=== PATIENT | female | born 1950 | race Caucasian/White ===

== ENCOUNTER → 2016-10-24 | Outpatient (CLI) | payer MEDICARE ==
--- NOTE | 2016-10-24 17:49 | WOMENS IMAGING REPORT ---
EXAM DESCRIPTION: 3D SCREENING MAMMO BILAT COMPLETED DATE/TIME: 10/24/2016 1:46 pm REASON FOR STUDY: Z12.31, ROUTINE SCREENING MAMMO (3D) Z12.31 ENCNTR SCREEN MAMMOGRAM FOR MALIGNANT NEOPLASM OF SOPHIE COMPARISON: December 2011 TECHNIQUE: Standard craniocaudal and mediolateral oblique views of each breast recorded using digita l acquisition and breast tomosynthesis. LIMITATIONS: None. FINDINGS: No masses, calcifications or architectural distortion. No areas of suspicion. Read with the assistance of CAD. .[facility] - R2 Cenova Version 1.3 .[facility] Imaging - R2 Cenova Version 1.3 .[facility] Imaging - R2 Cenova Version 2.4 .[facility] - R2 Cenova Version 2.4 .[facility] - R2 [employer] Version 9.2 IMPRESSION: NORMAL MAMMOGRAM. BIRADS 1. BREAST DENSITY: a. The breasts are almost entirely fatty. BIRAD: 1 NEGATIVE RECOMMENDATION: ROUTINE SCREENING COMMENT: The patient has been notified of the results by letter per SA requirements. Additional no tification policies are in place for contacting patient with suspicious or incomplete findings. Quality ID #[id number]: The [employer] recommends an annual screening mammogram for women aged 40 years or over. This facility utilizes a reminder system to ensure that all patients receive reminder letters, and/or direct phone calls for appointments. This includes reminders for routine scr eening mammograms, diagnostic mammograms, or other Breast Imaging Interventions when appropriate. Th is patient will be placed in the appropriate reminder system. The [employer] (ACR) has developed recommendations for screening MRI of the breast s in certain patient populations, to be used in conjunction with mammography. Breast MRI surveillanc e may be appropriate for women with more than 20% lifetime risk of developing breast cancer as deter mined by genetic testing, significant family history of the disease, or history of mantle radiation f or Hodgkins Disease. ACR Practice Guidelines 2008. DBT Technology DBT is a type of tomographic mammography. With conventional mammography, overlapping breast tissue ma y make lesions difficult to detect, even with good compression. DBT uses an x-ray tube that rotates a round the breast, taking images at different angles. These images are then combined to create thin sl ices of the breast that the radiologist can view as a 3D reconstruction. The [place] unit can perform full-field digital mammograms (2D imaging); or DBT (3D imaging); or both, in a combination mode that quickly performs both the mammogram and the tomosynthesis scan while the breast is still compressed. PQRS 6045F: Fluoroscopic imaging is not utilized for breast tomosynthesis. TECHNICAL DOCUMENTATION: FINDING NUMBER: (1) ASSESSMENT: (1) JOB ID: [id number] [employer]- All Rights Reserved
== END ==
LOC: WI 15:20
PROVIDERS: ATTEND Internal Medicine
DX: Z12.31 Encounter for screening mammogram for malignant neoplasm of breast (principal)
CPT/HCPCS: 77063; G0202; 77067

== ENCOUNTER → 2017-10-21 | Outpatient (CLI) | payer MEDICARE ==
--- NOTE | 2017-10-21 17:17 | WOMENS IMAGING REPORT ---
EXAM DESCRIPTION: 3D SCREENING MAMMO BILAT COMPLETED DATE/TIME: 10/21/2017 1:45 pm REASON FOR STUDY: BIALTERAL SCREENING MAMMO 3D/Z12.31 Z12.31 ENCNTR SCREEN MAMMOGRAM FOR MALIGNANT NEOPLASM OF SOPHIE COMPARISON: 2011, 2016 TECHNIQUE: Standard craniocaudal and mediolateral oblique views of each breast recorded using digita l acquisition and breast tomosynthesis. LIMITATIONS: None. FINDINGS: No masses, calcifications or architectural distortion. No areas of suspicion. Read with the assistance of CAD. .[facility] - R2 Cenova Version 1.3 .[facility] Imaging - R2 Cenova Version 1.3 .[facility] Imaging - R2 Cenova Version 2.4 .[facility] - R2 Cenova Version 2.4 .[facility] - R2 [employer] Version 9.2 IMPRESSION: NORMAL MAMMOGRAM. BIRADS 1. BREAST DENSITY: a. The breasts are almost entirely fatty. BIRAD: 1 NEGATIVE RECOMMENDATION: ROUTINE SCREENING Please continue yearly bilateral screening mammography/tomosynthesis in October 2018 COMMENT: The patient has been notified of the results by letter per SA requirements. Additional no tification policies are in place for contacting patient with suspicious or incomplete findings. Quality ID #[id number]: The [employer] recommends an annual screening mammogram for women aged 40 years or over. This facility utilizes a reminder system to ensure that all patients receive reminder letters, and/or direct phone calls for appointments. This includes reminders for routine scr eening mammograms, diagnostic mammograms, or other Breast Imaging Interventions when appropriate. Th is patient will be placed in the appropriate reminder system. The [employer] (ACR) has developed recommendations for screening MRI of the breast s in certain patient populations, to be used in conjunction with mammography. Breast MRI surveillanc e may be appropriate for women with more than 20% lifetime risk of developing breast cancer as deter mined by genetic testing, significant family history of the disease, or history of mantle radiation f or Hodgkins Disease. ACR Practice Guidelines 2008. DBT Technology DBT is a type of tomographic mammography. With conventional mammography, overlapping breast tissue ma y make lesions difficult to detect, even with good compression. DBT uses an x-ray tube that rotates a round the breast, taking images at different angles. These images are then combined to create thin sl ices of the breast that the radiologist can view as a 3D reconstruction. The [employer] unit can perform full-field digital mammograms (2D imaging); or DBT (3D imaging); or both, in a combination mode that quickly performs both the mammogram and the tomosynthesis scan while the breast is still compressed. PQRS 6045F: Fluoroscopic imaging is not utilized for breast tomosynthesis. TECHNICAL DOCUMENTATION: FINDING NUMBER: (1) ASSESSMENT: (1) JOB ID: [id number] [employer]- All Rights Reserved Reading location - IP/workstation name: [email or web address]
== END ==
LOC: WI 13:03
PROVIDERS: ATTEND Internal Medicine
DX: Z12.31 Encounter for screening mammogram for malignant neoplasm of breast (principal)
CPT/HCPCS: 77063; 77067

== ENCOUNTER → 2018-03-27 | Outpatient (CLI) | payer MEDICARE ==
--- NOTE | 2018-03-27 20:35 | XCELERA REPORT ---
[address] [address] Transthoracic Echocardiogram Report Name: EMY LOVETT Age: 67 yrs Gender: Female : 1950 Patient Status: Outpatient Patient Location: Study Date: 03/27/2018 08:41 AM Height: 64 in Weight: 191 lb BSA: 1.9 m2 Reason For Study: AOv DISORDER Ordering Physician: KILLIAN JOHNSON Performed By: Vilma Otoole Interpretation Summary Calcified aortic annulus with mild calcific with PPG 14mm, and no AR. Mod calcified mitral annulus with no , no MVP, and midl/mod MR with mild/mod LA enlargement. Subaortic hypertrophy of the IVS with mild concentric LVH 11 mm, low normal LVEF and stage I LV diastolic dysfunction, and hypokinesis of the IVS and inferior wall. but no LV enlargement No Pulm HTN, RVSP 30 mm Hg, normal RH. MMode/2D Measurements & Calculations RVDd: 4.1 cm LVIDd: 4.7 cm FS: 27.3 % Ao root diam: 3.0 cm IVSd: 1.0 cm LVIDs: 3.4 cm EDV(Teich): 102.1 ml LVPWd: 1.0 cm ESV(Teich): 47.8 ml Ao root area: 7.3 cm2 LA dimension: 4.5 cm EF(Teich): 53.2 % Doppler Measurements & Calculations MV E max radha: MV P1/2t max radha: Ao V2 max: LV V1 max P.5 cm/sec 79.0 cm/sec 184.2 cm/sec 6.6 mmHg MV A max radha: MV P1/2t: 70.3 msec Ao max PG: LV V1 max: 113.5 cm/sec MVA(P1/2t): 3.1 cm2 13.6 mmHg 128.8 cm/sec MV E/A: 0.68 MV dec slope: 329.2 cm/sec2 MV dec time: 0.24 sec PA V2 max: PI end-d radha: TR max radha: MV P1/2t-pr_phl: 109.6 cm/sec 142.5 cm/sec 256.5 cm/sec 70.3 msec PA max P.8 mmHg TR max P.3 mmHg Left Ventricle The left ventricle is grossly normal size. There is mild concentric left ventricular hypertrophy. Proximal septal thickening is noted. subaortic hypertrophy of IVS 17mm, concentric LVH 11 mm. Left ventricular systolic function is low normal. LV EF is 54%. Doppler measurements suggest impaired left ventricular relaxation, which is associated with grade I/IV or mild diastolic dysfunction. There is inferoseptal wall mild hypokinesis. There is inferior wall mild hypokinesis. There is no thrombus. Right Ventricle The right ventricle is normal in size, thickness and function. Atria The right atrium is normal. The left atrium is moderately dilated. There is no Doppler evidence for an interatrial shunt. Mitral Valve There is moderate mitral annular calcification. There is no evidence of mitral valve prolapse. There is no vegetation seen on the mitral valve. There is no mitral valve stenosis. There is a mild to moderate amount of mitral regurgitation. Aortic Valve The aortic valve is trileaflet. The aortic valve is moderately calcified. The aortic valve opens well. There is no aortic valvular vegetation. There is mild aortic stenosis. There is a peak gradient of 14 mm of Hg. No aortic regurgitation is present. Tricuspid Valve The tricuspid is normal in structure and function. There is no tricuspid valve prolapse. There is no tricuspid stenosis. There is a mild amount of tricuspid regurgitation. Right ventricular systolic pressure is normal. Best estimated RVSP is approximately 30 mm/Hg. Pulmonic Valve The pulmonic valve is not well seen, but is grossly normal. There is a mild amount of pulmonic regurgitation. Great Vessels The aortic root is normal size. There is aortic root sclerosis/calcification. Effusions Minimal pericardial effusion. I WMSI = 1.38 % Normal = 63 Segments Size X - Cannot 2 - 4 - 1-2 small Interpret 1 - Normal Hypokinetic 3 - AkineticDyskinetic 3-5 moderate 5 - 6-14 large Aneurysmal 15-16 diffuse : KILLIAN JOHNSON > Saúl Wells
== END ==
LOC: SP 08:00
PROVIDERS: ATTEND Internal Medicine
DX: I35.9 Nonrheumatic aortic valve disorder, unspecified (principal); I37.1 Nonrheumatic pulmonary valve insufficiency; I36.1 Nonrheumatic tricuspid (valve) insufficiency; I31.3 Pericardial effusion (noninflammatory)
CPT/HCPCS: 93306

== ENCOUNTER → 2018-07-29 | Outpatient (CLI) | payer MEDICARE ==
--- NOTE | 2018-07-29 09:20 | RADIOLOGY REPORT (SQ) ---
EXAM DESCRIPTION: CT CHEST WITH COMPLETED DATE/TIME: 07/29/2018 8:31 am REASON FOR STUDY: LEUKEMIA (C91.10) C91.10 CHRONIC LYMPHOCYTIC LEUK OF B-CELL TYPE NOT ACHIEVE R COMPARISON: None. TECHNIQUE: CT scan of the chest performed using helical scanning technique with dynamic intravenous contrast injection. Images reviewed with lung, soft tissue and bone windows. Reconstructed coronal and sagittal MPR and MIP images reviewed. All images stored on PACS. All CT scanners at this facility use dose modulation, iterative reconstruction, and/or weight based d osing when appropriate to reduce radiation dose to as low as reasonably achievable (ALARA). [facility]: Dose Right [facility]: CareDose [facility]: Dose Right [facility]: Teradose 4D [facility]: OpenLabel CONTRAST TYPE AND DOSE: 95.2 ml Omnipaque 350 RENAL FUNCTION: Creatinine- 0.87 GFR=67 RADIATION DOSE: Total exam DLP: 1626.87 mGy-cm LIMITATIONS: None. FINDINGS: LUNGS AND PLEURA: Mild reticular opacities in the periphery of the lungs, more so in the lower lobes. No evidence for significant honeycombing or traction bronchiectasis. Considerations fo r these findings include mild interstitial lung disease. No acute pulmonary consolidation. No pneumothorax or pleural effusion. The central airways are nate r. HILAR AND MEDIASTINAL STRUCTURES: Borderline to mildly prominent mediastinal lymph nodes. Some of t he largest measure 1.5 cm in short axis diameter. HEART AND VASCULAR STRUCTURES: The ascending aorta at the level of the main pulmonary artery measure s 4.1-4.2 cm in diameter, mildly dilated. Mitral annular calcifications. Aortic valve calcification s. No dissection. No central pulmonary emboli. No pericardial effusion. HARDWARE: None in the chest. UPPER ABDOMEN: Please CT abdomen report. THYROID AND OTHER SOFT TISSUES: The visualized thyroid gland is heterogenous in appearance. Bilater al supraclavicular lymph nodes, larger on the left. Some of the largest measure 1.5 cm in short axis diameter. Bilateral axillary and subpectoral lymph nodes with some of the largest measuring 2.5 cm in diameter. BONES: Levoconvex scoliosis of the thoracic spine. OTHER: Borderline cardiophrenic lymph nodes midline to the right, some of the largest measure 1.0 cm in diameter. IMPRESSION: 1. Extensive bilateral supraclavicular, axillary and subpectoral lymphadenopathy. Bord leslie to mildly prominent mediastinal lymph nodes. Cardiophrenic lymph nodes midline to the right, upper limits of normal in size. 2. Mild reticular opacities in the periphery of the lungs, more so in the lower lobes. Consideratio ns for these findings include interstitial lung disease. 3. The ascending aorta is mildly dilated measuring 4.1-4.2 cm in diameter. No evidence of dissectio n. 4. Additional findings as above. TECHNICAL DOCUMENTATION: JOB ID: [id number] Quality ID # [id number]: Final reports with documentation of one or more dose reduction techniques (e.g., Au tomated exposure control, adjustment of the mA and/or kV according to patient size, use of iterative reconstruction technique) 2010 [employer]- All Rights Reserved Reading location - IP/workstation name: [email or web address]
--- NOTE | 2018-07-29 09:56 | RADIOLOGY REPORT (SQ) ---
EXAM DESCRIPTION: CT ABD/PELVIS WITH IV ONLY COMPLETED DATE/TIME: 07/29/2018 8:31 am REASON FOR STUDY: LEUKEMIA (C91.10) C91.10 CHRONIC LYMPHOCYTIC LEUK OF B-CELL TYPE NOT ACHIEVE R COMPARISON: None. TECHNIQUE: CT scan of the abdomen and pelvis performed using helical scanning technique with dynamic intravenous contrast injection. No oral contrast. Images reviewed with lung, soft tissue, and bone windows. Reconstructed coronal and sagittal MPR images reviewed. Delayed images for evaluation of the urinary system also acquired. All images stored on PACS. All CT scanners at this facility use dose modulation, iterative reconstruction, and/or weight based d osing when appropriate to reduce radiation dose to as low as reasonably achievable (ALARA). [facility]: Dose Right [facility]: CareDose [facility]: Dose Right [facility]: Teradose 4D [facility]: [employer] CONTRAST TYPE AND DOSE: contrast/concentration: Isovue 350.00 mg/ml; Total Contrast Delivered: 95.0 ml; Total Saline Delivered: 71.0 ml RENAL FUNCTION: Creatinine -0.87 GFR=67 RADIATION DOSE: CT Rad equipment meets quality standard of care and radiation dose reduction techniq ues were employed. CTDIvol: 7.8 - 12.2 mGy. DLP: 1627 mGy-cm.. LIMITATIONS: None. FINDINGS: LOWER CHEST: Please see CT chest report. LIVER: Small 7 mm cyst in the dome of the liver, axial image 12, series 3. Hepatomegaly. No dilate d ducts. The hepatic and portal veins are patent. SPLEEN: The spleen is prominent in appearance measures 15-16.0 cm in length. A 2.0 cm x 2.1 cm slig htly enhancing lesion in the proximal- mid spleen. A few other too small to characterize hypoattenua katya lesions are also identified. In view of the given history, the possibility of splenic leukemic l esions are not entirely excluded. PANCREAS: No masses. No significant calcifications. No adjacent inflammation or peripancreatic fluid collections. The pancreatic duct is dilated and measures 4-5 mm in maximum AP diameter. GALLBLADDER: No identified stones by CT criteria. No inflammatory changes to suggest cholecystitis. ADRENAL GLANDS: No significant masses or asymmetry. RIGHT KIDNEY AND URETER: No solid masses. No significant calcifications. No hydronephrosis or hyd roureter. LEFT KIDNEY AND URETER: No solid masses. No significant calcifications. No hydronephrosis or hydr oureter. AORTA AND VESSELS: Mild atherosclerotic changes involving the abdominal aorta and branch vessels. N o aneurysm. No dissection. Left retro-aortic renal vein, normal anatomic variant. Renal arteries, S MA, celiac without stenosis. RETROPERITONEUM: Gastrohepatic ligament lymph nodes with some of the largest measuring 1.1-1.2 cm. Mildly prominent lymph nodes surround the celiac axis, located in the roldan hepatis, peripancreatic, and portacaval regions with some of the largest measuring 3.0 cm in diameter. Mildly prominent aorta caval and left para-aortic lymph nodes with some of the largest measuring 2.2 cm in diameter. Bilateral prominent common iliac lymph nodes with some of the largest measuring 1.9 cm in diameter. Prominent bilateral internal and external iliac and obturator lymph nodes. Some of the largest on th e left measure approximately 4.1 cm in diameter. Some of the largest on the right measure approximat saige 4.4 cm in diameter. Prominent bulky common femoral lymph nodes with some of the largest on the left measuring approximate ly 3.6 cm in diameter and some of the largest on the right measuring approximately 2.9 cm in diameter . Mildly prominent visualized bilateral superficial triangle lymph nodes with some of the largest me asuring 1.8 cm in diameter. BOWEL AND PERITONEAL CAVITY: Constipation. Colonic diverticulae without evidence of diverticulitis. No free fluid. APPENDIX: Prior appendectomy. PELVIS: No mass. No free fluid. Normal bladder. ABDOMINAL WALL: Small fat containing periumbilical hernia. BONES: Moderate severe to marked osteoarthrosis with subchondral cystic changes, osteophytes and jocelin nt space narrowing. Bilateral mild hip joint effusions, more so on the left. Levoconvex scoliosis o f the lumbar spine with degenerative changes. OTHER: Borderline retrocrural lymph nodes. There are a few soft tissue nodules in the lower quadrants of the breasts. IMPRESSION: 1. Extensive abdominal, pelvic, bilateral inguinal and superficial femoral triangle lym phadenopathy. 2. Splenomegaly. A few too small to characterize splenic lesions as well as a larger lesion in the proximal-mid spleen. In view view of the given history, splenic leukemic lesions are not entirely ex cluded. 3. Hepatomegaly. A small hypoattenuated lesion in the dome of the liver may represent a cyst. 4. The pancreatic duct is mildly dilated measuring 4-5 mm in AP diameter. 5. 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 Bilateral hip joint effusions, larger on t he left. 6. Levoconvex scoliosis and degenerative changes involving the lumbar spine. 7. A few small soft tissue nodules in the lower quadrants of the breast. Correlation with physical examination and mammography. 8. Additional findings as above. TECHNICAL DOCUMENTATION: JOB ID: [id number] Quality ID # [id number]: Final reports with documentation of one or more dose reduction techniques (e.g., Au tomated exposure control, adjustment of the mA and/or kV according to patient size, use of iterative reconstruction technique) 2010 [employer]- All Rights Reserved Reading location - IP/workstation name: [email or web address]
== END ==
LOC: RAD 08:00
PROVIDERS: ATTEND Internal Medicine
DX: C91.10 Chronic lymphocytic leukemia of B-cell type not having achieved remission (principal); K59.00 Constipation, unspecified; K57.30 Diverticulosis of large intestine without perforation or abscess without bleeding; N63.20 Unspecified lump in the left breast, unspecified quadrant; N63.10 Unspecified lump in the right breast, unspecified quadrant; R16.2 Hepatomegaly with splenomegaly, not elsewhere classified; M16.0 Bilateral primary osteoarthritis of hip
CPT/HCPCS: 71260; 74177

== ENCOUNTER → 2018-08-28 | Outpatient (CLI) | payer MEDICARE ==
--- NOTE | 2018-08-28 13:34 | RADIOLOGY REPORT (SQ) ---
EXAM DESCRIPTION: CT SOFT TISSUE NECK WITH COMPLETED DATE/TIME: 08/28/2018 11:38 am REASON FOR STUDY: CLL (C91.10) C91.10 CHRONIC LYMPHOCYTIC LEUK OF B-CELL TYPE NOT ACHIEVE R COMPARISON: None. TECHNIQUE: Post IV contrasted scanning from skull base through lung apices with review of bone, soft tissue and lung windows. Reconstructed coronal and sagittal MPR images reviewed. All images stored on PACS. All CT scanners at this facility use dose modulation, iterative reconstruction, and/or weight based d osing when appropriate to reduce radiation dose to as low as reasonably achievable (ALARA). [facility]: Dose Right [facility]: CareDose [facility]: Dose Right [facility]: Teradose 4D [facility]: [employer] CONTRAST TYPE AND DOSE: contrast/concentration: Isovue 350.00 mg/ml; Total Contrast Delivered: 96.0 ml; Total Saline Delivered: 71.0 ml RENAL FUNCTION: GFR > 60. RADIATION DOSE: CT Rad equipment meets quality standard of care and radiation dose reduction techniq ues were employed. CTDIvol: 16.3 - 28.2 mGy. DLP: 4312 mGy-cm. . LIMITATIONS: None. FINDINGS: SKULL BASE: Intact. MAJOR SALIVARY GLANDS: No solid or cystic masses. No inflammatory changes. LYMPHADENOPATHY: Abnormal increased number of lymph nodes above and below the hyoid. None especially large, 1 of the larger nodes left supraclavicular 1.9 x 1.3 cm image 60. MUCOSAL MASSES OR ASYMMETRY: No mucosal masses or asymmetry. LARYNX/CORDS: No abnormal findings. VASCULAR STRUCTURES: The major vessels are patent. LUNG APICES: See separate report of the same date. BONES: Intact. THYROID: Normal size. No masses. PARANASAL SINUSES: Clear. OTHER: No other significant finding. IMPRESSION: Adenopathy consistent with clinical history of lymphoma. TECHNICAL DOCUMENTATION: JOB ID: [id number] Quality ID # [id number]: Final reports with documentation of one or more dose reduction techniques (e.g., Au tomated exposure control, adjustment of the mA and/or kV according to patient size, use of iterative reconstruction technique) 2010 [employer]- All Rights Reserved Reading location - IP/workstation name: [email or web address]
--- NOTE | 2018-08-28 13:51 | RADIOLOGY REPORT (SQ) ---
EXAM DESCRIPTION: CT CHEST WITH COMPLETED DATE/TIME: 08/28/2018 11:38 am REASON FOR STUDY: CLL (C91.10) C91.10 CHRONIC LYMPHOCYTIC LEUK OF B-CELL TYPE NOT ACHIEVE R COMPARISON: 07/29/2018 TECHNIQUE: CT scan of the chest performed using helical scanning technique with dynamic intravenous contrast injection. Images reviewed with lung, soft tissue and bone windows. Reconstructed coronal and sagittal MPR and MIP images reviewed. All images stored on PACS. All CT scanners at this facility use dose modulation, iterative reconstruction, and/or weight based d osing when appropriate to reduce radiation dose to as low as reasonably achievable (ALARA). [facility]: Dose Right [facility]: CareDose [facility]: Dose Right [facility]: Teradose 4D [facility]: [employer] CONTRAST TYPE AND DOSE: See separate report of the same date. RENAL FUNCTION: See separate report of the same date. RADIATION DOSE: . LIMITATIONS: None. FINDINGS: LUNGS AND PLEURA: No opacities, nodules, masses. No pneumothorax. No effusions. HILAR AND MEDIASTINAL STRUCTURES: Abnormal increased number of lymph nodes all measuring up to about 5 mm in short axis. No bulky adenopathy. No significant change. HEART AND VASCULAR STRUCTURES: No aneurysm or dissection. No central pulmonary emboli. No pericardi al effusion. HARDWARE: None in the chest. UPPER ABDOMEN: See separate report of the CT of the abdomen. THYROID AND OTHER SOFT TISSUES: Bilateral axillary adenopathy not significantly changed. Index lesio n series 4, image 414,1.9 x 2.3 cm, previously 2.5 x 1.3 cm. BONES: No significant finding. OTHER: No other significant finding. IMPRESSION: Stable lymphadenopathy. TECHNICAL DOCUMENTATION: JOB ID: [id number] Quality ID # [id number]: Final reports with documentation of one or more dose reduction techniques (e.g., Au tomated exposure control, adjustment of the mA and/or kV according to patient size, use of iterative reconstruction technique) 2010 [employer]- All Rights Reserved Reading location - IP/workstation name: [email or web address]
--- NOTE | 2018-08-28 15:13 | RADIOLOGY REPORT (SQ) ---
EXAM DESCRIPTION: CT ABD/PELVIS WITH IV ONLY COMPLETED DATE/TIME: 08/28/2018 11:38 am REASON FOR STUDY: CLL (C91.10) C91.10 CHRONIC LYMPHOCYTIC LEUK OF B-CELL TYPE NOT ACHIEVE R COMPARISON: None. TECHNIQUE: CT scan of the abdomen and pelvis performed using helical scanning technique with dynamic intravenous contrast injection. No oral contrast. Images reviewed with lung, soft tissue, and bone windows. Reconstructed coronal and sagittal MPR images reviewed. Delayed images for evaluation of the urinary system also acquired. All images stored on PACS. All CT scanners at this facility use dose modulation, iterative reconstruction, and/or weight based d osing when appropriate to reduce radiation dose to as low as reasonably achievable (ALARA). [facility]: Dose Right [facility]: CareDose [facility]: Dose Right [facility]: Teradose 4D [facility]: Smart [employer] CONTRAST TYPE AND DOSE: See separate report of the same date. RENAL FUNCTION: See separate report. RADIATION DOSE: . LIMITATIONS: None. FINDINGS: LOWER CHEST: See separate report of the CT of the chest. LIVER: Subcentimeter low-density lesion too small to characterize. SPLEEN: Enlarged. No focal lesions. PANCREAS: No masses. No significant calcifications. No adjacent inflammation or peripancreatic fluid collections. Pancreatic duct not dilated. GALLBLADDER: No identified stones by CT criteria. No inflammatory changes to suggest cholecystitis. ADRENAL GLANDS: No significant masses or asymmetry. RIGHT KIDNEY AND URETER: No solid masses. No significant calcifications. No hydronephrosis or hyd roureter. LEFT KIDNEY AND URETER: No solid masses. No significant calcifications. No hydronephrosis or hydr oureter. AORTA AND VESSELS: No aneurysm. No dissection. Renal arteries, SMA, celiac without stenosis. RETROPERITONEUM: Retroperitoneal adenopathy is not significantly changed. BOWEL AND PERITONEAL CAVITY: Celiac and SMA adenopathy is not significantly changed. APPENDIX: Not visualized. PELVIS: Pelvic adenopathy not significantly changed. 1 of the larger nodes along the left pelvic gerri e wall 5.7 x 2.1 cm. Shotty inguinal nodes none changed. ABDOMINAL WALL: Small fat containing umbilical hernia. BONES: Nothing acute. OTHER: No other significant finding. IMPRESSION: Stable splenomegaly, abdominal and pelvic adenopathy. TECHNICAL DOCUMENTATION: JOB ID: [id number] Quality ID # [id number]: Final reports with documentation of one or more dose reduction techniques (e.g., Au tomated exposure control, adjustment of the mA and/or kV according to patient size, use of iterative reconstruction technique) 2010 [employer]- All Rights Reserved Reading location - IP/workstation name: [email or web address]
== END ==
LOC: RAD 10:28
PROVIDERS: ATTEND Internal Medicine
DX: C91.10 Chronic lymphocytic leukemia of B-cell type not having achieved remission (principal); R16.1 Splenomegaly, not elsewhere classified; R59.0 Localized enlarged lymph nodes
CPT/HCPCS: 70491; 71260; 74177

== ENCOUNTER 2018-09-04 08:53 | Day surgery (SDC) | payer MEDICARE ==
[2018-09-04 09:58] LABS: INTERNATIONAL RATION (INR) 0.95; PROTHROMBIN TIME 13.2 SEC (11.4-15.4)
[2018-09-04 09:59] LABS: PARTIAL THROMBOPLASTIN TIME 26.8 SEC (23.5-35.8)
[2018-09-04 10:03] LABS: HEMATOCRIT 34.6 % (36.0-47.0); HEMOGLOBIN 10.7 g/dL (12.0-15.5); MEAN CORPUSCULAR HEMOGLOBIN 26.2 pg (27.0-33.4); MEAN CORPUSCULAR VOLUME 85 fl (80-97); PLATELET COUNT 126 10^3/uL (150-450); RED BLOOD COUNT 4.08 10^6/uL (3.72-5.28); RED CELL DISTRIBUTION WIDTH 16.1 % (11.5-14.0)
[2018-09-04 10:19] LABS: BLOOD UREA NITROGEN 34 mg/dL (7-20)
[2018-09-04 10:40] LABS: WHITE BLOOD COUNT 58.6 10^3/uL (4.0-10.5)
[2018-09-04] MEDS ORDERED: FENTANYL CITRATE INJ/PF 100 MCG/2 ML AMPUL ONE (11:15)
[2018-09-04] MEDS ORDERED: MIDAZOLAM 2 MG/2 ML INJ ONE (11:15)
--- NOTE | 2018-09-04 14:10 | RADIOLOGY REPORT (SQ) ---
EXAM DESCRIPTION: CT BIOPSY BONE MARROW, NEEDLE; CT NEEDLE PLACEMENT COMPLETED DATE/TIME: 09/04/2018 12:09 pm REASON FOR STUDY: CHRONIC LYMPHOCYTIC LEUKEMIA OF B-CELL TYPE; CHRONIC LYMPHOCYTIC LEUKEMIA OF B-LADI L TYPE, BONE MARROW BIOPSY C91.10 CHRONIC LYMPHOCYTIC LEUK OF B-CELL TYPE NOT ACHIEVE R Z79.01 DETENTION (CURRENT) USE OF ANTICOAGULANTS COMPARISON: CT chest abdomen pelvis 08/28/2018 TECHNIQUE: CT guided biopsy of the right posterior iliac crest performed with conscious sedation. CT Fluoroscopy Time: 5.[address] scanners at this facility use dose modulation, iterative reconstruction, and/or weight based d osing when appropriate to reduce radiation dose to as low as reasonably achievable (ALARA). [facility]: Dose Right [facility]: CareDose [facility]: Dose Right [facility]: Teradose 4D [facility]: [employer] RADIATION DOSE: mGy. FINDINGS: After obtaining informed consent and explaining the risks and benefits of conscious sedati on,the patient agreed to the procedure. Prior to the procedure, a time out was performed to verify th e patient's identity and planned procedure. IV conscious sedation was administered and physician direction by the registered nurse using 1 millig gregory of Versed and 125 micrograms of fentanyl. Physiologic monitoring was provided before, during, and after sedation. The total sedation time was 40 minutes. Documentation face to face time, the performing proceduralist, spent monitoring the patient: [address] scanning was performed to localize the percutaneous site for the biopsy approach. After sterile skin prep and local lidocaine for skin and deep tissue anesthesia, a coaxial biopsy nee dle was used to obtain a bone marrow aspirate, and a bone marrow core of tissue. The biopsy tissue wa s received by Dr. Dempsey's nurse to be sent out for evaluation. There were no immediate complication s. Pathology is pending at the time of dictation. IMPRESSION: CT GUIDED ASPIRATE AND CORE BIOPSY OF THE RIGHT POSTERIOR ILIAC CREST BONE MARROW PERFOR MED WITHOUT IMMEDIATE COMPLICATION. PATHOLOGY PENDING. IV CONSCIOUS SEDATION WITHOUT COMPLICATION. COMMENT: Quality ID 145: Final reports for procedures using fluoroscopy that document radiation exp osure indices, or exposure time and number of fluorographic images (if radiation exposure indices are not available) Patient medication list reviewed: Yes- Quality ID# [id number]:Eligible professional attests to documenting i n the medical record they obtained, updated, or reviewed the patient's current medications.. TECHNICAL DOCUMENTATION: JOB ID: [id number] Quality ID# [id number]: Final reports with documentation of one or more dose reduction techniques (e.g., Aut omated exposure control, adjustment of the mA and/or kV according to patient size, use of iterative r econstruction technique) 2010 [employer]- All Rights Reserved Reading location - IP/workstation name: [email or web address]
[2018-09-04 14:53] VITALS: BP 139/78
== END 2018-09-04 14:30 | disposition home or self-care (01) ==
LOC: RAD 08:53
PROVIDERS: ATTEND Internal Medicine
DX: C91.10 Chronic lymphocytic leukemia of B-cell type not having achieved remission (principal); Z79.01 Long term (current) use of anticoagulants
CPT/HCPCS: 36415; 84520; 82565; 85027; 85610; 85730; 38221; 77012; J2250; J3010

== ENCOUNTER 2018-11-01 22:54 | Observation (INO) | payer MEDICARE ==
[2018-11-02] MEDS ORDERED: DIPHENHYDRAMINE HCL 50 MG/ML VIAL IV ONE (00:18)
[2018-11-02] MEDS ORDERED: NORMAL SALINE 1000 ML 1,000 ML IV ONE (00:18)
[2018-11-02] MEDS ORDERED: FENTANYL CITRATE INJ/PF 100 MCG/2 ML AMPUL IV ONE (00:18)
[2018-11-02] MEDS ORDERED: METOCLOPRAMIDE HCL INJ/PF 10 MG/2 ML SDV IV ONE (00:18)
--- NOTE | 2018-11-02 00:20 | ER Document Report ---
ED General - General Chief Complaint: Pain All Over Stated Complaint: UPPER BODY PAIN Time Seen by Provider: 11/02/18 00:07 Mode of Arrival: Wheelchair Information source: Patient, Relative, Dr. Davila, [facility] Records Notes: 68-year-old female with CLL, COPD, hypothyroidism presents with complaint of chest pain, back pain and headache that started yesterday. Patient states that her pain wraps around her upper torso and radiates to her head. She describes it as a constant throbbing pain. Patient is currently undergoing chemotherapy and is on a clinical trial. She reports that her last chemo treatment was October 23, 2018. She denies prior similar symptoms. Patient does have a history of chronic pain and takes morphine and Percocet daily. Patient also reports that Motrin has helped her the most today. She does report a history of pleurisy. Patient denies fever, chills, nausea, vomiting, abdominal pain, dysuria, hematuria. TRAVEL OUTSIDE OF THE [place] IN LAST 30 DAYS: No - HPI Onset: Yesterday Onset/Duration: Gradual, Persistent Quality of pain: Throbbing Severity: Severe Pain Level: 4 Associated symptoms: Body/muscle aches, Chest pain, Headache, Hurts to breath, Shortness of breath. denies: Diarrhea, Fever, Leg swelling, Nausea, Vomiting, Sinus pain/drainage, Weakness Exacerbated by: Denies Relieved by: Denies Similar symptoms previously: Yes Recently seen / treated by doctor: Yes - Related Data Allergies/Adverse Reactions: codeine [Codeine] Adverse Reaction (Mild, Verified 11/02/18 00:32) lisinopril [Lisinopril] Adverse Reaction (Verified 11/02/18 00:32) Past Medical History - General Information source: Patient, Relative, [facility] Records - Social History Smoking Status: Never Smoker Frequency of alcohol use: None Drug Abuse: None Lives with: Family Family History: Reviewed & Not Pertinent - Past Medical History Cardiac Medical History: Reports: Hx Heart Attack Denies: Hx Coronary Artery Disease, Hx Hypertension - Past history Pulmonary Medical History: Reports: Hx Bronchitis, Hx COPD, Hx Pneumonia - Last time in April Denies: Hx Asthma Neurological Medical History: Denies: Hx Cerebrovascular Accident, Hx Seizures Endocrine Medical History: Reports: Hx Hyperthyroidism, Hx Hypothyroidism Renal/ Medical History: Reports: Hx Kidney Stones Malignancy Medical History: Reports: Hx Leukemia Musculoskeletal Medical History: Reports Hx Arthritis - all over, Reports Hx Musculoskeletal Deformity, Reports Hx Musculoskeletal Trauma Psychiatric Medical History: Reports: Hx Anxiety Traumatic Medical History: Reports: Hx Fractures Past Surgical History: Reports: Hx Appendectomy, Hx Breast Surgery - reduction, Hx Orthopedic Surgery - 13 foot surgeries neuromas rib removed , chest tube - Immunizations Immunizations up to date: Yes Hx Diphtheria, Pertussis, Tetanus Vaccination: Yes Hx Pneumococcal Vaccination: 01/06/15 Review of Systems - Review of Systems Notes: REVIEW OF SYSTEMS: CONSTITUTIONAL : Denies fever, chills, or sweats. Denies recent illness. Denies weight loss, recent hospitalizations. EENT: Denies visual changes, eye pain. Denies sore throat, oral lesions, difficulty swallowing. CARDIOVASCULAR: + chest pain. Denies palpitations. Denies lower extremity edema. RESPIRATORY: Denies cough. + shortness of breath, denies wheezing. GASTROINTESTINAL: Denies abdominal pain or distention. Denies nausea, vomiting, or diarrhea. Denies blood in vomitus, stools, or per rectum. Denies black, tarry stools. Denies constipation. GENITOURINARY: Denies difficulty urinating, painful urination, frequency, blood in urine, or vaginal discharge. MUSCULOSKELETAL: Denies back or neck pain or stiffness. Denies joint pain or swelling. SKIN: Denies rash, lesions or sores. HEMATOLOGIC : Denies easy bruising or bleeding. LYMPHATIC: Denies swollen glands. NEUROLOGICAL: Denies confusion or altered mental status. Denies loss of consciousness. Denies dizziness or lightheadedness. + headache. Denies weakness or paralysis. Denies problems difficulty with ambulation, slurred speech. Denies sensory loss, numbness, or tingling. Denies seizures. PSYCHIATRIC: Denies anxiety or stress. Denies depression, suicidal ideation, or homicidal ideation. Denies visual or auditory hallucinations. Physical Exam - Vital signs Vitals: Temp Pulse Resp BP Pulse Ox 98.6 F 86 20 106/55 L 94 11/01/18 23:16 11/01/18 23:16 11/01/18 23:16 11/01/18 23:16 11/01/18 23:16 - Notes Notes: PHYSICAL EXAMINATION: GENERAL: Well-appearing, well-nourished and in no acute distress. HEAD: Atraumatic, normocephalic. EYES: Pupils equal round and reactive to light, extraocular movements intact, conjunctiva are normal. ENT: Nares patent, oropharynx clear without exudates. Moist mucous membranes. NECK: Normal range of motion, supple without lymphadenopathy LUNGS: Breath sounds clear to auscultation bilaterally and equal. No wheezes rales or rhonchi. HEART: Regular rate and rhythm 3/6 systolic murmur ABDOMEN: Soft, nontender, nondistended abdomen. No guarding, no rebound. No masses appreciated. Female : deferred Musculoskeletal: Normal range of motion, no pitting or edema. No cyanosis. NEUROLOGICAL: Cranial nerves grossly intact. Normal speech, normal gait. Normal sensory, motor exams PSYCH: Normal mood, normal affect. SKIN: Warm, Dry, normal turgor, no rashes or lesions noted. Course - Re-evaluation Re-evalutation: 11/02/18 03:28 Laboratory 11/02/18 11/02/18 11/02/18 00:34 00:44 00:44 WBC 29.5 H RBC 4.00 Hgb 10.3 L Hct 32.8 L MCV 82 MCH 25.6 L MCHC 31.2 L RDW 16.8 H Plt Count 117 L Total Counted 100 Seg Neutrophils % Not Reportable Seg Neuts % (Manual) 19 L Lymphocytes % Not Reportable Lymphocytes % (Manual) 79 H Monocytes % Not Reportable Monocytes % (Manual) 1 L Eosinophils % Not Reportable Eosinophils % (Manual) 0 Basophils % Not Reportable Basophils % (Manual) 1 Absolute Neutrophils Not Reportable Abs Neuts (Manual) 5.6 Absolute Lymphocytes Not Reportable Abs Lymphs (Manual) 23.3 H Absolute Monocytes Not Reportable Abs Monocytes (Manual) 0.3 Absolute Eosinophils Not Reportable Absolute Eos (Manual) 0.0 Absolute Basophils Not Reportable Abs Basophils (Manual) 0.3 H Platelet Comment DECREASED Hypochromasia 1+ Anisocytosis SLIGHT Tear Drop Cells SLIGHT Ovalocytes 1+ ESR PT 14.9 INR 1.17 VBG pH VBG pCO2 VBG HCO3 VBG Base Excess Sodium Potassium Chloride Carbon Dioxide Anion Gap BUN Creatinine Est GFR ( Amer) Est GFR (Non-Af Amer) Glucose Lactic Acid Calcium Total Bilirubin Direct Bilirubin Neonat Total Bilirubin Neonat Direct Bilirubin Neonat Indirect Bili AST ALT Alkaline Phosphatase Troponin I C-Reactive Protein Total Protein Albumin Urine Color YELLOW Urine Appearance CLEAR Urine pH 6.0 Ur Specific [place] 1.012 Urine Protein NEGATIVE Urine Glucose (UA) NEGATIVE Urine Ketones NEGATIVE Urine Blood MODERATE H Urine Nitrite NEGATIVE Urine Bilirubin NEGATIVE Urine Urobilinogen NEGATIVE Ur Leukocyte Esterase NEGATIVE Urine WBC (Auto) 3 Urine RBC (Auto) 1 Squamous Epi Cells Auto 1 Urine Mucus (Auto) RARE Urine Ascorbic Acid NEGATIVE 11/02/18 11/02/18 11/02/18 00:44 00:44 00:44 WBC RBC Hgb Hct MCV MCH MCHC RDW Plt Count Total Counted Seg Neutrophils % Seg Neuts % (Manual) Lymphocytes % Lymphocytes % (Manual) Monocytes % Monocytes % (Manual) Eosinophils % Eosinophils % (Manual) Basophils % Basophils % (Manual) Absolute Neutrophils Abs Neuts (Manual) Absolute Lymphocytes Abs Lymphs (Manual) Absolute Monocytes Abs Monocytes (Manual) Absolute Eosinophils Absolute Eos (Manual) Absolute Basophils Abs Basophils (Manual) Platelet Comment Hypochromasia Anisocytosis Tear Drop Cells Ovalocytes ESR PT INR VBG pH 7.35 VBG pCO2 48.8 VBG HCO3 26.3 VBG Base Excess 0.2 Sodium 135.9 L Potassium 3.7 Chloride 101 Carbon Dioxide 25 Anion Gap 10 BUN 20 Creatinine 0.53 Est GFR ( Amer) > 60 Est GFR (Non-Af Amer) > 60 Glucose 213 H Lactic Acid 1.5 Calcium 8.8 Total Bilirubin 0.9 Direct Bilirubin 0.5 H Neonat Total Bilirubin Not Reportable Neonat Direct Bilirubin Not Reportable Neonat Indirect Bili Not Reportable AST 16 ALT 15 Alkaline Phosphatase 52 Troponin I C-Reactive Protein Total Protein 5.9 L Albumin 3.9 Urine Color Urine Appearance Urine pH Ur Specific [place] Urine Protein Urine Glucose (UA) Urine Ketones Urine Blood Urine Nitrite Urine Bilirubin Urine Urobilinogen Ur Leukocyte Esterase Urine WBC (Auto) Urine RBC (Auto) Squamous Epi Cells Auto Urine Mucus (Auto) Urine Ascorbic Acid 11/02/18 11/02/18 11/02/18 00:44 00:44 00:44 WBC RBC Hgb Hct MCV MCH MCHC RDW Plt Count Total Counted Seg Neutrophils % Seg Neuts % (Manual) Lymphocytes % Lymphocytes % (Manual) Monocytes % Monocytes % (Manual) Eosinophils % Eosinophils % (Manual) Basophils % Basophils % (Manual) Absolute Neutrophils Abs Neuts (Manual) Absolute Lymphocytes Abs Lymphs (Manual) Absolute Monocytes Abs Monocytes (Manual) Absolute Eosinophils Absolute Eos (Manual) Absolute Basophils Abs Basophils (Manual) Platelet Comment Hypochromasia Anisocytosis Tear Drop Cells Ovalocytes ESR 20 PT INR VBG pH VBG pCO2 VBG HCO3 VBG Base Excess Sodium Potassium Chloride Carbon Dioxide Anion Gap BUN Creatinine Est GFR ( Amer) Est GFR (Non-Af Amer) Glucose Lactic Acid Calcium Total Bilirubin Direct Bilirubin Neonat Total Bilirubin Neonat Direct Bilirubin Neonat Indirect Bili AST ALT Alkaline Phosphatase Troponin I 0.016 C-Reactive Protein 127.3 H Total Protein Albumin Urine Color Urine Appearance Urine pH Ur Specific [place] Urine Protein Urine Glucose (UA) Urine Ketones Urine Blood Urine Nitrite Urine Bilirubin Urine Urobilinogen Ur Leukocyte Esterase Urine WBC (Auto) Urine RBC (Auto) Squamous Epi Cells Auto Urine Mucus (Auto) Urine Ascorbic Acid Chest/Abdomen CTA 11/02/18 00:15 IMPRESSION: No aortic dissection or aneurysm. No pulmonary embolus. Dilated main pulmonary artery which can be seen in the setting of pulmonary arterial hypertension. No pneumonia. Head CT 11/02/18 00:15 IMPRESSION: 1. There is no evidence of acute intracranial pathology. Temp Pulse Resp BP Pulse Ox 98.6 F 86 16 102/56 L 93 11/01/18 23:16 11/01/18 23:16 11/02/18 01:31 11/02/18 01:31 11/02/18 01:31 11/02/18 03:59 68-year-old female with CLL presents with complaint of chest pain, back pain that started yesterday. Vital signs reviewed upon arrival and patient is mildly hypotensive which appears to be her baseline when trended. EKG was obtained and showed diffuse ST elevation. There is no reciprocal change on EKG. CTA of the chest was obtained due to the patient's complaint of pain with deep inspiration and this was negative for dissection, pulmonary embolism but did show a small pericardial effusion and a dilated pulmonary artery. CT of the head was obtained due to the patient's complaint of headache and this was negative for any acute intracranial pathology. Patient did receive morphine, Reglan, Benadryl and Toradol during her ED course. I did speak to Dr. Vance who has agreed to admit the patient to the IMCU. I did speak to Dr. Vasquez patient's oncologist who is aware that the patient will be admitted and a consult was placed for him. CBC does show a leukocytosis of 29 which is greatly improved from previous white counts which were in the 50s. CMP does show hyperglycemia without evidence of DKA. CRP is elevated at 127. Troponin is within normal limits. Patient and daughter are agreeable with admission. - Vital Signs Vital signs: Temp Pulse Resp BP Pulse Ox 98.6 F 86 16 102/56 L 93 11/01/18 23:16 11/01/18 23:16 11/02/18 01:31 11/02/18 01:31 11/02/18 01:31 - Laboratory Result Diagrams: 11/02/18 00:44 11/02/18 00:44 Laboratory results interpreted by me: 11/02/18 11/02/18 11/02/18 00:34 00:44 00:44 WBC 29.5 H Hgb 10.3 L Hct 32.8 L MCH 25.6 L MCHC 31.2 L RDW 16.8 H Plt Count 117 L Seg Neuts % (Manual) 19 L Lymphocytes % (Manual) 79 H Monocytes % (Manual) 1 L Abs Lymphs (Manual) 23.3 H Abs Basophils (Manual) 0.3 H Sodium 135.9 L Glucose 213 H Direct Bilirubin 0.5 H C-Reactive Protein Total Protein 5.9 L Urine Blood MODERATE H 11/02/18 00:44 WBC Hgb Hct MCH MCHC RDW Plt Count Seg Neuts % (Manual) Lymphocytes % (Manual) Monocytes % (Manual) Abs Lymphs (Manual) Abs Basophils (Manual) Sodium Glucose Direct Bilirubin C-Reactive Protein 127.3 H Total Protein Urine Blood - Diagnostic Test Radiology reviewed: Image reviewed, Reports reviewed - EKG Interpretation by Me EKG shows normal: Sinus rhythm Rate: Normal - Diffuse ST elevation When compared to previous EKG there are: Changes noted Critical Care Note - Critical Care Note Total time excluding time spent on procedures (mins): 35 - Minutes of critical care time spent in direct contact evaluating and reevaluating the patient, treating symptoms, reviewing labs and studies and speaking with family and consultants excluding any procedures Discharge - Discharge Clinical Impression: Pericardial effusion, CLL (chronic lymphocytic leukemia), Hyperglycemia, Elevated C-reactive protein (CRP) Pericarditis Qualifiers: Pericarditis type: unspecified type Chronicity: acute Qualified Code(s): I30.9 - Acute pericarditis, unspecified Chest pain Qualifiers: Chest pain type: unspecified Qualified Code(s): R07.9 - Chest pain, unspecified Condition: Fair Disposition: ADMITTED INPATIENT Admitting Provider: [facility] Admitted: [facility]
[2018-11-02 01:01] LABS: HEMATOCRIT 32.8 % (36.0-47.0); HEMOGLOBIN 10.3 g/dL (12.0-15.5); MEAN CORPUSCULAR HEMOGLOBIN 25.6 pg (27.0-33.4); MEAN CORPUSCULAR HGB CONC 31.2 g/dL (32.0-36.0); MEAN CORPUSCULAR VOLUME 82 fl (80-97); PLATELET COUNT 117 10^3/uL (150-450); RED CELL DISTRIBUTION WIDTH 16.8 % (11.5-14.0); WHITE BLOOD COUNT 29.5 10^3/uL (4.0-10.5)
[2018-11-02 01:02] LABS: INTERNATIONAL RATION (INR) 1.17; PROTHROMBIN TIME 14.9 SEC (11.4-15.4)
[2018-11-02 01:17] LABS: VENOUS BLOOD BASE EXCESS 0.2 mmol/L; VENOUS BLOOD HCO3 26.3 mmol/L (20-32); VENOUS BLOOD PCO2 48.8 mmHg (35-63); VENOUS BLOOD PH 7.35 (7.30-7.42)
[2018-11-02 01:19] LABS: APPEARANCE,URINE CLEAR; BILIRUBIN,URINE NEGATIVE (NEGATIVE); COLOR,URINE YELLOW; GLUCOSE, URINE NEGATIVE (NEGATIVE); KETONES,URINE NEGATIVE (NEGATIVE); LEUKOCYTE ESTERASE,URINE NEGATIVE (NEGATIVE); NITRITE,URINE NEGATIVE (NEGATIVE); PROTEIN,URINE NEGATIVE (NEGATIVE); URINE SPECIFIC GRAVITY 1.012; UROBILINOGEN,URINE NEGATIVE mg/dL (<2.0)
[2018-11-02 01:20] LABS: ABSOLUTE LYMPHOCYTES# (MANUAL) 23.3 10^3/uL (0.5-4.7); ABSOLUTE MONOCYTES # (MANUAL) 0.3 10^3/uL (0.1-1.4); ALANINE AMINOTRANSFERASE 15 U/L (9-52); ALBUMIN 3.9 g/dL (3.5-5.0); ALKALINE PHOSPHATASE 52 U/L (38-126); ANION GAP 10 (5-19); ASPARTATE AMINO TRANSFERASE 16 U/L (14-36); BASOPHILS % (MANUAL) 1 % (0-2); BILIRUBIN,DIRECT 0.5 mg/dL (0.0-0.4); BILIRUBIN,TOTAL 0.9 mg/dL (0.2-1.3); BLOOD UREA NITROGEN 20 mg/dL (7-20); CALCIUM 8.8 mg/dL (8.4-10.2); CARBON DIOXIDE 25 mmol/L (22-30); CHLORIDE 101 mmol/L (98-107); EOSINOPHILS % (MANUAL) 0 % (0-6); GLUCOSE 213 mg/dL (75-110); MONOCYTES % (MANUAL) 1 % (3-13); PLATELET COMMENT DECREASED; POTASSIUM 3.7 mmol/L (3.6-5.0); SEGMENTED NEUTROPHILS % (MAN) 19 % (42-78); TOTAL CELLS COUNTED 100; TOTAL PROTEIN 5.9 g/dL (6.3-8.2)
[2018-11-02 01:21] LABS: ANISOCYTOSIS SLIGHT; HYPOCHROMASIA 1+; OVALOCYTES 1+; TEAR DROP CELLS SLIGHT
[2018-11-02 01:22] LABS: LYMPHOCYTES % (MANUAL) 79 % (13-45)
--- NOTE | 2018-11-02 02:52 | RADIOLOGY REPORT (SQ) ---
EXAM: CT head without IV contrast CLINICAL DATA: headache, hx cancer TECHNICAL DATA: Multiple axial CT images of the brain were performed followed by sagittal and coronal reconstructed images. The CT study is performed according to ALARA (as low as reasonably achievable) or ALARA/IMAGE GENTLY, with automatic adjustment of mA and/or kV according to patient size. Performed on: 11/02/2018 at 1:58 AM Comparisons: None. FINDINGS: There is no evidence of mass, acute mass effect or midline shift. There are no acute extra-axial fluid collections. There is no evidence of acute intracranial hemorrhage. The cerebral sulci and ventricles are normal in size and configuration. There are no focal abnormal areas of increased or decreased attenuation. There is no significant mucosal thickening of the paranasal sinuses. The mastoid air cells are clear. The orbital contents are grossly unremarkable. No acute osseous abnormalities are identified. No focal soft tissue abnormalities are identified. IMPRESSION: 1. There is no evidence of acute intracranial pathology.
[2018-11-02] MEDS ORDERED: KETOROLAC TROMETHAMINE INJ/PF 30 MG/1 ML SDV IV ONE (03:05)
--- NOTE | 2018-11-02 03:06 | RADIOLOGY REPORT (SQ) ---
CLINICAL HISTORY: pain w breathing h/o cancer COMPARISON: None. TECHNIQUE: CT CHEST ANGIOGRAPHY WITHOUT THEN WITH IV CONTRAST on 11/02/2018 12:15 AM CDT. MIPS reconstructions were generated. This exam was performed according to our departmental dose-optimization program, which includes automated exposure control, adjustment of the mA and/or kV according to patient size and/or use of iterative reconstruction technique. MIP images were generated. FINDINGS: Mid ascending thoracic aorta is borderline in size at 4.1 cm. Main pulmonary artery is dilated at 4.2 cm. Right diaphragm is elevated. The heart is mildly enlarged. There is no pericardial effusion. Intrathoracic lymph nodes are not enlarged. There is no pleural effusion, pleural thickening or pneumothorax. Central airways are patent. Lungs are clear with no consolidation, mass or interstitial lung disease. There are no acute abnormalities within the limited images of the upper abdomen. There are no acute osseous findings. No suspicious bony lesions. IMPRESSION: No aortic dissection or aneurysm. No pulmonary embolus. Dilated main pulmonary artery which can be seen in the setting of pulmonary arterial hypertension. No pneumonia.
[2018-11-02] MEDS ORDERED: NORMAL SALINE 1000 ML 1,000 ML IV PRN (03:43)
[2018-11-02 04:35] LABS: INTERNATIONAL RATION (INR) 1.26; PROTHROMBIN TIME 15.8 SEC (11.4-15.4)
[2018-11-02 04:36] LABS: PARTIAL THROMBOPLASTIN TIME 39.8 SEC (23.5-35.8)
[2018-11-02 04:50] LABS: PHOSPHORUS 3.9 mg/dL (2.5-4.5)
[2018-11-02 05:06] LABS: FREE T4 (FREE THYROXINE) 1.39 ng/dL (0.78-2.19)
[2018-11-02 05:20] LABS: THYROID STIMULATING HORMONE 2.37 uIU/mL (0.47-4.68)
[2018-11-02] MEDS ORDERED: MORPHINE SULFATE IR 15 MG TABLET PO PRN (05:30)
[2018-11-02 05:45] LABS: URINE AMPHETAMINES SCREEN NEGATIVE; URINE BARBITURATES SCREEN NEGATIVE; URINE BENZODIAZEPINES SCREEN NEGATIVE; URINE COCAINE SCREEN NEGATIVE; URINE MARIJUANA (THC) SCREEN NEGATIVE; URINE METHADONE SCREEN NEGATIVE; URINE PHENCYCLIDINE SCREEN NEGATIVE
[2018-11-02] MEDS: OXYCODONE HCL IR 5 MG TABLET PO SCH ×2 (05:46→12:56)
[2018-11-02] MEDS: OXYCODONE-ACETAMINOPHEN 5-325 MG TABLET PO SCH ×2 (05:47→12:55)
[2018-11-02 06:04] LABS: CREATINE KINASE MB < 0.22 ng/mL (<4.55); TROPONIN I < 0.012 ng/mL
[2018-11-02] MEDS ORDERED: MELOXICAM 7.5 MG TABLET PO SCH (10:00)
[2018-11-02] MEDS ORDERED: PRAMIPEXOLE DI-HCL 0.25 MG TABLET PO SCH (10:00)
[2018-11-02] MEDS: LEVOTHYROXINE SODIUM 0.088 MG TABLET PO SCH (10:31)
[2018-11-02] MEDS: COLCHICINE 0.6 MG TABLET PO SCH ×2 (10:31→22:18)
[2018-11-02] MEDS: GABAPENTIN 300 MG CAPSULE PO SCH ×3 (10:31→17:18)
[2018-11-02] MEDS: CYCLOBENZAPRINE HCL 10 MG TABLET PO SCH ×2 (10:32→17:18)
[2018-11-02] MEDS: ENOXAPARIN SODIUM INJ 40 MG/0.4 ML DISP.SYRIN SUBCUT SCH (10:32)
--- NOTE | 2018-11-02 10:37 | EKG REPORT ---
SEVERITY:- ABNORMAL ECG - SINUS RHYTHM ST ELEVATION SUGGESTS PERICARDITIS : Confirmed by: Daniel Evangelista 02-Nov-2018 10:37:03
[2018-11-02 11:15] LABS: CREATINE KINASE MB < 0.22 ng/mL (<4.55); TROPONIN I < 0.012 ng/mL
--- NOTE | 2018-11-02 11:51 | PDOC CONSULTATION ---
Consultation Consult Date: 11/02/18 Attending physician:: KILLIAN JOHNSON Provider Consulted: MATTY CONRAD Consult reason:: Chest pain, neck pain, shortness of breath, pleuritic pain History of Present Illness Admission Date/PCP: 11/02/18 03:55 KILLIAN JOHNSON MD Patient complains of: Chest pain, neck pain History of Present Illness: EMY LOVETT is a 68 year old female with known history of CLL currently on clinical trial with IBRUTINIB + OBINUTUZIMAB who began experiencing acute onset chest pain and neck pain starting on about 48 hours ago. She called our office and I discussed her case with the daughter, and recommended that she start on NSAIDs. It sounded like she was having a costochondritis type issue ongoing. Unfortunately the pain continued and worsened so I instructed her to come to the ER. In the ER she had a CT of the chest which did not show PE but I was told by the ER physician that there was a small pericardial effusion. Although the official read does not mention anything about pericardial effusion. But she does have increased pain when she lies flat, positional changes seem to cause more pain for her, and the pain is continuous now. There were no EKG changes either. Past Medical History Cardiac Medical History: Reports: Myocardial Infarction Denies: Coronary Artery Disease, Hypertension - Past history Pulmonary Medical History: Reports: Bronchitis, Chronic Obstructive Pulmonary Disease (COPD), Pneumonia - Last time in April Denies: Asthma Neurological Medical History: Denies: Seizures Endocrine Medical History: Reports: Hyperthyroidism, Hypothyroidism Malignancy Medical History: Reports: Leukemia Musculoskeltal Medical History: Reports: Arthritis - all over Psychiatric Medical History: Reports: Depression Hematology: Denies: Anemia Past Surgical History Past Surgical History: Reports: Appendectomy, Orthopedic Surgery - 13 foot surgeries neuromas rib removed , chest tube Social History Information Source: Patient Lives with: Family Smoking Status: Never Smoker Frequency of Alcohol Use: None Hx Recreational Drug Use: No Drugs: None Hx Prescription Drug Abuse: No - Advance Directive Resuscitation Status: Full Code Family History Family History: Reviewed & Not Pertinent Parental Family History Reviewed: Yes Children Family History Reviewed: Yes Sibling(s) Family History Reviewed.: Yes Medication/Allergy Allergies/Adverse Reactions: codeine [Codeine] Adverse Reaction (Mild, Verified 11/02/18 00:32) lisinopril [Lisinopril] Adverse Reaction (Verified 11/02/18 00:32) Review of Systems Constitutional: ABSENT: chills, fever(s), headache(s), weight gain, weight loss Eyes: ABSENT: visual disturbances Ears: ABSENT: hearing changes Cardiovascular: ABSENT: chest pain, dyspnea on exertion, edema, orthropnea, p alpitations Respiratory: ABSENT: cough, hemoptysis Gastrointestinal: ABSENT: abdominal pain, constipation, diarrhea, hematemesis, hematochezia, nausea, vomiting Genitourinary: ABSENT: dysuria, hematuria Musculoskeletal: ABSENT: joint swelling Integumentary: ABSENT: rash, wounds Neurological: ABSENT: abnormal gait, abnormal speech, confusion, dizziness, focal weakness, syncope Psychiatric: ABSENT: anxiety, depression, homidical ideation, suicidal ideation Endocrine: ABSENT: cold intolerance, heat intolerance, polydipsia, polyuria Hematologic/Lymphatic: ABSENT: easy bleeding, easy bruising Physical Exam Vital Signs: Temp Pulse Resp BP Pulse Ox 98.8 F 83 20 102/56 L 94 11/02/18 07:28 11/02/18 07:28 11/02/18 07:28 11/02/18 07:28 11/02/18 07:28 Intake & Output 11/01/18 11/02/18 11/03/18 06:59 06:59 06:59 Intake Total 1000 Balance 1000 Weight 87.997 kg General appearance: PRESENT: no acute distress, well-developed, well-nourished Head exam: PRESENT: atraumatic, normocephalic Eye exam: PRESENT: conjunctiva pink, EOMI, PERRLA. ABSENT: scleral icterus Ear exam: PRESENT: normal external ear exam Mouth exam: PRESENT: moist, tongue midline Neck exam: ABSENT: carotid bruit, JVD, lymphadenopathy, thyromegaly Respiratory exam: PRESENT: clear to auscultation evan. ABSENT: rales, rhonchi, wheezes Cardiovascular exam: PRESENT: RRR. ABSENT: diastolic murmur, rubs, systolic murmur Pulses: PRESENT: normal dorsalis pedis pul Vascular exam: PRESENT: normal capillary refill GI/Abdominal exam: PRESENT: normal bowel sounds, soft. ABSENT: distended, guarding, mass, organolmegaly, rebound, tenderness Rectal exam: PRESENT: deferred Extremities exam: PRESENT: full ROM. ABSENT: calf tenderness, clubbing, pedal edema Neurological exam: PRESENT: alert, awake, oriented to person, oriented to place, oriented to time, oriented to situation, CN II-XII grossly intact. ABSENT: motor sensory deficit Psychiatric exam: PRESENT: appropriate affect, normal mood. ABSENT: homicidal ideation, suicidal ideation Skin exam: PRESENT: dry, intact, warm. ABSENT: cyanosis, rash Results Laboratory Results: 11/02/18 00:44 11/02/18 00:44 11/02/18 11/02/18 11/02/18 00:34 00:44 00:44 WBC 29.5 H RBC 4.00 Hgb 10.3 L Hct 32.8 L MCV 82 MCH 25.6 L MCHC 31.2 L RDW 16.8 H Plt Count 117 L Seg Neutrophils % Not Reportable Lymphocytes % Not Reportable Monocytes % Not Reportable Eosinophils % Not Reportable Basophils % Not Reportable Absolute Neutrophils Not Reportable Absolute Lymphocytes Not Reportable Absolute Monocytes Not Reportable Absolute Eosinophils Not Reportable Absolute Basophils Not Reportable VBG pH VBG pCO2 VBG HCO3 VBG Base Excess Sodium 135.9 L Potassium 3.7 Chloride 101 Carbon Dioxide 25 Anion Gap 10 BUN 20 Creatinine 0.53 Est GFR ( Amer) > 60 Est GFR (Non-Af Amer) > 60 Glucose 213 H Lactic Acid Calcium 8.8 Phosphorus Magnesium Total Bilirubin 0.9 AST 16 ALT 15 Alkaline Phosphatase 52 Ammonia C-Reactive Protein Total Protein 5.9 L Albumin 3.9 Amylase Lipase TSH Free T4 Urine Color YELLOW Urine Appearance CLEAR Urine pH 6.0 Ur Specific [place] 1.012 Urine Protein NEGATIVE Urine Glucose (UA) NEGATIVE Urine Ketones NEGATIVE Urine Blood MODERATE H Urine Nitrite NEGATIVE Ur Leukocyte Esterase NEGATIVE Urine WBC (Auto) 3 Urine RBC (Auto) 1 11/02/18 11/02/18 11/02/18 00:44 00:44 00:44 WBC RBC Hgb Hct MCV MCH MCHC RDW Plt Count Seg Neutrophils % Lymphocytes % Monocytes % Eosinophils % Basophils % Absolute Neutrophils Absolute Lymphocytes Absolute Monocytes Absolute Eosinophils Absolute Basophils VBG pH 7.35 VBG pCO2 48.8 VBG HCO3 26.3 VBG Base Excess 0.2 Sodium Potassium Chloride Carbon Dioxide Anion Gap BUN Creatinine Est GFR ( Amer) Est GFR (Non-Af Amer) Glucose Lactic Acid 1.5 Calcium Phosphorus Magnesium Total Bilirubin AST ALT Alkaline Phosphatase Ammonia C-Reactive Protein 127.3 H Total Protein Albumin Amylase Lipase TSH Free T4 Urine Color Urine Appearance Urine pH Ur Specific [place] Urine Protein Urine Glucose (UA) Urine Ketones Urine Blood Urine Nitrite Ur Leukocyte Esterase Urine WBC (Auto) Urine RBC (Auto) 11/02/18 11/02/18 11/02/18 04:00 04:00 04:00 WBC RBC Hgb Hct MCV MCH MCHC RDW Plt Count Seg Neutrophils % Lymphocytes % Monocytes % Eosinophils % Basophils % Absolute Neutrophils Absolute Lymphocytes Absolute Monocytes Absolute Eosinophils Absolute Basophils VBG pH VBG pCO2 VBG HCO3 VBG Base Excess Sodium Potassium Chloride Carbon Dioxide Anion Gap BUN Creatinine Est GFR ( Amer) Est GFR (Non-Af Amer) Glucose Lactic Acid Calcium Phosphorus 3.9 Magnesium 2.0 Total Bilirubin AST ALT Alkaline Phosphatase Ammonia < 8.7 L C-Reactive Protein Total Protein Albumin Amylase 53 Lipase 51.0 TSH 2.37 Free T4 1.39 Urine Color Urine Appearance Urine pH Ur Specific [place] Urine Protein Urine Glucose (UA) Urine Ketones Urine Blood Urine Nitrite Ur Leukocyte Esterase Urine WBC (Auto) Urine RBC (Auto) 11/02/18 11/02/18 11/02/18 00:44 00:44 00:44 Creatine Kinase < 20 L CK-MB (CK-2) < 0.22 Troponin I 0.016 Cancelled 11/02/18 11/02/18 11/02/18 04:00 04:00 09:58 Creatine Kinase 22 L < 20 L CK-MB (CK-2) < 0.22 Troponin I < 0.012 11/02/18 09:58 Creatine Kinase CK-MB (CK-2) < 0.22 Troponin I < 0.012 Impressions: Chest/Abdomen CTA 11/02/18 00:15 IMPRESSION: No aortic dissection or aneurysm. No pulmonary embolus. Dilated main pulmonary artery which can be seen in the setting of pulmonary arterial hypertension. No pneumonia. Head CT 11/02/18 00:15 IMPRESSION: 1. There is no evidence of acute intracranial pathology. Status: Image reviewed by me Assessment & Plan - Diagnosis (1) Pericarditis Qualifiers: Pericarditis type: other type Chronicity: acute Qualified Code(s): I30.8 - Other forms of acute pericarditis Is this a current diagnosis for this admission?: Yes Plan: This is certainly a possibility because symptomatology seems to go along with that. However there is no pericardial effusion noted on CT today. Echocardiogram is pending. We probably need a cardiology consult thereafter. (2) Chest pain Qualifiers: Chest pain type: other chest pain Qualified Code(s): R07.89 - Other chest pain; R07.8 - Other chest pain Is this a current diagnosis for this admission?: Yes Plan: Seems atypical for an acute cardiac event, but pericarditis possible, will f/u echo results and plan next steps of care based on that. I added IV morphine, changed her pain regimen and add ibuprofen 800mg TID to regimen. (3) CLL (chronic lymphocytic leukemia) Is this a current diagnosis for this admission?: Yes Plan: Unsure if her trial meds may have anything to do with presentation, will check with clinical trial team to see if pericarditis assos w/ these meds, hold all trial meds until d/c home - Time Time Spent: Greater than 70 Minutes - Inpatient Certification Based on my medical assessment, after consideration of the patient's comorbidities, presenting symptoms, or acuity I expect that the services needed warrant INPATIENT care.: Yes I certify that my determination is in accordance with my understanding of Medicare's requirements for reasonable and necessary INPATIENT services [42 CFR 412.3e].: Yes Medical Necessity: Need For Continuous Telemetry Monitoring, Risk of Complication if Not Cared For in Hospital
--- NOTE | 2018-11-02 12:25 | PDOC H&P ---
History of Present Illness Admission Date/PCP: 11/02/18 03:55 KILLIAN JOHNSON MD History of Present Illness: EMY LOVETT is a 68 year old female, she has CLL, she came to the emergency room last night for evaluation of chest pain, the chest pain is atypical in character, but the chest pain is associated with breathing, change in position, in the emergency room CT angiogram of the chest was done, it was negative for pulmonary embolism. The twelve-lead EKG showed sinus rhythm, there was diffuse ST segment elevation and also OR segment depression in some of the leads that suggest pericarditis. She is presently on medication for the treatment of CLL, she is supposedly on a clinical trial regimen, the pericarditis could be secondary to the to the medication Past Medical History Cardiac Medical History: Reports: Myocardial Infarction Denies: Coronary Artery Disease, Hypertension - Past history Pulmonary Medical History: Reports: Bronchitis, Chronic Obstructive Pulmonary Disease (COPD), Pneumonia - Last time in April Denies: Asthma Neurological Medical History: Denies: Seizures Endocrine Medical History: Reports: Hyperthyroidism, Hypothyroidism Malignancy Medical History: Reports: Leukemia Musculoskeltal Medical History: Reports: Arthritis - all over Psychiatric Medical History: Reports: Depression Hematology: Denies: Anemia Past Surgical History Past Surgical History: Reports: Appendectomy, Orthopedic Surgery - 13 foot surgeries neuromas rib removed , chest tube Social History Lives with: Family Smoking Status: Never Smoker Frequency of Alcohol Use: None Hx Recreational Drug Use: No Drugs: None Hx Prescription Drug Abuse: No - Advance Directive Resuscitation Status: Full Code Family History Family History: Reviewed & Not Pertinent Parental Family History Reviewed: Yes Children Family History Reviewed: Yes Sibling(s) Family History Reviewed.: Yes Medication/Allergy Home Medications: Allopurinol [Zyloprim 300 mg Tablet] 300 mg PO DAILY 11/02/18 Cyclobenzaprine HCl [Flexeril 10 mg Tablet] 10 mg PO Q8HP PRN 11/02/18 Gabapentin [Neurontin 300 mg Capsule] 300 mg PO Q8 11/02/18 Ibrutinib [Imbruvica] 420 mg PO DAILY 11/02/18 Levothyroxine Sodium [Synthroid 0.088 mg Tablet] 0.88 mg PO Q6AM 11/02/18 Loperamide HCl/Simethicone [Anti-Diarrheal+Anti-Gas Cplt] 1 tab PO Q2HP PRN 11/02/18 Loratadine [Claritin 10 mg Tablet] 10 mg PO DAILY 11/02/18 Meloxicam [Mobic] 7.5 mg PO Q12 11/02/18 Morphine Sulfate [Morphine Ir 15 mg Tablet] 15 mg PO Q12 11/02/18 Oxycodone HCl/Acetaminophen [Percocet 5-325 mg Tablet] 1 tab PO Q6HP PRN 0 11/02/18 Pramipexole Di-HCl [Pramipexole Dihydrochloride] 0.125 mg PO QHS 11/02/18 Promethazine HCl [Phenergan 25 mg Tablet] 25 mg PO Q6HP PRN 11/02/18 Allergies/Adverse Reactions: codeine [Codeine] Adverse Reaction (Mild, Verified 11/02/18 00:32) lisinopril [Lisinopril] Adverse Reaction (Verified 11/02/18 00:32) Review of Systems Constitutional: ABSENT: chills, fever(s), headache(s), weight gain, weight loss Eyes: ABSENT: visual disturbances Ears: ABSENT: hearing changes Cardiovascular: PRESENT: chest pain Respiratory: ABSENT: cough, hemoptysis Gastrointestinal: ABSENT: abdominal pain, constipation, diarrhea, hematemesis, hematochezia, nausea, vomiting Genitourinary: ABSENT: dysuria, hematuria Integumentary: ABSENT: rash, wounds Neurological: ABSENT: abnormal gait, abnormal speech, confusion, dizziness, focal weakness, syncope Psychiatric: ABSENT: anxiety, depression, homidical ideation, suicidal ideation Endocrine: ABSENT: cold intolerance, heat intolerance, menstrual abnormalities, polydipsia, polyuria Hematologic/Lymphatic: ABSENT: easy bleeding, easy bruising, lymphadenopathy Physical Exam Vital Signs: Temp Pulse Resp BP Pulse Ox 98.8 F 83 20 102/56 L 94 11/02/18 07:28 11/02/18 07:28 11/02/18 07:28 11/02/18 07:28 11/02/18 07:28 Intake & Output 11/01/18 11/02/18 11/03/18 06:59 06:59 06:59 Intake Total 1000 Balance 1000 Weight 87.997 kg General appearance: PRESENT: no acute distress Head exam: PRESENT: atraumatic, normocephalic Eye exam: PRESENT: PERRLA Neck exam: PRESENT: full ROM Respiratory exam: PRESENT: clear to auscultation evan Cardiovascular exam: PRESENT: RRR, +S1, +S2 Vascular exam: PRESENT: normal capillary refill GI/Abdominal exam: PRESENT: normal bowel sounds, soft Rectal exam: PRESENT: deferred Neurological exam: PRESENT: alert, CN II-XII grossly intact Skin exam: PRESENT: dry, intact, warm Results Laboratory Results: 11/02/18 00:44 11/02/18 00:44 11/02/18 11/02/18 11/02/18 00:34 00:44 00:44 WBC 29.5 H RBC 4.00 Hgb 10.3 L Hct 32.8 L MCV 82 MCH 25.6 L MCHC 31.2 L RDW 16.8 H Plt Count 117 L Seg Neutrophils % Not Reportable Lymphocytes % Not Reportable Monocytes % Not Reportable Eosinophils % Not Reportable Basophils % Not Reportable Absolute Neutrophils Not Reportable Absolute Lymphocytes Not Reportable Absolute Monocytes Not Reportable Absolute Eosinophils Not Reportable Absolute Basophils Not Reportable VBG pH VBG pCO2 VBG HCO3 VBG Base Excess Sodium 135.9 L Potassium 3.7 Chloride 101 Carbon Dioxide 25 Anion Gap 10 BUN 20 Creatinine 0.53 Est GFR ( Amer) > 60 Est GFR (Non-Af Amer) > 60 Glucose 213 H Lactic Acid Calcium 8.8 Phosphorus Magnesium Total Bilirubin 0.9 AST 16 ALT 15 Alkaline Phosphatase 52 Ammonia C-Reactive Protein Total Protein 5.9 L Albumin 3.9 Amylase Lipase TSH Free T4 Urine Color YELLOW Urine Appearance CLEAR Urine pH 6.0 Ur Specific [place] 1.012 Urine Protein NEGATIVE Urine Glucose (UA) NEGATIVE Urine Ketones NEGATIVE Urine Blood MODERATE H Urine Nitrite NEGATIVE Ur Leukocyte Esterase NEGATIVE Urine WBC (Auto) 3 Urine RBC (Auto) 1 11/02/18 11/02/18 11/02/18 00:44 00:44 00:44 WBC RBC Hgb Hct MCV MCH MCHC RDW Plt Count Seg Neutrophils % Lymphocytes % Monocytes % Eosinophils % Basophils % Absolute Neutrophils Absolute Lymphocytes Absolute Monocytes Absolute Eosinophils Absolute Basophils VBG pH 7.35 VBG pCO2 48.8 VBG HCO3 26.3 VBG Base Excess 0.2 Sodium Potassium Chloride Carbon Dioxide Anion Gap BUN Creatinine Est GFR ( Amer) Est GFR (Non-Af Amer) Glucose Lactic Acid 1.5 Calcium Phosphorus Magnesium Total Bilirubin AST ALT Alkaline Phosphatase Ammonia C-Reactive Protein 127.3 H Total Protein Albumin Amylase Lipase TSH Free T4 Urine Color Urine Appearance Urine pH Ur Specific [place] Urine Protein Urine Glucose (UA) Urine Ketones Urine Blood Urine Nitrite Ur Leukocyte Esterase Urine WBC (Auto) Urine RBC (Auto) 11/02/18 11/02/18 11/02/18 04:00 04:00 04:00 WBC RBC Hgb Hct MCV MCH MCHC RDW Plt Count Seg Neutrophils % Lymphocytes % Monocytes % Eosinophils % Basophils % Absolute Neutrophils Absolute Lymphocytes Absolute Monocytes Absolute Eosinophils Absolute Basophils VBG pH VBG pCO2 VBG HCO3 VBG Base Excess Sodium Potassium Chloride Carbon Dioxide Anion Gap BUN Creatinine Est GFR ( Amer) Est GFR (Non-Af Amer) Glucose Lactic Acid Calcium Phosphorus 3.9 Magnesium 2.0 Total Bilirubin AST ALT Alkaline Phosphatase Ammonia < 8.7 L C-Reactive Protein Total Protein Albumin Amylase 53 Lipase 51.0 TSH 2.37 Free T4 1.39 Urine Color Urine Appearance Urine pH Ur Specific [place] Urine Protein Urine Glucose (UA) Urine Ketones Urine Blood Urine Nitrite Ur Leukocyte Esterase Urine WBC (Auto) Urine RBC (Auto) 11/02/18 11/02/18 11/02/18 00:44 00:44 00:44 Creatine Kinase < 20 L CK-MB (CK-2) < 0.22 Troponin I 0.016 Cancelled 11/02/18 11/02/18 11/02/18 04:00 04:00 09:58 Creatine Kinase 22 L < 20 L CK-MB (CK-2) < 0.22 Troponin I < 0.012 11/02/18 09:58 Creatine Kinase CK-MB (CK-2) < 0.22 Troponin I < 0.012 Impressions: Chest/Abdomen CTA 11/02/18 00:15 IMPRESSION: No aortic dissection or aneurysm. No pulmonary embolus. Dilated main pulmonary artery which can be seen in the setting of pulmonary arterial hypertension. No pneumonia. Head CT 11/02/18 00:15 IMPRESSION: 1. There is no evidence of acute intracranial pathology. Assessment & Plan - Diagnosis (1) Acute pericarditis Qualifiers: Pericarditis type: unspecified type Qualified Code(s): I30.9 - Acute pericarditis, unspecified Is this a current diagnosis for this admission?: Yes Plan: The symptoms, the EKG findings suggest acute pericarditis, start colchicine, loading dose, then maintenance dose for 3 months, obtain 2D echo to rule out pericardial effusion though unlikely, typically MRI of the pericardium is needed to confirm but not necessary in this case done (2) CLL (chronic lymphocytic leukemia) Is this a current diagnosis for this admission?: Yes
[2018-11-02] MEDS ORDERED: MORPHINE SULFATE 10 MG/ML INJ IV PRN (13:41)
[2018-11-02] MEDS: IBUPROFEN 800 MG TABLET PO SCH ×2 (15:35→22:17)
[2018-11-02] MEDS: OXYCODONE HCL IR 5 MG TABLET PO PRN (20:08)
[2018-11-02] MEDS: OXYCODONE-ACETAMINOPHEN 5-325 MG TABLET PO PRN (20:09)
[2018-11-03 05:01] LABS: HEMATOCRIT 28.9 % (36.0-47.0); MEAN CORPUSCULAR HEMOGLOBIN 25.6 pg (27.0-33.4); MEAN CORPUSCULAR VOLUME 82 fl (80-97); PLATELET COUNT 103 10^3/uL (150-450); RED BLOOD COUNT 3.51 10^6/uL (3.72-5.28); RED CELL DISTRIBUTION WIDTH 16.8 % (11.5-14.0); WHITE BLOOD COUNT 20.9 10^3/uL (4.0-10.5)
[2018-11-03 05:11] LABS: ABSOLUTE LYMPHOCYTES# (MANUAL) 16.7 10^3/uL (0.5-4.7); ABSOLUTE MONOCYTES # (MANUAL) 0.2 10^3/uL (0.1-1.4); BASOPHILS % (MANUAL) 0 % (0-2); EOSINOPHILS % (MANUAL) 1 % (0-6); LYMPHOCYTES % (MANUAL) 80 % (13-45); MONOCYTES % (MANUAL) 1 % (3-13); SEGMENTED NEUTROPHILS % (MAN) 18 % (42-78); TOTAL CELLS COUNTED 100
[2018-11-03 05:12] LABS: PLATELET COMMENT DECREASED
[2018-11-03 05:14] LABS: ANISOCYTOSIS SLIGHT; OVALOCYTES 1+; POIKILOCYTOSIS SLIGHT; SCHISTOCYTES 1+; TEAR DROP CELLS SLIGHT
[2018-11-03 05:25] LABS: ALANINE AMINOTRANSFERASE 17 U/L (9-52); ALBUMIN 3.3 g/dL (3.5-5.0); ALKALINE PHOSPHATASE 60 U/L (38-126); ANION GAP 8 (5-19); ASPARTATE AMINO TRANSFERASE 13 U/L (14-36); BILIRUBIN,DIRECT 0.4 mg/dL (0.0-0.4); BILIRUBIN,TOTAL 0.7 mg/dL (0.2-1.3); BLOOD UREA NITROGEN 19 mg/dL (7-20); CALCIUM 8.8 mg/dL (8.4-10.2); CARBON DIOXIDE 25 mmol/L (22-30); CHLORIDE 106 mmol/L (98-107); CHOLESTEROL 103.51 mg/dL (0-200); GLUCOSE 106 mg/dL (75-110); POTASSIUM 3.7 mmol/L (3.6-5.0); TOTAL PROTEIN 5.3 g/dL (6.3-8.2); TRIGLYCERIDES 76 mg/dL (<150)
[2018-11-03 05:36] LABS: DIRECT LDL 50 mg/dL (<100)
[2018-11-03] MEDS: IBUPROFEN 800 MG TABLET PO SCH ×3 (06:15→22:24)
--- NOTE | 2018-11-03 08:32 | PDOC PROGRESS REPORT ---
Subjective Progress Note for:: 11/03/18 Subjective:: Feeling much better, pain mostly resolved this am, echo pending Reason For Visit: ACUTE PERICARDITIS Physical Exam Vital Signs: Temp Pulse Resp BP Pulse Ox 98.4 F 80 14 112/62 92 11/03/18 03:27 11/03/18 03:27 11/03/18 03:27 11/03/18 03:27 11/03/18 03:27 Intake & Output 11/02/18 11/03/18 11/04/18 06:59 06:59 06:59 Intake Total 1000 2420 Balance 1000 2420 Weight 87.997 kg 91.2 kg General appearance: PRESENT: no acute distress, well-developed, well-nourished Head exam: PRESENT: atraumatic, normocephalic Eye exam: PRESENT: conjunctiva pink, EOMI, PERRLA. ABSENT: scleral icterus Ear exam: PRESENT: normal external ear exam Mouth exam: PRESENT: moist, tongue midline Neck exam: ABSENT: carotid bruit, JVD, lymphadenopathy, thyromegaly Respiratory exam: PRESENT: clear to auscultation evan. ABSENT: rales, rhonchi, wheezes Cardiovascular exam: PRESENT: RRR. ABSENT: diastolic murmur, rubs, systolic murmur Pulses: PRESENT: normal dorsalis pedis pul Vascular exam: PRESENT: normal capillary refill GI/Abdominal exam: PRESENT: normal bowel sounds, soft. ABSENT: distended, guarding, mass, organolmegaly, rebound, tenderness Rectal exam: PRESENT: deferred Extremities exam: PRESENT: full ROM. ABSENT: calf tenderness, clubbing, pedal edema Neurological exam: PRESENT: alert, awake, oriented to person, oriented to place, oriented to time, oriented to situation, CN II-XII grossly intact. ABSENT: motor sensory deficit Psychiatric exam: PRESENT: appropriate affect, normal mood. ABSENT: homicidal ideation, suicidal ideation Skin exam: PRESENT: dry, intact, warm. ABSENT: cyanosis, rash Results Laboratory Results: 11/03/18 04:42 11/03/18 04:42 11/03/18 11/03/18 04:42 04:42 WBC 20.9 H RBC 3.51 L Hgb 9.0 L Hct 28.9 L MCV 82 MCH 25.6 L MCHC 31.0 L RDW 16.8 H Plt Count 103 L Seg Neutrophils % Not Reportable Lymphocytes % Not Reportable Monocytes % Not Reportable Eosinophils % Not Reportable Basophils % Not Reportable Absolute Neutrophils Not Reportable Absolute Lymphocytes Not Reportable Absolute Monocytes Not Reportable Absolute Eosinophils Not Reportable Absolute Basophils Not Reportable Sodium 138.8 Potassium 3.7 Chloride 106 Carbon Dioxide 25 Anion Gap 8 BUN 19 Creatinine 0.53 Est GFR ( Amer) > 60 Est GFR (Non-Af Amer) > 60 Glucose 106 Calcium 8.8 Total Bilirubin 0.7 AST 13 L ALT 17 Alkaline Phosphatase 60 Total Protein 5.3 L Albumin 3.3 L Triglycerides 76 Cholesterol 103.51 LDL Cholesterol Direct 50 VLDL Cholesterol 15.0 HDL Cholesterol 35 L 11/02/18 11/02/18 11/02/18 00:44 00:44 00:44 Creatine Kinase < 20 L CK-MB (CK-2) < 0.22 Troponin I 0.016 Cancelled 11/02/18 11/02/18 11/02/18 04:00 04:00 09:58 Creatine Kinase 22 L < 20 L CK-MB (CK-2) < 0.22 Troponin I < 0.012 11/02/18 09:58 Creatine Kinase CK-MB (CK-2) < 0.22 Troponin I < 0.012 Impressions: Chest/Abdomen CTA 11/02/18 00:15 IMPRESSION: No aortic dissection or aneurysm. No pulmonary embolus. Dilated main pulmonary artery which can be seen in the setting of pulmonary arterial hypertension. No pneumonia. Head CT 11/02/18 00:15 IMPRESSION: 1. There is no evidence of acute intracranial pathology. Assessment & Plan - Diagnosis (1) Pericarditis Qualifiers: Pericarditis type: other type Chronicity: acute Qualified Code(s): I30.8 - Other forms of acute pericarditis Is this a current diagnosis for this admission?: Yes Plan: Unsure if this is true dx or not, awaiting echo results (2) Chest pain Qualifiers: Chest pain type: other chest pain Qualified Code(s): R07.89 - Other chest pain; R07.8 - Other chest pain Is this a current diagnosis for this admission?: Yes Plan: resolved, may actually be more of a costochondritis vs neck related referred pain (3) CLL (chronic lymphocytic leukemia) Is this a current diagnosis for this admission?: Yes Plan: Improved, doubt any involvement with trial medication with current presentation
[2018-11-03] MEDS: ENOXAPARIN SODIUM INJ 40 MG/0.4 ML DISP.SYRIN SUBCUT SCH (09:31)
[2018-11-03] MEDS: OXYCODONE HCL IR 5 MG TABLET PO PRN (09:31)
[2018-11-03] MEDS: CYCLOBENZAPRINE HCL 10 MG TABLET PO SCH ×2 (09:32→17:43)
[2018-11-03] MEDS: GABAPENTIN 300 MG CAPSULE PO SCH ×3 (09:32→17:43)
[2018-11-03] MEDS: LEVOTHYROXINE SODIUM 0.088 MG TABLET PO SCH (09:33)
[2018-11-03] MEDS: OXYCODONE-ACETAMINOPHEN 5-325 MG TABLET PO PRN ×2 (09:34→20:31)
[2018-11-03 14:03] LABS: PATH REVIEW PATHOLOGIST REVIEWED
--- NOTE | 2018-11-03 18:39 | PDOC PROGRESS REPORT ---
Subjective Progress Note for:: 11/03/18 Subjective:: Patient seen by the bedside, 2D echo showed mild pericardial effusion Reason For Visit: ACUTE PERICARDITIS Physical Exam Vital Signs: Temp Pulse Resp BP Pulse Ox 97.5 F 73 18 116/58 L 98 11/03/18 12:38 11/03/18 14:00 11/03/18 12:38 11/03/18 12:38 11/03/18 12:38 Intake & Output 11/02/18 11/03/18 11/04/18 06:59 06:59 06:59 Intake Total 1000 2420 Balance 1000 2420 Weight 87.997 kg 91.2 kg General appearance: PRESENT: no acute distress Eye exam: PRESENT: PERRLA Cardiovascular exam: PRESENT: +S1, +S2 GI/Abdominal exam: PRESENT: soft Neurological exam: PRESENT: alert Results Laboratory Results: 11/03/18 04:42 11/03/18 04:42 11/03/18 11/03/18 04:42 04:42 WBC 20.9 H RBC 3.51 L Hgb 9.0 L Hct 28.9 L MCV 82 MCH 25.6 L MCHC 31.0 L RDW 16.8 H Plt Count 103 L Seg Neutrophils % Not Reportable Lymphocytes % Not Reportable Monocytes % Not Reportable Eosinophils % Not Reportable Basophils % Not Reportable Absolute Neutrophils Not Reportable Absolute Lymphocytes Not Reportable Absolute Monocytes Not Reportable Absolute Eosinophils Not Reportable Absolute Basophils Not Reportable Sodium 138.8 Potassium 3.7 Chloride 106 Carbon Dioxide 25 Anion Gap 8 BUN 19 Creatinine 0.53 Est GFR ( Amer) > 60 Est GFR (Non-Af Amer) > 60 Glucose 106 Calcium 8.8 Total Bilirubin 0.7 AST 13 L ALT 17 Alkaline Phosphatase 60 Total Protein 5.3 L Albumin 3.3 L Triglycerides 76 Cholesterol 103.51 LDL Cholesterol Direct 50 VLDL Cholesterol 15.0 HDL Cholesterol 35 L 11/02/18 00:34 Clean Catch Midstream Urine Culture - Final Mixed Urogenital Narcisa 11/02/18 11/02/18 11/02/18 00:44 00:44 00:44 Creatine Kinase < 20 L CK-MB (CK-2) < 0.22 Troponin I 0.016 Cancelled 11/02/18 11/02/18 11/02/18 04:00 04:00 09:58 Creatine Kinase 22 L < 20 L CK-MB (CK-2) < 0.22 Troponin I < 0.012 11/02/18 09:58 Creatine Kinase CK-MB (CK-2) < 0.22 Troponin I < 0.012 Impressions: Chest/Abdomen CTA 11/02/18 00:15 IMPRESSION: No aortic dissection or aneurysm. No pulmonary embolus. Dilated main pulmonary artery which can be seen in the setting of pulmonary arterial hypertension. No pneumonia. Head CT 11/02/18 00:15 IMPRESSION: 1. There is no evidence of acute intracranial pathology. Assessment & Plan - Diagnosis (1) Acute pericarditis Qualifiers: Pericarditis type: unspecified type Qualified Code(s): I30.9 - Acute per icarditis, unspecified Is this a current diagnosis for this admission?: Yes (2) CLL (chronic lymphocytic leukemia) Is this a current diagnosis for this admission?: Yes (3) Pericardial effusion Is this a current diagnosis for this admission?: Yes Plan: Consult cardiology, this is mild, no indication for pericardiocentesis continue colchicine for 3 months
[2018-11-03] MEDS: COLCHICINE 0.6 MG TABLET PO SCH (20:40)
--- NOTE | 2018-11-03 21:51 | XCELERA REPORT ---
[address] [address] Transthoracic Echocardiogram Report Name: EMY LOVETT Age: 68 yrs Gender: Female : 1950 Patient Status: Inpatient Patient Location: [address] [place], [place] [id number] Study Date: 11/03/2018 10:34 AM Height: 64 in Weight: 194 lb BSA: 1.9 m2 Procedure: A two-dimensional transthoracic echocardiogram with color flow and Doppler was performed. Study Quality: Fair. Reason For Study: PERICARDITIS History: PERICARDITIS. Ordering Physician: KILLIAN JOHNSON Performed By: Vilma Otoole Interpretation Summary The left ventricle is normal in size. There is normal left ventricular wall thickness. LV EF is > than 65% Left ventricular systolic function is normal. Doppler measurements suggest impaired left ventricular relaxation, which is associated with grade I/IV or mild diastolic dysfunction The left ventricular wall motion is normal. The right atrium is normal. The left atrial size is normal. No ASD,VSD,or PFO seen. There is mild to moderate mitral annular calcification. There is no evidence of mitral valve prolapse. There is no vegetation seen on the mitral valve. There is no mitral valve stenosis. There is a mild to moderate amount of mitral regurgitation There is no aortic valvular vegetation. There is mild aortic stenosis There is a peak gradient of 16 mm of Hg. No hemodynamically significant valvular aortic stenosis. There is no LVOT obstruction. No aortic regurgitation is present. There is no tricuspid stenosis. There is a mild amount of tricuspid regurgitation There is mild pulmonary hypertension by echo RVVSP is 39 to 44 mm of Hg , with RA mean of 5 to 10. There is no pulmonic valvular stenosis. Trace to moild MI. The aortic root is normal size. The inferior vena cava appeared normal and decreased > 50% with respiration (RAP 5-10 mmHg) There is a small pericardial effusion that is circumferential There are no echocardiographic or Doppler indications for cardiac tamponade The right ventricle is mildly dilated. There is mild right ventricular hypertrophy. The right ventricular systolic function is normal. MMode/2D Measurements & Calculations RVDd: 3.8 cm LVIDd: 4.9 cm FS: 41.2 % Ao root diam: 3.1 cm IVSd: 0.96 cm LVIDs: 2.9 cm EDV(Teich): 113.1 ml Ao root area: 7.3 cm2 LVPWd: 0.96 cm ESV(Teich): 31.8 ml LA dimension: 3.8 cm EF(Teich): 71.9 % Doppler Measurements & Calculations MV E max radha: MV P1/2t max radha: Ao V2 max: LV V1 max P.6 cm/sec 104.2 cm/sec 202.4 cm/sec 6.7 mmHg MV A max radha: MV P1/2t: 92.8 msec Ao max PG: LV V1 max: 120.1 cm/sec MVA(P1/2t): 2.4 cm2 16.4 mmHg 129.4 cm/sec MV E/A: 0.86 MV dec slope: 329.0 cm/sec2 MV dec time: 0.29 sec PA V2 max: PI end-d radha: TR max radha: MV P1/2t-pr_phl: 117.4 cm/sec 142.5 cm/sec 289.3 cm/sec 92.8 msec PA max P.5 mmHg TR max P.5 mmHg Left Ventricle The left ventricle is normal in size. There is normal left ventricular wall thickness. LV EF is > than 65%. Left ventricular systolic function is normal. Doppler measurements suggest impaired left ventricular relaxation, which is associated with grade I/IV or mild diastolic dysfunction. The left ventricular wall motion is normal. There is no thrombus. Right Ventricle The right ventricle is mildly dilated. There is mild right ventricular hypertrophy. The right ventricular systolic function is normal. Atria The right atrium is normal. The left atrial size is normal. No ASD,VSD,or PFO seen. Mitral Valve There is mild to moderate mitral annular calcification. There is no evidence of mitral valve prolapse. There is no vegetation seen on the mitral valve. There is no mitral valve stenosis. There is a mild to moderate amount of mitral regurgitation. Aortic Valve There is no aortic valvular vegetation. There is mild aortic stenosis. There is a peak gradient of 16 mm of Hg. No hemodynamically significant valvular aortic stenosis. There is no LVOT obstruction. No aortic regurgitation is present. Tricuspid Valve There is no tricuspid stenosis. There is a mild amount of tricuspid regurgitation. There is mild pulmonary hypertension by echo. RVVSP is 39 to 44 mm of Hg , with RA mean of 5 to 10. Pulmonic Valve There is no pulmonic valvular stenosis. Trace to moild MI. Great Vessels The aortic root is normal size. The inferior vena cava appeared normal and decreased > 50% with respiration (RAP 5-10 mmHg). Effusions There is a small pericardial effusion that is circumferential. There are no echocardiographic or Doppler indications for cardiac tamponade. : KILLAIN JOHNSON > Emily Rasmussen
[2018-11-03] MEDS ORDERED: PRAMIPEXOLE DI-HCL 0.25 MG TABLET PO SCH (22:00)
[2018-11-04] MEDS: OXYCODONE-ACETAMINOPHEN 5-325 MG TABLET PO PRN ×2 (03:46→10:06)
[2018-11-04 05:38] LABS: HEMATOCRIT 26.5 % (36.0-47.0); HEMOGLOBIN 8.6 g/dL (12.0-15.5); MEAN CORPUSCULAR HEMOGLOBIN 26.5 pg (27.0-33.4); MEAN CORPUSCULAR HGB CONC 32.4 g/dL (32.0-36.0); MEAN CORPUSCULAR VOLUME 82 fl (80-97); PLATELET COUNT 108 10^3/uL (150-450); RED BLOOD COUNT 3.25 10^6/uL (3.72-5.28); RED CELL DISTRIBUTION WIDTH 17.1 % (11.5-14.0); WHITE BLOOD COUNT 18.4 10^3/uL (4.0-10.5)
[2018-11-04 05:59] LABS: ALANINE AMINOTRANSFERASE 14 U/L (9-52); ALBUMIN 3.1 g/dL (3.5-5.0); ALKALINE PHOSPHATASE 60 U/L (38-126); ANION GAP 8 (5-19); ASPARTATE AMINO TRANSFERASE 14 U/L (14-36); BILIRUBIN,DIRECT 0.4 mg/dL (0.0-0.4); BILIRUBIN,TOTAL 0.4 mg/dL (0.2-1.3); BLOOD UREA NITROGEN 16 mg/dL (7-20); CALCIUM 8.7 mg/dL (8.4-10.2); CARBON DIOXIDE 27 mmol/L (22-30); CHLORIDE 107 mmol/L (98-107); GLUCOSE 92 mg/dL (75-110); TOTAL PROTEIN 5.2 g/dL (6.3-8.2)
[2018-11-04] MEDS: IBUPROFEN 800 MG TABLET PO SCH (06:09)
[2018-11-04 06:37] LABS: ABSOLUTE MONOCYTES # (MANUAL) 0.2 10^3/uL (0.1-1.4); BASOPHILS % (MANUAL) 1 % (0-2); EOSINOPHILS % (MANUAL) 0 % (0-6); LYMPHOCYTES % (MANUAL) 76 % (13-45); MONOCYTES % (MANUAL) 1 % (3-13); SEGMENTED NEUTROPHILS % (MAN) 22 % (42-78); TOTAL CELLS COUNTED 100
[2018-11-04 06:38] LABS: ANISOCYTOSIS 1+; HYPOCHROMASIA 1+
[2018-11-04 06:40] LABS: PLATELET COMMENT DECREASED
[2018-11-04 08:05] VITALS: BP 114/62
--- NOTE | 2018-11-04 08:31 | PDOC PROGRESS REPORT ---
Subjective Progress Note for:: 11/04/18 Subjective:: Patient states that she is feeling much better. Pain is improved. Anxious to go home. Reason For Visit: ACUTE PERICARDITIS Physical Exam Vital Signs: Temp Pulse Resp BP Pulse Ox 97.8 F 69 20 114/62 95 11/04/18 07:51 11/04/18 07:51 11/04/18 07:51 11/04/18 07:51 11/04/18 07:51 Intake & Output 11/03/18 11/04/18 11/05/18 06:59 06:59 06:59 Intake Total 2420 1660 Balance 2420 1660 Weight 91.2 kg 89.3 kg General appearance: PRESENT: no acute distress, well-developed, well-nourished Head exam: PRESENT: normocephalic Respiratory exam: PRESENT: unlabored Neurological exam: PRESENT: alert, awake Psychiatric exam: PRESENT: appropriate affect Skin exam: PRESENT: normal color Results Laboratory Results: 11/04/18 04:54 11/04/18 04:54 11/03/18 11/04/18 11/04/18 04:42 04:54 04:54 WBC 18.4 H RBC 3.25 L Hgb 8.6 L Hct 26.5 L MCV 82 MCH 26.5 L MCHC 32.4 RDW 17.1 H Plt Count 108 L Seg Neutrophils % Not Reportable Lymphocytes % Not Reportable Monocytes % Not Reportable Eosinophils % Not Reportable Basophils % Not Reportable Absolute Neutrophils Not Reportable Absolute Lymphocytes Not Reportable Absolute Monocytes Not Reportable Absolute Eosinophils Not Reportable Absolute Basophils Not Reportable Sodium 141.5 Potassium 4.0 Chloride 107 Carbon Dioxide 27 Anion Gap 8 BUN 16 Creatinine 0.55 Est GFR ( Amer) > 60 Est GFR (Non-Af Amer) > 60 Glucose 92 Calcium 8.7 Total Bilirubin 0.4 AST 14 ALT 14 Alkaline Phosphatase 60 C-Reactive Protein 223.5 H Total Protein 5.2 L Albumin 3.1 L 11/02/18 00:34 Clean Catch Midstream Urine Culture - Final Mixed Urogenital Narcisa 11/02/18 11/02/18 11/02/18 00:44 00:44 00:44 Creatine Kinase < 20 L CK-MB (CK-2) < 0.22 Troponin I 0.016 Cancelled 11/02/18 11/02/18 11/02/18 04:00 04:00 09:58 Creatine Kinase 22 L < 20 L CK-MB (CK-2) < 0.22 Troponin I < 0.012 11/02/18 09:58 Creatine Kinase CK-MB (CK-2) < 0.22 Troponin I < 0.012 Impressions: Chest/Abdomen CTA 11/02/18 00:15 IMPRESSION: No aortic dissection or aneurysm. No pulmonary embolus. Dilated main pulmonary artery which can be seen in the setting of pulmonary arterial hypertension. No pneumonia. Head CT 11/02/18 00:15 IMPRESSION: 1. There is no evidence of acute intracranial pathology. Assessment & Plan - Diagnosis (1) Acute pericarditis Qualifiers: Pericarditis type: unspecified type Qualified Code(s): I30.9 - Acute pericarditis, unspecified Is this a current diagnosis for this admission?: Yes Plan: Agree with colchicine. Appreciate Dr. Mancuso's help. (2) CLL (chronic lymphocytic leukemia) Is this a current diagnosis for this admission?: Yes Plan: Treatment currently on hold. (3) Pericardial effusion Is this a current diagnosis for this admission?: Yes Plan: Per cardiology. This appears to be very minimal. - Plan Summary Plan Summary: Will need follow-up with oncology and cardiology as outpatient. OK for discharge from our standpoint. Please call if concerns.
--- NOTE | 2018-11-04 10:05 | PDOC DISCHARGE SUMMARY ---
General - Admit/Disc Date/PCP Admission Date/Primary Care Provider: 11/02/18 03:55 KILLIAN JOHNSON MD Discharge Date: 11/04/18 - Discharge Diagnosis (1) Acute pericarditis Is this a current diagnosis for this admission?: Yes (2) CLL (chronic lymphocytic leukemia) Is this a current diagnosis for this admission?: Yes (3) Pericardial effusion Is this a current diagnosis for this admission?: Yes - Additional Information Resuscitation Status: Full Code Prescriptions: Colchicine [Colcrys 0.6 mg Tablet] 0.6 mg PO Q12 #60 tablet Home Medications: Allopurinol [Zyloprim 300 mg Tablet] 300 mg PO DAILY 11/02/18 Cyclobenzaprine HCl [Flexeril 10 mg Tablet] 10 mg PO Q8HP PRN 11/02/18 Gabapentin [Neurontin 300 mg Capsule] 300 mg PO Q8 11/02/18 Ibrutinib [Imbruvica] 420 mg PO DAILY 11/02/18 Levothyroxine Sodium [Synthroid 0.088 mg Tablet] 0.88 mg PO Q6AM 11/02/18 Loperamide HCl/Simethicone [Anti-Diarrheal+Anti-Gas Cplt] 1 tab PO Q2HP PRN 11/02/18 Loratadine [Claritin 10 mg Tablet] 10 mg PO DAILY 11/02/18 Morphine Sulfate [Morphine Ir 15 mg Tablet] 15 mg PO Q12 11/02/18 Oxycodone HCl/Acetaminophen [Percocet 5-325 mg Tablet] 1 tab PO Q6HP PRN 11/02/18 Pramipexole Di-HCl [Pramipexole Dihydrochloride] 0.125 mg PO QHS 11/02/18 Promethazine HCl [Phenergan 25 mg Tablet] 25 mg PO Q6HP PRN 11/02/18 Colchicine [Colcrys 0.6 mg Tablet] 0.6 mg PO Q12 #60 tablet 11/04/18 History of Present Illness History of Present Illness: EMY LOVETT is a 68 year old female, she has CLL, she came to the emergency room last night for evaluation of chest pain, the chest pain is atypical in [facility], but the chest pain is associated with breathing, change in position, in the emergency room CT angiogram of the chest was done, it was negative for pulmonary embolism. The twelve-lead EKG showed sinus rhythm, there was diffuse ST segment elevation and also CO segment depression in some of the leads that suggest pericarditis. She is presently on medication for the treatment of CLL, she is supposedly on a clinical trial regimen, the pericarditis could be secondary to the to the medication Hospital Course Hospital Course: Patient was admitted for the management of acute pericarditis, the clinical presentation and EKG findings were consistent with acute pericarditis. She was treated with combination of ibuprofen and colchicine, a 2D echo was done, it demonstrated mild pericardial effusion with preserved ejection fraction of left ventricle. The etiology of the pericarditis is not clear, she was recently started on a new monoclonal antibody for the treatment of CLL Physical Exam Vital Signs: Temp Pulse Resp BP Pulse Ox 97.8 F 69 20 114/62 95 11/04/18 07:51 11/04/18 07:51 11/04/18 07:51 11/04/18 07:51 11/04/18 07:51 Intake & Output 11/03/18 11/04/18 11/05/18 06:59 06:59 06:59 Intake Total 2420 1660 Balance 2420 1660 Weight 91.2 kg 89.3 kg General appearance: PRESENT: no acute distress, well-developed, well-nourished Head exam: PRESENT: atraumatic, normocephalic Eye exam: PRESENT: conjunctiva pink, EOMI, PERRLA Ear exam: PRESENT: normal external ear exam Mouth exam: PRESENT: moist, tongue midline Neck exam: PRESENT: full ROM Respiratory exam: PRESENT: clear to auscultation evan Cardiovascular exam: PRESENT: RRR, +S1, +S2 Pulses: PRESENT: normal dorsalis pedis pul, +2 pedal pulses bilateral Vascular exam: PRESENT: normal capillary refill GI/Abdominal exam: PRESENT: normal bowel sounds, soft Rectal exam: PRESENT: deferred Neurological exam: PRESENT: alert, awake, oriented to person, oriented to place, oriented to time, oriented to situation, CN II-XII grossly intact Psychiatric exam: PRESENT: appropriate affect, normal mood Skin exam: PRESENT: dry, intact, warm Results Laboratory Results: 11/04/18 04:54 11/04/18 04:54 11/03/18 11/04/18 11/04/18 04:42 04:54 04:54 WBC 18.4 H RBC 3.25 L Hgb 8.6 L Hct 26.5 L MCV 82 MCH 26.5 L MCHC 32.4 RDW 17.1 H Plt Count 108 L Seg Neutrophils % Not Reportable Lymphocytes % Not Reportable Monocytes % Not Reportable Eosinophils % Not Reportable Basophils % Not Reportable Absolute Neutrophils Not Reportable Absolute Lymphocytes Not Reportable Absolute Monocytes Not Reportable Absolute Eosinophils Not Reportable Absolute Basophils Not Reportable Sodium 141.5 Potassium 4.0 Chloride 107 Carbon Dioxide 27 Anion Gap 8 BUN 16 Creatinine 0.55 Est GFR ( Amer) > 60 Est GFR (Non-Af Amer) > 60 Glucose 92 Calcium 8.7 Total Bilirubin 0.4 AST 14 ALT 14 Alkaline Phosphatase 60 C-Reactive Protein 223.5 H Total Protein 5.2 L Albumin 3.1 L 11/02/18 00:34 Clean Catch Midstream Urine Culture - Final Mixed Urogenital Narcisa 11/02/18 11/02/18 11/02/18 00:44 00:44 00:44 Creatine Kinase < 20 L CK-MB (CK-2) < 0.22 Troponin I 0.016 Cancelled 11/02/18 11/02/18 11/02/18 04:00 04:00 09:58 Creatine Kinase 22 L < 20 L CK-MB (CK-2) < 0.22 Troponin I < 0.012 11/02/18 09:58 Creatine Kinase CK-MB (CK-2) < 0.22 Troponin I < 0.012 Impressions: Chest/Abdomen CTA 11/02/18 00:15 IMPRESSION: No aortic dissection or aneurysm. No pulmonary embolus. Dilated main pulmonary artery which can be seen in the setting of pulmonary arterial hypertension. No pneumonia. Head CT 11/02/18 00:15 IMPRESSION: 1. There is no evidence of acute intracranial pathology. Qualifiers - * PATIENT BEING DISCHARGED WITH ANY OF THE FOLLOWING DIAGNOSIS: No VTE patient discharged on overlapping Therapy?: No Reason(s) for not prescribing Overlap Therapy:: Not indicated Stroke Pt being discharged on Anti-thrombolytic therapy?: No Reason(s) for not prescribing Anti-thrombolytic therapy:: Not indicated Stroke Pt being discharged on Anti-coagulation therapy?: No Reason(s) for not prescribing Anti-coagulation therapy:: Not indicated Stroke Pt being discharged on Statins?: No Reason(s) for not prescribing Statins therapy:: Not indicated RI Pt being discharged on Aspirin therapy?: No Reason(s) for not prescribing Aspirin therapy:: Not indicated RI Pt being discharged on Statins?: No Reason(s) for not prescribing Statin therapy:: Not indicated RI Pt discharged ACEI/ARBS?: No Acute Heart Failure - Is this a Heart Failure Patient?: No e) For LVEF <35%, discharged on Aldosterone antagonist?: N/A (LVEF > or = 35%)
[2018-11-04] MEDS: OXYCODONE HCL IR 5 MG TABLET PO PRN (10:07)
[2018-11-04] MEDS: COLCHICINE 0.6 MG TABLET PO SCH (10:07)
[2018-11-04] MEDS: GABAPENTIN 300 MG CAPSULE PO SCH (10:08)
[2018-11-04] MEDS: LEVOTHYROXINE SODIUM 0.088 MG TABLET PO SCH (10:09)
[2018-11-04] MEDS: CYCLOBENZAPRINE HCL 10 MG TABLET PO SCH (10:09)
[2018-11-04] MEDS: ENOXAPARIN SODIUM INJ 40 MG/0.4 ML DISP.SYRIN SUBCUT SCH (10:10)
--- NOTE | 2018-11-04 17:37 | EKG REPORT ---
SEVERITY:- BORDERLINE ECG - SINUS RHYTHM BORDERLINE T ABNORMALITIES, ANTERIOR LEADS : Confirmed by: Emily Rasmussen MD 04-Nov-2018 15:05:21
== END 2018-11-04 13:02 | disposition home or self-care (01) ==
LOC: ER 22:54 → INTOOBSV 11-02 03:55 → EH 11-02 03:55 → 3S 11-02 06:02
PROVIDERS: ADMIT Internal Medicine; ATTEND Internal Medicine
DX: I30.9 Acute pericarditis, unspecified (principal); C91.10 Chronic lymphocytic leukemia of B-cell type not having achieved remission; I31.3 Pericardial effusion (noninflammatory); J44.9 Chronic obstructive pulmonary disease, unspecified; E03.9 Hypothyroidism, unspecified; M54.2 Cervicalgia; I95.9 Hypotension, unspecified; R73.9 Hyperglycemia, unspecified; I25.2 Old myocardial infarction; G89.29 Other chronic pain; M13.89 Other specified arthritis, multiple sites; Z79.899 Other long term (current) drug therapy; Z90.49 Acquired absence of other specified parts of digestive tract; Z98.890 Other specified postprocedural states; Z79.891 Long term (current) use of opiate analgesic; Z87.09 Personal history of other diseases of the respiratory system
CPT/HCPCS: 93005 ×2; 99291; 96361; 96374; 96375; 36415 ×3; 87040; 87086; 84439; 82553; 82140; 82150; 82550; 83690; 83735; 84100; 84443; 85025 ×3; 85652 ×2; 85610; 85730; 86140 ×2; 80076 ×2; 80048 ×2; 80053; 81001; 84484; 80307; 83036; 82803; 83605; 80061; 93306; 70450; 71275; 93010 ×2; G0378 ×3; A9270 ×25; J1200; J3010; J1885; J2765; J2270; J1650 ×3; J7030; J3490

== ENCOUNTER 2018-11-18 21:51 | Inpatient (IN) | payer MEDICARE ==
[2018-11-18] MEDS ORDERED: ASPIRIN 81 MG TABLET, CHEWABLE PO ONE (22:09)
--- NOTE | 2018-11-18 22:33 | ER Document Report ---
ED General - General Chief Complaint: Chest Pain Stated Complaint: CHEST PAIN Time Seen by Provider: 11/18/18 22:26 Primary Care Provider: KILLIAN JOHNSON MD [Primary Care Provider] - Follow up as needed Mode of Arrival: Wheelchair Information source: Patient, Relative TRAVEL OUTSIDE OF THE [place] IN LAST 30 DAYS: No - HPI Notes: Patient is a 68-year-old female history of CLL, pericarditis, pleurisy, currently undergoing chemotherapy for the last 3 months presents to the emergency department with report of chest pain. The patient has persistent chest pain related to her pericarditis and has been seen previously for the same on 11/02/[address] scan that showed no PE but did show a slightly dilated main pulmonary artery consistent with pulmonary hypertension. She also had a 2D echo done during that time which showed mild pericardial effusion but a good ejection fraction. The patient reports having chest discomfort that is pleuritic that is been persistent for the last 3 weeks. She does describe a cough that is minimally productive but denies any fever. No abdominal pain. She denies any shortness of breath, but just states it is painful to take a deep breath. No nausea or vomiting. No abdominal pain. No constipation diarrhea or dysuria. The patient was admitted for the discomfort and received a prescription for colchicine but she has not taken it yet. No leg pain or swelling. Patient has a history of asthma related to secondhand smoke. She is never been a smoker. She takes albuterol nebulizers approximately twice a day as needed. - Related Data Allergies/Adverse Reactions: codeine [Codeine] Adverse Reaction (Mild, Verified 11/02/18 00:32) lisinopril [Lisinopril] Adverse Reaction (Verified 11/02/18 00:32) Past Medical History - General Information source: Patient - Social History Smoking Status: Never Smoker Frequency of alcohol use: None Drug Abuse: None Lives with: Family Family History: Reviewed & Not Pertinent - Past Medical History Cardiac Medical History: Reports: Hx Heart Attack Denies: Hx Coronary Artery Disease, Hx Hypertension - Past history Pulmonary Medical History: Reports: Hx Bronchitis, Hx COPD, Hx Pneumonia - Last time in April Denies: Hx Asthma Neurological Medical History: Denies: Hx Cerebrovascular Accident, Hx Seizures Endocrine Medical History: Reports: Hx Hyperthyroidism, Hx Hypothyroidism Renal/ Medical History: Reports: Hx Kidney Stones. Denies: Hx Peritoneal Dialysis Malignancy Medical History: Reports: Hx Leukemia Musculoskeletal Medical History: Reports Hx Arthritis - all over, Reports Hx M usculoskeletal Deformity, Reports Hx Musculoskeletal Trauma Psychiatric Medical History: Reports: Hx Anxiety, Hx Depression Traumatic Medical History: Reports: Hx Fractures Past Surgical History: Reports: Hx Appendectomy, Hx Breast Surgery - reduction, Hx Orthopedic Surgery - 13 foot surgeries neuromas rib removed , chest tube - Immunizations Immunizations up to date: Yes Hx Diphtheria, Pertussis, Tetanus Vaccination: Yes Hx Pneumococcal Vaccination: 01/06/15 Review of Systems - Review of Systems -: Yes All other systems reviewed and negative Physical Exam - Vital signs Vitals: Resp 18 11/18/18 22:39 - Notes Notes: PHYSICAL EXAMINATION: GENERAL: Well-appearing, well-nourished and in no gross distress. Patient is obviously in discomfort. HEAD: Atraumatic, normocephalic. EYES: Pupils equal round and reactive to light, extraocular movements intact, conjunctiva are normal. ENT: Nares patent, oropharynx clear without exudates. Moist mucous membranes. NECK: Normal range of motion, supple without lymphadenopathy. LUNGS: Breath sounds coarse to auscultation bilaterally. Scant wheeze noted. Patient has Rales and rhonchi left base. HEART: Tachycardic 105 rate and rhythm without murmurs or rub ABDOMEN: Soft, nontender, nondistended abdomen. No guarding, no rebound. No masses appreciated. Female : deferred Musculoskeletal: Normal range of motion. No cyanosis. Patient has 1+ bilateral lower extremity edema. Negative Homans. No palpable cord. NEUROLOGICAL: Cranial nerves grossly intact. Normal speech, normal gait. Normal sensory, motor exams PSYCH: Normal mood, normal affect. SKIN: Warm, Dry, normal turgor, no rashes or lesions noted. Course - Re-evaluation Re-evalutation: 11/19/18 02:13 Initially there was some concern for the patient having pericarditis and she was given her usual dose of oxycodone which she took her own supply, and given colchicine p.o. Patient was given a previous prescription for colchicine after last admission but she either did not fill it or did not pick it up. Patient was also given IV Solu-Medrol and was given a DuoNeb for her wheezing with some improvement. Chest x-ray is interpreted by radiology also reviewed by myself showed progressive left base infiltrate with question effusion. The patient had blood cultures taken and had a normal lactic acid, and she was given IV vancomycin and Zosyn given her recent hospitalization. The patient had white blood cell count elevated at 39, which may be her CLL, but also question infection etiology as her previous white blood cell count was 26 just 1 week ago. Discussion was undertaken with the patient and her family and they were in agreement with admission for further evaluation and care. Discussion was undertaken with Dr. Johnson who agreed to admit the patient. - Vital Signs Vital signs: Temp Pulse Resp BP Pulse Ox 16 120/78 94 11/18/18 22:42 11/18/18 22:42 11/18/18 22:55 - Laboratory Result Diagrams: 11/18/18 23:05 11/18/18 23:05 Laboratory results interpreted by me: 11/18/18 11/18/18 23:05 23:05 WBC 39.2 H* RBC 3.04 L Hgb 7.2 L Hct 23.5 L MCV 77 L MCH 23.8 L MCHC 30.8 L RDW 18.8 H Seg Neuts % (Manual) 9 L Lymphocytes % (Manual) 90 H Monocytes % (Manual) 0 L Abs Lymphs (Manual) 35.7 H Abs Monocytes (Manual) 0.0 L Sodium 136.9 L Glucose 115 H Creatine Kinase < 20 L Total Protein 5.5 L Albumin 3.4 L Critical Care Note - Critical Care Note Total time excluding time spent on procedures (mins): 42 Discharge - Discharge Clinical Impression: CLL (chronic lymphocytic leukemia) Pneumonia Qualifiers: Pneumonia type: due to unspecified organism Laterality: left Lung location: lower lobe of lung Qualified Code(s): J18.1 - Lobar pneumonia, unspecified organism Condition: Good Disposition: ADMITTED INPATIENT Admitting Provider: Pinky Unit Admitted: IMCU Referrals: KILLIAN JOHNSON MD [Primary Care Provider] - Follow up as needed
--- NOTE | 2018-11-18 23:14 | RADIOLOGY REPORT (SQ) ---
EXAM DESCRIPTION: XR CHEST 2 VIEWS COMPLETED DATE/TME: 11/18/2018 00:00 CLINICAL HISTORY: 68 years Female, CP COMPARISON: 11/10/18 NUMBER OF VIEWS/TECHNIQUE: 1/AP FINDINGS: Moderate left basilar opacity-effusion. Prominent cardiac silhouette.Adequate appearing right jugular central line. Moderate lung volume.No pneumothorax. Stable bony thorax. IMPRESSION: No significant change.
[2018-11-18] MEDS ORDERED: COLCHICINE 0.6 MG TABLET PO ONE (23:16)
[2018-11-18] MEDS ORDERED: METHYLPREDNISOLONE INJ 125 MG/2 ML SDV IV ONE (23:24)
[2018-11-18 23:25] LABS: HEMATOCRIT 23.5 % (36.0-47.0); MEAN CORPUSCULAR HEMOGLOBIN 23.8 pg (27.0-33.4); MEAN CORPUSCULAR HGB CONC 30.8 g/dL (32.0-36.0); MEAN CORPUSCULAR VOLUME 77 fl (80-97); PLATELET COUNT 351 10^3/uL (150-450); RED BLOOD COUNT 3.04 10^6/uL (3.72-5.28); RED CELL DISTRIBUTION WIDTH 18.8 % (11.5-14.0)
[2018-11-18 23:31] LABS: HEMOGLOBIN 7.2 g/dL (12.0-15.5)
[2018-11-18] MEDS ORDERED: PIPERACILLIN/TAZOBACTAM 3.375 GM VIAL IV ONE (23:34)
[2018-11-18 23:44] LABS: ALBUMIN 3.4 g/dL (3.5-5.0); ALKALINE PHOSPHATASE 73 U/L (38-126); ANION GAP 8 (5-19); ASPARTATE AMINO TRANSFERASE 19 U/L (14-36); BILIRUBIN,DIRECT 0.3 mg/dL (0.0-0.4); BILIRUBIN,TOTAL 0.5 mg/dL (0.2-1.3); BLOOD UREA NITROGEN 16 mg/dL (7-20); CALCIUM 8.7 mg/dL (8.4-10.2); CARBON DIOXIDE 30 mmol/L (22-30); CHLORIDE 99 mmol/L (98-107); GLUCOSE 115 mg/dL (75-110); POTASSIUM 4.2 mmol/L (3.6-5.0); TOTAL PROTEIN 5.5 g/dL (6.3-8.2)
[2018-11-18 23:45] LABS: URIC ACID 3.1 mg/dL (2.5-7.5)
[2018-11-18 23:46] LABS: CREATINE KINASE < 20 U/L (30-135)
[2018-11-18 23:52] LABS: ABSOLUTE LYMPHOCYTES# (MANUAL) 35.7 10^3/uL (0.5-4.7); BASOPHILS % (MANUAL) 0 % (0-2); EOSINOPHILS % (MANUAL) 0 % (0-6); LYMPHOCYTES % (MANUAL) 90 % (13-45); MONOCYTES % (MANUAL) 0 % (3-13); SEGMENTED NEUTROPHILS % (MAN) 9 % (42-78); TOTAL CELLS COUNTED 100
[2018-11-18 23:53] LABS: ANISOCYTOSIS 2+; HYPOCHROMASIA 1+; OVALOCYTES 2+
[2018-11-18 23:55] LABS: PLATELET COMMENT ADEQUATE; WHITE BLOOD COUNT 39.2 10^3/uL (4.0-10.5)
[2018-11-19 00:01] LABS: CREATINE KINASE MB < 0.22 ng/mL (<4.55); TROPONIN I < 0.012 ng/mL
[2018-11-19] MEDS ORDERED: IPRATROPIUM/ALBUTEROL 0.5-2.5 MG/3 ML AMPUL NEB ONE (01:23)
[2018-11-19] MEDS ORDERED: VANCOMYCIN HCL INJ 1000 MG VIAL IV ONE (01:36)
[2018-11-19] MEDS ORDERED: ACETAMINOPHEN 325 MG TABLET PO PRN (01:51)
[2018-11-19 02:45] LABS: APPEARANCE,URINE CLEAR; BILIRUBIN,URINE NEGATIVE (NEGATIVE); COLOR,URINE YELLOW; GLUCOSE, URINE NEGATIVE (NEGATIVE); KETONES,URINE NEGATIVE (NEGATIVE); LEUKOCYTE ESTERASE,URINE TRACE (NEGATIVE); NITRITE,URINE NEGATIVE (NEGATIVE); PROTEIN,URINE NEGATIVE (NEGATIVE); URINE SPECIFIC GRAVITY 1.016
[2018-11-19 02:49] LABS: NT PRO BNP 476 pg/mL (5-900)
[2018-11-19 02:50] LABS: CREATINE KINASE MB < 0.22 ng/mL (<4.55)
[2018-11-19] MEDS ORDERED: LIDOCAINE 5% OINTMENT 35.44 GM TP ONE (03:28)
[2018-11-19 03:57] LABS: ARTERIAL BLOOD BASE EXCESS 2.8 mmol/L; ARTERIAL BLOOD O2 SATURATION 96.9 % (94-98); ARTERIAL BLOOD PCO2 39.9 mmHg (35-45); ARTERIAL BLOOD PH 7.45 (7.35-7.45); ARTERIAL BLOOD PO2 85.7 mmHg (80-100); ARTERIAL BLOOD TOTAL CO2 28.3 mmol/L (21-25)
[2018-11-19 03:58] LABS: ARTERIAL BLOOD FIO2 28%
[2018-11-19] MEDS: NORMAL SALINE 1000 ML 1,000 ML IV PRN (04:29)
[2018-11-19] MEDS ORDERED: VANCOMYCIN HCL INJ 1000 MG VIAL ONE (04:38)
[2018-11-19] MEDS ORDERED: VANCOMYCIN HCL INJ 500 MG VIAL ONE (04:38)
[2018-11-19] MEDS ORDERED: CEFEPIME 2 GM/D5W RTU 2 GM/50 ML RTUPB IV ONE ×2 (04:39→22:38)
[2018-11-19] MEDS: CEFEPIME 2 GM/D5W RTU 2 GM/50 ML RTUPB IV SCH ×2 (06:57→22:40)
[2018-11-19] MEDS: LEVOFLOXACIN 750 MG/D5W RTU 750 MG/150 ML RTUPB IV SCH (08:04)
--- NOTE | 2018-11-19 10:08 | RADIOLOGY REPORT (SQ) ---
EXAM DESCRIPTION: CT CHEST WITHOUT COMPLETED DATE/TIME: 11/19/2018 9:26 am REASON FOR STUDY: pneumonia COMPARISON: 11/02/2018 TECHNIQUE: CT scan performed of the chest without intravenous contrast. Images reviewed with lung, soft tissue and bone windows. Reconstructed coronal and sagittal MPR images reviewed. All images st ored on PACS. All CT scanners at this facility use dose modulation, iterative reconstruction, and/or weight based d osing when appropriate to reduce radiation dose to as low as reasonably achievable (ALARA). [facility]: Dose Right [facility]: CareDose [facility]: Dose Right [facility]: Teradose 4D [facility]: [email or web address] RADIATION DOSE: CT Rad equipment meets quality standard of care and radiation dose reduction techniq ues were employed. CTDIvol: 13.7 mGy. DLP: 532 mGy-cm. mGy. LIMITATIONS: No technical limitations. FINDINGS: LUNGS AND PLEURA: There is mild bibasilar hypoventilatory change. Small left effusion wit h linear consolidation, likely atelectasis. No pneumothorax. Few scattered ground-glass subcentimet er nodular opacities within the right upper lobe. No discrete mass. HILAR AND MEDIASTINAL STRUCTURES: Shotty mediastinal nodes without discrete adenopathy. HEART AND VASCULAR STRUCTURES: There is increased size of a now moderate pericardial effusion measuri ng up to 1.9 cm in maximal thickness, previously trace effusion. Scattered coronary atherosclerosis. Dilated main pulmonary artery, stable. UPPER ABDOMEN: No significant findings. Limited exam. THYROID AND OTHER SOFT TISSUES: No masses. No adenopathy. BONES: No acute bony abnormality. No discrete lytic or blastic osseous lesions. HARDWARE: Right internal jugular base chest port with catheter tip at cavoatrial junction. OTHER: No other significant findings. IMPRESSION: 1. New moderate pericardial effusion, etiology uncertain. 2. Small left effusion with linear consolidation, likely atelectasis. Mild additional bibasilar hyp oventilatory change without definite airspace disease. 3. Unchanged dilated main pulmonary artery which can be seen with pulmonary arterial hypertension. TECHNICAL DOCUMENTATION: JOB ID: [id number] Quality ID # [id number]: Final reports with documentation of one or more dose reduction techniques (e.g., Au tomated exposure control, adjustment of the mA and/or kV according to patient size, use of iterative reconstruction technique) 2010 [employer]- All Rights Reserved Reading location - IP/workstation name: [email or web address]
[2018-11-19 10:40] LABS: PATH REVIEW PATHOLOGIST REVIEWED
[2018-11-19] MEDS: ENOXAPARIN SODIUM INJ 40 MG/0.4 ML DISP.SYRIN SUBCUT SCH (10:49)
--- NOTE | 2018-11-19 14:52 | EKG REPORT ---
SEVERITY:- ABNORMAL ECG - SINUS TACHYCARDIA BORDERLINE INFERIOR Q WAVES NONSPECIFIC T ABNORMALITIES, INFERIOR LEADS : Confirmed by: Daniel Evangelista 19-Nov-2018 14:51:32
[2018-11-19] MEDS: BENZOCAINE/MENTHOL SORE THROAT LOZENGE BUCCAL PRN ×2 (17:00→23:40)
[2018-11-19] MEDS ORDERED: ONDANSETRON HCL 8 MG TABLET PO PRN (18:21)
[2018-11-19] MEDS ORDERED: CYCLOBENZAPRINE HCL 10 MG TABLET PO PRN (18:21)
[2018-11-19] MEDS ORDERED: (PENDING PHARMACY ID) (Oxycodone Hcl/Acetaminophen [Endocet 10-325 Mg Tablet] 1 TAB) PO PRN (18:21)
[2018-11-19] MEDS ORDERED: PROMETHAZINE HCL 25 MG TABLET PO PRN (18:25)
--- NOTE | 2018-11-19 19:09 | PDOC H&P ---
History of Present Illness Admission Date/PCP: 11/19/18 01:51 KILLIAN JOHNSON MD History of Present Illness: EMY LOVETT is a 68 year old femaleShe was admitted last night, she came to the emergency room for evaluation of chest pain, the chest pain is pleuritic in nature, there was associated cough she was recently admitted in this hospital roughly 2 weeks ago, She was discharged on 11/04/2018, at the time she was diagnosed with acute pericarditis, the 2D echocardiogram that was done demonstrated mild pericardial effusion, she was discharged home on colchicine for 3 months but my understanding is that she apparently has not been taking the medication as prescribed. Patient daughter called me yesterday about the patient's condition she narrated to me that she was coughing, she was fatigue, she is not able to get out of bed, I advised to take care of the emergency room for evaluation and if she is acutely sick the ED physician will be called me for admission., The chest x-ray that was done in the emergency room suggest pneumonia, I subsequently requested for CT chest without contrast, it demonstrated mild bibasilar hypoventilatory change there was a small left pleural effusion with linear consolidation likely atelectasis no pneumothorax or fever scattered groundglass subcentimeter nodular opacities within the right upper lobe no discrete mass. Also found was shotty mediastinal nodes without discrete adenopathy. There was increased size of a now moderate pericardial effusion that measure up to 1.9 cm in maximal thickness the last time she was in the hospital CT chest radiograph was done that demonstrated trace pericardial effusion. Because of this new finding of moderate pericardial effusion a 2D echo was done today 2D echo also demonstrated moderate size pericardial effusion with a large pleural effusion, the CT chest did not demonstrate a large pleural effusion that was demonstrated on the 2D echo. More importantly the pericardial effusion is moderate size but there is no associated tamponade. Unfortunately patient was not consistent and persistent with the colchicine that was prescribed the last that she was admitted. She follows with oncology and she recently had a Port-A-Cath inserted, I am not sure what kind of treatment she is receiving for the CLL if this is a monoclonal antibody based therapy or immunotherapy or chemotherapy, I will consult with the treating oncology if the treatment she is receiving could be partly the cause of the pericardial effusion is experiencing. She may need pericardiocentesis, I will consult with cardiology for advice on this Past Medical History Cardiac Medical History: Reports: Myocardial Infarction Pulmonary Medical History: Reports: Bronchitis, Chronic Obstructive Pulmonary Disease (COPD), Pneumonia - Last time in April Endocrine Medical History: Reports: Hypothyroidism Malignancy Medical History: Reports: Leukemia Musculoskeltal Medical History: Reports: Arthritis - all over Psychiatric Medical History: Reports: Depression Past Surgical History Past Surgical History: Reports: Appendectomy, Orthopedic Surgery - 13 foot surgeries neuromas rib removed , chest tube Social History Lives with: Family Smoking Status: Never Smoker Frequency of Alcohol Use: Occasional Hx Recreational Drug Use: No Drugs: None Hx Prescription Drug Abuse: No Family History Family History: Reviewed & Not Pertinent Parental Family History Reviewed: Yes Children Family History Reviewed: Yes Sibling(s) Family History Reviewed.: Yes Medication/Allergy Home Medications: Allopurinol [Zyloprim 300 mg Tablet] 300 mg PO DAILY 11/19/18 Cyclobenzaprine HCl [Flexeril 10 mg Tablet] 10 mg PO Q8HP PRN 11/19/18 Gabapentin [Neurontin 300 mg Capsule] 300 mg PO Q8 11/19/18 Levothyroxine Sodium [Synthroid 0.088 mg Tablet] 0.088 mg PO Q6AM 11/19/18 Meloxicam [Mobic] 7.5 mg PO Q12 11/19/18 Morphine Sulfate [Morphine Ir 15 mg Tablet] 15 mg PO Q12 11/19/18 Ondansetron HCl [Zofran 8 mg Tablet] 8 mg PO Q8HP PRN 11/19/18 Oxycodone HCl/Acetaminophen [Endocet 10-325 mg Tablet] 1 tab PO Q6HP PRN 11/19/18 Pramipexole Di-HCl [Pramipexole Dihydrochloride] 0.125 mg PO DAILY 11/19/18 Promethazine HCl [Phenergan 25 mg Tablet] 25 mg PO Q6HP PRN 11/19/18 Allergies/Adverse Reactions: codeine [Codeine] Adverse Reaction (Mild, Verified 11/02/18 00:32) lisinopril [Lisinopril] Adverse Reaction (Verified 11/02/18 00:32) Review of Systems Eyes: ABSENT: visual disturbances Ears: ABSENT: hearing changes Cardiovascular: PRESENT: chest pain Respiratory: PRESENT: cough Gastrointestinal: ABSENT: abdominal pain, constipation, diarrhea, hematemesis, hematochezia, nausea, vomiting Genitourinary: ABSENT: dysuria, hematuria Musculoskeletal: ABSENT: joint swelling Integumentary: ABSENT: rash, wounds Neurological: ABSENT: abnormal gait, abnormal speech, confusion, dizziness, focal weakness, syncope Psychiatric: ABSENT: anxiety, depression, homidical ideation, suicidal ideation Endocrine: ABSENT: cold intolerance, heat intolerance, menstrual abnormalities, polydipsia, polyuria Hematologic/Lymphatic: ABSENT: easy bleeding, easy bruising, lymphadenopathy Physical Exam Vital Signs: Temp Pulse Resp BP Pulse Ox 99.0 F 112 H 18 117/58 L 97 11/19/18 14:48 11/19/18 14:48 11/19/18 14:48 11/19/18 14:48 11/19/18 14:48 Intake & Output 11/18/18 11/19/18 11/20/18 06:59 06:59 06:59 Intake Total 100 750 Output Total 500 Balance 100 250 Weight 91.3 kg General appearance: PRESENT: no acute distress, well-developed, well-nourished Head exam: PRESENT: atraumatic, normocephalic Eye exam: PRESENT: conjunctiva pink, EOMI, PERRLA Ear exam: PRESENT: normal external ear exam Mouth exam: PRESENT: moist, tongue midline Neck exam: PRESENT: full ROM Respiratory exam: PRESENT: clear to auscultation evan Cardiovascular exam: PRESENT: RRR, +S1, +S2 Pulses: PRESENT: normal dorsalis pedis pul, +2 pedal pulses bilateral Vascular exam: PRESENT: normal capillary refill GI/Abdominal exam: PRESENT: normal bowel sounds, soft Rectal exam: PRESENT: deferred Neurological exam: PRESENT: alert, CN II-XII grossly intact Psychiatric exam: PRESENT: appropriate affect, normal mood Skin exam: PRESENT: dry, intact, warm Results Laboratory Results: 11/18/18 23:05 11/18/18 23:05 11/18/18 11/18/18 11/18/18 23:05 23:05 23:05 WBC 39.2 H* RBC 3.04 L Hgb 7.2 L Hct 23.5 L MCV 77 L MCH 23.8 L MCHC 30.8 L RDW 18.8 H Plt Count 351 Seg Neutrophils % Not Reportable Lymphocytes % Not Reportable Monocytes % Not Reportable Eosinophils % Not Reportable Basophils % Not Reportable Absolute Neutrophils Not Reportable Absolute Lymphocytes Not Reportable Absolute Monocytes Not Reportable Absolute Eosinophils Not Reportable Absolute Basophils Not Reportable Carbonic Acid HCO3/H2CO3 Ratio ABG pH ABG pCO2 ABG pO2 ABG HCO3 ABG O2 Saturation ABG Base Excess FiO2 Sodium 136.9 L Potassium 4.2 Chloride 99 Carbon Dioxide 30 Anion Gap 8 BUN 16 Creatinine 0.55 Est GFR ( Amer) > 60 Est GFR (Non-Af Amer) > 60 Glucose 115 H Lactic Acid Uric Acid 3.1 Calcium 8.7 Magnesium 1.9 Total Bilirubin 0.5 AST 19 Alkaline Phosphatase 73 Total Protein 5.5 L Albumin 3.4 L Urine Color Urine Appearance Urine pH Ur Specific [place] Urine Protein Urine Glucose (UA) Urine Ketones Urine Blood Urine Nitrite Ur Leukocyte Esterase Urine WBC (Auto) Urine RBC (Auto) 11/18/18 11/19/18 11/19/18 23:52 00:10 03:30 WBC RBC Hgb Hct MCV MCH MCHC RDW Plt Count Seg Neutrophils % Lymphocytes % Monocytes % Eosinophils % Basophils % Absolute Neutrophils Absolute Lymphocytes Absolute Monocytes Absolute Eosinophils Absolute Basophils Carbonic Acid 1.20 HCO3/H2CO3 Ratio 22:1 ABG pH 7.45 ABG pCO2 39.9 ABG pO2 85.7 ABG HCO3 27.0 H ABG O2 Saturation 96.9 ABG Base Excess 2.8 FiO2 28% Sodium Potassium Chloride Carbon Dioxide Anion Gap BUN Creatinine Est GFR ( Amer) Est GFR (Non-Af Amer) Glucose Lactic Acid 1.2 Uric Acid Calcium Magnesium Total Bilirubin AST Alkaline Phosphatase Total Protein Albumin Urine Color YELLOW Urine Appearance CLEAR Urine pH 6.0 Ur Specific [place] 1.016 Urine Protein NEGATIVE Urine Glucose (UA) NEGATIVE Urine Ketones NEGATIVE Urine Blood SMALL H Urine Nitrite NEGATIVE Ur Leukocyte Esterase TRACE H Urine WBC (Auto) 3 Urine RBC (Auto) 2 11/18/18 11/18/18 11/18/18 23:05 23:05 23:05 Creatine Kinase < 20 L CK-MB (CK-2) < 0.22 Troponin I < 0.012 NT-Pro-B Natriuret Pep 491 11/19/18 11/19/18 11/19/18 00:55 00:55 00:55 Creatine Kinase < 20 L CK-MB (CK-2) < 0.22 Troponin I < 0.012 NT-Pro-B Natriuret Pep 476 Impressions: Chest X-Ray 11/18/18 00:00 IMPRESSION: No significant change. Chest CT 11/19/18 00:00 IMPRESSION: 1. New moderate pericardial effusion, etiology uncertain. 2. Small left effusion with linear consolidation, likely atelectasis. Mild additional bibasilar hypoventilatory change without definite airspace disease. 3. Unchanged dilated main pulmonary artery which can be seen with pulmonary arterial hypertension. Assessment & Plan - Diagnosis (1) Pericardial effusion without cardiac tamponade Is this a current diagnosis for this admission?: Yes Plan: She has pericardial effusion of moderate severity there is no tamponade but she may need pericardiocentesis for diagnostic purposes, will consult Dr. Rasmussen cardiology (2) Pneumonia Qualifiers: Pneumonia type: due to unspecified organism Laterality: unspecified laterality Lung location: unspecified part of lung Qualified Code(s): J18.9 - Pneumonia, unspecified organism Is this a current diagnosis for this admission?: Yes Plan: I cannot completely rule out pneumonia, start IV antibiotic (3) CLL (chronic lymphocytic leukemia) Is this a current diagnosis for this admission?: Yes Plan: She has CLL, consult oncology Dr. Dempsey, She said she was supposed to receive chemotherapy tomorrow
--- NOTE | 2018-11-19 19:26 | XCELERA REPORT ---
[address] [address] Transthoracic Echocardiogram Report Name: EMY LOVETT Age: 68 yrs Gender: Female : 1950 Patient Status: Inpatient Patient Location: [facility]^A Study Date: 11/19/2018 05:37 PM Height: 64 in Weight: 201 lb BSA: 2.0 m2 Procedure: A limited two-dimensional transthoracic echocardiogram was performed (2D). The study was technically limited with all images being suboptimal in quality. Reason For Study: pericardial effusion Ordering Physician: KILLIAN JOHNSON Performed By: Vielka Pardo Interpretation Summary There is moderate Pericardial effusion.This has increased from a very small pericardial effusion on 11/03/18 echo.Images not well obtained to comment on tamponade.Corelate clinically. MMode/2D Measurements & Calculations RVDd: 3.7 cm LVIDd: 4.3 cm FS: 36.7 % Ao root diam: 2.5 cm IVSd: 1.5 cm LVIDs: 2.7 cm EDV(Teich): 80.9 ml Ao root area: 4.8 cm2 LVPWd: 1.2 cm ESV(Teich): 26.8 ml LA dimension: 4.4 cm EF(Teich): 66.9 % Effusions There is moderate Pericardial effusion.This has increased from a very small pericardial effusion on 11/03/18 echo.Images not well obtained to comment on tamponade.Corelate clinically. : KILLIAN JOHNSON > Emily Rasmussen
[2018-11-19] MEDS ORDERED: MELOXICAM 7.5 MG TABLET PO SCH (22:00)
[2018-11-19] MEDS: GABAPENTIN 300 MG CAPSULE PO SCH (22:35)
[2018-11-19] MEDS: MORPHINE SULFATE IR 15 MG TABLET PO SCH (22:35)
[2018-11-19] MEDS: COLCHICINE 0.6 MG TABLET PO SCH (22:37)
[2018-11-20] MEDS: BENZOCAINE/MENTHOL SORE THROAT LOZENGE BUCCAL PRN ×5 (02:18→23:02)
[2018-11-20 06:32] LABS: HEMATOCRIT 23.3 % (36.0-47.0); MEAN CORPUSCULAR HEMOGLOBIN 23.3 pg (27.0-33.4); MEAN CORPUSCULAR HGB CONC 30.7 g/dL (32.0-36.0); MEAN CORPUSCULAR VOLUME 76 fl (80-97); PLATELET COUNT 377 10^3/uL (150-450); RED BLOOD COUNT 3.07 10^6/uL (3.72-5.28); RED CELL DISTRIBUTION WIDTH 19.2 % (11.5-14.0)
[2018-11-20] MEDS ORDERED: CEFEPIME 2 GM/D5W RTU 2 GM/50 ML RTUPB IV ONE (06:47)
[2018-11-20 06:52] LABS: ALBUMIN 3.2 g/dL (3.5-5.0); ALKALINE PHOSPHATASE 66 U/L (38-126); ANION GAP 7 (5-19); ASPARTATE AMINO TRANSFERASE 15 U/L (14-36); BILIRUBIN,DIRECT 0.3 mg/dL (0.0-0.4); BILIRUBIN,TOTAL 0.4 mg/dL (0.2-1.3); BLOOD UREA NITROGEN 16 mg/dL (7-20); CALCIUM 9.3 mg/dL (8.4-10.2); CARBON DIOXIDE 30 mmol/L (22-30); CHLORIDE 104 mmol/L (98-107); GLUCOSE 103 mg/dL (75-110); TOTAL PROTEIN 5.4 g/dL (6.3-8.2)
[2018-11-20 06:53] LABS: HEMOGLOBIN 7.2 g/dL (12.0-15.5)
[2018-11-20] MEDS: GABAPENTIN 300 MG CAPSULE PO SCH ×3 (07:04→22:03)
[2018-11-20] MEDS: CEFEPIME 2 GM/D5W RTU 2 GM/50 ML RTUPB IV SCH (07:05)
[2018-11-20] MEDS: LEVOTHYROXINE SODIUM 0.088 MG TABLET PO SCH (07:05)
[2018-11-20 07:08] LABS: ABSOLUTE LYMPHOCYTES# (MANUAL) 38.9 10^3/uL (0.5-4.7); ABSOLUTE MONOCYTES # (MANUAL) 1.4 10^3/uL (0.1-1.4); BASOPHILS % (MANUAL) 0 % (0-2); EOSINOPHILS % (MANUAL) 0 % (0-6); LYMPHOCYTES % (MANUAL) 80 % (13-45); MONOCYTES % (MANUAL) 3 % (3-13); SEGMENTED NEUTROPHILS % (MAN) 16 % (42-78); TOTAL CELLS COUNTED 100
[2018-11-20 07:10] LABS: ANISOCYTOSIS 2+; HYPOCHROMASIA 1+; PLATELET COMMENT ADEQUATE
[2018-11-20] MEDS ORDERED: FUROSEMIDE INJ/PF 20 MG/2 ML SDV IV ONE ×3 (08:45→18:00)
[2018-11-20] MEDS ORDERED: DIPHENHYDRAMINE HCL 25 MG CAPSULE PO ONE ×2 (08:45→14:00)
[2018-11-20] MEDS ORDERED: ACETAMINOPHEN 325 MG TABLET PO ONE (08:45)
--- NOTE | 2018-11-20 08:52 | PDOC CONSULTATION ---
Consultation Consult Date: 11/20/18 Attending physician:: KILLIAN JOHNSON Provider Consulted: MATTY CONRAD Consult reason:: Shortness of breath, dyspnea on exertion, cough with greenish sputum History of Present Illness Admission Date/PCP: 11/19/18 01:51 KILLIAN JOHNSON MD Patient complains of: Cough, shortness of breath, dyspnea on exertion History of Present Illness: EMY LOVETT is a 68 year old female with known history of CLL currently on clinical trial, she is on IBRUVICA + GAZYVA on clinical trial. Recently, she was admitted about 2 weeks ago with chest pain and shortness of breath and ultimately was felt to be a pericarditis ongoing along with a small pericardial effusion, she was placed on colchicine and improved after that, at home however over the last week or so she has been having increasing shortness of breath and dyspnea on exertion. Upon admission she was felt to have clinical symptomology consistent with a pneumonia and she was admitted for treatment for that. However, echocardiogram was repeated and the pericardial effusion was slightly bigger. It was a limited study so the right heart was not fully visualized to see if there is any problems with tamponade. But clinically she does not seem to have symptomatology consistent with tamponade. She has had cough and congestion with greenish sputum production. Of note, upon admission her hemoglobin was in the 7 range. She is usually sitting in the 9 range. Past Medical History Cardiac Medical History: Reports: Myocardial Infarction Denies: Coronary Artery Disease, Hypertension - Past history Pulmonary Medical History: Reports: Bronchitis, Chronic Obstructive Pulmonary Disease (COPD), Pneumonia - Last time in April Denies: Asthma Neurological Medical History: Denies: Seizures Endocrine Medical History: Reports: Hyperthyroidism, Hypothyroidism Malignancy Medical History: Reports: Leukemia Musculoskeltal Medical History: Reports: Arthritis - all over Psychiatric Medical History: Reports: Depression Hematology: Denies: Anemia Past Surgical History Past Surgical History: Reports: Appendectomy, Orthopedic Surgery - 13 foot surgeries neuromas rib removed , chest tube, Other - Recent port placement Social History Information Source: Patient Lives with: Family Smoking Status: Never Smoker Frequency of Alcohol Use: Occasional Hx Recreational Drug Use: No Drugs: None Hx Prescription Drug Abuse: No - Advance Directive Resuscitation Status: Full Code Family History Family History: Reviewed & Not Pertinent Parental Family History Reviewed: Yes Children Family History Reviewed: Yes Sibling(s) Family History Reviewed.: Yes Medication/Allergy Home Medications: Allopurinol [Zyloprim 300 mg Tablet] 300 mg PO DAILY 11/19/18 Cyclobenzaprine HCl [Flexeril 10 mg Tablet] 10 mg PO Q8HP PRN 11/19/18 Gabapentin [Neurontin 300 mg Capsule] 300 mg PO Q8 11/19/18 Levothyroxine Sodium [Synthroid 0.088 mg Tablet] 0.088 mg PO Q6AM 11/19/18 Meloxicam [Mobic] 7.5 mg PO Q12 11/19/18 Morphine Sulfate [Morphine Ir 15 mg Tablet] 15 mg PO Q12 11/19/18 Ondansetron HCl [Zofran 8 mg Tablet] 8 mg PO Q8HP PRN 11/19/18 Oxycodone HCl/Acetaminophen [Endocet 10-325 mg Tablet] 1 tab PO Q6HP PRN 11/19/18 Pramipexole Di-HCl [Pramipexole Dihydrochloride] 0.125 mg PO DAILY 11/19/18 Promethazine HCl [Phenergan 25 mg Tablet] 25 mg PO Q6HP PRN 11/19/18 Allergies/Adverse Reactions: codeine [Codeine] Adverse Reaction (Mild, Verified 11/02/18 00:32) lisinopril [Lisinopril] Adverse Reaction (Verified 11/02/18 00:32) Review of Systems Constitutional: ABSENT: chills, fever(s), headache(s), weight gain, weight loss Eyes: ABSENT: visual disturbances Ears: ABSENT: hearing changes Cardiovascular: ABSENT: chest pain, dyspnea on exertion, edema, orthropnea, palpitations Respiratory: ABSENT: cough, hemoptysis Gastrointestinal: ABSENT: abdominal pain, constipation, diarrhea, hematemesis, hematochezia, nausea, vomiting Genitourinary: ABSENT: dysuria, hematuria Musculoskeletal: ABSENT: joint swelling Integumentary: ABSENT: rash, wounds Neurological: ABSENT: abnormal gait, abnormal speech, confusion, dizziness, focal weakness, syncope Psychiatric: ABSENT: anxiety, depression, homidical ideation, suicidal ideation Endocrine: ABSENT: cold intolerance, heat intolerance, polydipsia, polyuria Hematologic/Lymphatic: ABSENT: easy bleeding, easy bruising Physical Exam Vital Signs: Temp Pulse Resp BP Pulse Ox 98.8 F 97 22 H 151/73 H 92 08/15/19 03:15 11/20/18 07:00 11/20/18 03:15 11/20/18 03:15 11/20/18 03:15 Intake & Output 11/19/18 11/20/18 11/21/18 06:59 06:59 06:59 Intake Total 100 1075 50 Output Total 1250 Balance 100 -175 50 Weight 91.3 kg 91.3 kg General appearance: PRESENT: no acute distress, well-developed, well-nourished Head exam: PRESENT: atraumatic, normocephalic Eye exam: PRESENT: conjunctiva pink, EOMI, PERRLA. ABSENT: scleral icterus Ear exam: PRESENT: normal external ear exam Mouth exam: PRESENT: moist, tongue midline Neck exam: ABSENT: carotid bruit, JVD, lymphadenopathy, thyromegaly Respiratory exam: PRESENT: clear to auscultation evan. ABSENT: rales, rhonchi, wheezes Cardiovascular exam: PRESENT: RRR. ABSENT: diastolic murmur, rubs, systolic murmur Pulses: PRESENT: normal dorsalis pedis pul Vascular exam: PRESENT: normal capillary refill GI/Abdominal exam: PRESENT: normal bowel sounds, soft. ABSENT: distended, guarding, mass, organolmegaly, rebound, tenderness Rectal exam: PRESENT: deferred Extremities exam: PRESENT: full ROM. ABSENT: calf tenderness, clubbing, pedal edema Neurological exam: PRESENT: alert, awake, oriented to person, oriented to place, oriented to time, oriented to situation, CN II-XII grossly intact. ABSENT: motor sensory deficit Psychiatric exam: PRESENT: appropriate affect, normal mood. ABSENT: homicidal ideation, suicidal ideation Skin exam: PRESENT: dry, intact, warm. ABSENT: cyanosis, rash Results Laboratory Results: 11/20/18 05:09 11/20/18 05:09 11/20/18 11/20/18 05:09 05:09 WBC 48.0 H* RBC 3.07 L Hgb 7.2 L Hct 23.3 L MCV 76 L MCH 23.3 L MCHC 30.7 L RDW 19.2 H Plt Count 377 Seg Neutrophils % Not Reportable Lymphocytes % Not Reportable Monocytes % Not Reportable Eosinophils % Not Reportable Basophils % Not Reportable Absolute Neutrophils Not Reportable Absolute Lymphocytes Not Reportable Absolute Monocytes Not Reportable Absolute Eosinophils Not Reportable Absolute Basophils Not Reportable Sodium 140.5 Potassium 4.0 Chloride 104 Carbon Dioxide 30 Anion Gap 7 BUN 16 Creatinine 0.63 Est GFR ( Amer) > 60 Est GFR (Non-Af Amer) > 60 Glucose 103 Calcium 9.3 Total Bilirubin 0.4 AST 15 Alkaline Phosphatase 66 Total Protein 5.4 L Albumin 3.2 L 11/18/18 11/18/18 11/18/18 23:05 23:05 23:05 Creatine Kinase < 20 L CK-MB (CK-2) < 0.22 Troponin I < 0.012 NT-Pro-B Natriuret Pep 491 11/19/18 11/19/18 11/19/18 00:55 00:55 00:55 Creatine Kinase < 20 L CK-MB (CK-2) < 0.22 Troponin I < 0.012 NT-Pro-B Natriuret Pep 476 Impressions: Chest X-Ray 11/18/18 00:00 IMPRESSION: No significant change. Chest CT 11/19/18 00:00 IMPRESSION: 1. New moderate pericardial effusion, etiology uncertain. 2. Small left effusion with linear consolidation, likely atelectasis. Mild additional bibasilar hypoventilatory change without definite airspace disease. 3. Unchanged dilated main pulmonary artery which can be seen with pulmonary arterial hypertension. Status: Image reviewed by me Assessment & Plan - Diagnosis (1) Pneumonia Qualifiers: Pneumonia type: due to unspecified organism Laterality: left Lung location: lower lobe of lung Qualified Code(s): J18.1 - Lobar pneumonia, unspecified organism Is this a current diagnosis for this admission?: Yes Plan: Probable pneumonia, currently on appropriate antibiotics per primary team. (2) Pericardial effusion without cardiac tamponade Is this a current diagnosis for this admission?: Yes Plan: Present but I do not think this is really causing her symptomatology, cardiology has been consulted and will give an opinion as well. They will probably order a better echocardiogram to further evaluated. Of note, in review of the echocardiogram from March even before she started on trial, she did have a small pericardial effusion then as well. 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 This is probable cause of her shortness of breath. (5) CLL (chronic lymphocytic leukemia) Is this a current diagnosis for this admission?: Yes Plan: Patient on clinical trial for this, I do not believe the clinical trial drugs are causing any of these above issues. But all treatment will be held until she is discharged. - Time Time Spent: Greater than 70 Minutes - Inpatient Certification Based on my medical assessment, after consideration of the patient's comorbidities, presenting symptoms, or acuity I expect that the services needed warrant INPATIENT care.: Yes I certify that my determination is in accordance with my understanding of Medicare's requirements for reasonable and necessary INPATIENT services [42 CFR 412.3e].: Yes Medical Necessity: Need for IV Antibiotics, Risk of Complication if Not Cared For in Hospital
[2018-11-20] MEDS: LEVOFLOXACIN 750 MG/D5W RTU 750 MG/150 ML RTUPB IV SCH (09:58)
[2018-11-20] MEDS: PRAMIPEXOLE DI-HCL 0.25 MG TABLET PO SCH (09:59)
[2018-11-20] MEDS: MORPHINE SULFATE IR 15 MG TABLET PO SCH ×2 (09:59→22:03)
[2018-11-20] MEDS: OXYCODONE-ACETAMINOPHEN 5-325 MG TABLET PO PRN ×3 (09:59→22:04)
[2018-11-20] MEDS: COLCHICINE 0.6 MG TABLET PO SCH ×2 (10:00→22:03)
[2018-11-20] MEDS: ALLOPURINOL 300 MG TABLET PO SCH (10:00)
[2018-11-20] MEDS: ENOXAPARIN SODIUM INJ 40 MG/0.4 ML DISP.SYRIN SUBCUT SCH (10:00)
[2018-11-20 10:22] LABS: ABSOLUTE RETICS # 0.039 10^6/uL (0.028-0.122); RETICULOCYTE COUNT (AUTO) 1.28 % (0.66-2.85)
[2018-11-20 11:27] LABS: FOLATE 9.69 ng/mL (>2.76)
[2018-11-20 11:30] LABS: IRON(TIBC) < 10.1 ug/dL (37-170)
[2018-11-20] MEDS: CEFEPIME HCL 2 GM in DEXTROSE 5%-WATER 50 ML IV SCH (17:16)
[2018-11-20] MEDS: DIPHENOXYLATE HCL/ATROP SULF 2.5-0.025 MG TABLET PO SCH ×2 (17:59→22:03)
--- NOTE | 2018-11-20 20:42 | PDOC PROGRESS REPORT ---
Subjective Progress Note for:: 11/20/18 Subjective:: Patient seen by the bedside, she was transfused today with red blood cells, she was seen by Dr. Rasmussen cardiology regarding the pericardial effusion, She complained of diarrhea Reason For Visit: PNEUMONIA, CLL Physical Exam Vital Signs: Temp Pulse Resp BP Pulse Ox 98.5 F 102 H 24 H 138/80 H 97 11/20/18 20:05 11/20/18 20:05 11/20/18 20:05 11/20/18 20:05 11/20/18 20:05 Intake & Output 11/19/18 11/20/18 11/21/18 06:59 06:59 06:59 Intake Total 100 1075 1915 Output Total 1250 700 Balance 100 -175 1215 Weight 91.3 kg 91.3 kg General appearance: PRESENT: no acute distress Eye exam: PRESENT: PERRLA Respiratory exam: PRESENT: clear to auscultation evan Cardiovascular exam: PRESENT: +S1, +S2 GI/Abdominal exam: PRESENT: soft Neurological exam: PRESENT: alert Results Laboratory Results: 11/20/18 05:09 11/20/18 05:09 11/20/18 11/20/18 11/20/18 05:09 05:09 05:09 WBC 48.0 H* RBC 3.07 L Hgb 7.2 L Hct 23.3 L MCV 76 L MCH 23.3 L MCHC 30.7 L RDW 19.2 H Plt Count 377 Seg Neutrophils % Not Reportable Lymphocytes % Not Reportable Monocytes % Not Reportable Eosinophils % Not Reportable Basophils % Not Reportable Absolute Neutrophils Not Reportable Absolute Lymphocytes Not Reportable Absolute Monocytes Not Reportable Absolute Eosinophils Not Reportable Absolute Basophils Not Reportable Retic Count (auto) 1.28 Absolute Retic 0.039 Sodium 140.5 Potassium 4.0 Chloride 104 Carbon Dioxide 30 Anion Gap 7 BUN 16 Creatinine 0.63 Est GFR ( Amer) > 60 Est GFR (Non-Af Amer) > 60 Glucose 103 Calcium 9.3 Iron TIBC % Saturation Ferritin Total Bilirubin 0.4 AST 15 Alkaline Phosphatase 66 Total Protein 5.4 L Albumin 3.2 L Vitamin B12 Folate Blood Type Antibody Screen 11/20/18 11/20/18 05:09 10:50 WBC RBC Hgb Hct MCV MCH MCHC RDW Plt Count Seg Neutrophils % Lymphocytes % Monocytes % Eosinophils % Basophils % Absolute Neutrophils Absolute Lymphocytes Absolute Monocytes Absolute Eosinophils Absolute Basophils Retic Count (auto) Absolute Retic Sodium Potassium Chloride Carbon Dioxide Anion Gap BUN Creatinine Est GFR ( Amer) Est GFR (Non-Af Amer) Glucose Calcium Iron < 10.1 L TIBC 272 % Saturation UNABLE TO CALCULATE Ferritin 171.00 Total Bilirubin AST Alkaline Phosphatase Total Protein Albumin Vitamin B12 > 1000.0 H Folate 9.69 Blood Type O POSITIVE Antibody Screen NEGATIVE 11/18/18 11/18/18 11/18/18 23:05 23:05 23:05 Creatine Kinase < 20 L CK-MB (CK-2) < 0.22 Troponin I < 0.012 NT-Pro-B Natriuret Pep 491 11/19/18 11/19/18 11/19/18 00:55 00:55 00:55 Creatine Kinase < 20 L CK-MB (CK-2) < 0.22 Troponin I < 0.012 NT-Pro-B Natriuret Pep 476 Impressions: Chest X-Ray 11/18/18 00:00 IMPRESSION: No significant change. Chest CT 11/19/18 00:00 IMPRESSION: 1. New moderate pericardial effusion, etiology uncertain. 2. Small left effusion with linear consolidation, likely atelectasis. Mild additional bibasilar hypoventilatory change without definite airspace disease. 3. Unchanged dilated main pulmonary artery which can be seen with pulmonary arterial hypertension. Assessment & Plan - Diagnosis (1) Pericardial effusion without cardiac tamponade Is this a current diagnosis for this admission?: Yes (2) Pneumonia Qualifiers: Pneumonia type: due to unspecified organism Laterality: unspecified lateral ity Lung location: unspecified part of lung Qualified Code(s): J18.9 - Pneumonia, unspecified organism Is this a current diagnosis for this admission?: Yes Plan: I cannot completely rule out pneumonia, start IV antibiotic (3) CLL (chronic lymphocytic leukemia) Is this a current diagnosis for this admission?: Yes (4) Diarrhea Qualifiers: Diarrhea type: unspecified type Qualified Code(s): R19.7 - Diarrhea, unspecified Is this a current diagnosis for this admission?: Yes Plan: Rule out C. 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
[2018-11-20] MEDS: NORMAL SALINE 1000 ML 1,000 ML IV PRN (20:46)
--- NOTE | 2018-11-20 21:28 | PDOC CONSULTATION ---
Consultation-Blank Consultation: CARDIOLOGY CONSULTATION by Dr. Emily Rasmussen on 11/20/2018. Patient seen at 8 AM on 11/20/2018. REASON FOR CONSULTATION: Patient with increase in pericardial effusion. CONSULT REQUESTING PHYSICIAN: Dr. Dempsey oncologist and Dr. Vance. 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 The patient had an echocardiogram which showed that effusion which is very minimal and very small in the echo of 11/03/2018 has increased to moderate amount on the echo of 11/19/18. The repeat echo is done since the patient had obtain CT of the chest which showed moderate pericardial effusion by CT scan of the chest. The patient is asymptomatic from pericardial effusion with no pleuritic chest pain. She does have shortness of breath and is productive green sputum. Her CAT scan shows left pleural effusion which is small and also some linear atelectasis with no evidence of pneumonia. The patient does have orthopnea but no PND. Her blood pressure stable and there is no clinical evidence of pericardial tamponade. Past Medical History Cardiac Medical History: No history of myocardial Infarction Denies: Coronary Artery Disease, Hypertension - Past history Pulmonary Medical History: Reports: Bronchitis, Chronic Obstructive Pulmonary Disease (COPD), Pneumonia - Last time in April Denies: Asthma Neurological Medical History: Denies: Seizures Endocrine Medical History: Reports: Prior history of hyperthyroidism, posttreatment patient is hypothyroid, currently on replacement therapy. Malignancy Medical History: Reports: Leukemia Musculoskeltal Medical History: Reports: Arthritis - all over Psychiatric Medical History: Reports: Depression Hematology: Denies: Anemia Past Surgical History Past Surgical History: Reports: Appendectomy, Orthopedic Surgery - 13 foot surgeries neuromas rib removed , chest tube, Other - Recent port placement Social History Information Source: Patient Lives with: Family Smoking Status: Never Smoker Frequency of Alcohol Use: Occasional Hx Recreational Drug Use: No Drugs: None Hx Prescription Drug Abuse: No - Advance Directive Resuscitation Status: Full Code. The patient's daughter is her surrogate healthcare decision maker. Family History Family History: Reviewed & Not Pertinent Parental Family History Reviewed: Yes Children Family History Reviewed: Yes Sibling(s) Family History Reviewed.: Yes Medication/Allergy Home Medications: Allopurinol [Zyloprim 300 mg Tablet] 300 mg PO DAILY 11/19/18 Cyclobenzaprine HCl [Flexeril 10 mg Tablet] 10 mg PO Q8HP PRN 11/19/18 Gabapentin [Neurontin 300 mg Capsule] 300 mg PO Q8 11/19/18 Levothyroxine Sodium [Synthroid 0.088 mg Tablet] 0.088 mg PO Q6AM 11/19/18 Meloxicam [Mobic] 7.5 mg PO Q12 11/19/18 Morphine Sulfate [Morphine Ir 15 mg Tablet] 15 mg PO Q12 11/19/18 Ondansetron HCl [Zofran 8 mg Tablet] 8 mg PO Q8HP PRN 11/19/18 Oxycodone HCl/Acetaminophen [Endocet 10-325 mg Tablet] 1 tab PO Q6HP PRN 11/19/18 Pramipexole Di-HCl [Pramipexole Dihydrochloride] 0.125 mg PO DAILY 11/19/18 Promethazine HCl [Phenergan 25 mg Tablet] 25 mg PO Q6HP PRN 11/19/18 Allergies/Adverse Reactions: codeine [Codeine] lisinopril [Lisinopril] Review of Systems Constitutional: ABSENT: chills, fever(s), headache(s), weight gain, weight loss Eyes: ABSENT: visual disturbances Ears: ABSENT: hearing changes Cardiovascular: ABSENT: chest pain, dyspnea on exertion, edema, orthropnea, palpitations Respiratory: ABSENT: cough, hemoptysis Gastrointestinal: ABSENT: abdominal pain, constipation, diarrhea, hematemesis, hematochezia, nausea, vomiting Genitourinary: ABSENT: dysuria, hematuria Musculoskeletal: ABSENT: joint swelling Integumentary: ABSENT: rash, wounds Neurological: ABSENT: abnormal gait, abnormal speech, confusion, dizziness, focal weakness, syncope Psychiatric: ABSENT: anxiety, depression, homidical ideation, suicidal ideation Endocrine: ABSENT: cold intolerance, heat intolerance, polydipsia, polyuria Hematologic/Lymphatic: ABSENT: easy bleeding, easy bruising PHYSICAL EXAMINATION: The patient appears to be mildly obese but appears to be chronically ill. She does have shortness of breath but no accessory muscle respiration use. Selected Entries 11/20/18 11/20/18 08:12 09:00 Temperature 97.6 F Temperature Oral Source Pulse Rate 106 H Heart Rate ( 91 Monitors) Respiratory 18 Rate Blood Pressure 160/79 H Blood Pressure 106 Mean BP Location Left Arm BP Position Sitting O2 Sat by Pulse 94 Oximetry Oxygen Delivery Room Air Method Head: Is atraumatic normocephalic. EYES: Pupils are equal round regular reactive to light accommodation. Extraocular movements are normal. There is no conjunctival pallor. There is no scleral icterus. EARS: Tympanic membranes are intact. External auditory canals are clear. NOSE: There is no deviated nasal septum. There is no inflammation of the nasal mucous membrane. MOUTH: Mucous memories of mouth are moist. Tongue is moist. There is no ulcers. There is no bleeding from the gums. THROAT: There is no redness of pharynx there is no exudates. SKIN: There is no skin rashes or skin lesions. There is no petechia or ecchymosis. NECK: Is supple. There is no JVD. Carotids are equal there is no bruit. There is no lymphadenopathy. There is no accessory muscle respiration use LUNGS: There is dullness and absent breath sounds small area in the left lower lobe. There is a few scattered rhonchi. There is no rales of CHF. HEART: S1-S2 is heard. There is no S3 gallop. There is no S4 gallop. There is systolic murmur left sternal border and the apex without radiation. There is no rub. There is no pulses paradoxus. ABDOMEN: Soft. There is no hepatospleno megaly. Bowel sounds are well heard. EXTREMITIES: Femorals are diminished. There is no femoral bruits there is no pedal edema. There is no DVT or cellulitis. Leg pulses are diminished. STORE OPERATIONS SPECIALIST: The patient is conscious awake alert oriented x3 with no focal deficit. PSYCHIATRIC: The patient judgment insight are intact her affect is normal. Current Medications Generic Name Dose Route Start Last Admin Trade Name Freq PRN Reason Stop Dose Admin Acetaminophen 650 mg 11/19/18 01:51 11/20/18 14:00 Tylenol 325 Mg Tablet PO 12/19/18 01:50 650 mg Q4HP PRN Administration pain or temp greater than 101F Allopurinol 300 mg 11/20/18 10:00 11/20/18 10:00 Zyloprim 300 Mg Tablet PO 12/20/18 09:59 300 mg DAILY FUNMI Administration Colchicine 0.6 mg 11/19/18 20:00 11/20/18 10:00 Colcrys 0.6 Mg Tablet PO 12/19/18 19:59 0.6 mg Q12 FUNMI Administration Cyclobenzaprine HCl 10 mg 11/19/18 18:21 Flexeril 10 Mg Tablet PO 12/19/18 18:20 Q8HP PRN FOR MUSCLE SPASMS Diphenoxylate HCl/Atropine 1 tab 11/20/18 18:00 11/20/18 17:59 Lomotil 2.5 Mg Tablet PO 11/27/18 17:59 1 tab QID FUNMI Administration Enoxaparin Sodium 40 mg 11/19/18 10:00 11/20/18 10:00 Lovenox Inj 40 Mg/0.4 Ml Disp.Syrin SUBCUT 12/19/18 09:59 40 mg DAILY FUNMI Administration Gabapentin 300 mg 11/19/18 22:00 11/20/18 14:52 Neurontin 300 Mg Capsule PO 12/19/18 21:59 300 mg Q8 FUNMI Administration Levofloxacin/Dextrose 750 mg in 150 mls @ 100 mls/hr 11/19/18 08:00 11/20/18 14:07 Levaquin Rtu 750 Mg/D5w 150 Ml Premix IV 11/26/18 07:59 Infused QAM FUNMI Infusion Sodium Chloride 1,000 mls @ 70 mls/hr 11/19/18 01:51 11/20/18 20:46 Nacl 0.9% 1000 Ml Iv Soln IV 12/19/18 01:50 70 mls/hr CONTINUOUS PRN Administration THIS MED IS NOT "PRN" Cefepime HCl 2 gm/ Dextrose 50 mls @ 100 mls/hr 11/20/18 18:00 11/20/18 17:56 IV 11/27/18 17:59 Infused Q12A FUNMI Infusion Levothyroxine Sodium 0.088 mg 11/20/18 06:00 11/20/18 07:05 Synthroid 0.088 Mg Tablet PO 12/20/18 05:59 0.088 mg Q6AM FUNMI Administration Morphine Sulfate 15 mg 11/19/18 22:00 11/20/18 09:59 Morphine Ir 15 Mg Tablet PO 11/26/18 21:59 15 mg Q12 FUNMI Administration Ondansetron HCl 8 mg 11/19/18 18:21 Zofran 8 Mg Tablet PO 12/19/18 18:20 Q8HP PRN FOR NAUSEA/VOMITING Oxycodone HCl 5 mg 11/19/18 18:24 Oxy-Ir 5 Mg Tablet PO 11/26/18 18:23 Q6HP PRN FOR PAIN Oxycodone/Acetaminophen 1 tab 11/19/18 18:24 11/20/18 16:01 Percocet 5-325 Mg Tablet PO 11/26/18 18:23 1 tab Q6HP PRN Administration FOR PAIN Pramipexole Dihydrochloride 0.125 mg 11/20/18 10:00 11/20/18 09:59 Mirapex 0.25 Mg Tablet PO 12/20/18 09:59 0.125 mg DAILY FUNMI Administration Promethazine HCl 25 mg 11/19/18 18:25 Phenergan 25 Mg Tablet PO 12/19/18 18:24 Q6HP PRN FOR NAUSEA/VOMITING Sodium Chloride 2.5 ml 11/19/18 06:00 11/20/18 14:50 Saline Flush 2.5 Ml Monoject Prefil Syrin IV 12/19/18 05:59 Not Given Q8 FUNMI Throat Lozenges 1 each 11/19/18 16:47 11/20/18 19:39 Chloraseptic Sore Throat Lozenge BUCCAL 12/19/18 16:46 1 each Q2HP PRN Administration COUGHING Discontinued Medications Generic Name Dose Route Start Last Admin Trade Name Freq PRN Reason Stop Dose Admin Acetaminophen 650 mg 11/20/18 08:45 11/20/18 14:05 Tylenol 325 Mg Tablet PO 11/20/18 08:46 Not Given .BEFORE TRANSFUSION ONE Albuterol/Ipratropium 3 ml 11/19/18 01:23 11/19/18 03:10 Duoneb 3 Ml Ampul NEB 11/19/18 01:24 3 ml NOW ONE Administration Aspirin 324 mg 11/18/18 22:09 11/18/18 22:53 Aspirin 81 Mg Chewable Tablet PO 11/18/18 22:10 324 mg NOW ONE Administration Colchicine 0.6 mg 11/18/18 23:16 11/19/18 00:32 Colcrys 0.6 Mg Tablet PO 11/18/18 23:17 0.6 mg NOW ONE Administration Diphenhydramine HCl 25 mg 11/20/18 08:45 11/20/18 14:04 Benadryl 25 Mg Capsule PO 11/20/18 08:46 Not Given .BEFORE TRANSFUSION ONE Diphenhydramine HCl 25 mg 11/20/18 14:00 11/20/18 14:00 Benadryl 25 Mg Capsule PO 11/20/18 14:01 25 mg .BEFORE TRANSFUSION ONE Administration Furosemide 20 mg 11/20/18 08:45 11/20/18 16:02 Lasix Inj/Pf 20 Mg/2 Ml Sdv IV 11/20/18 08:46 Not Given .AFTER TRANSFUSION ONE Furosemide 20 mg 11/20/18 14:00 11/20/18 17:21 Lasix Inj/Pf 20 Mg/2 Ml Sdv IV 11/20/18 14:01 Not Given .AFTER TRANSFUSION ONE Furosemide 20 mg 11/20/18 18:00 11/20/18 17:36 Lasix Inj/Pf 20 Mg/2 Ml Sdv IV 11/20/18 18:01 20 mg .AFTER TRANSFUSION ONE Administration Cefepime HCl 2 gm in 50 mls @ 100 mls/hr 11/19/18 06:00 11/20/18 07:44 Maxipime Rtu 2 Gm-D5w 50 Ml Premix Bag IV 11/26/18 05:59 Infused Q12A FUNMI Infusion Cefepime HCl Confirm 11/19/18 04:39 11/19/18 06:55 Maxipime Rtu 2 Gm-D5w 50 Ml Premix Bag Administered 11/19/18 04:40 Not Given Dose 2 gm in 50 mls @ ud IV .STK-MED ONE Cefepime HCl Confirm 11/19/18 22:38 11/20/18 00:15 Maxipime Rtu 2 Gm-D5w 50 Ml Premix Bag Administered 11/19/18 22:39 Not Given Dose 2 gm in 50 mls @ ud IV .STK-MED ONE Cefepime HCl Confirm 11/20/18 06:47 11/20/18 07:44 Maxipime Rtu 2 Gm-D5w 50 Ml Premix Bag Administered 11/20/18 06:48 Not Given Dose 2 gm in 50 mls @ ud IV .STK-MED ONE Lidocaine HCl 1 applic 11/19/18 03:28 11/20/18 00:16 Xylocaine 5% Ointment 35.44 Gm TP 11/19/18 03:29 Not Given NOW ONE Meloxicam 7.5 mg 11/19/18 22:00 Mobic 7.5 Mg Tablet PO 12/19/18 21:59 Q12 FUNMI Methylprednisolone Sodium Succinate 125 mg 11/18/18 23:24 11/19/18 00:32 Solu-Medrol Inj/Pf 125 Mg/2 Ml Sdv IV 11/18/18 23:25 125 mg NOW ONE Administration Piperacillin Sod/Tazobactam Sod 3.375 gm 11/18/18 23:34 11/19/18 00:31 Zosyn Inj 3.375 Gm Vial IV 11/18/18 23:35 3.375 gm IVBAG (ED) ONE Administration Vancomycin HCl 1,500 mg 11/19/18 01:36 11/19/18 05:01 Vancocin Inj 1000 Mg Vial IV 11/19/18 01:37 1,500 mg IVBAG (ED) ONE Administration Vancomycin HCl Confirm 11/19/18 04:38 11/19/18 06:54 Vancocin Inj 1000 Mg Vial Administered 11/19/18 04:39 Not Given Dose 1,000 mg .ROUTE .STK-MED ONE Vancomycin HCl Confirm 11/19/18 04:38 11/19/18 06:54 Vancocin Inj 500 Mg Vial Administered 11/19/18 04:39 Not Given Dose 500 mg .ROUTE .STK-MED ONE Labs- Entire Visit 11/18/18 11/18/18 11/18/18 23:05 23:05 23:05 WBC 39.2 H* RBC 3.04 L Hgb 7.2 L Hct 23.5 L MCV 77 L MCH 23.8 L MCHC 30.8 L RDW 18.8 H Plt Count 351 Total Counted 100 Seg Neutrophils % Not Reportable Seg Neuts % (Manual) 9 L Lymphocytes % Not Reportable Lymphocytes % (Manual) 90 H Atypical Lymphs % 1 Monocytes % Not Reportable Monocytes % (Manual) 0 L Eosinophils % Not Reportable Eosinophils % (Manual) 0 Basophils % Not Reportable Basophils % (Manual) 0 Absolute Neutrophils Not Reportable Abs Neuts (Manual) 3.5 Absolute Lymphocytes Not Reportable Abs Lymphs (Manual) 35.7 H Absolute Monocytes Not Reportable Abs Monocytes (Manual) 0.0 L Absolute Eosinophils Not Reportable Absolute Eos (Manual) 0.0 Absolute Basophils Not Reportable Abs Basophils (Manual) 0.0 Platelet Comment ADEQUATE Hypochromasia 1+ Anisocytosis 2+ Microcytosis SLIGHT Ovalocytes 2+ Retic Count (auto) Absolute Retic Carbonic Acid HCO3/H2CO3 Ratio ABG pH ABG pCO2 ABG pO2 ABG HCO3 ABG Total CO2 ABG O2 Saturation ABG Base Excess FiO2 Sodium 136.9 L Potassium 4.2 Chloride 99 Carbon Dioxide 30 Anion Gap 8 BUN 16 Creatinine 0.55 Est GFR ( Amer) > 60 Est GFR (Non-Af Amer) > 60 Glucose 115 H Hemoglobin A1c % Lactic Acid Uric Acid Calcium 8.7 Magnesium Iron TIBC % Saturation Ferritin Total Bilirubin 0.5 Direct Bilirubin 0.3 Neonat Total Bilirubin Not Reportable Neonat Direct Bilirubin Not Reportable Neonat Indirect Bili Not Reportable AST 19 ALT 14 Alkaline Phosphatase 73 Creatine Kinase < 20 L CK-MB (CK-2) < 0.22 Troponin I < 0.012 NT-Pro-B Natriuret Pep Total Protein 5.5 L Albumin 3.4 L Vitamin B12 Folate Urine Color Urine Appearance Urine pH Ur Specific [place] Urine Protein Urine Glucose (UA) Urine Ketones Urine Blood Urine Nitrite Urine Bilirubin Urine Urobilinogen Ur Leukocyte Esterase Urine WBC (Auto) Urine RBC (Auto) Squamous Epi Cells Auto Urine Mucus (Auto) Urine Ascorbic Acid Slides for Path Review PATHOLOGIST REVIEWED Blood Type Antibody Screen Crossmatch 11/18/18 11/18/18 11/18/18 23:05 23:05 23:52 WBC RBC Hgb Hct MCV MCH MCHC RDW Plt Count Total Counted Seg Neutrophils % Seg Neuts % (Manual) Lymphocytes % Lymphocytes % (Manual) Atypical Lymphs % Monocytes % Monocytes % (Manual) Eosinophils % Eosinophils % (Manual) Basophils % Basophils % (Manual) Absolute Neutrophils Abs Neuts (Manual) Absolute Lymphocytes Abs Lymphs (Manual) Absolute Monocytes Abs Monocytes (Manual) Absolute Eosinophils Absolute Eos (Manual) Absolute Basophils Abs Basophils (Manual) Platelet Comment Hypochromasia Anisocytosis Microcytosis Ovalocytes Retic Count (auto) Absolute Retic Carbonic Acid HCO3/H2CO3 Ratio ABG pH ABG pCO2 ABG pO2 ABG HCO3 ABG Total CO2 ABG O2 Saturation ABG Base Excess FiO2 Sodium Potassium Chloride Carbon Dioxide Anion Gap BUN Creatinine Est GFR ( Amer) Est GFR (Non-Af Amer) Glucose Hemoglobin A1c % Lactic Acid Uric Acid 3.1 Calcium Magnesium 1.9 Iron TIBC % Saturation Ferritin Total Bilirubin Direct Bilirubin Neonat Total Bilirubin Neonat Direct Bilirubin Neonat Indirect Bili AST ALT Alkaline Phosphatase Creatine Kinase CK-MB (CK-2) Troponin I NT-Pro-B Natriuret Pep 491 Total Protein Albumin Vitamin B12 Folate Urine Color YELLOW Urine Appearance CLEAR Urine pH 6.0 Ur Specific [place] 1.016 Urine Protein NEGATIVE Urine Glucose (UA) NEGATIVE Urine Ketones NEGATIVE Urine Blood SMALL H Urine Nitrite NEGATIVE Urine Bilirubin NEGATIVE Urine Urobilinogen 4.0 H Ur Leukocyte Esterase TRACE H Urine WBC (Auto) 3 Urine RBC (Auto) 2 Squamous Epi Cells Auto <1 Urine Mucus (Auto) RARE Urine Ascorbic Acid NEGATIVE Slides for Path Review Blood Type Antibody Screen Crossmatch 11/19/18 11/19/18 11/19/18 00:10 00:55 00:55 WBC RBC Hgb Hct MCV MCH MCHC RDW Plt Count Total Counted Seg Neutrophils % Seg Neuts % (Manual) Lymphocytes % Lymphocytes % (Manual) Atypical Lymphs % Monocytes % Monocytes % (Manual) Eosinophils % Eosinophils % (Manual) Basophils % Basophils % (Manual) Absolute Neutrophils Abs Neuts (Manual) Absolute Lymphocytes Abs Lymphs (Manual) Absolute Monocytes Abs Monocytes (Manual) Absolute Eosinophils Absolute Eos (Manual) Absolute Basophils Abs Basophils (Manual) Platelet Comment Hypochromasia Anisocytosis Microcytosis Ovalocytes Retic Count (auto) Absolute Retic Carbonic Acid HCO3/H2CO3 Ratio ABG pH ABG pCO2 ABG pO2 ABG HCO3 ABG Total CO2 ABG O2 Saturation ABG Base Excess FiO2 Sodium Potassium Chloride Carbon Dioxide Anion Gap BUN Creatinine Est GFR ( Amer) Est GFR (Non-Af Amer) Glucose Hemoglobin A1c % Lactic Acid 1.2 Uric Acid Calcium Magnesium Iron TIBC % Saturation Ferritin Total Bilirubin Direct Bilirubin Neonat Total Bilirubin Neonat Direct Bilirubin Neonat Indirect Bili AST ALT Alkaline Phosphatase Creatine Kinase < 20 L CK-MB (CK-2) Troponin I < 0.012 NT-Pro-B Natriuret Pep Total Protein Albumin Vitamin B12 Folate Urine Color Urine Appearance Urine pH Ur Specific [place] Urine Protein Urine Glucose (UA) Urine Ketones Urine Blood Urine Nitrite Urine Bilirubin Urine Urobilinogen Ur Leukocyte Esterase Urine WBC (Auto) Urine RBC (Auto) Squamous Epi Cells Auto Urine Mucus (Auto) Urine Ascorbic Acid Slides for Path Review Blood Type Antibody Screen Crossmatch 11/19/18 11/19/18 11/20/18 00:55 03:30 05:09 WBC 48.0 H* RBC 3.07 L Hgb 7.2 L Hct 23.3 L MCV 76 L MCH 23.3 L MCHC 30.7 L RDW 19.2 H Plt Count 377 Total Counted 100 Seg Neutrophils % Not Reportable Seg Neuts % (Manual) 16 L Lymphocytes % Not Reportable Lymphocytes % (Manual) 80 H Atypical Lymphs % 1 Monocytes % Not Reportable Monocytes % (Manual) 3 Eosinophils % Not Reportable Eosinophils % (Manual) 0 Basophils % Not Reportable Basophils % (Manual) 0 Absolute Neutrophils Not Reportable Abs Neuts (Manual) 7.7 Absolute Lymphocytes Not Reportable Abs Lymphs (Manual) 38.9 H Absolute Monocytes Not Reportable Abs Monocytes (Manual) 1.4 Absolute Eosinophils Not Reportable Absolute Eos (Manual) 0.0 Absolute Basophils Not Reportable Abs Basophils (Manual) 0.0 Platelet Comment ADEQUATE Hypochromasia 1+ Anisocytosis 2+ Microcytosis SLIGHT Ovalocytes Retic Count (auto) Absolute Retic Carbonic Acid 1.20 HCO3/H2CO3 Ratio 22:1 ABG pH 7.45 ABG pCO2 39.9 ABG pO2 85.7 ABG HCO3 27.0 H ABG Total CO2 28.3 H ABG O2 Saturation 96.9 ABG Base Excess 2.8 FiO2 28% Sodium Potassium Chloride Carbon Dioxide Anion Gap BUN Creatinine Est GFR ( Amer) Est GFR (Non-Af Amer) Glucose Hemoglobin A1c % Lactic Acid Uric Acid Calcium Magnesium Iron TIBC % Saturation Ferritin Total Bilirubin Direct Bilirubin Neonat Total Bilirubin Neonat Direct Bilirubin Neonat Indirect Bili AST ALT Alkaline Phosphatase Creatine Kinase CK-MB (CK-2) < 0.22 Troponin I NT-Pro-B Natriuret Pep 476 Total Protein Albumin Vitamin B12 Folate Urine Color Urine Appearance Urine pH Ur Specific [place] Urine Protein Urine Glucose (UA) Urine Ketones Urine Blood Urine Nitrite Urine Bilirubin Urine Urobilinogen Ur Leukocyte Esterase Urine WBC (Auto) Urine RBC (Auto) Squamous Epi Cells Auto Urine Mucus (Auto) Urine Ascorbic Acid Slides for Path Review Blood Type Antibody Screen Crossmatch 11/20/18 11/20/18 11/20/18 05:09 05:09 05:09 WBC RBC Hgb Hct MCV MCH MCHC RDW Plt Count Total Counted Seg Neutrophils % Seg Neuts % (Manual) Lymphocytes % Lymphocytes % (Manual) Atypical Lymphs % Monocytes % Monocytes % (Manual) Eosinophils % Eosinophils % (Manual) Basophils % Basophils % (Manual) Absolute Neutrophils Abs Neuts (Manual) Absolute Lymphocytes Abs Lymphs (Manual) Absolute Monocytes Abs Monocytes (Manual) Absolute Eosinophils Absolute Eos (Manual) Absolute Basophils Abs Basophils (Manual) Platelet Comment Hypochromasia Anisocytosis Microcytosis Ovalocytes Retic Count (auto) 1.28 Absolute Retic 0.039 Carbonic Acid HCO3/H2CO3 Ratio ABG pH ABG pCO2 ABG pO2 ABG HCO3 ABG Total CO2 ABG O2 Saturation ABG Base Excess FiO2 Sodium 140.5 Potassium 4.0 Chloride 104 Carbon Dioxide 30 Anion Gap 7 BUN 16 Creatinine 0.63 Est GFR ( Amer) > 60 Est GFR (Non-Af Amer) > 60 Glucose 103 Hemoglobin A1c % 5.9 Lactic Acid Uric Acid Calcium 9.3 Magnesium Iron TIBC % Saturation Ferritin Total Bilirubin 0.4 Direct Bilirubin 0.3 Neonat Total Bilirubin Not Reportable Neonat Direct Bilirubin Not Reportable Neonat Indirect Bili Not Reportable AST 15 ALT 12 Alkaline Phosphatase 66 Creatine Kinase CK-MB (CK-2) Troponin I NT-Pro-B Natriuret Pep Total Protein 5.4 L Albumin 3.2 L Vitamin B12 Folate Urine Color Urine Appearance Urine pH Ur Specific [place] Urine Protein Urine Glucose (UA) Urine Ketones Urine Blood Urine Nitrite Urine Bilirubin Urine Urobilinogen Ur Leukocyte Esterase Urine WBC (Auto) Urine RBC (Auto) Squamous Epi Cells Auto Urine Mucus (Auto) Urine Ascorbic Acid Slides for Path Review Blood Type Antibody Screen Crossmatch 11/20/18 11/20/18 05:09 10:50 WBC RBC Hgb Hct MCV MCH MCHC RDW Plt Count Total Counted Seg Neutrophils % Seg Neuts % (Manual) Lymphocytes % Lymphocytes % (Manual) Atypical Lymphs % Monocytes % Monocytes % (Manual) Eosinophils % Eosinophils % (Manual) Basophils % Basophils % (Manual) Absolute Neutrophils Abs Neuts (Manual) Absolute Lymphocytes Abs Lymphs (Manual) Absolute Monocytes Abs Monocytes (Manual) Absolute Eosinophils Absolute Eos (Manual) Absolute Basophils Abs Basophils (Manual) Platelet Comment Hypochromasia Anisocytosis Microcytosis Ovalocytes Retic Count (auto) Absolute Retic Carbonic Acid HCO3/H2CO3 Ratio ABG pH ABG pCO2 ABG pO2 ABG HCO3 ABG Total CO2 ABG O2 Saturation ABG Base Excess FiO2 Sodium Potassium Chloride Carbon Dioxide Anion Gap BUN Creatinine Est GFR ( Amer) Est GFR (Non-Af Amer) Glucose Hemoglobin A1c % Lactic Acid Uric Acid Calcium Magnesium Iron < 10.1 L TIBC 272 % Saturation UNABLE TO CALCULATE Ferritin 171.00 Total Bilirubin Direct Bilirubin Neonat Total Bilirubin Neonat Direct Bilirubin Neonat Indirect Bili AST ALT Alkaline Phosphatase Creatine Kinase CK-MB (CK-2) Troponin I NT-Pro-B Natriuret Pep Total Protein Albumin Vitamin B12 > 1000.0 H Folate 9.69 Urine Color Urine Appearance Urine pH Ur Specific [place] Urine Protein Urine Glucose (UA) Urine Ketones Urine Blood Urine Nitrite Urine Bilirubin Urine Urobilinogen Ur Leukocyte Esterase Urine WBC (Auto) Urine RBC (Auto) Squamous Epi Cells Auto Urine Mucus (Auto) Urine Ascorbic Acid Slides for Path Review Blood Type O POSITIVE Antibody Screen NEGATIVE Crossmatch See Detail Chest X-Ray 11/18/18 00:00 IMPRESSION: No significant change. Chest CT 11/19/18 00:00 IMPRESSION: 1. New moderate pericardial effusion, etiology uncertain. 2. Small left effusion with linear consolidation, likely atelectasis. Mild additional bibasilar hypoventilatory change without definite airspace disease. 3. Unchanged dilated main pulmonary artery which can be seen with pulmonary arterial hypertension. EKG done on November 18 shows sinus tachycardia. Minor nonspecific T changes inferior leads. Subsequent monitor strips shows no ST segment shifts. IMPRESSION/RECOMMENDATION: 1. Moderate pericardial effusion. Clinically no evidence of tamponade. Continue the patient on colchicine. Note that the patient is also on steroids. Would recommend follow-up limited echo in a week, or if clinically indicated sooner to assess status of the pericardial effusion. We will repeat an EKG in the a.m. In view of the patient's CLL, and infection sed rate or CRP would not be of much use. 2. Most likely patient has bronchitis: Continue antibiotics 3. CLL on chemotherapy. 4. Anemia status post transfusion: 5. History of COPD continue anti-COPD medication 6. Hypothyroidism: Continue replacement. Recommend checking thyroid function test. Management plan discussed with the oncologist and with the attending physician on the case. Medications reviewed. Medical decision making is of high complexity. 60 minutes spent on this patient more than 50% time spent under patient care. Would recommend outpatient limited echo for review assessing pericardial effusion in 1 to 2 weeks, or earlier if clinically indicated. Will sign off. Will follow the patient as an outpatient. ECHOCARDIOGRAM: Limited study shows moderate pericardial effusion. Not a good study to assess for tamponade. But clinically the patient does not have tamponade.
[2018-11-20 23:32] LABS: HEMATOCRIT 28.2 % (36.0-47.0); HEMOGLOBIN 8.9 g/dL (12.0-15.5); MEAN CORPUSCULAR HEMOGLOBIN 24.2 pg (27.0-33.4); MEAN CORPUSCULAR HGB CONC 31.6 g/dL (32.0-36.0); MEAN CORPUSCULAR VOLUME 76 fl (80-97); PLATELET COUNT 337 10^3/uL (150-450); RED BLOOD COUNT 3.68 10^6/uL (3.72-5.28); RED CELL DISTRIBUTION WIDTH 18.6 % (11.5-14.0)
[2018-11-21 00:28] LABS: WHITE BLOOD COUNT 40.1 10^3/uL (4.0-10.5)
[2018-11-21] MEDS: OXYCODONE-ACETAMINOPHEN 5-325 MG TABLET PO PRN ×3 (04:12→17:08)
[2018-11-21] MEDS: BENZOCAINE/MENTHOL SORE THROAT LOZENGE BUCCAL PRN (04:22)
[2018-11-21] MEDS: LEVOTHYROXINE SODIUM 0.088 MG TABLET PO SCH (05:09)
[2018-11-21] MEDS: GABAPENTIN 300 MG CAPSULE PO SCH ×2 (05:09→14:11)
[2018-11-21] MEDS: CEFEPIME HCL 2 GM in DEXTROSE 5%-WATER 50 ML IV SCH (05:17)
[2018-11-21 05:44] LABS: HEMATOCRIT 28.1 % (36.0-47.0); HEMOGLOBIN 8.8 g/dL (12.0-15.5); MEAN CORPUSCULAR HGB CONC 31.4 g/dL (32.0-36.0); MEAN CORPUSCULAR VOLUME 77 fl (80-97); PLATELET COUNT 334 10^3/uL (150-450); RED BLOOD COUNT 3.67 10^6/uL (3.72-5.28); RED CELL DISTRIBUTION WIDTH 18.3 % (11.5-14.0)
[2018-11-21 05:57] LABS: ALBUMIN 3.2 g/dL (3.5-5.0); ALKALINE PHOSPHATASE 65 U/L (38-126); ANION GAP 7 (5-19); ASPARTATE AMINO TRANSFERASE 15 U/L (14-36); BILIRUBIN,DIRECT 0.2 mg/dL (0.0-0.4); BILIRUBIN,TOTAL 0.6 mg/dL (0.2-1.3); BLOOD UREA NITROGEN 12 mg/dL (7-20); CALCIUM 8.9 mg/dL (8.4-10.2); CARBON DIOXIDE 32 mmol/L (22-30); CHLORIDE 99 mmol/L (98-107); GLUCOSE 86 mg/dL (75-110); POTASSIUM 3.4 mmol/L (3.6-5.0); TOTAL PROTEIN 5.2 g/dL (6.3-8.2)
[2018-11-21 06:37] LABS: ABSOLUTE LYMPHOCYTES# (MANUAL) 33.6 10^3/uL (0.5-4.7); ANISOCYTOSIS 2+; BASOPHILS % (MANUAL) 0 % (0-2); EOSINOPHILS % (MANUAL) 1 % (0-6); HYPOCHROMASIA 2+; LYMPHOCYTES % (MANUAL) 84 % (13-45); MONOCYTES % (MANUAL) 0 % (3-13); SEGMENTED NEUTROPHILS % (MAN) 15 % (42-78); TOTAL CELLS COUNTED 100
[2018-11-21 06:38] LABS: PLATELET COMMENT ADEQUATE
[2018-11-21] MEDS: LEVOFLOXACIN 750 MG/D5W RTU 750 MG/150 ML RTUPB IV SCH (08:56)
[2018-11-21] MEDS: PRAMIPEXOLE DI-HCL 0.25 MG TABLET PO SCH (08:59)
[2018-11-21] MEDS: ALLOPURINOL 300 MG TABLET PO SCH (09:00)
[2018-11-21] MEDS: MORPHINE SULFATE IR 15 MG TABLET PO SCH (09:00)
[2018-11-21] MEDS: COLCHICINE 0.6 MG TABLET PO SCH (09:00)
[2018-11-21] MEDS: ENOXAPARIN SODIUM INJ 40 MG/0.4 ML DISP.SYRIN SUBCUT SCH (09:00)
[2018-11-21] MEDS: DIPHENOXYLATE HCL/ATROP SULF 2.5-0.025 MG TABLET PO SCH ×3 (09:00→17:08)
--- NOTE | 2018-11-21 09:02 | PDOC PROGRESS REPORT ---
Subjective Progress Note for:: 11/21/18 Subjective:: Feeling much better today. Would like to go home. SOB/MILLS gone. Just reviewed her cultures and she has pseudomonas in urine pansensitive. Reason For Visit: PNEUMONIA, CLL Physical Exam Vital Signs: Temp Pulse Resp BP Pulse Ox 98.6 F 103 H 18 145/81 H 96 11/21/18 03:28 11/21/18 06:52 11/21/18 03:28 11/21/18 03:28 11/21/18 03:28 Intake & Output 11/20/18 11/21/18 11/22/18 06:59 06:59 06:59 Intake Total 1075 2545 Output Total 1250 2225 Balance -175 320 Weight 91.3 kg 90.1 kg General appearance: PRESENT: no acute distress, well-developed, well-nourished Head exam: PRESENT: atraumatic, normocephalic Eye exam: PRESENT: conjunctiva pink, EOMI, PERRLA. ABSENT: scleral icterus Ear exam: PRESENT: normal external ear exam Mouth exam: PRESENT: moist, tongue midline Neck exam: ABSENT: carotid bruit, JVD, lymphadenopathy, thyromegaly Respiratory exam: PRESENT: clear to auscultation evan. ABSENT: rales, rhonchi, wheezes Cardiovascular exam: PRESENT: RRR. ABSENT: diastolic murmur, rubs, systolic murmur Pulses: PRESENT: normal dorsalis pedis pul Vascular exam: PRESENT: normal capillary refill GI/Abdominal exam: PRESENT: normal bowel sounds, soft. ABSENT: distended, guarding, mass, organolmegaly, rebound, tenderness Rectal exam: PRESENT: deferred Extremities exam: PRESENT: full ROM. ABSENT: calf tenderness, clubbing, pedal edema Neurological exam: PRESENT: alert, awake, oriented to person, oriented to place, oriented to time, oriented to situation, CN II-XII grossly intact. ABSENT: motor sensory deficit Psychiatric exam: PRESENT: appropriate affect, normal mood. ABSENT: homicidal ideation, suicidal ideation Skin exam: PRESENT: dry, intact, warm. ABSENT: cyanosis, rash Results Laboratory Results: 11/21/18 05:13 11/21/18 05:13 11/20/18 11/20/18 11/20/18 05:09 05:09 10:50 WBC RBC Hgb Hct MCV MCH MCHC RDW Plt Count Seg Neutrophils % Lymphocytes % Monocytes % Eosinophils % Basophils % Absolute Neutrophils Absolute Lymphocytes Absolute Monocytes Absolute Eosinophils Absolute Basophils Retic Count (auto) 1.28 Absolute Retic 0.039 Sodium Potassium Chloride Carbon Dioxide Anion Gap BUN Creatinine Est GFR ( Amer) Est GFR (Non-Af Amer) Glucose Calcium Iron < 10.1 L TIBC 272 % Saturation UNABLE TO CALCULATE Ferritin 171.00 Total Bilirubin AST Alkaline Phosphatase Total Protein Albumin Vitamin B12 > 1000.0 H Folate 9.69 Blood Type O POSITIVE Antibody Screen NEGATIVE 11/20/18 11/21/18 11/21/18 23:05 05:13 05:13 WBC 40.1 H* 40.0 H* RBC 3.68 L 3.67 L Hgb 8.9 L 8.8 L Hct 28.2 L 28.1 L MCV 76 L 77 L MCH 24.2 L 24.0 L MCHC 31.6 L 31.4 L RDW 18.6 H 18.3 H Plt Count 337 334 Seg Neutrophils % Not Reportable Lymphocytes % Not Reportable Monocytes % Not Reportable Eosinophils % Not Reportable Basophils % Not Reportable Absolute Neutrophils Not Reportable Absolute Lymphocytes Not Reportable Absolute Monocytes Not Reportable Absolute Eosinophils Not Reportable Absolute Basophils Not Reportable Retic Count (auto) Absolute Retic Sodium 138.1 Potassium 3.4 L Chloride 99 Carbon Dioxide 32 H Anion Gap 7 BUN 12 Creatinine 0.56 Est GFR ( Amer) > 60 Est GFR (Non-Af Amer) > 60 Glucose 86 Calcium 8.9 Iron TIBC % Saturation Ferritin Total Bilirubin 0.6 AST 15 Alkaline Phosphatase 65 Total Protein 5.2 L Albumin 3.2 L Vitamin B12 Folate Blood Type Antibody Screen 11/18/18 11/18/18 11/18/18 23:05 23:05 23:05 Creatine Kinase < 20 L CK-MB (CK-2) < 0.22 Troponin I < 0.012 NT-Pro-B Natriuret Pep 491 11/19/18 11/19/18 11/19/18 00:55 00:55 00:55 Creatine Kinase < 20 L CK-MB (CK-2) < 0.22 Troponin I < 0.012 NT-Pro-B Natriuret Pep 476 Impressions: Chest X-Ray 11/18/18 00:00 IMPRESSION: No significant change. Chest CT 11/19/18 00:00 IMPRESSION: 1. New moderate pericardial effusion, etiology uncertain. 2. Small left effusion with linear consolidation, likely atelectasis. Mild additional bibasilar hypoventilatory change without definite airspace disease. 3. Unchanged dilated main pulmonary artery which can be seen with pulmonary arterial hypertension. Assessment & Plan - Diagnosis (1) Pneumonia Qualifiers: Pneumonia type: due to unspecified organism Laterality: left Lung location: lower lobe of lung Qualified Code(s): J18.1 - Lobar pneumonia, unspecified organism Is this a current diagnosis for this admission?: Yes Plan: Improved, maybe able to get pt home on atbx, maybe levaquin, will allow primary team to decide (2) Pericardial effusion without cardiac tamponade Is this a current diagnosis for this admission?: Yes Plan: Doesn't seem clinically significant as of now, will need f/u w/ echo as outpt (3) Acute pericarditis Qualifiers: Pericarditis type: unspecified type Qualified Code(s): I30.9 - Acute pericarditis, unspecified Is this a current diagnosis for this admission?: Yes Plan: Not clinically significant currently. 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
[2018-11-21] MEDS: OXYCODONE HCL IR 5 MG TABLET PO PRN ×2 (10:07→17:08)
--- NOTE | 2018-11-21 12:32 | Progress Note ---
Provider Note Provider Note: Cardiology note by Dr. Emily Rasmussen on 11/21/2018. SUBJECTIVE: The patient denies any pleuritic chest pain. There is orthopnea present. But no PND or leg edema. She does have shortness of breath. There is no arrhythmia seen on the monitor. Clinically the patient has no tamponade. Physical exam: Selected Entries 11/21/18 11:22 Temperature 98.2 F Temperature Oral Source Respiratory 18 Rate Blood Pressure 142/77 H Blood Pressure 98 Mean There is no pulses paradoxus. BP Location Right Arm BP Position Supine O2 Sat by Pulse 94 Oximetry Oxygen Delivery Room Air Method Exam unremarkable for any evidence of pericardial tamponade. Impression pericardial effusion in a patient with CLL. Other diagnosis as before. Discussed with the patient to follow-up as an outpatient to get a limited echo in 1 to 2 weeks, or earlier. The patient given my number to call me if she has any problems. Thank you end of dictation.
--- NOTE | 2018-11-21 14:46 | RADIOLOGY REPORT (SQ) ---
EXAM DESCRIPTION: SHOULDER RIGHT 2 OR MORE VIEWS COMPLETED DATE/TIME: 11/21/2018 2:32 pm REASON FOR STUDY: Shoulder Pain COMPARISON: None. NUMBER OF VIEWS: Three views. TECHNIQUE: Internal rotation, external rotation, and Y view images acquired of the right shoulder. LIMITATIONS: None. FINDINGS: MINERALIZATION: Normal. BONES: No acute fracture. No worrisome bone lesions. JOINTS: No dislocation. Moderate right acromioclavicular arthrosis. Mild glenohumeral arthrosis. VISUALIZED LUNGS AND RIBS: No pneumothorax. No rib fracture. SOFT TISSUES: No radiopaque foreign body. OTHER: No other significant finding. IMPRESSION: NEGATIVE STUDY OF THE RIGHT SHOULDER. NO RADIOGRAPHIC EVIDENCE OF ACUTE INJURY. TECHNICAL DOCUMENTATION: JOB ID: [id number] [employer]- All Rights Reserved Reading location - IP/workstation name: [email or web address]
[2018-11-21 16:01] VITALS: BP 143/82
--- NOTE | 2018-11-21 18:22 | PDOC DISCHARGE SUMMARY ---
General - Admit/Disc Date/PCP Admission Date/Primary Care Provider: 11/19/18 01:51 KILLIAN JOHNSON MD Discharge Date: 11/21/18 - Discharge Diagnosis (1) Pericardial effusion without cardiac tamponade Is this a current diagnosis for this admission?: Yes (2) Pneumonia Is this a current diagnosis for this admission?: Yes (3) CLL (chronic lymphocytic leukemia) Is this a current diagnosis for this admission?: Yes (4) Diarrhea Is this a current diagnosis for this admission?: Yes (5) Anemia Is this a current diagnosis for this admission?: Yes - Additional Information Resuscitation Status: Full Code Discharge Activity: Activity As Tolerated Prescriptions: Levofloxacin [Levaquin 750 mg Tablet] 750 mg PO DAILY #10 tab Home Medications: Allopurinol [Zyloprim 300 mg Tablet] 300 mg PO DAILY 11/19/18 Cyclobenzaprine HCl [Flexeril 10 mg Tablet] 10 mg PO Q8HP PRN 11/19/18 Gabapentin [Neurontin 300 mg Capsule] 300 mg PO Q8 11/19/18 Levothyroxine Sodium [Synthroid 0.088 mg Tablet] 0.088 mg PO Q6AM 11/19/18 Meloxicam [Mobic] 7.5 mg PO Q12 11/19/18 Morphine Sulfate [Morphine Ir 15 mg Tablet] 15 mg PO Q12 11/19/18 Ondansetron HCl [Zofran 8 mg Tablet] 8 mg PO Q8HP PRN 11/19/18 Oxycodone HCl/Acetaminophen [Endocet 10-325 mg Tablet] 1 tab PO Q6HP PRN 11/19/18 Pramipexole Di-HCl [Pramipexole Dihydrochloride] 0.125 mg PO DAILY 11/19/18 Promethazine HCl [Phenergan 25 mg Tablet] 25 mg PO Q6HP PRN 11/19/18 Levofloxacin [Levaquin 750 mg Tablet] 750 mg PO DAILY #10 tab 11/21/18 Pramipexole Di-HCl [Mirapex 0.25 mg Tablet] 0.125 mg PO DAILY tablet 11/21/18 History of Present Illness History of Present Illness: EMY LOVETT is a 68 year old femaleShe was admitted last night, she came to the emergency room for evaluation of chest pain, the chest pain is pleuritic in na ture, there was associated cough she was recently admitted in this hospital roughly 2 weeks ago, She was discharged on 11/04/2018, at the time she was diagnosed with acute pericarditis, the 2D echocardiogram that was done demonstrated mild pericardial effusion, she was discharged home on colchicine for 3 months but my understanding is that she apparently has not been taking the medication as prescribed. Patient daughter called me yesterday about the patient's condition she narrated to me that she was coughing, she was fatigue, she is not able to get out of bed, I advised to take care of the emergency room for evaluation and if she is acutely sick the ED physician will be called me for admission., The chest x-ray that was done in the emergency room suggest pneumonia, I subsequently requested for CT chest without contrast, it demonstrated mild bibasilar hypoventilatory change there was a small left pleural effusion with linear consolidation likely atelectasis no pneumothorax or fever scattered groundglass subcentimeter nodular opacities within the right upper lobe no discrete mass. Also found was shotty mediastinal nodes without discrete adenopathy. There was increased size of a now moderate pericardial effusion that measure up to 1.9 cm in maximal thickness the last time she was in the hospital CT chest radiograph was done that demonstrated trace pericardial effusion. Because of this new finding of moderate pericardial effusion a 2D echo was done today 2D echo also demonstrated moderate size pericardial effusion with a large pleural effusion, the CT chest did not demonstrate a large pleural effusion that was demonstrated on the 2D echo. More importantly the pericardial effusion is moderate size but there is no associated tamponade. Unfortunately patient was not consistent and persistent with the colchicine that was prescribed the last that she was admitted. She follows with oncology and she recently had a Port-A-Cath inserted, I am not sure what kind of treatment she is receiving for the CLL if this is a monoclonal antibody based therapy or immunotherapy or chemotherapy, I will consult with the treating oncology if the treatment she is receiving could be partly be the cause of the pericardial effusion is experiencing. She may need pericardiocentesis, I will consult with cardiology for advice on this Hospital Course Hospital Course: Patient was admitted for the management of pneumonia, anemia, pericardial effusion with a background of CLL,The hemoglobin was 7 associated with primary disease of CLL she was transfused with red blood cells she also was treated with IV antibiotic empirically for pneumonia, she was seen by Dr. Rasmussen cardiology regarding the pericardial effusion he does not think there is a need for pericardiocentesis at this time ,will do out patient follow-up patient with repeat 2D echo.Patient said he feels better, he feels stronger Physical Exam Vital Signs: Temp Pulse Resp BP Pulse Ox 98.2 F 100 18 143/82 H 94 11/21/18 16:00 11/21/18 16:00 11/21/18 16:00 11/21/18 16:00 11/21/18 16:00 Intake & Output 11/20/18 11/21/18 11/22/18 06:59 06:59 06:59 Intake Total 1075 2545 1150 Output Total 1250 2225 Balance -085 719 7344 Weight 91.3 kg 90.1 kg General appearance: PRESENT: no acute distress Head exam: PRESENT: atraumatic, normocephalic Eye exam: PRESENT: PERRLA Ear exam: PRESENT: normal external ear exam Mouth exam: PRESENT: moist, tongue midline Neck exam: PRESENT: full ROM Respiratory exam: PRESENT: clear to auscultation evan Cardiovascular exam: PRESENT: +S1, +S2 Pulses: PRESENT: normal dorsalis pedis pul, +2 pedal pulses bilateral Vascular exam: PRESENT: normal capillary refill GI/Abdominal exam: PRESENT: soft Rectal exam: PRESENT: deferred Neurological exam: PRESENT: alert, CN II-XII grossly intact Psychiatric exam: PRESENT: appropriate affect, normal mood Skin exam: PRESENT: dry, intact, warm Results Laboratory Results: 11/21/18 05:13 11/21/18 05:13 11/20/18 11/21/18 11/21/18 23:05 05:13 05:13 WBC 40.1 H* 40.0 H* RBC 3.68 L 3.67 L Hgb 8.9 L 8.8 L Hct 28.2 L 28.1 L MCV 76 L 77 L MCH 24.2 L 24.0 L MCHC 31.6 L 31.4 L RDW 18.6 H 18.3 H Plt Count 337 334 Seg Neutrophils % Not Reportable Lymphocytes % Not Reportable Monocytes % Not Reportable Eosinophils % Not Reportable Basophils % Not Reportable Absolute Neutrophils Not Reportable Absolute Lymphocytes Not Reportable Absolute Monocytes Not Reportable Absolute Eosinophils Not Reportable Absolute Basophils Not Reportable Sodium 138.1 Potassium 3.4 L Chloride 99 Carbon Dioxide 32 H Anion Gap 7 BUN 12 Creatinine 0.56 Est GFR ( Amer) > 60 Est GFR (Non-Af Amer) > 60 Glucose 86 Calcium 8.9 Total Bilirubin 0.6 AST 15 Alkaline Phosphatase 65 Total Protein 5.2 L Albumin 3.2 L 11/18/18 11/18/18 11/18/18 23:05 23:05 23:05 Creatine Kinase < 20 L CK-MB (CK-2) < 0.22 Troponin I < 0.012 NT-Pro-B Natriuret Pep 491 11/19/18 11/19/18 11/19/18 00:55 00:55 00:55 Creatine Kinase < 20 L CK-MB (CK-2) < 0.22 Troponin I < 0.012 NT-Pro-B Natriuret Pep 476 Impressions: Chest X-Ray 11/18/18 00:00 IMPRESSION: No significant change. Chest CT 11/19/18 00:00 IMPRESSION: 1. New moderate pericardial effusion, etiology uncertain. 2. Small left effusion with linear consolidation, likely atelectasis. Mild additional bibasilar hypoventilatory change without definite airspace disease. 3. Unchanged dilated main pulmonary artery which can be seen with pulmonary arterial hypertension. Shoulder X-Ray 11/21/18 00:00 IMPRESSION: NEGATIVE STUDY OF THE RIGHT SHOULDER. NO RADIOGRAPHIC EVIDENCE OF ACUTE INJURY. Qualifiers - * PATIENT BEING DISCHARGED WITH ANY OF THE FOLLOWING DIAGNOSIS: No VTE patient discharged on overlapping Therapy?: No Reason(s) for not prescribing Overlap Therapy:: Not indicated Stroke Pt being discharged on Anti-thrombolytic therapy?: No Reason(s) for not prescribing Anti-thrombolytic therapy:: Not indicated Stroke Pt being discharged on Anti-coagulation therapy?: No Reason(s) for not prescribing Anti-coagulation therapy:: Not indicated Stroke Pt being discharged on Statins?: No Reason(s) for not prescribing Statins therapy:: Not indicated CT Pt being discharged on Aspirin therapy?: No Reason(s) for not prescribing Aspirin therapy:: Not indicated CT Pt being discharged on Statins?: No Reason(s) for not prescribing Statin therapy:: Not indicated Reason(s) for not prescribing ACEI/ARBS:: Not indicated Acute Heart Failure - Is this a Heart Failure Patient?: No 3. Anticoagulant therapy for permanect/persistent/paraoxysmal Afib or Aflutter: N/A
[2018-11-22] MEDS ORDERED: LEVOFLOXACIN 750 MG TABLET PO SCH (08:00)
== END 2018-11-21 17:45 | disposition home or self-care (01) | DRG 314 ==
LOC: ER 21:51 → EH 11-19 01:51 → 3N 11-19 03:40
PROVIDERS: ADMIT Internal Medicine; ATTEND Internal Medicine
PROC: 30233N1 Transfusion of Nonautologous Red Blood Cells into Peripheral Vein, Percutaneous Approach (ICD-10-PCS; principal; 2018-11-20)
DX: I31.3 Pericardial effusion (noninflammatory) (principal); J18.1 Lobar pneumonia, unspecified organism; D61.1 Drug-induced aplastic anemia; C91.10 Chronic lymphocytic leukemia of B-cell type not having achieved remission; I27.20 Pulmonary hypertension, unspecified; J44.9 Chronic obstructive pulmonary disease, unspecified; R19.7 Diarrhea, unspecified; E03.9 Hypothyroidism, unspecified; M19.90 Unspecified osteoarthritis, unspecified site; F32.9 Major depressive disorder, single episode, unspecified; E66.9 Obesity, unspecified; Z91.14 Patient's other noncompliance with medication regimen; Z88.6 Allergy status to analgesic agent; Z68.34 Body mass index [BMI] 34.0-34.9, adult; I25.2 Old myocardial infarction; Z87.01 Personal history of pneumonia (recurrent); Z88.8 Allergy status to other drugs, medicaments and biological substances; Z79.899 Other long term (current) drug therapy
CPT/HCPCS: 36415; 36430; 36600; 71046; 71250; 80053; 81001; 82550; 82553; 82607; 82728; 82746; 82803; 83036; 83540; 83550; 83605; 83735; 83880; 84484; 84550; 85025; 85045; 86850; 86900; 86901; 86920; 87040; 87070; 87077; 87086; 87088; 87186; 87205; 93005; 93010; 93306; 94799; 96365; 96375; 99291; J0692; J1642; J1650; J1940; J1956; J2543; J2930; J3370; J3490; J7030; J7060; J7620; P9016

== ENCOUNTER 2019-01-23 07:47 | Inpatient (IN) | payer MEDICARE ==
[2019-01-23] MEDS ORDERED: NORMAL SALINE 500 ML IV ONE (09:08)
--- NOTE | 2019-01-23 09:11 | ER Document Report ---
ED GI Bleed / Rectal Pain - General Chief Complaint: Bloody Stools Stated Complaint: BLOOD IN STOOL,DIARRHEA,ABDOMINAL PAIN Time Seen by Provider: 01/23/19 08:49 Notes: Patient is a 68-year-old female who presents to the emergency department with a chief complaint of rectal bleeding. Patient reports she is currently on chemo for leukemia. Patient reports her last chemotherapy session was 3 weeks ago. Patient does follow Dr. Dempsey. Patient reports that she has been battling liquid diarrhea for the past 3 to 4 weeks. She has been taking Imodium daily. Patient reports the diarrhea is normally worse in the morning and subsides thro ughout the day. Patient reports this morning she felt the urge to have a bowel movement when she noticed bright red blood that was running down her leg. Patient reports she went to go wipe and noticed bright red blood on the tissue paper. Patient reports that since then this has subsided and she is not currently bleeding. Patient denies abdominal pain. Family member at the bedside also reports she has been more forgetful over the past 2 to 3 days. Patient complains of generalized weakness. Patient denies nausea. Patient has been on the brat diet due to the diarrhea. TRAVEL OUTSIDE OF THE [place] IN LAST 30 DAYS: No - Related Data Allergies/Adverse Reactions: codeine [Codeine] Adverse Reaction (Mild, Verified 01/23/19 10:18) lisinopril [Lisinopril] Adverse Reaction (Verified 01/23/19 10:18) Home Medications: Percocet 10mg/325 Q6Hr. Cyclobenzaprine 10mg 3xdaily. Gabapentin 500mg 3xdaily. Meloxicam 7.5mg 2xdaily. Levothyroxine 88mcg 1xdaily. Mirapex 0.125mg 1xdaily Past Medical History - General Information source: Patient - Social History Smoking Status: Never Smoker Frequency of alcohol use: None Drug Abuse: None Lives with: Family Family History: Reviewed & Not Pertinent Patient has suicidal ideation: No Patient has homicidal ideation: No - Past Medical History Cardiac Medical History: Reports: Hx Heart Attack Denies: Hx Coronary Artery Disease, Hx Hypertension - Past history Pulmonary Medical History: Reports: Hx Bronchitis, Hx COPD, Hx Pneumonia - Last time in April Denies: Hx Asthma EENT Medical History: Reports: None Neurological Medical History: Reports: None. Denies: Hx Cerebrovascular Accident, Hx Seizures Endocrine Medical History: Reports: Hx Hyperthyroidism, Hx Hypothyroidism Renal/ Medical History: Reports: Hx Kidney Stones. Denies: Hx Peritoneal Dialysis Malignancy Medical History: Reports: Hx Leukemia GI Medical History: Reports: None Musculoskeletal Medical History: Reports Hx Arthritis - all over, Reports Hx Musculoskeletal Deformity, Reports Hx Musculoskeletal Trauma Psychiatric Medical History: Reports: Hx Anxiety, Hx Depression Traumatic Medical History: Reports: Hx Fractures Infectious Medical History: Reports: None Past Surgical History: Reports: Hx Appendectomy, Hx Breast Surgery - reduction, Hx Orthopedic Surgery - 13 foot surgeries neuromas rib removed , chest tube, Other - Recent port placement - Immunizations Immunizations up to date: Yes Hx Diphtheria, Pertussis, Tetanus Vaccination: Yes Hx Pneumococcal Vaccination: 01/06/15 Review of Systems - Review of Systems Constitutional: See HPI EENT: No symptoms reported Cardiovascular: No symptoms reported Respiratory: No symptoms reported Gastrointestinal: See HPI Genitourinary: No symptoms reported Female Genitourinary: No symptoms reported Musculoskeletal: No symptoms reported Skin: No symptoms reported Hematologic/Lymphatic: No symptoms reported Neurological/Psychological: No symptoms reported Physical Exam - Vital signs Vitals: Temp Pulse BP Pulse Ox 98.9 F 102 H 124/55 L 95 01/23/19 07:50 01/23/19 07:50 01/23/19 07:50 01/23/19 07:50 Interpretation: Tachycardic - Notes Notes: GENERAL: Well-appearing, well-nourished and in no acute distress. HEAD: Atraumatic, normocephalic. EYES: Pupils equal round and reactive to light, extraocular movements intact, sclera anicteric, conjunctiva are normal. ENT: Nares patent, oropharynx clear without exudates. Moist mucous membranes. NECK: Normal range of motion, supple without lymphadenopathy or JVD. LUNGS: Breath sounds clear to auscultation to right lung silverman, diminished in left lower lung field. No rales, rhonchi or wheezing. HEART: Regular rate and rhythm without murmurs, rubs or gallops. ABDOMEN: Soft, nontender, hyperactive bowel sounds. No guarding, no rebound. No masses appreciated. BACK: No cervical, thoracic, lumbar midline tenderness. No saddle anesthesia, normal distal neurovascular exam. GENITOURINARY: Deferred. EXTREMITIES: Normal range of motion, no pitting or edema. No clubbing or cyanosis. NEUROLOGICAL: Cranial nerves II through XII grossly intact. Normal speech, gait not tested. In wheelchair. PSYCH: Normal mood, normal affect. SKIN: Warm, Dry, normal turgor, no rashes or lesions noted. Course - Re-evaluation Re-evalutation: 01/23/19 10:06 Patient sitting up in wheelchair. staff sonographer accessing report for blood draw. Patient's no acute distress. Will perform a rectal exam once they are finished accessing the port. 01/23/19 10:33 Patient's Hemoccult was positive. I did perform a rectal examination which did not reveal any external or obvious internal hemorrhoids. Patient did not had any blood or stool noted around the rectum. Patient reports she has not had any rectal bleeding since the episode at 6 AM this morning. 01/23/19 10:52 I did speak with the surgical list, Dr. Jean who states that if the patient was admitted and needed to be scoped that they would be able to help and perform this procedure. 01/23/19 11:04 Nursing staff report that the patient did have a liquid bowel movement. They reported there was no blood clots or obvious blood. 01/23/19 11:[address] with Dr. Vance who will admit the patient to [facility]. I have also contacted Dr. Dempsey to make him aware that the patient is being admitted since he does follow him for chemotherapy for her leukemia. 01/23/19 11:37 I did update the patient and daughter as regards to the admission. They verbalized understanding and denies questions at this time. - Vital Signs Vital signs: Temp Pulse Resp BP Pulse Ox 98.9 F 102 H 22 H 126/75 H 97 01/23/19 07:50 01/23/19 07:50 01/23/19 11:17 01/23/19 11:17 01/23/19 10:34 - Laboratory Result Diagrams: 01/23/19 10:10 01/23/19 10:10 Laboratory results interpreted by me: 01/23/19 01/23/19 01/23/19 10:10 10:10 10:10 Hgb 9.4 L Hct 30.2 L MCV 71 L MCH 21.9 L MCHC 31.0 L RDW 20.2 H Lymph % (Auto) 46.4 H Coleman % (Auto) 19.3 H Seg Neutrophils % 33.3 L PT 15.7 H APTT 36.6 H Sodium 136.0 L Glucose 112 H Total Protein 5.8 L Urine Protein Urine Blood Ur Leukocyte Esterase 01/23/19 10:10 Hgb Hct MCV MCH MCHC RDW Lymph % (Auto) Coleman % (Auto) Seg Neutrophils % PT APTT Sodium Glucose Total Protein Urine Protein 30 H Urine Blood MODERATE H Ur Leukocyte Esterase MODERATE H Patient does have an anemia with a hemoglobin of 9.4. This is consistent with her previous labs. Patient does not have a white count or leukocytosis. Patient's PT and PTT slightly elevated. Patient does have a moderate amount of leukocytes in white blood cells in the urine consistent with urinary tract infection. - Diagnostic Test Radiology reviewed: Reports reviewed Radiology results interpreted by me: 01/23/19 09:[address] 01/23/19 09:04 IMPRESSION: No acute intracranial pathology. No noncontrast CT findings to explain confusion. Consider contrast-enhanced MRI to more sensitively evaluate for metastatic disease if suspected. EVIDENCE OF ACUTE STROKE: NO. Chest X-Ray 01/23/19 09:05 IMPRESSION: Slight interval increase in a now moderate left pleural effusion with associated atelectasis or consolidation. Cardiomegaly. Discharge - Discharge Clinical Impression: Pleural effusion, Weakness GI bleed Qualifiers: GI bleed type/associated pathology: melena Qualified Code(s): K92.1 - Melena Diarrhea Qualifiers: Diarrhea type: unspecified type Qualified Code(s): R19.7 - Diarrhea, unspecified Anemia Qualifiers: Anemia type: unspecified type Qualified Code(s): D64.9 - Anemia, unspecified Urinary tract infection Qualifiers: Urinary tract infection type: site unspecified Hematuria presence: with hematuria Qualified Code(s): N39.0 - Urinary tract infection, site not specified Condition: Stable Disposition: ADMITTED INPATIENT Admitting Provider: Pinky Unit Admitted: [facility]
--- NOTE | 2019-01-23 09:47 | RADIOLOGY REPORT (SQ) ---
EXAM DESCRIPTION: CHEST 2 VIEWS COMPLETED DATE/TIME: 01/23/2019 9:28 am REASON FOR STUDY: AMS COMPARISON: 11/18/2018 EXAM PARAMETERS: NUMBER OF VIEWS: two views TECHNIQUE: Digital Frontal and Lateral radiographic views of the chest acquired. RADIATION DOSE: NA LIMITATIONS: none FINDINGS: LUNGS AND PLEURA: Slight interval increase in a now moderate left pleural effusion with as sociated atelectasis or consolidation. MEDIASTINUM AND HILAR STRUCTURES: No masses or contour abnormalities. HEART AND VASCULAR STRUCTURES: Cardiomegaly. BONES: No acute findings. HARDWARE: None in the chest. OTHER: Right chest port catheter. IMPRESSION: Slight interval increase in a now moderate left pleural effusion with associated atelect asis or consolidation. Cardiomegaly. TECHNICAL DOCUMENTATION: JOB ID: [id number] [employer]- All Rights Reserved Reading location - IP/workstation name: [email or web address]
--- NOTE | 2019-01-23 09:51 | RADIOLOGY REPORT (SQ) ---
EXAM DESCRIPTION: CT HEAD WITHOUT COMPLETED DATE/TIME: 01/23/2019 9:38 am REASON FOR STUDY: confusion x 3 days, on chemo COMPARISON: 11/02/2018 TECHNIQUE: Axial images acquired through the brain without intravenous contrast. Images reviewed wi th bone, brain and subdural windows. Additional sagittal and coronal reconstructions were generated. Images stored on PACS. All CT scanners at this facility use dose modulation, iterative reconstruction, and/or weight based d osing when appropriate to reduce radiation dose to as low as reasonably achievable (ALARA). [facility]: Dose Right [facility]: CareDose [facility]: Dose Right [facility]: Teradose 4D [facility]: [employer] RADIATION DOSE: CT Rad equipment meets quality standard of care and radiation dose reduction techniq ues were employed. CTDIvol: 53.2 mGy. DLP: 1044 mGy-cm. mGy. LIMITATIONS: None. FINDINGS: VENTRICLES: Normal size and contour. CEREBRUM: No masses. No hemorrhage. No midline shift. No evidence for acute infarction. Normal gra y/white matter differentiation. No areas of low density in the white matter. CEREBELLUM: No masses. No hemorrhage. No alteration of density. No evidence for acute infarction. EXTRAAXIAL SPACES: No fluid collections. No masses. ORBITS AND GLOBE: No intra- or extraconal masses. Normal contour of globe without masses. CALVARIUM: No fracture. PARANASAL SINUSES: No fluid or mucosal thickening. SOFT TISSUES: No mass or hematoma. OTHER: No other significant finding. IMPRESSION: No acute intracranial pathology. No noncontrast CT findings to explain confusion. Cons ider contrast-enhanced MRI to more sensitively evaluate for metastatic disease if suspected. EVIDENCE OF ACUTE STROKE: NO. COMMENT: Quality ID # [id number]: Final reports with documentation of one or more dose reduction techniques (e.g., Automated exposure control, adjustment of the mA and/or kV according to patient size, use of iterative reconstruction technique) TECHNICAL DOCUMENTATION: JOB ID: [id number] [employer]- All Rights Reserved Reading location - IP/workstation name: [email or web address]
[2019-01-23 10:28] LABS: ABSOLUTE LYMPHOCYTES (AUTO) 2.7 10^3/uL (0.5-4.7); ABSOLUTE MONOCYTES (AUTO) 1.1 10^3/uL (0.1-1.4); ABSOLUTE NEUT (AUTO) 1.9 10^3/uL (1.7-8.2); BASOPHILS % (AUTO) 0.5 % (0-2); EOSINOPHILS % (AUTO) 0.5 % (0-6); HEMATOCRIT 30.2 % (36.0-47.0); HEMOGLOBIN 9.4 g/dL (12.0-15.5); LYMPHOCYTES % (AUTO) 46.4 % (13-45); MEAN CORPUSCULAR HEMOGLOBIN 21.9 pg (27.0-33.4); MEAN CORPUSCULAR VOLUME 71 fl (80-97); MONOCYTES % (AUTO) 19.3 % (3-13); PLATELET COUNT 274 10^3/uL (150-450); RED BLOOD COUNT 4.27 10^6/uL (3.72-5.28); RED CELL DISTRIBUTION WIDTH 20.2 % (11.5-14.0); SEGMENTED NEUTROPHILS % (AUTO) 33.3 % (42-78); TOTAL CELLS COUNTED % (AUTO) 100 %; WHITE BLOOD COUNT 5.8 10^3/uL (4.0-10.5)
[2019-01-23 10:40] LABS: INTERNATIONAL RATION (INR) 1.24; PROTHROMBIN TIME 15.7 SEC (11.4-15.4)
[2019-01-23 10:41] LABS: PARTIAL THROMBOPLASTIN TIME 36.6 SEC (23.5-35.8)
[2019-01-23 10:52] LABS: APPEARANCE,URINE CLOUDY; BILIRUBIN,URINE NEGATIVE (NEGATIVE); CALCIUM OXALATE CRYSTALS,URINE TOO NUMEROUS TO CNT /HPF; COLOR,URINE AMBER; GLUCOSE, URINE NEGATIVE (NEGATIVE); KETONES,URINE NEGATIVE (NEGATIVE); LEUKOCYTE ESTERASE,URINE MODERATE (NEGATIVE); NITRITE,URINE NEGATIVE (NEGATIVE); PROTEIN,URINE 30 mg/dL (NEGATIVE); URINE SPECIFIC GRAVITY 1.023; UROBILINOGEN,URINE NEGATIVE mg/dL (<2.0)
[2019-01-23 11:11] LABS: ALBUMIN 3.6 g/dL (3.5-5.0); ALKALINE PHOSPHATASE 63 U/L (38-126); ANION GAP 7 (5-19); ASPARTATE AMINO TRANSFERASE 16 U/L (14-36); BILIRUBIN,DIRECT 0.4 mg/dL (0.0-0.4); BILIRUBIN,TOTAL 0.8 mg/dL (0.2-1.3); BLOOD UREA NITROGEN 18 mg/dL (7-20); CARBON DIOXIDE 28 mmol/L (22-30); CHLORIDE 101 mmol/L (98-107); GLUCOSE 112 mg/dL (75-110); POTASSIUM 4.2 mmol/L (3.6-5.0); TOTAL PROTEIN 5.8 g/dL (6.3-8.2)
[2019-01-23] MEDS ORDERED: CEFTRIAXONE 1 GM/D5W RTU 1 GM/50 ML RTUPB IV ONE (11:20)
--- NOTE | 2019-01-23 14:33 | RADIOLOGY REPORT (SQ) ---
EXAM DESCRIPTION: CT CHEST WITH COMPLETED DATE/TIME: 01/23/2019 2:08 pm REASON FOR STUDY: PLEURAL EFFUSION COMPARISON: Chest radiograph, 01/23/2019, CT chest, 11/19/2018 TECHNIQUE: CT scan of the chest performed using helical scanning technique with dynamic intravenous contrast injection. Images reviewed with lung, soft tissue and bone windows. Reconstructed coronal and sagittal MPR and MIP images reviewed. All images stored on PACS. All CT scanners at this facility use dose modulation, iterative reconstruction, and/or weight based d osing when appropriate to reduce radiation dose to as low as reasonably achievable (ALARA). [facility]: Dose Right [facility]: CareDose [facility]: Dose Right [facility]: Teradose 4D [facility]: [employer] CONTRAST TYPE AND DOSE: contrast/concentration: Isovue 350.00 mg/ml; Total Contrast Delivered: 80.0 ml; Total Saline Delivered: 36.9 ml RENAL FUNCTION: GFR > 60. RADIATION DOSE: CT Rad equipment meets quality standard of care and radiation dose reduction techniq ues were employed. CTDIvol: 16.2 mGy. DLP: 590 mGy-cm. . LIMITATIONS: None. FINDINGS: LUNGS AND PLEURA: Slight interval increase in a moderate left pleural effusion with associ ated atelectasis or consolidation. There is mild fibrotic or atelectatic change of the dependent rig ht lung. HILAR AND MEDIASTINAL STRUCTURES: No identified masses or abnormal nodes. HEART AND VASCULAR STRUCTURES: No aneurysm or dissection. No central pulmonary emboli. Interval res olution of a previously seen pericardial fusion. HARDWARE: None in the chest. UPPER ABDOMEN: No significant findings. Limited exam. THYROID AND OTHER SOFT TISSUES: No masses. No adenopathy. BONES: No significant finding. OTHER: No other significant finding. IMPRESSION: 1. Slight interval increase in a moderate left pleural effusion with associated atelecta sis or consolidation. 2. Interval resolution of a previously seen pericardial effusion. TECHNICAL DOCUMENTATION: JOB ID: [id number] Quality ID # [id number]: Final reports with documentation of one or more dose reduction techniques (e.g., Au tomated exposure control, adjustment of the mA and/or kV according to patient size, use of iterative reconstruction technique) 2010 [employer]- All Rights Reserved Reading location - IP/workstation name: [email or web address]
[2019-01-23] MEDS ORDERED: NORMAL SALINE 1000 ML 1,000 ML IV PRN (15:03)
[2019-01-23] MEDS ORDERED: (PENDING PHARMACY ID) (Oxycodone Hcl/Acetaminophen [Endocet 10-325 Mg Tablet] 1 TAB) PO SCH (18:00)
[2019-01-23] MEDS: ENOXAPARIN SODIUM INJ 40 MG/0.4 ML DISP.SYRIN SUBCUT SCH (19:00)
[2019-01-23] MEDS: LEVOTHYROXINE SODIUM 0.088 MG TABLET PO SCH (19:00)
[2019-01-23] MEDS: ALLOPURINOL 300 MG TABLET PO SCH (19:00)
[2019-01-23 19:49] LABS: INTERNATIONAL RATION (INR) 1.27
[2019-01-23 19:50] LABS: PARTIAL THROMBOPLASTIN TIME 34.9 SEC (23.5-35.8)
[2019-01-23 20:00] LABS: ANION GAP 10 (5-19); BLOOD UREA NITROGEN 18 mg/dL (7-20); CALCIUM 8.7 mg/dL (8.4-10.2); CARBON DIOXIDE 26 mmol/L (22-30); CHLORIDE 99 mmol/L (98-107); GLUCOSE 88 mg/dL (75-110); PHOSPHORUS 4.3 mg/dL (2.5-4.5); POTASSIUM 4.3 mmol/L (3.6-5.0); TOTAL PROTEIN 5.5 g/dL (6.3-8.2)
[2019-01-23 20:11] LABS: CREATINE KINASE MB < 0.22 ng/mL (<4.55); TROPONIN I < 0.012 ng/mL
[2019-01-23 20:14] LABS: FREE T4 (FREE THYROXINE) 1.82 ng/dL (0.78-2.19)
--- NOTE | 2019-01-23 20:22 | PDOC H&P ---
History of Present Illness Admission Date/PCP: 01/23/19 11:24 KILLIAN JOHNSON MD History of Present Illness: EMY LOVETT is a 68 year old female.She came to the emergency room for evalu ation of rectal bleed, she is on chemotherapy for CLL, the last chemotherapy session was roughly about 3 weeks ago, she also stated that before the rectal bleed she has had about 2 to 4 weeks of very loose stool but when the stool became bloody today she decided to come to the emergency room for evaluation. She also complained of abdominal discomfort. In the emergency room she was evaluated a chest x-ray was done that demonstrated a pleural effusion subsequent CAT scan of the chest was done that demonstrated moderate sized pleural effusion Past Medical History Cardiac Medical History: Reports: Myocardial Infarction Pulmonary Medical History: Reports: Bronchitis, Chronic Obstructive Pulmonary Disease (COPD), Pneumonia - Last time in April [facility] Medical History: Reports: None Neurological Medical History: Reports: None Endocrine Medical History: Reports: Hyperthyroidism, Hypothyroidism Malignancy Medical History: Reports: Leukemia - CLL GI Medical History: Reports: None Musculoskeltal Medical History: Reports: Arthritis - all over Psychiatric Medical History: Reports: Depression Infectious Medical History: Reports: None Past Surgical History Past Surgical History: Reports: Appendectomy, Orthopedic Surgery - 13 foot surgeries neuromas rib removed , chest tube, Other - Recent port placement Social History Lives with: Family Smoking Status: Never Smoker Frequency of Alcohol Use: Rare Hx Recreational Drug Use: No Drugs: None Hx Prescription Drug Abuse: No - Advance Directive Resuscitation Status: Full Code Family History Family History: Reviewed & Not Pertinent Parental Family History Reviewed: Yes Children Family History Reviewed: Yes Sibling(s) Family History Reviewed.: Yes Medication/Allergy Home Medications: Allopurinol [Zyloprim 300 mg Tablet] 300 mg PO DAILY MDD DO NOT TAKE WHILE ADMITTED 11/19/18 Cyclobenzaprine HCl [Flexeril 10 mg Tablet] 10 mg PO Q8HP PRN 11/19/18 Gabapentin [Neurontin 300 mg Capsule] 300 mg PO Q8 11/19/18 Levothyroxine Sodium [Synthroid 0.088 mg Tablet] 0.088 mg PO Q6AM 11/19/18 Meloxicam [Mobic] 7.5 mg PO Q12 11/19/18 Oxycodone HCl/Acetaminophen [Endocet 10-325 mg Tablet] 1 tab PO Q6 11/19/18 Pramipexole Di-HCl [Pramipexole Dihydrochloride] 0.125 mg PO QHS 11/19/18 Morphine Sulfate [Ms Contin] 15 mg PO Q12 01/23/19 Allergies/Adverse Reactions: codeine [Codeine] Adverse Reaction (Mild, Verified 01/23/19 10:18) lisinopril [Lisinopril] Adverse Reaction (Verified 01/23/19 10:18) Review of Systems Constitutional: ABSENT: chills, fever(s), headache(s), weight gain, weight loss Eyes: ABSENT: visual disturbances Ears: ABSENT: hearing changes Cardiovascular: ABSENT: chest pain, dyspnea on exertion, edema, orthropnea, palpitations Respiratory: ABSENT: cough, hemoptysis Gastrointestinal: PRESENT: diarrhea, hematochezia. ABSENT: abdominal pain, constipation, hematemesis, nausea, vomiting Genitourinary: ABSENT: dysuria, hematuria Musculoskeletal: ABSENT: joint swelling Integumentary: ABSENT: rash, wounds Neurological: ABSENT: abnormal gait, abnormal speech, confusion, dizziness, focal weakness, syncope Psychiatric: ABSENT: anxiety, depression, homidical ideation, suicidal ideation Endocrine: ABSENT: cold intolerance, heat intolerance, menstrual abnormalities, polydipsia, polyuria Hematologic/Lymphatic: ABSENT: easy bleeding, easy bruising, lymphadenopathy Physical Exam Vital Signs: Temp Pulse Resp BP Pulse Ox 98.0 F 96 17 117/73 96 01/23/19 17:07 01/23/19 17:07 01/23/19 17:07 01/23/19 17:07 01/23/19 17:07 Intake & Output 01/22/19 01/23/19 01/24/19 06:59 06:59 06:59 Intake Total 550 Balance 550 Weight 86.18 kg General appearance: PRESENT: no acute distress Head exam: PRESENT: atraumatic, normocephalic Eye exam: PRESENT: PERRLA Ear exam: PRESENT: normal external ear exam Neck exam: PRESENT: full ROM Respiratory exam: PRESENT: clear to auscultation evan Cardiovascular exam: PRESENT: RRR, +S1, +S2 Vascular exam: PRESENT: normal capillary refill GI/Abdominal exam: PRESENT: normal bowel sounds, soft Rectal exam: PRESENT: deferred Neurological exam: PRESENT: alert, CN II-XII grossly intact Psychiatric exam: PRESENT: appropriate affect, normal mood Skin exam: PRESENT: dry, intact, warm Results Laboratory Results: 01/23/19 10:10 01/23/19 19:00 01/23/19 01/23/19 01/23/19 10:10 10:10 10:10 WBC 5.8 RBC 4.27 Hgb 9.4 L Hct 30.2 L MCV 71 L MCH 21.9 L MCHC 31.0 L RDW 20.2 H Plt Count 274 Seg Neutrophils % 33.3 L Sodium 136.0 L Potassium 4.2 Chloride 101 Carbon Dioxide 28 Anion Gap 7 BUN 18 Creatinine 0.61 Est GFR ( Amer) > 60 Glucose 112 H Calcium 9.0 Phosphorus Magnesium Total Bilirubin 0.8 AST 16 Alkaline Phosphatase 63 Total Protein 5.8 L Albumin 3.6 Lipase 33.8 Urine Color Urine Appearance Urine pH Ur Specific [place] Urine Protein Urine Glucose (UA) Urine Ketones Urine Blood Urine Nitrite Ur Leukocyte Esterase Urine WBC (Auto) Urine RBC (Auto) Blood Type O POSITIVE Antibody Screen NEGATIVE 01/23/19 01/23/19 10:10 19:00 WBC RBC Hgb Hct MCV MCH MCHC RDW Plt Count Seg Neutrophils % Sodium 135.4 L Potassium 4.3 Chloride 99 Carbon Dioxide 26 Anion Gap 10 BUN 18 Creatinine 0.65 Est GFR ( Amer) > 60 Glucose 88 Calcium 8.7 Phosphorus 4.3 Magnesium 2.0 Total Bilirubin AST Alkaline Phosphatase Total Protein 5.5 L Albumin Lipase 40.4 Urine Color MAYELA Urine Appearance CLOUDY Urine pH 5.0 Ur Specific [place] 1.023 Urine Protein 30 H Urine Glucose (UA) NEGATIVE Urine Ketones NEGATIVE Urine Blood MODERATE H Urine Nitrite NEGATIVE Ur Leukocyte Esterase MODERATE H Urine WBC (Auto) 159 Urine RBC (Auto) 18 Blood Type Antibody Screen 01/23/19 01/23/19 19:00 19:00 Creatine Kinase < 20 L NT-Pro-B Natriuret Pep 114 Impressions: Chest CT 01/23/19 00:00 IMPRESSION: 1. Slight interval increase in a moderate left pleural effusion with associated atelectasis or consolidation. 2. Interval resolution of a previously seen pericardial effusion. Head CT 01/23/19 09:04 IMPRESSION: No acute intracranial pathology. No noncontrast CT findings to explain confusion. Consider contrast-enhanced MRI to more sensitively evaluate for metastatic disease if suspected. EVIDENCE OF ACUTE STROKE: NO. Chest X-Ray 01/23/19 09:05 IMPRESSION: Slight interval increase in a now moderate left pleural effusion with associated atelectasis or consolidation. Cardiomegaly. Assessment & Plan - Diagnosis (1) Rectal bleed Is this a current diagnosis for this admission?: Yes Plan: Patient is not presently actively bleeding, consultation will be requested from surgery for colonoscopy, I will also send stool study for C. difficile especially with a history of loose stool before the onset of rectal bleed (2) CLL (chronic lymphocytic leukemia) Is this a current diagnosis for this admission?: Yes (3) Pleural effusion, left Is this a current diagnosis for this admission?: Yes Plan: Paracentesis is needed to differentiate between transudate and exudate the CAT scan also showed consolidation, will empirically treat with antibiotic for p neumonia, The pleural effusion could be parapneumonic effusion
[2019-01-23 20:28] LABS: THYROID STIMULATING HORMONE 2.35 uIU/mL (0.47-4.68)
[2019-01-23] MEDS ORDERED: (PENDING PHARMACY ID) (Pramipexole Di-Hcl [Pramipexole Dihydrochloride] 0.125 MG) PO SCH (22:00)
[2019-01-23] MEDS: LEVOFLOXACIN 750 MG/D5W RTU 750 MG/150 ML RTUPB IV SCH (23:09)
[2019-01-23] MEDS: PRAMIPEXOLE DI-HCL 0.25 MG TABLET PO SCH (23:10)
[2019-01-23] MEDS: GABAPENTIN 300 MG CAPSULE PO SCH (23:11)
[2019-01-23] MEDS: OXYCODONE HCL IR 5 MG TABLET PO SCH (23:58)
[2019-01-23] MEDS: OXYCODONE-ACETAMINOPHEN 5-325 MG TABLET PO SCH (23:58)
[2019-01-24] MEDS ORDERED: ZOLPIDEM TARTRATE 5 MG TABLET PO ONE (00:30)
[2019-01-24] MEDS ORDERED: MORPHINE SULFATE IR 15 MG TABLET PO ONE (00:30)
[2019-01-24 01:01] LABS: APPEARANCE,URINE SLIGHTLY-CLOUDY; BILIRUBIN,URINE NEGATIVE (NEGATIVE); COLOR,URINE DARK YELLOW; GLUCOSE, URINE NEGATIVE (NEGATIVE); KETONES,URINE NEGATIVE (NEGATIVE); LEUKOCYTE ESTERASE,URINE SMALL (NEGATIVE); NITRITE,URINE NEGATIVE (NEGATIVE); PROTEIN,URINE 30 mg/dL (NEGATIVE); URINE SPECIFIC GRAVITY 1.047; UROBILINOGEN,URINE NEGATIVE mg/dL (<2.0)
[2019-01-24 01:48] LABS: URINE AMPHETAMINES SCREEN NEGATIVE; URINE BARBITURATES SCREEN NEGATIVE; URINE BENZODIAZEPINES SCREEN NEGATIVE; URINE COCAINE SCREEN NEGATIVE; URINE MARIJUANA (THC) SCREEN NEGATIVE; URINE METHADONE SCREEN NEGATIVE; URINE PHENCYCLIDINE SCREEN NEGATIVE
[2019-01-24 03:08] LABS: CREATINE KINASE MB < 0.22 ng/mL (<4.55); TROPONIN I < 0.012 ng/mL
[2019-01-24 03:52] LABS: C DIFFICILE GDH NEGATIVE (NEGATIVE)
[2019-01-24] MEDS: OXYCODONE HCL IR 5 MG TABLET PO SCH ×4 (05:58→23:51)
[2019-01-24] MEDS: GABAPENTIN 300 MG CAPSULE PO SCH ×3 (05:58→22:19)
[2019-01-24] MEDS: LEVOTHYROXINE SODIUM 0.088 MG TABLET PO SCH (05:58)
[2019-01-24] MEDS: OXYCODONE-ACETAMINOPHEN 5-325 MG TABLET PO SCH ×4 (05:59→23:51)
[2019-01-24 06:32] LABS: ABSOLUTE EOSINOPHILS # (AUTO) 0.1 10^3/uL (0.0-0.6); ABSOLUTE LYMPHOCYTES (AUTO) 2.6 10^3/uL (0.5-4.7); ABSOLUTE NEUT (AUTO) 1.5 10^3/uL (1.7-8.2); BASOPHILS % (AUTO) 0.9 % (0-2); EOSINOPHILS % (AUTO) 2.1 % (0-6); HEMATOCRIT 26.8 % (36.0-47.0); HEMOGLOBIN 8.5 g/dL (12.0-15.5); LYMPHOCYTES % (AUTO) 49.3 % (13-45); MEAN CORPUSCULAR HEMOGLOBIN 21.9 pg (27.0-33.4); MEAN CORPUSCULAR HGB CONC 31.6 g/dL (32.0-36.0); MEAN CORPUSCULAR VOLUME 69 fl (80-97); MONOCYTES % (AUTO) 18.5 % (3-13); PLATELET COUNT 272 10^3/uL (150-450); RED BLOOD COUNT 3.87 10^6/uL (3.72-5.28); RED CELL DISTRIBUTION WIDTH 19.8 % (11.5-14.0); SEGMENTED NEUTROPHILS % (AUTO) 29.2 % (42-78); TOTAL CELLS COUNTED % (AUTO) 100 %; WHITE BLOOD COUNT 5.3 10^3/uL (4.0-10.5)
[2019-01-24 07:13] LABS: CREATINE KINASE MB < 0.22 ng/mL (<4.55); TROPONIN I < 0.012 ng/mL
[2019-01-24 07:31] LABS: ALBUMIN 3.3 g/dL (3.5-5.0); ALKALINE PHOSPHATASE 53 U/L (38-126); ASPARTATE AMINO TRANSFERASE 17 U/L (14-36); BILIRUBIN,DIRECT 0.4 mg/dL (0.0-0.4); BILIRUBIN,TOTAL 0.7 mg/dL (0.2-1.3); CHOLESTEROL 86.72 mg/dL (0-200); TOTAL PROTEIN 5.7 g/dL (6.3-8.2); TRIGLYCERIDES 71 mg/dL (<150); VLDL CHOLESTEROL 14.2 mg/dL (10-31)
[2019-01-24 07:42] LABS: DIRECT LDL 46 mg/dL (<100)
[2019-01-24] MEDS: ENOXAPARIN SODIUM INJ 40 MG/0.4 ML DISP.SYRIN SUBCUT SCH (09:12)
[2019-01-24] MEDS: MORPHINE SULFATE SR 15 MG TABLET PO SCH ×2 (09:44→22:21)
[2019-01-24] MEDS: ALLOPURINOL 300 MG TABLET PO SCH (09:44)
[2019-01-24] MEDS: CEFTRIAXONE 1 GM/D5W RTU 1 GM/50 ML RTUPB IV SCH (09:45)
--- NOTE | 2019-01-24 10:17 | PDOC PROGRESS REPORT ---
Subjective Progress Note for:: 01/24/19 Subjective:: Patient was admitting in the hospital for the rectal bleed diarrhea and left- sided pleural effusions Patient also history of the CLL currently see the oncologist Patient is scheduled for the thoracocentesis tomorrow Patient's denied any blood in the stool today Denied any chest pain no short of breath No abdominal pain no nausea no vomiting Reason For Visit: RECTAL BLEED,PLEURAL EFFUSION,CLL Physical Exam Vital Signs: Temp Pulse Resp BP Pulse Ox 97.6 F 90 20 90/42 L 96 01/24/19 07:59 01/24/19 07:59 01/24/19 07:59 01/24/19 07:59 01/24/19 07:59 Intake & Output 01/23/19 01/24/19 01/25/19 06:59 06:59 06:59 Intake Total 700 Balance 700 Weight 86.18 kg General appearance: PRESENT: no acute distress, well-developed, well-nourished Head exam: PRESENT: atraumatic, normocephalic Eye exam: PRESENT: conjunctiva pink, EOMI, PERRLA. ABSENT: scleral icterus Ear exam: PRESENT: normal external ear exam Mouth exam: PRESENT: moist, tongue midline Neck exam: PRESENT: full ROM. ABSENT: carotid bruit, JVD, lymphadenopathy, thyromegaly Respiratory exam: PRESENT: clear to auscultation evan Cardiovascular exam: PRESENT: RRR. ABSENT: diastolic murmur, rubs, systolic murmur Pulses: PRESENT: normal dorsalis pedis pul, +2 pedal pulses bilateral Vascular exam: PRESENT: normal capillary refill GI/Abdominal exam: PRESENT: normal bowel sounds, soft. ABSENT: distended, guarding, mass, organolmegaly, rebound, tenderness Rectal exam: PRESENT: deferred Neurological exam: PRESENT: alert, awake, oriented to person, oriented to place, oriented to time, oriented to situation, CN II-XII grossly intact. ABSENT: mo tor sensory deficit Psychiatric exam: PRESENT: appropriate affect, normal mood. ABSENT: homicidal ideation, suicidal ideation Skin exam: PRESENT: dry, intact, warm. ABSENT: cyanosis, rash Results Laboratory Results: 01/24/19 05:55 01/23/19 19:00 01/23/19 01/23/19 01/23/19 10:10 10:10 10:10 WBC 5.8 RBC 4.27 Hgb 9.4 L Hct 30.2 L MCV 71 L MCH 21.9 L MCHC 31.0 L RDW 20.2 H Plt Count 274 Seg Neutrophils % 33.3 L Sodium 136.0 L Potassium 4.2 Chloride 101 Carbon Dioxide 28 Anion Gap 7 BUN 18 Creatinine 0.61 Est GFR ( Amer) > 60 Glucose 112 H Calcium 9.0 Phosphorus Magnesium Total Bilirubin 0.8 AST 16 Alkaline Phosphatase 63 Total Protein 5.8 L Albumin 3.6 Triglycerides Cholesterol LDL Cholesterol Direct VLDL Cholesterol HDL Cholesterol Lipase 33.8 TSH Free T4 Urine Color Urine Appearance Urine pH Ur Specific [place] Urine Protein Urine Glucose (UA) Urine Ketones Urine Blood Urine Nitrite Ur Leukocyte Esterase Urine WBC (Auto) Urine RBC (Auto) Stool for White Cells Blood Type O POSITIVE Antibody Screen NEGATIVE 01/23/19 01/23/19 01/23/19 10:10 19:00 19:00 WBC RBC Hgb Hct MCV MCH MCHC RDW Plt Count Seg Neutrophils % Sodium 135.4 L Potassium 4.3 Chloride 99 Carbon Dioxide 26 Anion Gap 10 BUN 18 Creatinine 0.65 Est GFR ( Amer) > 60 Glucose 88 Calcium 8.7 Phosphorus 4.3 Magnesium 2.0 Total Bilirubin AST Alkaline Phosphatase Total Protein 5.5 L Albumin Triglycerides Cholesterol LDL Cholesterol Direct VLDL Cholesterol HDL Cholesterol Lipase 40.4 TSH 2.35 Free T4 1.82 Urine Color MAYELA Urine Appearance CLOUDY Urine pH 5.0 Ur Specific [place] 1.023 Urine Protein 30 H Urine Glucose (UA) NEGATIVE Urine Ketones NEGATIVE Urine Blood MODERATE H Urine Nitrite NEGATIVE Ur Leukocyte Esterase MODERATE H Urine WBC (Auto) 159 Urine RBC (Auto) 18 Stool for White Cells Blood Type Antibody Screen 01/23/19 01/24/19 01/24/19 22:15 00:30 05:55 WBC 5.3 RBC 3.87 Hgb 8.5 L Hct 26.8 L MCV 69 L MCH 21.9 L MCHC 31.6 L RDW 19.8 H Plt Count 272 Seg Neutrophils % 29.2 L Sodium Potassium Chloride Carbon Dioxide Anion Gap BUN Creatinine Est GFR ( Amer) Glucose Calcium Phosphorus Magnesium Total Bilirubin AST Alkaline Phosphatase Total Protein Albumin Triglycerides Cholesterol LDL Cholesterol Direct VLDL Cholesterol HDL Cholesterol Lipase TSH Free T4 Urine Color DARK YELLOW Urine Appearance SLIGHTLY-CLOUDY Urine pH 5.0 Ur Specific [place] 1.047 Urine Protein 30 H Urine Glucose (UA) NEGATIVE Urine Ketones NEGATIVE Urine Blood MODERATE H Urine Nitrite NEGATIVE Ur Leukocyte Esterase SMALL H Urine WBC (Auto) 25 Urine RBC (Auto) 19 Stool for White Cells MANY H Blood Type Antibody Screen 01/24/19 05:55 WBC RBC Hgb Hct MCV MCH MCHC RDW Plt Count Seg Neutrophils % Sodium Potassium Chloride Carbon Dioxide Anion Gap BUN Creatinine Est GFR ( Amer) Glucose Calcium Phosphorus Magnesium Total Bilirubin 0.7 AST 17 Alkaline Phosphatase 53 Total Protein 5.7 L Albumin 3.3 L Triglycerides 71 Cholesterol 86.72 LDL Cholesterol Direct 46 VLDL Cholesterol 14.2 HDL Cholesterol 25 L Lipase TSH Free T4 Urine Color Urine Appearance Urine pH Ur Specific [place] Urine Protein Urine Glucose (UA) Urine Ketones Urine Blood Urine Nitrite Ur Leukocyte Esterase Urine WBC (Auto) Urine RBC (Auto) Stool for White Cells Blood Type Antibody Screen 01/23/19 01/23/19 01/23/19 19:00 19:00 19:00 Creatine Kinase < 20 L CK-MB (CK-2) < 0.22 Troponin I < 0.012 NT-Pro-B Natriuret Pep 114 01/24/19 01/24/19 01/24/19 01:40 01:40 05:55 Creatine Kinase < 20 L < 20 L CK-MB (CK-2) < 0.22 Troponin I < 0.012 NT-Pro-B Natriuret Pep 01/24/19 05:55 Creatine Kinase CK-MB (CK-2) < 0.22 Troponin I < 0.012 NT-Pro-B Natriuret Pep Impressions: Chest CT 01/23/19 00:00 IMPRESSION: 1. Slight interval increase in a moderate left pleural effusion with associated atelectasis or consolidation. 2. Interval resolution of a previously seen pericardial effusion. Head CT 01/23/19 09:04 IMPRESSION: No acute intracranial pathology. No noncontrast CT findings to explain confusion. Consider contrast-enhanced MRI to more sensitively evaluate for metastatic disease if suspected. EVIDENCE OF ACUTE STROKE: NO. Chest X-Ray 01/23/19 09:05 IMPRESSION: Slight interval increase in a now moderate left pleural effusion with associated atelectasis or consolidation. Cardiomegaly. Assessment & Plan - Diagnosis (1) Rectal bleed Is this a current diagnosis for this admission?: Yes Plan: Patient is currently not actively bleeding We will repeat the CBC Surgical consult is already placed (2) Anemia Qualifiers: Anemia type: unspecified type Qualified Code(s): D64.9 - Anemia, unspecified Is this a current diagnosis for this admission?: Yes Plan: follow-up with the oncology (3) CLL (chronic lymphocytic leukemia) Is this a current diagnosis for this admission?: Yes (4) Pleural effusion, left Is this a current diagnosis for this admission?: Yes Plan: Scheduled for thoracocentesis tomorrow - Time Time Spent with patient: 15-24 minutes Medications reviewed and adjusted accordingly: Yes Anticipated discharge: Home Within: Other - Plan Summary Plan Summary: Continues to current medications
--- NOTE | 2019-01-24 12:08 | PDOC CONSULTATION ---
Consultation Consult Date: 01/24/19 Attending physician:: ZOHREH CHANDRA Provider Consulted: MATTY CONRAD Consult reason:: Patient with known history of CLL on clinical trial here with severe diarrhea, shortness of breath and worsening pleural effusion History of Present Illness Admission Date/PCP: 01/23/19 11:24 KILLIAN JOHNSON MD Patient complains of: Severe diarrhea for 4 weeks, weakness, dehydration, shortness of breath History of Present Illness: EMY LOVETT is a 68 year old female with known history of CLL who was started on clinical trial with clinical trial drugs Imbruvica and Gazyva, about 4 weeks ago she began with low-grade diarrhea and we started her on outpatient therapy with Imodium and then increase to Lomotil. Unfortunately over the last 2 weeks the diarrhea is worsened acutely, and she was having episodes of 7-8 times a day. She continues to try the remedies that we had initiated before, but actually did not call us to let us know that it was worsening. Ultimately she became confused and dehydrated and was admitted here. This morning she is doing a little bit better after hydration overnight, UA indicated moderate leukocyte esterase so patient has been started on antibiotics as well. Patient had CT of the chest done upon admission because of the shortness of breath and was noted to have now a moderate left pleural effusion that had increased in size since the previous admission. Past Medical History Cardiac Medical History: Reports: Myocardial Infarction Denies: Coronary Artery Disease, Hypertension - Past history Pulmonary Medical History: Reports: Bronchitis, Chronic Obstructive Pulmonary Disease (COPD), Pneumonia - Last time in April Denies: Asthma EENT Medical History: Reports: None Neurological Medical History: Reports: None Denies: Seizures Endocrine Medical History: Reports: Hyperthyroidism, Hypothyroidism Malignancy Medical History: Reports: Leukemia - CLL GI Medical History: Reports: None Musculoskeltal Medical History: Reports: Arthritis - all over Psychiatric Medical History: Reports: Depression Hematology: Denies: Anemia Infectious Medical History: Reports: None Past Surgical History Past Surgical History: Reports: Appendectomy, Orthopedic Surgery - 13 foot surgeries neuromas rib removed , chest tube, Other - Recent port placement Social History Information Source: Patient Lives with: Family Smoking Status: Never Smoker Frequency of Alcohol Use: Rare Hx Recreational Drug Use: No Drugs: None Hx Prescription Drug Abuse: No - Advance Directive Resuscitation Status: Full Code Family History Family History: Reviewed & Not Pertinent Parental Family History Reviewed: Yes Children Family History Reviewed: Yes Sibling(s) Family History Reviewed.: Yes Medication/Allergy Home Medications: Allopurinol [Zyloprim 300 mg Tablet] 300 mg PO DAILY MDD DO NOT TAKE WHILE ADMITTED 11/19/18 Cyclobenzaprine HCl [Flexeril 10 mg Tablet] 10 mg PO Q8HP PRN 11/19/18 Gabapentin [Neurontin 300 mg Capsule] 300 mg PO Q8 11/19/18 Levothyroxine Sodium [Synthroid 0.088 mg Tablet] 0.088 mg PO Q6AM 11/19/18 Meloxicam [Mobic] 7.5 mg PO Q12 11/19/18 Oxycodone HCl/Acetaminophen [Endocet 10-325 mg Tablet] 1 tab PO Q6 11/19/18 Pramipexole Di-HCl [Pramipexole Dihydrochloride] 0.125 mg PO QHS 11/19/18 Morphine Sulfate [Ms Contin] 15 mg PO Q12 01/23/19 Allergies/Adverse Reactions: codeine [Codeine] Adverse Reaction (Mild, Verified 01/23/19 10:18) lisinopril [Lisinopril] Adverse Reaction (Verified 01/23/19 10:18) Review of Systems Constitutional: ABSENT: chills, fever(s), headache(s), weight gain, weight loss Eyes: ABSENT: visual disturbances Ears: ABSENT: hearing changes Cardiovascular: ABSENT: chest pain, dyspnea on exertion, edema, orthropnea, palpitations Respiratory: ABSENT: cough, hemoptysis Gastrointestinal: ABSENT: abdominal pain, constipation, diarrhea, hematemesis, hematochezia, nausea, vomiting Genitourinary: ABSENT: dysuria, hematuria Musculoskeletal: ABSENT: joint swelling Integumentary: ABSENT: rash, wounds Neurological: ABSENT: abnormal gait, abnormal speech, confusion, dizziness, focal weakness, syncope Psychiatric: ABSENT: anxiety, depression, homidical ideation, suicidal ideation Endocrine: ABSENT: cold intolerance, heat intolerance, polydipsia, polyuria Hematologic/Lymphatic: ABSENT: easy bleeding, easy bruising Physical Exam Vital Signs: Temp Pulse Resp BP Pulse Ox 97.6 F 90 20 90/42 L 96 01/24/19 07:59 01/24/19 07:59 01/24/19 07:59 01/24/19 07:59 01/24/19 07:59 Intake & Output 01/23/19 01/24/19 01/25/19 06:59 06:59 06:59 Intake Total 700 50 Balance 700 50 Weight 86.18 kg 86.18 kg General appearance: PRESENT: no acute distress, well-developed, well-nourished Head exam: PRESENT: atraumatic, normocephalic Eye exam: PRESENT: conjunctiva pink, EOMI, PERRLA. ABSENT: scleral icterus Ear exam: PRESENT: normal external ear exam Mouth exam: PRESENT: moist, tongue midline Neck exam: ABSENT: carotid bruit, JVD, lymphadenopathy, thyromegaly Respiratory exam: PRESENT: clear to auscultation evan. ABSENT: rales, rhonchi, wheezes Cardiovascular exam: PRESENT: RRR. ABSENT: diastolic murmur, rubs, systolic murmur Pulses: PRESENT: normal dorsalis pedis pul Vascular exam: PRESENT: normal capillary refill GI/Abdominal exam: PRESENT: normal bowel sounds, soft. ABSENT: distended, guarding, mass, organolmegaly, rebound, tenderness Rectal exam: PRESENT: deferred Extremities exam: PRESENT: full ROM. ABSENT: calf tenderness, clubbing, pedal edema Neurological exam: PRESENT: alert, awake, oriented to person, oriented to place, oriented to time, oriented to situation, CN II-XII grossly intact. ABSENT: motor sensory deficit Psychiatric exam: PRESENT: appropriate affect, normal mood. ABSENT: homicidal ideation, suicidal ideation Skin exam: PRESENT: dry, intact, warm. ABSENT: cyanosis, rash Results Laboratory Results: 01/24/19 05:55 01/23/19 19:00 01/23/19 01/23/19 01/23/19 19:00 19:00 22:15 WBC RBC Hgb Hct MCV MCH MCHC RDW Plt Count Seg Neutrophils % Sodium 135.4 L Potassium 4.3 Chloride 99 Carbon Dioxide 26 Anion Gap 10 BUN 18 Creatinine 0.65 Est GFR ( Amer) > 60 Glucose 88 Calcium 8.7 Phosphorus 4.3 Magnesium 2.0 Total Bilirubin AST Alkaline Phosphatase Total Protein 5.5 L Albumin Triglycerides Cholesterol LDL Cholesterol Direct VLDL Cholesterol HDL Cholesterol Lipase 40.4 TSH 2.35 Free T4 1.82 Urine Color Urine Appearance Urine pH Ur Specific [place] Urine Protein Urine Glucose (UA) Urine Ketones Urine Blood Urine Nitrite Ur Leukocyte Esterase Urine WBC (Auto) Urine RBC (Auto) Stool for White Cells MANY H 01/24/19 01/24/19 01/24/19 00:30 05:55 05:55 WBC 5.3 RBC 3.87 Hgb 8.5 L Hct 26.8 L MCV 69 L MCH 21.9 L MCHC 31.6 L RDW 19.8 H Plt Count 272 Seg Neutrophils % 29.2 L Sodium Potassium Chloride Carbon Dioxide Anion Gap BUN Creatinine Est GFR ( Amer) Glucose Calcium Phosphorus Magnesium Total Bilirubin 0.7 AST 17 Alkaline Phosphatase 53 Total Protein 5.7 L Albumin 3.3 L Triglycerides 71 Cholesterol 86.72 LDL Cholesterol Direct 46 VLDL Cholesterol 14.2 HDL Cholesterol 25 L Lipase TSH Free T4 Urine Color DARK YELLOW Urine Appearance SLIGHTLY-CLOUDY Urine pH 5.0 Ur Specific [place] 1.047 Urine Protein 30 H Urine Glucose (UA) NEGATIVE Urine Ketones NEGATIVE Urine Blood MODERATE H Urine Nitrite NEGATIVE Ur Leukocyte Esterase SMALL H Urine WBC (Auto) 25 Urine RBC (Auto) 19 Stool for White Cells 01/23/19 01/23/19 01/23/19 19:00 19:00 19:00 Creatine Kinase < 20 L CK-MB (CK-2) < 0.22 Troponin I < 0.012 NT-Pro-B Natriuret Pep 114 01/24/19 01/24/19 01/24/19 01:40 01:40 05:55 Creatine Kinase < 20 L < 20 L CK-MB (CK-2) < 0.22 Troponin I < 0.012 NT-Pro-B Natriuret Pep 01/24/19 05:55 Creatine Kinase CK-MB (CK-2) < 0.22 Troponin I < 0.012 NT-Pro-B Natriuret Pep Impressions: Chest CT 01/23/19 00:00 IMPRESSION: 1. Slight interval increase in a moderate left pleural effusion with associated atelectasis or consolidation. 2. Interval resolution of a previously seen pericardial effusion. Head CT 01/23/19 09:04 IMPRESSION: No acute intracranial pathology. No noncontrast CT findings to explain confusion. Consider contrast-enhanced MRI to more sensitively evaluate for metastatic disease if suspected. EVIDENCE OF ACUTE STROKE: NO. Chest X-Ray 01/23/19 09:05 IMPRESSION: Slight interval increase in a now moderate left pleural effusion with associated atelectasis or consolidation. Cardiomegaly. Status: Image reviewed by me Assessment & Plan - Diagnosis (1) Pleural effusion, left Is this a current diagnosis for this admission?: Yes Plan: Agree with thoracentesis, but probable transudate of infusion probably because of malnutrition and dehydration low protein intake because of the diarrhea, unlikely related to the CLL. (2) Diarrhea Qualifiers: Diarrhea type: due to malabsorption Qualified Code(s): K90.9 - Intestinal malabsorption, unspecified; R19.7 - Diarrhea, unspecified Is this a current diagnosis for this admission?: Yes Plan: Probably secondary to clinical trial drugs, more likely related to the Imbruvica, in my opinion. We will hold therapy until patient sees us as an outp atient and decide on continued therapy based upon clinical trial protocol. Continue with aggressive hydration over the next 24 hours. (3) Rectal bleed Is this a current diagnosis for this admission?: Yes Plan: Patient did have some mild rectal bleeding but probably secondary to hemorrhoids from the diarrhea that is been continued. Hemoglobin has not had a significant drop. 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, drug-induced Is this a current diagnosis for this admission?: Yes Plan: Anemia secondary to chemotherapy, holding treatment - Time Time Spent: Greater than 70 Minutes - Inpatient Certification Based on my medical assessment, after consideration of the patient's comorbidities, presenting symptoms, or acuity I expect that the services needed warrant INPATIENT care.: Yes I certify that my determination is in accordance with my understanding of Medicare's requirements for reasonable and necessary INPATIENT services [42 CFR 412.3e].: Yes Medical Necessity: Need For IV Fluids, Need for IV Antibiotics, Risk of Complication if Not Cared For in Hospital
[2019-01-24] MEDS: MELOXICAM 7.5 MG TABLET PO SCH ×2 (12:11→20:48)
[2019-01-24] MEDS: CYCLOBENZAPRINE HCL 10 MG TABLET PO SCH ×2 (13:31→22:19)
[2019-01-24] MEDS ORDERED: PEG 3350/NA SULF,BICARB,CL/KCL 4000 ML PO ONE (17:00)
--- NOTE | 2019-01-24 17:42 | PDOC CONSULTATION ---
Consultation Consult Date: 01/24/19 Provider Consulted: ELY FIGUEROA Consult reason:: Lower GI bleed History of Present Illness Admission Date/PCP: 01/23/19 11:24 KILLIAN JOHNSON MD History of Present Illness: EMY LOVETT is a 68 year old female with history of chronic lymphocytic leukemia for the past 2 years just recently undergoing chemotherapy with the last one given about a month ago. For the past month he has been having diarrhea and a yesterday on admission noted blood in the stool. She went to the ED and subsequently was admitted. Her initial hemoglobin was about 9.6 and this morning it went down to 8.5. She still had a couple of bouts of dark blood stools this morning. She denies any nausea vomiting or constipation. She attributes her diarrhea to her chemotherapy which was not amenable to Imodium. Denies being lightheaded or dizzy. She is not on any blood thinner. Her last colonoscopy was 2 years ago were 2 polyps were removed. Past Medical History Cardiac Medical History: Reports: Myocardial Infarction Denies: Coronary Artery Disease, Hypertension - Past history Pulmonary Medical History: Reports: Bronchitis, Chronic Obstructive Pulmonary Disease (COPD), Pneumonia - Last time in April Denies: Asthma EENT Medical History: Reports: None Neurological Medical History: Reports: None Denies: Seizures Endocrine Medical History: Reports: Hyperthyroidism, Hypothyroidism Malignancy Medical History: Reports: Leukemia - CLL GI Medical History: Reports: None Musculoskeltal Medical History: Reports: Arthritis - all over Psychiatric Medical History: Reports: Depression Hematology: Denies: Anemia Infectious Medical History: Reports: None Past Surgical History Past Surgical History: Reports: Appendectomy, Orthopedic Surgery - 13 foot surgeries neuromas rib removed , chest tube, Other - Recent port placement Social History Lives with: Family Smoking Status: Never Smoker Frequency of Alcohol Use: Rare Hx Recreational Drug Use: No Drugs: None Hx Prescription Drug Abuse: No - Advance Directive Resuscitation Status: Full Code Family History Family History: Reviewed & Not Pertinent Parental Family History Reviewed: Yes Children Family History Reviewed: No Sibling(s) Family History Reviewed.: No Medication/Allergy Home Medications: Allopurinol [Zyloprim 300 mg Tablet] 300 mg PO DAILY MDD DO NOT TAKE WHILE ADMITTED 11/19/18 Cyclobenzaprine HCl [Flexeril 10 mg Tablet] 10 mg PO Q8HP PRN 11/19/18 Gabapentin [Neurontin 300 mg Capsule] 300 mg PO Q8 11/19/18 Levothyroxine Sodium [Synthroid 0.088 mg Tablet] 0.088 mg PO Q6AM 11/19/18 Meloxicam [Mobic] 7.5 mg PO Q12 11/19/18 Oxycodone HCl/Acetaminophen [Endocet 10-325 mg Tablet] 1 tab PO Q6 11/19/18 Pramipexole Di-HCl [Pramipexole Dihydrochloride] 0.125 mg PO QHS 11/19/18 Morphine Sulfate [Ms Contin] 15 mg PO Q12 01/23/19 Allergies/Adverse Reactions: codeine [Codeine] Adverse Reaction (Mild, Verified 01/23/19 10:18) lisinopril [Lisinopril] Adverse Reaction (Verified 01/23/19 10:18) Review of Systems Constitutional: PRESENT: as per HPI Gastrointestinal: PRESENT: diarrhea, hematochezia Musculoskeletal: PRESENT: back pain, other - Joint pains due to osteoarthritis. She takes Percocet regularly for this pains Physical Exam Vital Signs: Temp Pulse Resp BP Pulse Ox 97.9 F 87 19 102/64 96 01/24/19 15:58 01/24/19 15:58 01/24/19 15:58 01/24/19 15:58 01/24/19 15:58 Intake & Output 01/23/19 01/24/19 01/25/19 06:59 06:59 06:59 Intake Total 700 50 Balance 700 50 Weight 86.18 kg 86.18 kg General appearance: PRESENT: no acute distress Head exam: PRESENT: atraumatic Mouth exam: PRESENT: moist Neck exam: PRESENT: full ROM Respiratory exam: PRESENT: clear to auscultation evan Pulses: PRESENT: normal radial pulses Vascular exam: PRESENT: normal capillary refill GI/Abdominal exam: PRESENT: soft - Nontender Rectal exam: PRESENT: deferred Musculoskeletal exam: PRESENT: ambulatory Neurological exam: PRESENT: alert, oriented to person, oriented to place, oriented to time, oriented to situation Skin exam: PRESENT: normal color, warm Results Laboratory Results: 01/24/19 05:55 01/23/19 19:00 01/23/19 01/23/19 01/23/19 19:00 19:00 22:15 WBC RBC Hgb Hct MCV MCH MCHC RDW Plt Count Seg Neutrophils % Sodium 135.4 L Potassium 4.3 Chloride 99 Carbon Dioxide 26 Anion Gap 10 BUN 18 Creatinine 0.65 Est GFR ( Amer) > 60 Glucose 88 Calcium 8.7 Phosphorus 4.3 Magnesium 2.0 Total Bilirubin AST Alkaline Phosphatase Total Protein 5.5 L Albumin Triglycerides Cholesterol LDL Cholesterol Direct VLDL Cholesterol HDL Cholesterol Lipase 40.4 TSH 2.35 Free T4 1.82 Urine Color Urine Appearance Urine pH Ur Specific [place] Urine Protein Urine Glucose (UA) Urine Ketones Urine Blood Urine Nitrite Ur Leukocyte Esterase Urine WBC (Auto) Urine RBC (Auto) Stool for White Cells MANY H 01/24/19 01/24/19 01/24/19 00:30 05:55 05:55 WBC 5.3 RBC 3.87 Hgb 8.5 L Hct 26.8 L MCV 69 L MCH 21.9 L MCHC 31.6 L RDW 19.8 H Plt Count 272 Seg Neutrophils % 29.2 L Sodium Potassium Chloride Carbon Dioxide Anion Gap BUN Creatinine Est GFR ( Amer) Glucose Calcium Phosphorus Magnesium Total Bilirubin 0.7 AST 17 Alkaline Phosphatase 53 Total Protein 5.7 L Albumin 3.3 L Triglycerides 71 Cholesterol 86.72 LDL Cholesterol Direct 46 VLDL Cholesterol 14.2 HDL Cholesterol 25 L Lipase TSH Free T4 Urine Color DARK YELLOW Urine Appearance SLIGHTLY-CLOUDY Urine pH 5.0 Ur Specific [place] 1.047 Urine Protein 30 H Urine Glucose (UA) NEGATIVE Urine Ketones NEGATIVE Urine Blood MODERATE H Urine Nitrite NEGATIVE Ur Leukocyte Esterase SMALL H Urine WBC (Auto) 25 Urine RBC (Auto) 19 Stool for White Cells 01/23/19 01/23/19 01/23/19 19:00 19:00 19:00 Creatine Kinase < 20 L CK-MB (CK-2) < 0.22 Troponin I < 0.012 NT-Pro-B Natriuret Pep 114 01/24/19 01/24/19 01/24/19 01:40 01:40 05:55 Creatine Kinase < 20 L < 20 L CK-MB (CK-2) < 0.22 Troponin I < 0.012 NT-Pro-B Natriuret Pep 01/24/19 05:55 Creatine Kinase CK-MB (CK-2) < 0.22 Troponin I < 0.012 NT-Pro-B Natriuret Pep Impressions: Chest CT 01/23/19 00:00 IMPRESSION: 1. Slight interval increase in a moderate left pleural effusion with associated atelectasis or consolidation. 2. Interval resolution of a previously seen pericardial effusion. Head CT 01/23/19 09:04 IMPRESSION: No acute intracranial pathology. No noncontrast CT findings to explain confusion. Consider contrast-enhanced MRI to more sensitively evaluate for metastatic disease if suspected. EVIDENCE OF ACUTE STROKE: NO. Chest X-Ray 01/23/19 09:05 IMPRESSION: Slight interval increase in a now moderate left pleural effusion with associated atelectasis or consolidation. Cardiomegaly. Assessment & Plan - Diagnosis (1) CLL (chronic lymphocytic leukemia) Is this a current diagnosis for this admission?: Yes (2) Diarrhea Qualifiers: Diarrhea type: due to malabsorption Qualified Code(s): K90.9 - Intestinal malabsorption, unspecified; R19.7 - Diarrhea, unspecified Is this a current diagnosis for this admission?: Yes (3) Lower GI Bleed Is this a current diagnosis for this admission?: Yes - Time Time Spent: 30 to 50 Minutes - Inpatient Certification Medical Necessity: Need For IV Fluids, Need for Surgery - Plan Summary Plan Summary: Placed on bowel prep For colonoscopy tomorrow possible EGD
[2019-01-24] MEDS: ZOLPIDEM TARTRATE 5 MG TABLET PO SCH (22:05)
[2019-01-24] MEDS: PRAMIPEXOLE DI-HCL 0.25 MG TABLET PO SCH (22:19)
[2019-01-24] MEDS: LEVOFLOXACIN 750 MG/D5W RTU 750 MG/150 ML RTUPB IV SCH (22:20)
[2019-01-25] MEDS ORDERED: NORMAL SALINE 1000 ML 1,000 ML IV PRN
--- NOTE | 2019-01-25 00:28 | EKG REPORT ---
SEVERITY:- NORMAL ECG - SINUS RHYTHM : Confirmed by: Daniel Evangelista 25-Jan-2019 00:27:48
[2019-01-25] MEDS: LEVOTHYROXINE SODIUM 0.088 MG TABLET PO SCH (06:09)
[2019-01-25] MEDS: GABAPENTIN 300 MG CAPSULE PO SCH ×3 (06:09→21:48)
[2019-01-25] MEDS: CYCLOBENZAPRINE HCL 10 MG TABLET PO SCH ×3 (06:09→21:48)
[2019-01-25] MEDS: OXYCODONE-ACETAMINOPHEN 5-325 MG TABLET PO SCH ×4 (06:10→23:47)
[2019-01-25] MEDS: OXYCODONE HCL IR 5 MG TABLET PO SCH ×4 (06:10→23:47)
[2019-01-25] MEDS ORDERED: LIDOCAINE 2% INJ-PF (20 MG/ML) 10 ML AMPUL ONE (08:57)
[2019-01-25] MEDS ORDERED: PROPOFOL INJ 200 MG/20 ML VIAL IV ONE (08:58)
[2019-01-25] MEDS ORDERED: FENTANYL CITRATE INJ/PF 100 MCG/2 ML AMPUL ONE (08:58)
[2019-01-25] MEDS ORDERED: MIDAZOLAM 2 MG/2 ML INJ ONE (08:58)
[2019-01-25] MEDS: ENOXAPARIN SODIUM INJ 40 MG/0.4 ML DISP.SYRIN SUBCUT SCH (09:03)
[2019-01-25] MEDS: MELOXICAM 7.5 MG TABLET PO SCH ×2 (09:08→17:33)
[2019-01-25] MEDS: MORPHINE SULFATE SR 15 MG TABLET PO SCH ×2 (09:08→21:48)
[2019-01-25] MEDS: ALLOPURINOL 300 MG TABLET PO SCH (09:08)
[2019-01-25] MEDS: CEFTRIAXONE 1 GM/D5W RTU 1 GM/50 ML RTUPB IV SCH (09:09)
--- NOTE | 2019-01-25 09:19 | PDOC PROGRESS REPORT ---
Subjective Progress Note for:: 01/25/19 Subjective:: Patient is currently doing fair Denied any blood in the stools No chest pain no short of breath Patient is scheduled for the colonoscopy per Dr. jean Patient also scheduled for the thoracocentesis Reason For Visit: RECTAL BLEED,PLEURAL EFFUSION,CLL Physical Exam Vital Signs: Temp Pulse Resp BP Pulse Ox 98.3 F 91 16 127/63 H 98 01/25/19 07:57 01/25/19 07:57 01/25/19 07:57 01/25/19 07:57 01/25/19 07:57 Intake & Output 01/24/19 01/25/19 01/26/19 06:59 06:59 06:59 Intake Total 700 5111 Output Total 1500 Balance 700 3611 Weight 86.18 kg 86.18 kg General appearance: PRESENT: no acute distress, well-developed, well-nourished Head exam: PRESENT: atraumatic, normocephalic Eye exam: PRESENT: conjunctiva pink, EOMI, PERRLA. ABSENT: scleral icterus Ear exam: PRESENT: normal external ear exam Mouth exam: PRESENT: moist, tongue midline Neck exam: PRESENT: full ROM. ABSENT: carotid bruit, JVD, lymphadenopathy, thyromegaly Respiratory exam: PRESENT: clear to auscultation evan Cardiovascular exam: PRESENT: RRR. ABSENT: diastolic murmur, rubs, systolic murmur Pulses: PRESENT: normal dorsalis pedis pul, +2 pedal pulses bilateral Vascular exam: PRESENT: normal capillary refill GI/Abdominal exam: PRESENT: normal bowel sounds, soft. ABSENT: distended, guarding, mass, organolmegaly, rebound, tenderness Rectal exam: PRESENT: deferred Neurological exam: PRESENT: alert, awake, oriented to person, oriented to place, oriented to time, oriented to situation, CN II-XII grossly intact. ABSENT: motor sensory deficit Psychiatric exam: PRESENT: appropriate affect, normal mood. ABSENT: homicidal ideation, suicidal ideation Skin exam: PRESENT: dry, intact, warm. ABSENT: cyanosis, rash Results Laboratory Results: 01/24/19 05:55 01/23/19 19:00 01/23/19 01/23/19 01/23/19 19:00 19:00 19:00 Creatine Kinase < 20 L CK-MB (CK-2) < 0.22 Troponin I < 0.012 NT-Pro-B Natriuret Pep 114 01/24/19 01/24/19 01/24/19 01:40 01:40 05:55 Creatine Kinase < 20 L < 20 L CK-MB (CK-2) < 0.22 Troponin I < 0.012 NT-Pro-B Natriuret Pep 01/24/19 05:55 Creatine Kinase CK-MB (CK-2) < 0.22 Troponin I < 0.012 NT-Pro-B Natriuret Pep Impressions: Chest CT 01/23/19 00:00 IMPRESSION: 1. Slight interval increase in a moderate left pleural effusion with associated atelectasis or consolidation. 2. Interval resolution of a previously seen pericardial effusion. Head CT 01/23/19 09:04 IMPRESSION: No acute intracranial pathology. No noncontrast CT findings to explain confusion. Consider contrast-enhanced MRI to more sensitively evaluate for metastatic disease if suspected. EVIDENCE OF ACUTE STROKE: NO. Chest X-Ray 01/23/19 09:05 IMPRESSION: Slight interval increase in a now moderate left pleural effusion with associated atelectasis or consolidation. Cardiomegaly. Assessment & Plan - Diagnosis (1) Rectal bleed Is this a current diagnosis for this admission?: Yes Plan: Patient scheduled for the colonoscopy today Patient have a concern about some kind of anesthetic reactions in the past will inform Dr. 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
[2019-01-25] MEDS ORDERED: ONDANSETRON HCL INJ/PF 4 MG/2 ML SDV ONE (10:21)
[2019-01-25] MEDS ORDERED: MEPERIDINE HCL/PF INJ 25 MG/1 ML DISP.SYRIN IV PRN (10:32)
[2019-01-25] MEDS ORDERED: ONDANSETRON HCL INJ/PF 4 MG/2 ML SDV IV PRN (10:32)
[2019-01-25] MEDS ORDERED: PROMETHAZINE HCL INJ 25 MG/1 ML VIAL IV PRN ×2 (10:32)
[2019-01-25] MEDS ORDERED: DIPHENHYDRAMINE HCL 50 MG/ML VIAL IV PRN (10:32)
--- NOTE | 2019-01-25 11:40 | PDOC PROGRESS REPORT ---
Subjective Progress Note for:: 01/25/19 Subjective:: Patient was prepped for colonoscopy and EGD and was taken for that this morning Reason For Visit: RECTAL BLEED,PLEURAL EFFUSION,CLL Physical Exam Vital Signs: Temp Pulse Resp BP Pulse Ox 98.3 F 91 16 127/63 H 98 01/25/19 07:57 01/25/19 07:57 01/25/19 07:57 01/25/19 07:57 01/25/19 07:57 Intake & Output 01/24/19 01/25/19 01/26/19 06:59 06:59 06:59 Intake Total 700 5111 50 Output Total 1500 Balance 700 3611 50 Weight 86.18 kg 86.18 kg General appearance: PRESENT: no acute distress, well-developed, well-nourished Head exam: PRESENT: atraumatic, normocephalic Eye exam: PRESENT: conjunctiva pink, EOMI, PERRLA. ABSENT: scleral icterus Ear exam: PRESENT: normal external ear exam Mouth exam: PRESENT: moist, tongue midline Neck exam: ABSENT: carotid bruit, JVD, lymphadenopathy, thyromegaly Respiratory exam: PRESENT: clear to auscultation evan. ABSENT: rales, rhonchi, wheezes Cardiovascular exam: PRESENT: RRR. ABSENT: diastolic murmur, rubs, systolic murmur Pulses: PRESENT: normal dorsalis pedis pul Vascular exam: PRESENT: normal capillary refill GI/Abdominal exam: PRESENT: normal bowel sounds, soft. ABSENT: distended, guarding, mass, organolmegaly, rebound, tenderness Rectal exam: PRESENT: deferred Extremities exam: PRESENT: full ROM. ABSENT: calf tenderness, clubbing, pedal edema Neurological exam: PRESENT: alert, awake, oriented to person, oriented to place, oriented to time, oriented to situation, CN II-XII grossly intact. ABSENT: motor sensory deficit Psychiatric exam: PRESENT: appropriate affect, normal mood. ABSENT: homicidal ideation, suicidal ideation Skin exam: PRESENT: dry, intact, warm. ABSENT: cyanosis, rash Results Laboratory Results: 01/24/19 05:55 01/23/19 19:00 01/23/19 01/23/19 01/23/19 19:00 19:00 19:00 Creatine Kinase < 20 L CK-MB (CK-2) < 0.22 Troponin I < 0.012 NT-Pro-B Natriuret Pep 114 01/24/19 01/24/19 01/24/19 01:40 01:40 05:55 Creatine Kinase < 20 L < 20 L CK-MB (CK-2) < 0.22 Troponin I < 0.012 NT-Pro-B Natriuret Pep 01/24/19 05:55 Creatine Kinase CK-MB (CK-2) < 0.22 Troponin I < 0.012 NT-Pro-B Natriuret Pep Impressions: Chest CT 01/23/19 00:00 IMPRESSION: 1. Slight interval increase in a moderate left pleural effusion wit h associated atelectasis or consolidation. 2. Interval resolution of a previously seen pericardial effusion. Head CT 01/23/19 09:04 IMPRESSION: No acute intracranial pathology. No noncontrast CT findings to explain confusion. Consider contrast-enhanced MRI to more sensitively evaluate for metastatic disease if suspected. EVIDENCE OF ACUTE STROKE: NO. Chest X-Ray 01/23/19 09:05 IMPRESSION: Slight interval increase in a now moderate left pleural effusion with associated atelectasis or consolidation. Cardiomegaly. 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, unspecified; R19.7 - Diarrhea, unspecified Is this a current diagnosis for this admission?: Yes Plan: Status post colonoscopy probably related to the treatment of (3) Rectal bleed Is this a current diagnosis for this admission?: Yes Plan: Continue with current plan (4) Urinary tract infection Qualifiers: Urinary tract infection type: acute cystitis Hematuria presence: with hematuria Qualified Code(s): N30.01 - Acute cystitis with hematuria Is this a current diagnosis for this admission?: Yes Plan: Urine culture positive, awaiting results, continue with current antibiotic regimen (5) CLL (chronic lymphocytic leukemia) Is this a current diagnosis for this admission?: Yes Plan: Hold all therapy, will decide on further therapy based upon diarrhea improvement (6) Anemia Qualifiers: 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
--- NOTE | 2019-01-25 13:12 | Operative Report ---
Operative Report DATE OF SURGERY: 01/25/19 PREOPERATIVE DIAGNOSIS: 1. Gastrointestinal bleed. 2. Blood loss associated anemia. 3. Chronic lymphocytic leukemia POSTOPERATIVE DIAGNOSIS: Same; no endoscopic evidence of GI bleeding at this time;. Mild gastritis; mild proctitis OPERATION: 1. Esophagogastroduodenoscopy with a mucosal biopsy of gastric antrum. 2. Total colonoscopy to cecum with photodocumentation SURGEON: SKYLER HAWTHORNE ANESTHESIA: LMAC TISSUE REMOVED OR ALTERED: Mucosal biopsy gastric antrum COMPLICATIONS: None ESTIMATED BLOOD LOSS: Scant INTRAOPERATIVE FINDINGS: See below PROCEDURE: The patient was taken to the preop holding her to the main operating room where LMAC anesthesia was induced. Patient was carefully positioned in the left lateral cubitus position, and supported accordingly. Surgical plan surgical timeout were conducted. Proceeded with upper endoscopy first. The adult upper endoscope was advanced to the patient's oropharynx after adequately anesthetizing the hypopharynx. The scope was advanced uneventfully through the esophagus, stomach into the first and second portion of the duodenum. There was no evidence of tumor, stricture, bleeding or polyp seen. There were no clots. The first and second portion of the duodenum were unremarkable. The pylorus was carefully inspected and appeared normal. The scope was retroflexed in the stomach and a good look at the GE junction obtained as well as the cardia. No significant pathology id entified. There was mild gastritis of the antrum. A random biopsy was taken with a cold forceps device and sent as mucosal biopsy of the gastric antrum. Bleeding was minimal. The scope was brought back through the GE junction with the Z line at approximately 37 cm from the incisor. There was no significant pathology in the distal esophagus, no esophageal varices. Scope was withdrawn from the patient's oropharynx. She tolerated procedure well. The patient was placed in the extreme left lateral decubitus position. Rectal exam was performed and there was no visible or palpable anorectal pathology. A small adult colonoscope was advanced to the anal rectal canal all the way to the cecum. The cecum was visualized by retroflexing the scope, seen the ileocecal valve, and palpation anterior abdominal wall. This study was done acceptable quality. There was some moderate amount of liquid particulate stool which required a lot of irrigation and aspiration. Therefore, the possibility of missing a small polyp remained. The scope was brought through the colon carefully taken mucosa. There was no evidence of ischemia, tumor, polyp, bleeding or clot. The sigmoid colon had extensive diverticulosis but no stricture. The rectum demonstrated mild inflammatory changes but this may have been the result of scope manipulation. No evidence of tumor or bleeding. Scope was brought back to the anorectal canal. No other pathology seen. Patient tolerated the procedure well, taken recovery room stable condition. Recommendations: 1. I discussed the above with Dr. Schroeder, social psychologist covering for Dr. Vance. 2. We will sign off; reconsult surgery if clinically indicated
[2019-01-25] MEDS ORDERED: OXYCODONE-ACETAMINOPHEN 5-325 MG TABLET ONE (13:23)
[2019-01-25] MEDS ORDERED: OXYCODONE HCL IR 5 MG TABLET ONE (13:23)
--- NOTE | 2019-01-25 14:28 | RADIOLOGY REPORT (SQ) ---
EXAM DESCRIPTION: U/S THORACENTESIS WITH IMAGING COMPLETED DATE/TIME: 01/25/2019 2:20 pm REASON FOR STUDY: moderate pleural effusion COMPARISON: None. LIMITATIONS: Patient moving during procedure, very little fluid on ultrasound PROCEDURE: Procedure, risks, benefit, and alternative explained to patient who then gave written con sent. The posterior left chest wall was marked using ultrasound guidance. A time-out was called for correct marking verification. Chest prepped and draped using sterile technique. Local anesthesia ac hieved using 10 ml of 1% lidocaine injection. A 6fr Safe-T- Centesis set was introduced into the lef t pleural space. Fluid was aspirated. The catheter was removed and the entry site was covered with sterile bandage. No immediate complications noted. Images acquired during the procedure were stored on PACS. FINDINGS: ENTRY SITE: posterior left chest. FLUID VOLUME: 10 cc FLUID ANALYSIS: Serosanguineous OTHER: Fluid sent to the lab for testing. IMPRESSION: SUCCESSFUL THORACENTESIS USING ULTRASOUND GUIDANCE. COMMENT: Patient medication list reviewed: Yes- Quality ID# [id number]:Eligible professional attests to doc umenting in the medical record they obtained, updated, or reviewed the patient's current medications. TECHNICAL DOCUMENTATION: JOB ID: [id number] [employer]- All Rights Reserved Reading location - IP/workstation name: [email or web address]
--- NOTE | 2019-01-25 14:47 | RADIOLOGY REPORT (SQ) ---
EXAM DESCRIPTION: CHEST SINGLE VIEW COMPLETED DATE/TIME: 01/25/2019 2:37 pm REASON FOR STUDY: LEFT PLEURAL EFFUSION POST THORA COMPARISON: 01/23/2019. EXAM PARAMETERS: NUMBER OF VIEWS: One view. TECHNIQUE: Single frontal radiographic view of the chest acquired. RADIATION DOSE: NA LIMITATIONS: None. FINDINGS: LUNGS AND PLEURA: Left pleural effusion. No pneumothorax following thoracentesis. Right lung clear. MEDIASTINUM AND HILAR STRUCTURES: No masses. Contour normal. HEART AND VASCULAR STRUCTURES: Heart normal in size. Normal vasculature. BONES: No acute findings. HARDWARE: Vascular port. OTHER: No other significant finding. IMPRESSION: NO PNEUMOTHORAX FOLLOWING THORACENTESIS. TECHNICAL DOCUMENTATION: JOB ID: [id number] [employer]- All Rights Reserved Reading location - IP/workstation name: [email or web address]
--- NOTE | 2019-01-25 16:13 | RADIOLOGY REPORT (SQ) ---
EXAM DESCRIPTION: CHEST SINGLE VIEW COMPLETED DATE/TIME: 01/25/2019 4:00 pm REASON FOR STUDY: LEFT PLEURAL EFFUSION POST THORA COMPARISON: Chest radiographs earlier performed on 01/25/2019 EXAM PARAMETERS: NUMBER OF VIEWS: One view. TECHNIQUE: Single frontal radiographic view of the chest acquired. RADIATION DOSE: NA LIMITATIONS: None. FINDINGS: LUNGS AND PLEURA: Hypoventilated lungs with bronchovascular crowding. Unchanged size of t he left pleural effusion. No pneumothorax. MEDIASTINUM AND HILAR STRUCTURES: Unchanged contours. HEART AND VASCULAR STRUCTURES: Heart normal in size. Normal vasculature. BONES: No acute findings. HARDWARE: Right chest wall port catheter unchanged position with tip projecting over the superior cav oatrial junction. OTHER: No other significant finding. IMPRESSION: Lines and tubes as above. Unchanged size of the left pleural effusion. No pneumothorax. TECHNICAL DOCUMENTATION: JOB ID: [id number] [employer]- All Rights Reserved Reading location - IP/workstation name: [email or web address]
[2019-01-25 17:27] LABS: HEMATOCRIT 29.1 % (36.0-47.0); HEMOGLOBIN 9.1 g/dL (12.0-15.5); MEAN CORPUSCULAR HEMOGLOBIN 21.9 pg (27.0-33.4); MEAN CORPUSCULAR HGB CONC 31.4 g/dL (32.0-36.0); MEAN CORPUSCULAR VOLUME 70 fl (80-97); PLATELET COUNT 298 10^3/uL (150-450); RED BLOOD COUNT 4.17 10^6/uL (3.72-5.28); RED CELL DISTRIBUTION WIDTH 20.4 % (11.5-14.0); WHITE BLOOD COUNT 5.8 10^3/uL (4.0-10.5)
[2019-01-25 18:00] LABS: ALBUMIN 3.4 g/dL (3.5-5.0); ALKALINE PHOSPHATASE 54 U/L (38-126); ASPARTATE AMINO TRANSFERASE 16 U/L (14-36); BILIRUBIN,DIRECT 0.4 mg/dL (0.0-0.4); BILIRUBIN,TOTAL 0.4 mg/dL (0.2-1.3); TOTAL PROTEIN 5.4 g/dL (6.3-8.2)
[2019-01-25 18:04] LABS: ABSOLUTE MONOCYTES # (MANUAL) 0.9 10^3/uL (0.1-1.4); BASOPHILS % (MANUAL) 3 % (0-2); EOSINOPHILS % (MANUAL) 3 % (0-6); LYMPHOCYTES % (MANUAL) 51 % (13-45); MONOCYTES % (MANUAL) 16 % (3-13); SEGMENTED NEUTROPHILS % (MAN) 26 % (42-78); TOTAL CELLS COUNTED 100
[2019-01-25 18:07] LABS: ANISOCYTOSIS 2+; OVALOCYTES SLIGHT; PLATELET COMMENT ADEQUATE
[2019-01-25] MEDS: PRAMIPEXOLE DI-HCL 0.25 MG TABLET PO SCH (21:48)
[2019-01-25] MEDS: LEVOFLOXACIN 750 MG/D5W RTU 750 MG/150 ML RTUPB IV SCH (21:51)
[2019-01-25] MEDS: ZOLPIDEM TARTRATE 5 MG TABLET PO SCH (23:48)
[2019-01-26 05:14] LABS: HEMATOCRIT 28.1 % (36.0-47.0); HEMOGLOBIN 8.5 g/dL (12.0-15.5); MEAN CORPUSCULAR HEMOGLOBIN 21.4 pg (27.0-33.4); MEAN CORPUSCULAR HGB CONC 30.3 g/dL (32.0-36.0); MEAN CORPUSCULAR VOLUME 71 fl (80-97); PLATELET COUNT 261 10^3/uL (150-450); RED BLOOD COUNT 3.97 10^6/uL (3.72-5.28); RED CELL DISTRIBUTION WIDTH 20.4 % (11.5-14.0)
[2019-01-26 05:29] LABS: ALBUMIN 2.9 g/dL (3.5-5.0); ALKALINE PHOSPHATASE 50 U/L (38-126); ASPARTATE AMINO TRANSFERASE 16 U/L (14-36); BILIRUBIN,DIRECT 0.3 mg/dL (0.0-0.4); BILIRUBIN,TOTAL 0.3 mg/dL (0.2-1.3)
[2019-01-26] MEDS: OXYCODONE HCL IR 5 MG TABLET PO SCH ×4 (06:27→23:31)
[2019-01-26] MEDS: CYCLOBENZAPRINE HCL 10 MG TABLET PO SCH ×3 (06:27→23:30)
[2019-01-26] MEDS: GABAPENTIN 300 MG CAPSULE PO SCH ×3 (06:27→23:31)
[2019-01-26] MEDS: OXYCODONE-ACETAMINOPHEN 5-325 MG TABLET PO SCH ×4 (06:27→23:31)
[2019-01-26] MEDS: LEVOTHYROXINE SODIUM 0.088 MG TABLET PO SCH (06:28)
[2019-01-26 06:58] LABS: ABSOLUTE MONOCYTES # (MANUAL) 0.5 10^3/uL (0.1-1.4); BAND NEUTROPHILS % (MANUAL) 3 % (3-5); BASOPHILS % (MANUAL) 1 % (0-2); EOSINOPHILS % (MANUAL) 2 % (0-6); LYMPHOCYTES % (MANUAL) 49 % (13-45); MONOCYTES % (MANUAL) 8 % (3-13); SEGMENTED NEUTROPHILS % (MAN) 36 % (42-78); TOTAL CELLS COUNTED 100
[2019-01-26 06:59] LABS: SMUDGE CELLS PRESENT
[2019-01-26 07:00] LABS: ANISOCYTOSIS 2+; BURR CELLS 1+; HYPOCHROMASIA 1+; OVALOCYTES 2+; PLATELET COMMENT ADEQUATE; POIKILOCYTOSIS 2+; SCHISTOCYTES SLIGHT; TEAR DROP CELLS 1+
--- NOTE | 2019-01-26 08:52 | PDOC PROGRESS REPORT ---
Subjective Progress Note for:: 01/26/19 Subjective:: Patient had endoscopy yesterday, just gastritis as well as mild rectal inflammation probably from the diarrhea noted, no active source of bleeding no other major issues noted, she seems a little bit better today was a little bit confused overnight Reason For Visit: RECTAL BLEED,PLEURAL EFFUSION,CLL Physical Exam Vital Signs: Temp Pulse Resp BP Pulse Ox 97.9 F 83 19 102/56 L 97 01/25/19 17:00 01/26/19 07:00 01/25/19 17:00 01/25/19 17:00 01/25/19 17:00 Intake & Output 01/25/19 01/26/19 01/27/19 06:59 06:59 06:59 Intake Total 5111 1650 Output Total 1500 1000 Balance 3611 650 Weight 86.18 kg General appearance: PRESENT: no acute distress, well-developed, well-nourished Head exam: PRESENT: atraumatic, normocephalic Eye exam: PRESENT: conjunctiva pink, EOMI, PERRLA. ABSENT: scleral icterus Ear exam: PRESENT: normal external ear exam Mouth exam: PRESENT: moist, tongue midline Neck exam: ABSENT: carotid bruit, JVD, lymphadenopathy, thyromegaly Respiratory exam: PRESENT: clear to auscultation evan. ABSENT: rales, rhonchi, wheezes Cardiovascular exam: PRESENT: RRR. ABSENT: diastolic murmur, rubs, systolic murmur Pulses: PRESENT: normal dorsalis pedis pul Vascular exam: PRESENT: normal capillary refill GI/Abdominal exam: PRESENT: normal bowel sounds, soft. ABSENT: distended, guarding, mass, organolmegaly, rebound, tenderness Rectal exam: PRESENT: deferred Extremities exam: PRESENT: full ROM. ABSENT: calf tenderness, clubbing, pedal edema Neurological exam: PRESENT: alert, awake, oriented to person, oriented to place, oriented to time, oriented to situation, CN II-XII grossly intact. ABSENT: motor sensory deficit Psychiatric exam: PRESENT: appropriate affect, normal mood. ABSENT: homicidal ideation, suicidal ideation Skin exam: PRESENT: dry, intact, warm. ABSENT: cyanosis, rash Results Laboratory Results: 01/26/19 03:47 01/23/19 19:00 01/25/19 01/25/19 01/26/19 16:50 16:50 03:47 WBC 5.8 6.0 RBC 4.17 3.97 Hgb 9.1 L 8.5 L Hct 29.1 L 28.1 L MCV 70 L 71 L MCH 21.9 L 21.4 L MCHC 31.4 L 30.3 L RDW 20.4 H 20.4 H Plt Count 298 261 Seg Neutrophils % Not Reportable Not Reportable Total Bilirubin 0.4 AST 16 Alkaline Phosphatase 54 Total Protein 5.4 L Albumin 3.4 L 01/26/19 03:47 WBC RBC Hgb Hct MCV MCH MCHC RDW Plt Count Seg Neutrophils % Total Bilirubin 0.3 AST 16 Alkaline Phosphatase 50 Total Protein 5.0 L Albumin 2.9 L 01/23/19 10:10 Clean Catch Midstream Urine Culture - Final Pseudomonas Aeruginosa 01/23/19 01/23/19 01/23/19 19:00 19:00 19:00 Creatine Kinase < 20 L CK-MB (CK-2) < 0.22 Troponin I < 0.012 NT-Pro-B Natriuret Pep 114 01/24/19 01/24/19 01/24/19 01:40 01:40 05:55 Creatine Kinase < 20 L < 20 L CK-MB (CK-2) < 0.22 Troponin I < 0.012 NT-Pro-B Natriuret Pep 01/24/19 05:55 Creatine Kinase CK-MB (CK-2) < 0.22 Troponin I < 0.012 NT-Pro-B Natriuret Pep Impressions: Chest CT 01/23/19 00:00 IMPRESSION: 1. Slight interval increase in a moderate left pleural effusion with associated atelectasis or consolidation. 2. Interval resolution of a previously seen pericardial effusion. Head CT 01/23/19 09:04 IMPRESSION: No acute intracranial pathology. No noncontrast CT findings to explain confusion. Consider contrast-enhanced MRI to more sensitively evaluate for metastatic disease if suspected. EVIDENCE OF ACUTE STROKE: NO. Thoracentesis Ultrasound 01/25/19 15:00 IMPRESSION: SUCCESSFUL THORACENTESIS USING ULTRASOUND GUIDANCE. Chest X-Ray 01/25/19 16:00 IMPRESSION: Lines and tubes as above. Unchanged size of the left pleural effusion. No pneumothorax. 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, unspecified; R19.7 - Diarrhea, unspecified Is this a current diagnosis for this admission?: Yes Plan: Probably secondary to the clinical trial drugs, will need to monitor over the next 24 to 48 hours to see how she does (3) Rectal bleed Is this a current diagnosis for this admission?: Yes Plan: Probably secondary to hemorrhoids, status post colonoscopy (4) Urinary tract infection Qualifiers: Urinary tract infection type: acute cystitis Hematuria presence: with hematuria Qualified Code(s): N30.01 - Acute cystitis with hematuria Is this a current diagnosis for this admission?: Yes Plan: Pseudomonas UTI, continued on appropriate antibiotics (5) CLL (chronic lymphocytic leukemia) Is this a current diagnosis for this admission?: Yes Plan: Hold all therapy for now, will decide as an outpatient on restart (6) Anemia Qualifiers: 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, drug-induced Is this a current diagnosis for this admission?: Yes Plan: Slow drop in hemoglobin but still above 8, continue to monitor - Time Time Spent with patient: 35 or more minutes - Inpatient Certification Based on my medical assessment, after consideration of the patient's comorbidities, presenting symptoms, or acuity I expect that the services needed warrant INPATIENT care.: Yes I certify that my determination is in accordance with my understanding of Medicare's requirements for reasonable and necessary INPATIENT services [42 CFR 412.3e].: Yes Medical Necessity: Need For IV Fluids, Need for IV Antibiotics
[2019-01-26] MEDS: MORPHINE SULFATE SR 15 MG TABLET PO SCH ×2 (11:08→23:32)
[2019-01-26] MEDS: MELOXICAM 7.5 MG TABLET PO SCH ×2 (11:08→17:11)
[2019-01-26] MEDS: ALLOPURINOL 300 MG TABLET PO SCH (11:08)
[2019-01-26] MEDS: CEFTRIAXONE 1 GM/D5W RTU 1 GM/50 ML RTUPB IV SCH (11:09)
[2019-01-26] MEDS: ENOXAPARIN SODIUM INJ 40 MG/0.4 ML DISP.SYRIN SUBCUT SCH (11:09)
--- NOTE | 2019-01-26 20:43 | PDOC PROGRESS REPORT ---
Subjective Progress Note for:: 01/26/19 Subjective:: Patient seen by the bedside, the paracentesis that was done did not produce any significant effusion very minimal fluid was collected the ultrasound finding was inconsistent with the finding on the CAT scan, demonstrated moderate sized pleural effusion. Patient continues to respond to IV antibiotic from respiratory standpoint, she complain of less shortness of breath, the CAT scan demonstrated consolidation. She also underwent both EGD and colonoscopy for the rectal bleed that was negative for the most part. The urine culture grew Pseudomonas but the colony count is insignificant Reason For Visit: RECTAL BLEED,PLEURAL EFFUSION,CLL Physical Exam Vital Signs: Temp Pulse Resp BP Pulse Ox 97.9 F 86 19 102/56 L 97 01/25/19 17:00 01/26/19 14:00 01/25/19 17:00 01/25/19 17:00 01/25/19 17:00 Intake & Output 01/25/19 01/26/19 01/27/19 06:59 06:59 06:59 Intake Total 5111 1650 360 Output Total 1500 1000 Balance 3611 650 360 Weight 86.18 kg General appearance: PRESENT: no acute distress Eye exam: PRESENT: PERRLA Respiratory exam: PRESENT: rhonchi Cardiovascular exam: PRESENT: +S1, +S2 GI/Abdominal exam: PRESENT: soft Neurological exam: PRESENT: alert, CN II-XII grossly intact Results Laboratory Results: 01/26/19 03:47 01/23/19 19:00 01/26/19 01/26/19 03:47 03:47 WBC 6.0 RBC 3.97 Hgb 8.5 L Hct 28.1 L MCV 71 L MCH 21.4 L MCHC 30.3 L RDW 20.4 H Plt Count 261 Seg Neutrophils % Not Reportable Total Bilirubin 0.3 AST 16 Alkaline Phosphatase 50 Total Protein 5.0 L Albumin 2.9 L 01/23/19 10:10 Clean Catch Midstream Urine Culture - Final Pseudomonas Aeruginosa 01/23/19 01/23/19 01/23/19 19:00 19:00 19:00 Creatine Kinase < 20 L CK-MB (CK-2) < 0.22 Troponin I < 0.012 NT-Pro-B Natriuret Pep 114 01/24/19 01/24/19 01/24/19 01:40 01:40 05:55 Creatine Kinase < 20 L < 20 L CK-MB (CK-2) < 0.22 Troponin I < 0.012 NT-Pro-B Natriuret Pep 01/24/19 05:55 Creatine Kinase CK-MB (CK-2) < 0.22 Troponin I < 0.012 NT-Pro-B Natriuret Pep Impressions: Chest CT 01/23/19 00:00 IMPRESSION: 1. Slight interval increase in a moderate left pleural effusion with associated atelectasis or consolidation. 2. Interval resolution of a previously seen pericardial effusion. Head CT 01/23/19 09:04 IMPRESSION: No acute intracranial pathology. No noncontrast CT findings to explain confusion. Consider contrast-enhanced MRI to more sensitively evaluate for metastatic disease if suspected. EVIDENCE OF ACUTE STROKE: NO. Thoracentesis Ultrasound 01/25/19 15:00 IMPRESSION: SUCCESSFUL THORACENTESIS USING ULTRASOUND GUIDANCE. Chest X-Ray 01/25/19 16:00 IMPRESSION: Lines and tubes as above. Unchanged size of the left pleural effusion. No pneumothorax. Assessment & Plan - Diagnosis (1) Rectal bleed Is this a current diagnosis for this admission?: Yes (2) CLL (chronic lymphocytic leukemia) Is this a current diagnosis for this admission?: Yes (3) Pleural effusion, left Is this a current diagnosis for this admission?: Yes (4) Pneumonia Qualifiers: Pneumonia type: due to unspecified organism Laterality: left Lung location: unspecified part of lung Qualified Code(s): J18.9 - Pneumonia, unspecified organism Is this a current diagnosis for this admission?: Yes Plan: She will continue antibiotic, she probably could be discharged home in 24 to 48 hours - Time Time Spent with patient: 35 or more minutes
[2019-01-26] MEDS: ZOLPIDEM TARTRATE 5 MG TABLET PO SCH (23:31)
[2019-01-26] MEDS: LEVOFLOXACIN 750 MG/D5W RTU 750 MG/150 ML RTUPB IV SCH (23:32)
[2019-01-26] MEDS: PRAMIPEXOLE DI-HCL 0.25 MG TABLET PO SCH (23:32)
[2019-01-27] MEDS: OXYCODONE-ACETAMINOPHEN 5-325 MG TABLET PO SCH ×3 (06:15→17:03)
[2019-01-27] MEDS: LEVOTHYROXINE SODIUM 0.088 MG TABLET PO SCH (06:15)
[2019-01-27] MEDS: GABAPENTIN 300 MG CAPSULE PO SCH ×2 (06:15→13:30)
[2019-01-27] MEDS: CYCLOBENZAPRINE HCL 10 MG TABLET PO SCH ×2 (06:15→13:30)
[2019-01-27] MEDS: OXYCODONE HCL IR 5 MG TABLET PO SCH ×3 (06:15→17:03)
[2019-01-27] MEDS: MORPHINE SULFATE SR 15 MG TABLET PO SCH (09:30)
[2019-01-27] MEDS: MELOXICAM 7.5 MG TABLET PO SCH ×2 (09:30→17:03)
[2019-01-27] MEDS: ALLOPURINOL 300 MG TABLET PO SCH (09:30)
[2019-01-27] MEDS: ENOXAPARIN SODIUM INJ 40 MG/0.4 ML DISP.SYRIN SUBCUT SCH (09:30)
[2019-01-27] MEDS: CEFTRIAXONE 1 GM/D5W RTU 1 GM/50 ML RTUPB IV SCH (09:31)
--- NOTE | 2019-01-27 15:11 | PDOC PROGRESS REPORT ---
Subjective Progress Note for:: 01/27/19 Subjective:: Patient states that she is feeling better today. No new complaints. Reason For Visit: RECTAL BLEED,PLEURAL EFFUSION,CLL Physical Exam Vital Signs: Temp Pulse Resp BP Pulse Ox 98.4 F 84 15 107/62 97 01/27/19 11:23 01/27/19 14:00 01/27/19 11:23 01/27/19 11:23 01/27/19 11:23 Intake & Output 01/26/19 01/27/19 01/28/19 06:59 06:59 06:59 Intake Total 1650 560 880 Output Total 1000 900 400 Balance 650 -340 480 General appearance: PRESENT: no acute distress, well-developed Head exam: PRESENT: normocephalic Respiratory exam: PRESENT: clear to auscultation evan, unlabored Cardiovascular exam: PRESENT: RRR, systolic murmur GI/Abdominal exam: PRESENT: soft. ABSENT: tenderness Extremities exam: ABSENT: pedal edema Neurological exam: PRESENT: alert, awake Psychiatric exam: PRESENT: appropriate affect Skin exam: PRESENT: normal color Results Laboratory Results: 01/26/19 03:47 01/23/19 19:00 01/23/19 01/23/19 01/23/19 19:00 19:00 19:00 Creatine Kinase < 20 L CK-MB (CK-2) < 0.22 Troponin I < 0.012 NT-Pro-B Natriuret Pep 114 01/24/19 01/24/19 01/24/19 01:40 01:40 05:55 Creatine Kinase < 20 L < 20 L CK-MB (CK-2) < 0.22 Troponin I < 0.012 NT-Pro-B Natriuret Pep 01/24/19 05:55 Creatine Kinase CK-MB (CK-2) < 0.22 Troponin I < 0.012 NT-Pro-B Natriuret Pep Impressions: Chest CT 01/23/19 00:00 IMPRESSION: 1. Slight interval increase in a moderate left pleural effusion with associated atelectasis or consolidation. 2. Interval resolution of a previously seen pericardial effusion. Head CT 01/23/19 09:04 IMPRESSION: No acute intracranial pathology. No noncontrast CT findings to explain confusion. Consider contrast-enhanced MRI to more sensitively evaluate for metastatic disease if suspected. EVIDENCE OF ACUTE STROKE: NO. Thoracentesis Ultrasound 01/25/19 15:00 IMPRESSION: SUCCESSFUL THORACENTESIS USING ULTRASOUND GUIDANCE. Chest X-Ray 01/25/19 16:00 IMPRESSION: Lines and tubes as above. Unchanged size of the left pleural effusion. No pneumothorax. Assessment & Plan - Diagnosis (1) CLL (chronic lymphocytic leukemia) Is this a current diagnosis for this admission?: Yes Plan: All treatment on hold. Blood counts remain stable. No indication for transfusion today. (2) Urinary tract infection Qualifiers: Urinary tract infection type: acute cystitis Hematuria presence: with hematuria Qualified Code(s): N30.01 - Acute cystitis with hematuria Is this a current diagnosis for this admission?: Yes Plan: Continue antibiotics. - Time Time Spent with patient: Less than 15 minutes - Plan Summary Plan Summary: Await cytology. No further bleeding.
[2019-01-27 17:53] VITALS: BP 117/73
--- NOTE | 2019-01-27 19:58 | PDOC DISCHARGE SUMMARY ---
Impression - Admit/DC Date/PCP Admission Date/Primary Care Provider: 01/23/19 11:24 KILLIAN JOHNSON MD Discharge Date: 01/27/19 - Discharge Diagnosis (1) Pneumonia Is this a current diagnosis for this admission?: Yes (2) Rectal bleed Is this a current diagnosis for this admission?: Yes (3) Pleural effusion, left Is this a current diagnosis for this admission?: Yes (4) CLL (chronic lymphocytic leukemia) Is this a current diagnosis for this admission?: Yes - Additional Information Resuscitation Status: Full Code Discharge Diet: As Tolerated Discharge Activity: Activity As Tolerated, Balance Activity w/Rest Referrals: KILLIAN JOHNSON MD [Primary Care Provider] - 02/06/19 9:45 am Prescriptions: Levofloxacin [Levaquin 750 mg Tablet] 750 mg PO DAILY #5 tab Home Medications: Allopurinol [Zyloprim 300 mg Tablet] 300 mg PO DAILY MDD DO NOT TAKE WHILE ADMITTED 11/19/18 Cyclobenzaprine HCl [Flexeril 10 mg Tablet] 10 mg PO Q8HP PRN 11/19/18 Gabapentin [Neurontin 300 mg Capsule] 300 mg PO Q8 11/19/18 Levothyroxine Sodium [Synthroid 0.088 mg Tablet] 0.088 mg PO Q6AM 11/19/18 Meloxicam [Mobic] 7.5 mg PO Q12 11/19/18 Oxycodone HCl/Acetaminophen [Endocet 10-325 mg Tablet] 1 tab PO Q6 11/19/18 Pramipexole Di-HCl [Pramipexole Dihydrochloride] 0.125 mg PO QHS 11/19/18 Morphine Sulfate [Ms Contin] 15 mg PO Q12 01/23/19 Levofloxacin [Levaquin 750 mg Tablet] 750 mg PO DAILY #5 tab 01/27/19 History of Present Illiness History of Present Illness: EMY LOVETT is a 68 year old female.She came to the emergency room for evaluation of rectal bleed, she is on chemotherapy for CLL, the last chemotherapy session was roughly about 3 weeks ago, she also stated that before the rectal bleed she has had about 2 to 4 weeks of very loose stool but when the stool became bloody today she decided to come to the emergency room for evaluation. She also complained of abdominal discomfort. In the emergency room she was evaluated a chest x-ray was done that demonstrated a pleural effusion subsequent CAT scan of the chest was done that demonstrated moderate sized p leural effusion Hospital Course Hospital Course: Patient was admitted for the management of pneumonia, rectal bleed with a background of CLL, she complained of shortness of breath with rectal bleeding, CT scan of the chest demonstrated consolidation with pleural effusion, thoracentesis was attempted but minimal pleural fluid was found .she also underwent EGD and colonoscopy which came back negative for any lesion. She was treated successfully with IV antibiotic for the pneumonia patient improved significantly she was followed peripherally by oncology, consultation was obtained from oncology at presentation by the ED providers Physical Exam Vital Signs: Temp Pulse Resp BP Pulse Ox 98.5 F 88 14 117/73 96 01/27/19 17:48 01/27/19 17:48 01/27/19 17:48 01/27/19 17:48 01/27/19 17:48 Intake & Output 01/26/19 01/27/19 01/28/19 06:59 06:59 06:59 Intake Total 4325 352 1974 Output Total 1000 900 850 Balance 650 -340 610 General appearance: PRESENT: no acute distress Eye exam: PRESENT: PERRLA Respiratory exam: PRESENT: clear to auscultation evan Cardiovascular exam: PRESENT: +S1, +S2 GI/Abdominal exam: PRESENT: soft Neurological exam: PRESENT: alert, CN II-XII grossly intact Results Laboratory Results: WBC 6.0 10^3/uL (4.0-10.5) 01/26/19 03:47 RBC 3.97 10^6/uL (3.72-5.28) 01/26/19 03:47 Hgb 8.5 g/dL (12.0-15.5) L 01/26/19 03:47 Hct 28.1 % (36.0-47.0) L 01/26/19 03:47 MCV 71 fl (80-97) L 01/26/19 03:47 MCH 21.4 pg (27.0-33.4) L 01/26/19 03:47 MCHC 30.3 g/dL (32.0-36.0) L 01/26/19 03:47 RDW 20.4 % (11.5-14.0) H 01/26/19 03:47 Plt Count 261 10^3/uL (150-450) 01/26/19 03:47 Lymph % (Auto) Not Reportable 01/26/19 03:47 Clinch % (Auto) Not Reportable 01/26/19 03:47 Eos % (Auto) Not Reportable 01/26/19 03:47 Baso % (Auto) Not Reportable 01/26/19 03:47 Absolute Neuts (auto) Not Reportable 01/26/19 03:47 Absolute Lymphs (auto) Not Reportable 01/26/19 03:47 Absolute Monos (auto) Not Reportable 01/26/19 03:47 Absolute Eos (auto) Not Reportable 01/26/19 03:47 Absolute Basos (auto) Not Reportable 01/26/19 03:47 Total Counted 100 01/26/19 03:47 Seg Neutrophils % Not Reportable 01/26/19 03:47 Seg Neuts % (Manual) 36 % (42-78) L 01/26/19 03:47 Band Neutrophils % 3 % (3-5) 01/26/19 03:47 Lymphocytes % (Manual) 49 % (13-45) H 01/26/19 03:47 Atypical Lymphs % 1 % (0) 01/26/19 03:47 Monocytes % (Manual) 8 % (3-13) 01/26/19 03:47 Eosinophils % (Manual) 2 % (0-6) 01/26/19 03:47 Basophils % (Manual) 1 % (0-2) 01/26/19 03:47 Abs Neuts (Manual) 2.3 10^3/uL (1.7-8.2) 01/26/19 03:47 Abs Lymphs (Manual) 3.0 10^3/uL (0.5-4.7) 01/26/19 03:47 Abs Monocytes (Manual) 0.5 10^3/uL (0.1-1.4) 01/26/19 03:47 Absolute Eos (Manual) 0.1 10^3/uL (0.0-0.6) 01/26/19 03:47 Abs Basophils (Manual) 0.1 10^3/uL (0.0-0.2) 01/26/19 03:47 Smudge Cells PRESENT 01/26/19 03:47 Platelet Comment ADEQUATE 01/26/19 03:47 Hypochromasia 1+ 01/26/19 03:47 Poikilocytosis 2+ 01/26/19 03:47 Anisocytosis 2+ 01/26/19 03:47 Microcytosis 2+ 01/26/19 03:47 Tear Drop Cells 1+ 01/26/19 03:47 Ovalocytes 2+ 01/26/19 03:47 Shola Cells 1+ 01/26/19 03:47 Schistocytes SLIGHT 01/26/19 03:47 PT 16.0 SEC (11.4-15.4) H 01/23/19 19:00 INR 1.27 01/23/19 19:00 APTT 34.9 SEC (23.5-35.8) 01/23/19 19:00 Sodium 135.4 mmol/L (137-145) L 01/23/19 19:00 Potassium 4.3 mmol/L (3.6-5.0) 01/23/19 19:00 Chloride 99 mmol/L (98-107) 01/23/19 19:00 Carbon Dioxide 26 mmol/L (22-30) 01/23/19 19:00 Anion Gap 10 (5-19) 01/23/19 19:00 BUN 18 mg/dL (7-20) 01/23/19 19:00 Creatinine 0.65 mg/dL (0.52-1.25) 01/23/19 19:00 Est GFR ( Amer) > 60 (>60) 01/23/19 19:00 Est GFR (MDRD) Non-Af > 60 (>60) 01/23/19 19:00 Glucose 88 mg/dL (75-110) 01/23/19 19:00 Hemoglobin A1c % 5.4 % (4.7-6.0) 01/24/19 05:55 Calcium 8.7 mg/dL (8.4-10.2) 01/23/19 19:00 Phosphorus 4.3 mg/dL (2.5-4.5) 01/23/19 19:00 Magnesium 2.0 mg/dL (1.6-2.3) 01/23/19 19:00 Total Bilirubin 0.3 mg/dL (0.2-1.3) 01/26/19 03:47 Direct Bilirubin 0.3 mg/dL (0.0-0.4) 01/26/19 03:47 Neonat Total Bilirubin Not Reportable 01/26/19 03:47 Neonat Direct Bilirubin Not Reportable 01/26/19 03:47 Neonat Indirect Bili Not Reportable 01/26/19 03:47 AST 16 U/L (14-36) 01/26/19 03:47 ALT 10 U/L (<35) 01/26/19 03:47 Alkaline Phosphatase 50 U/L (38-126) 01/26/19 03:47 Lactate Dehydrogenase 148 U/L (120-246) 01/23/19 19:00 Creatine Kinase < 20 U/L (30-135) L 01/24/19 05:55 CK-MB (CK-2) < 0.22 ng/mL (<4.55) 01/24/19 05:55 Troponin I < 0.012 ng/mL 01/24/19 05:55 NT-Pro-B Natriuret Pep 114 pg/mL (5-900) 01/23/19 19:00 Total Protein 5.0 g/dL (6.3-8.2) L 01/26/19 03:47 Albumin 2.9 g/dL (3.5-5.0) L 01/26/19 03:47 Triglycerides 71 mg/dL (<150) 01/24/19 05:55 Cholesterol 86.72 mg/dL (0-200) 01/24/19 05:55 LDL Cholesterol Direct 46 mg/dL (<100) 01/24/19 05:55 VLDL Cholesterol 14.2 mg/dL (10-31) 01/24/19 05:55 HDL Cholesterol 25 mg/dL (>40) L 01/24/19 05:55 Lipase 40.4 U/L (23-300) 01/23/19 19:00 TSH 2.35 uIU/mL (0.47-4.68) 01/23/19 19:00 Free T4 1.82 ng/dL (0.78-2.19) 01/23/19 19:00 Urine Color DARK YELLOW 01/24/19 00:30 Urine Appearance SLIGHTLY-CLOUDY 01/24/19 00:30 Urine pH 5.0 (5.0-9.0) 01/24/19 00:30 Ur Specific [place] 1.047 01/24/19 00:30 Urine Protein 30 mg/dL (NEGATIVE) H 01/24/19 00:30 Urine Glucose (UA) NEGATIVE mg/dL (NEGATIVE) 01/24/19 00:30 Urine Ketones NEGATIVE mg/dL (NEGATIVE) 01/24/19 00:30 Urine Blood MODERATE (NEGATIVE) H 01/24/19 00:30 Urine Nitrite NEGATIVE (NEGATIVE) 01/24/19 00:30 Urine Bilirubin NEGATIVE (NEGATIVE) 01/24/19 00:30 Urine Urobilinogen NEGATIVE mg/dL (<2.0) 01/24/19 00:30 Ur Leukocyte Esterase SMALL (NEGATIVE) H 01/24/19 00:30 Urine WBC (Auto) 25 /HPF 01/24/19 00:30 Urine RBC (Auto) 19 /HPF 01/24/19 00:30 U Hyaline Cast (Auto) 4 /LPF 01/23/19 10:10 Urine Bacteria (Auto) TRACE /HPF 01/24/19 00:30 Urine WBC Clumps FEW /HPF 01/23/19 10:10 Squamous Epi Cells Auto 1 /HPF 01/24/19 00:30 U Non-Squamous Epis Auto 6 /HPF 01/23/19 10:10 Calcium Oxalate Cr Auto TOO NUMEROUS TO CNT /HPF 01/23/19 10:10 Urine Mucus (Auto) MANY /LPF 01/24/19 00:30 Urine Ascorbic Acid NEGATIVE (NEGATIVE) 01/24/19 00:30 POC Stool Occult Blood POSITIVE (NEGATIVE) 01/23/19 10:22 Stool for White Cells MANY H 01/23/19 22:15 Stl C. Difficile GDH Ag NEGATIVE (NEGATIVE) 01/23/19 22:15 Stl C.difficile Tox A&B NEGATIVE (NEGATIVE) 01/23/19 22:15 Urine Opiates Screen UNCONFIRMED POSITIVE 01/24/19 00:30 Urine Methadone Screen NEGATIVE 01/24/19 00:30 Ur Barbiturates Screen NEGATIVE 01/24/19 00:30 Ur Phencyclidine Scrn NEGATIVE 01/24/19 00:30 Ur Amphetamines Screen NEGATIVE 01/24/19 00:30 U Benzodiazepines Scrn NEGATIVE 01/24/19 00:30 Urine Cocaine Screen NEGATIVE 01/24/19 00:30 U Marijuana (THC) Screen NEGATIVE 01/24/19 00:30 Blood Type O POSITIVE 10/18/19 10:10 Antibody Screen NEGATIVE 01/23/19 10:10 01/23/19 01/23/19 01/24/19 19:00 19:00 01:40 CK-MB (CK-2) < 0.22 < 0.22 Troponin I < 0.012 < 0.012 NT-Pro-B Natriuret Pep 114 01/24/19 05:55 CK-MB (CK-2) < 0.22 Troponin I < 0.012 NT-Pro-B Natriuret Pep Impressions: Chest CT 01/23/19 00:00 IMPRESSION: 1. Slight interval increase in a moderate left pleural effusion with associated atelectasis or consolidation. 2. Interval resolution of a previously seen pericardial effusion. Head CT 01/23/19 09:04 IMPRESSION: No acute intracranial pathology. No noncontrast CT findings to explain confusion. Consider contrast-enhanced MRI to more sensitively evaluate for metastatic disease if suspected. EVIDENCE OF ACUTE STROKE: NO. Chest X-Ray 01/23/19 09:05 IMPRESSION: Slight interval increase in a now moderate left pleural effusion with associated atelectasis or consolidation. Cardiomegaly. Chest X-Ray 01/25/19 00:00 IMPRESSION: NO PNEUMOTHORAX FOLLOWING THORACENTESIS. Thoracentesis Ultrasound 01/25/19 15:00 IMPRESSION: SUCCESSFUL THORACENTESIS USING ULTRASOUND GUIDANCE. Chest X-Ray 01/25/19 16:00 IMPRESSION: Lines and tubes as above. Unchanged size of the left pleural effusion. No pneumothorax. Stroke Is this a Stroke Patient?: No Acute Heart Failure - Is this a Heart Failure Patient?: No
== END 2019-01-27 19:00 | disposition home or self-care (01) | DRG 193 ==
LOC: ER 07:47 → EH 11:24 → 3N 16:50
PROVIDERS: ADMIT Internal Medicine; ATTEND Internal Medicine
PROC: 0DJD8ZZ Inspection of Lower Intestinal Tract, Via Natural or Artificial Opening Endoscopic (ICD-10-PCS; 2019-01-25)
PROC: 0W9B3ZX Drainage of Left Pleural Cavity, Percutaneous Approach, Diagnostic (ICD-10-PCS; principal; 2019-01-25 09:00)
PROC: 0DB78ZX Excision of Stomach, Pylorus, Via Natural or Artificial Opening Endoscopic, Diagnostic (ICD-10-PCS; 2019-01-25 09:00)
DX: J18.9 Pneumonia, unspecified organism (principal); D61.1 Drug-induced aplastic anemia; K92.1 Melena; C91.10 Chronic lymphocytic leukemia of B-cell type not having achieved remission; K90.9 Intestinal malabsorption, unspecified; J90 Pleural effusion, not elsewhere classified; T45.1X5A Adverse effect of antineoplastic and immunosuppressive drugs, initial encounter; K57.30 Diverticulosis of large intestine without perforation or abscess without bleeding; E86.0 Dehydration; K29.70 Gastritis, unspecified, without bleeding; I25.2 Old myocardial infarction; J44.9 Chronic obstructive pulmonary disease, unspecified; M19.90 Unspecified osteoarthritis, unspecified site; Z90.49 Acquired absence of other specified parts of digestive tract; Z88.5 Allergy status to narcotic agent; Z88.8 Allergy status to other drugs, medicaments and biological substances; R19.7 Diarrhea, unspecified; Z79.899 Other long term (current) drug therapy
CPT/HCPCS: 32555; 36415; 43239; 45378; 70450; 71045; 71046; 71260; 80053; 80061; 80076; 80307; 81001; 813; 82550; 82553; 83036; 83615; 83690; 83735; 83880; 84100; 84155; 84439; 84443; 84484; 85025; 85610; 85730; 86850; 86900; 86901; 87086; 87088; 87186; 87324; 87449; 88305; 88342; 89055; 93005; 93010; 96360; 99285; J0696; J1642; J1650; J1956; J2250; J2405; J2704; J3010; J3490; J7030; J7040

== ENCOUNTER 2019-04-29 09:04 | Day surgery (SDC) | payer MEDICARE, OTHER ==
[2019-04-29] MEDS ORDERED: MIDAZOLAM 2 MG/2 ML INJ ONE (11:14)
[2019-04-29] MEDS ORDERED: FENTANYL CITRATE INJ/PF 100 MCG/2 ML AMPUL ONE (11:14)
[2019-04-29] MEDS ORDERED: ONDANSETRON HCL INJ/PF 4 MG/2 ML SDV ONE (11:14)
--- NOTE | 2019-04-29 12:08 | RADIOLOGY REPORT (SQ) ---
EXAM DESCRIPTION: CT BIOPSY BONE MARROW, NEEDLE COMPLETED DATE/TIME: 04/29/2019 11:45 am REASON FOR STUDY: PLASMA CELL LEUKEMIA C90.10 PLASMA CELL LEUKEMIA NOT HAVING ACHIEVED REMISSION COMPARISON: None. TECHNIQUE: CT guided biopsy of the left iliac crest bone marrow performed with conscious sedation. CT Fluoroscopy Time: 5.[address] scanners at this facility use dose modulation, iterative reconstruction, and/or weight based d osing when appropriate to reduce radiation dose to as low as reasonably achievable (ALARA). [facility]: Dose Right [facility]: CareDose [facility]: Dose Right [facility]: Teradose 4D [facility]: Fitmo RADIATION DOSE: CT Rad equipment meets quality standard of care and radiation dose reduction techniq ues were employed. CTDIvol: 4.0 - 19.5 mGy. DLP: 489 mGy-cm.mGy. FINDINGS: After obtaining informed consent and explaining the risks and benefits of conscious sedati on,the patient agreed to the procedure. Prior to the procedure, a time out was performed to verify th e patient's identity and planned procedure. IV conscious sedation was administered and physician direction by the registered nurse using 1.0 mill igrams of Versed and 50 micrograms of fentanyl. Physiologic monitoring was provided before, during, a nd after sedation. The total sedation time was 30 minutes. Documentation face to face time, the performing proceduralist, spent monitoring the patient: [address] scanning was performed to localize the percutaneous site for the biopsy approach. After sterile skin prep and local lidocaine for skin and deep tissue anesthesia, a coaxial biopsy nee dle was used to obtain a bone marrow aspirate, and a bone marrow core of tissue. The biopsy tissue wa s received by Dr. Dempsey's nurse to be sent out for evaluation. There were no immediate complication s. Pathology is pending at the time of dictation. IMPRESSION: CT GUIDED ASPIRATE AND CORE BIOPSY OF THE LEFT POSTERIOR ILIAC CREST BONE MARROW PERFORM ED WITHOUT IMMEDIATE COMPLICATION. PATHOLOGY PENDING. IV CONSCIOUS SEDATION WITHOUT COMPLICATION. COMMENT: Quality ID [id number]: Final reports for procedures using fluoroscopy that document radiation exp osure indices, or exposure time and number of fluorographic images (if radiation exposure indices are not available) Patient medication list reviewed: Yes- Quality ID# [id number]:Eligible professional attests to documenting i n the medical record they obtained, updated, or reviewed the patient's current medications.. TECHNICAL DOCUMENTATION: JOB ID: [id number] Quality ID# [id number]: Final reports with documentation of one or more dose reduction techniques (e.g., Aut omated exposure control, adjustment of the mA and/or kV according to patient size, use of iterative r econstruction technique) 2010 [employer]- All Rights Reserved Reading location - IP[facility]workstation name: [email or web address]
[2019-04-29 13:49] VITALS: BP 116/63
== END 2019-04-29 14:04 | disposition home or self-care (01) ==
LOC: RAD 09:04
PROVIDERS: ATTEND Internal Medicine
DX: C91.10 Chronic lymphocytic leukemia of B-cell type not having achieved remission (principal); E06.3 Autoimmune thyroiditis
CPT/HCPCS: 38221; J2250; J3010; J2405

== ENCOUNTER 2019-09-19 21:06 | Emergency (ER) | payer MEDICARE, OTHER ==
[2019-09-19 21:25] VITALS: BP 140/89
[2019-09-19] MEDS ORDERED: VALACYCLOVIR HCL 500 MG TABLET PO ONE (21:46)
--- NOTE | 2019-09-19 21:50 | ER Document Report ---
ED Skin Rash/Insect Bite/Abscs - General Chief Complaint: Skin Problem Stated Complaint: SKIN PROBLEM Time Seen by Provider: 09/19/19 21:43 Primary Care Provider: KILLIAN JOHNSON MD [Primary Care Provider] - Follow up as needed Mode of Arrival: Medic Information source: Patient Notes: 69-year-old female presented to ED for a very painful rash to the right side of her trunk. It starts at the middle of her back and goes around to the middle of her chest. She does have a history of CLL and multiple other chronic problems. She is on morphine and Percocet. She does have shingles at this time. She has never had shingles in the past. She states they have been present for several days. She is not sure how long. TRAVEL OUTSIDE OF THE [place] IN LAST 30 DAYS: No - HPI Patient complains to provider of: Skin rash/lesion Onset: Other - 3 days Onset/Duration: Gradual, Worse Quality of pain: Sharp, Throbbing Severity: Severe Pain Level: 5 Skin Character: Vesicular - Herpetiform vesicular Quality of rash: Painful Identify cause: Yes - Shingles Exacerbated by: Movement Relieved by: Denies Similar symptoms previously: No Recently seen / treated by doctor: Yes - Related Data Allergies/Adverse Reactions: codeine [Codeine] Adverse Reaction (Mild, Verified 03/23/19 10:54) lisinopril [Lisinopril] Adverse Reaction (Verified 03/23/19 10:54) Past Medical History - General Information source: Patient - Social History Smoking Status: Never Smoker Frequency of alcohol use: None Drug Abuse: None Lives with: Family Family History: Reviewed & Not Pertinent Patient has suicidal ideation: No Patient has homicidal ideation: No - Past Medical History Cardiac Medical History: Reports: Hx Heart Attack - CARDIOTOXIC CHEMO Pulmonary Medical History: Reports: Hx Bronchitis, Hx COPD, Hx Pneumonia - Last time in April EENT Medical History: Reports: None Neurological Medical History: Reports: None Endocrine Medical History: Reports: Hx Hyperthyroidism, Hx Hypothyroidism Renal/ Medical History: Reports: Hx Kidney Stones Malignancy Medical History: Reports: Hx Leukemia - CLL GI Medical History: Reports: None Musculoskeletal Medical History: Reports Hx Arthritis - all over, Reports Hx Musculoskeletal Deformity, Reports Hx Musculoskeletal Trauma Skin Medical History: Reports None Psychiatric Medical History: Reports: Hx Anxiety, Hx Depression Traumatic Medical History: Reports: Hx Fractures Infectious Medical History: Reports: None Past Surgical History: Reports: Hx Appendectomy, Hx Breast Surgery - reduction, Hx Orthopedic Surgery - 13 foot surgeries neuromas rib removed , chest tube, Other - Recent port placement - Immunizations Immunizations up to date: Yes Hx Diphtheria, Pertussis, Tetanus Vaccination: Yes Hx Pneumococcal Vaccination: 01/06/15 Review of Systems - Review of Systems Constitutional: No symptoms reported EENT: No symptoms reported Cardiovascular: No symptoms reported Respiratory: No symptoms reported Gastrointestinal: No symptoms reported Genitourinary: No symptoms reported Female Genitourinary: No symptoms reported Musculoskeletal: No symptoms reported Skin: Lesions - Shingles right chest back Hematologic/Lymphatic: No symptoms reported Neurological/Psychological: No symptoms reported -: Yes All other systems reviewed and negative Physical Exam - Vital signs Vitals: Temp Pulse Resp BP Pulse Ox 97.9 F 70 18 140/89 H 97 09/19/19 21:19 09/19/19 21:19 09/19/19 21:19 09/19/19 21:19 09/19/19 21:19 Interpretation: Normal - General General appearance: Appears well, Alert - HEENT Head: Normocephalic, Atraumatic Eyes: Normal Pupils: PERRL - Respiratory Respiratory status: No respiratory distress Chest status: Nontender Breath sounds: Normal Chest palpation: Normal - Cardiovascular Rhythm: Regular Heart sounds: Normal auscultation Murmur: No - Abdominal Inspection: Normal Distension: No distension Bowel sounds: Normal Tenderness: Nontender Organomegaly: No organomegaly - Back Back: Normal, Nontender - Extremities General upper extremity: Normal inspection, Nontender, Normal color, Normal ROM, Normal temperature General lower extremity: Normal inspection, Nontender, Normal color, Normal ROM, Normal temperature, Normal weight bearing. No: Josefina's sign - Neurological Neuro grossly intact: Yes Cognition: Normal Orientation: AAOx4 Burwell Coma Scale Eye Opening: Spontaneous Kevon Coma Scale Verbal: Oriented Burwell Coma Scale Motor: Obeys Commands Burwell Coma Scale Total: 15 Speech: Normal Motor strength normal: LUE, RUE, LLE, RLE Sensory: Normal - Psychological Associated symptoms: Normal affect, Normal mood - Skin Skin Temperature: Warm Skin Moisture: Dry Skin Color: Normal Location of irregularity: Chest - Right chest and back does not cross the midline either front or back, Back Character of irregularity: Vesicular - Telephone the circular Irregularity with: Swelling, Tenderness, Well defined border Course - Re-evaluation Re-evalutation: 09/19/19 21:56 Patient started on Valtrex. Dr. Hurd was notified that his patient did have shingles. Patient was discharged home with prescription for Valtrex. She does have prescriptions at home for Percocet and morphine for her chronic pain and other multiple chronic illnesses to include CLL. - Vital Signs Vital signs: Temp Pulse Resp BP Pulse Ox 97.9 F 70 18 140/89 H 97 09/19/19 21:44 09/19/19 21:19 09/19/19 21:19 09/19/19 21:19 09/19/19 21:19 Discharge - Discharge Clinical Impression: Shingles Qualifiers: Herpes zoster complications: without complications Qualified Code(s): B02.9 - Zoster without complications Condition: Stable Disposition: HOME, SELF-CARE Additional Instructions: Shingles You have shingles. Shingles is caused by the chicken pox virus, The virus has been surviving dormant in a nerve cell since you had chicken pox years ago. The virus has spread down a nerve root to reach the skin. Typically, an band-like area of pain and skin sensitivity develops, then small blisters erupt in the area. Shingles lasts two or three weeks, but sometimes leaves persistent pain. You are contagious -- you can give children chicken pox. But you can't give anyone shingles. Antiviral medicines (such as acyclovir or famciclovir) can help, but the rash usually worsens for about a week. Pain medication is often given if the area hurts. Antihistamines such as Benadryl may be necessary for itching if it does not respond to soda baths and calamine lotion. Sometimes cortisone medicine or nerve-block shots are necessary if pain is severe. If the area remains severely painful as the sores heal, or if you suspect an infection developing in the sores, see your doctor. Valtrex Valtrex is used to treat infections caused by the Herpes family of viruses. It's available as capsules or ointment. Valtrex is most effective if started at the first sign of the viral outbreak. It can decrease the severity and duration of symptoms. However, it doesn't eliminate the virus from the body completely. If you're prone to repeated outbreaks of herpes, you'll continue to have attacks. Apply ointment with a disposable glove or finger-cot to avoid spreading the virus with your finger. Take medication for the full recommended course. Occasionally, mild nausea or headaches may occur. Call the doctor if you develop wheezing, itching, rash, shortness of breath, or lightheadedness. FOLLOW-UP CARE: If you have been referred to a physician for follow-up care, call the physicians office for an appointment as you were instructed or within the next two days. If you experience worsening or a significant change in your symptoms, notify the physician immediately or return to the Emergency Department at any time for re-evaluation. Prescriptions: Valacyclovir HCl [Valtrex] 1,000 mg PO TID #21 tablet Forms: Elevated Blood Pressure Referrals: KILLIAN JOHNSON MD [Primary Care Provider] - Follow up as needed
== END 2019-09-19 21:50 | disposition home or self-care (01) ==
LOC: ER 21:06
DX: B02.9 Zoster without complications (principal); J44.9 Chronic obstructive pulmonary disease, unspecified; C91.10 Chronic lymphocytic leukemia of B-cell type not having achieved remission; G89.29 Other chronic pain; Z79.891 Long term (current) use of opiate analgesic
CPT/HCPCS: 99282; A9270

== ENCOUNTER 2019-09-25 12:47 | Inpatient (IN) | payer MEDICARE, OTHER ==
[2019-09-25 13:25] LABS: ABSOLUTE LYMPHOCYTES (AUTO) 0.4 10^3/uL (0.5-4.7); ABSOLUTE MONOCYTES (AUTO) 0.4 10^3/uL (0.1-1.4); ABSOLUTE NEUT (AUTO) 3.3 10^3/uL (1.7-8.2); BASOPHILS % (AUTO) 0.4 % (0-2); EOSINOPHILS % (AUTO) 0.3 % (0-6); HEMATOCRIT 34.3 % (36.0-47.0); HEMOGLOBIN 11.4 g/dL (12.0-15.5); LYMPHOCYTES % (AUTO) 10.4 % (13-45); MEAN CORPUSCULAR HEMOGLOBIN 26.1 pg (27.0-33.4); MEAN CORPUSCULAR HGB CONC 33.2 g/dL (32.0-36.0); MEAN CORPUSCULAR VOLUME 79 fl (80-97); MONOCYTES % (AUTO) 10.5 % (3-13); PLATELET COUNT 107 10^3/uL (150-450); RED BLOOD COUNT 4.36 10^6/uL (3.72-5.28); RED CELL DISTRIBUTION WIDTH 15.7 % (11.5-14.0); SEGMENTED NEUTROPHILS % (AUTO) 78.4 % (42-78); TOTAL CELLS COUNTED % (AUTO) 100 %; WHITE BLOOD COUNT 4.2 10^3/uL (4.0-10.5)
[2019-09-25 13:32] LABS: INTERNATIONAL RATION (INR) 1.05; PROTHROMBIN TIME 13.7 SEC (11.4-15.4)
[2019-09-25 13:35] LABS: VENOUS BLOOD BASE EXCESS -2.2 mmol/L; VENOUS BLOOD HCO3 23.6 mmol/L (20-32); VENOUS BLOOD PCO2 44.5 mmHg (35-63); VENOUS BLOOD PH 7.34 (7.30-7.42)
[2019-09-25 13:47] LABS: ALBUMIN 3.9 g/dL (3.5-5.0); ALKALINE PHOSPHATASE 54 U/L (38-126); ANION GAP 9 (5-19); ASPARTATE AMINO TRANSFERASE 32 U/L (14-36); BILIRUBIN,TOTAL 0.4 mg/dL (0.2-1.3); BLOOD UREA NITROGEN 34 mg/dL (7-20); CALCIUM 8.7 mg/dL (8.4-10.2); CARBON DIOXIDE 23 mmol/L (22-30); CHLORIDE 103 mmol/L (98-107); GLUCOSE 107 mg/dL (75-110); POTASSIUM 3.7 mmol/L (3.6-5.0)
--- NOTE | 2019-09-25 13:55 | ER Document Report ---
ED Dizziness/Weakness - General Chief Complaint: General Weakness Stated Complaint: GENERAL WEAKNESS Time Seen by Provider: 09/25/19 13:19 Primary Care Provider: KILLIAN JOHNSON MD [Primary Care Provider] - Follow up as needed Mode of Arrival: Medic Information source: Patient Notes: 69-year-old woman presents to the emergency department with a complaint of weak ness in her legs. For the past 3 days she has been unable to stand due to weakness in her legs. 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 She denies fever, cough, shortness of breath, or chest pain. She apparently has had a declining course over the past few days, her daughter, is unable to take care of her at home. He is being treated for a UTI as an outpatient. TRAVEL OUTSIDE OF THE [place] IN LAST 30 DAYS: No - Related Data Allergies/Adverse Reactions: codeine [Codeine] Adverse Reaction (Mild, Verified 03/23/19 10:54) lisinopril [Lisinopril] Adverse Reaction (Verified 03/23/19 10:54) Past Medical History - Social History Smoking Status: Never Smoker Frequency of alcohol use: Occasional Drug Abuse: None Family History: Reviewed & Not Pertinent Patient has homicidal ideation: No - Past Medical History Cardiac Medical History: Reports: Hx Heart Attack - CARDIOTOXIC CHEMO Denies: Hx Coronary Artery Disease, Hx Hypertension - Past history Pulmonary Medical History: Reports: Hx Bronchitis, Hx COPD, Hx Pneumonia - Last time in April Denies: Hx Asthma Neurological Medical History: Denies: Hx Cerebrovascular Accident, Hx Seizures Endocrine Medical History: Reports: Hx Hyperthyroidism, Hx Hypothyroidism Renal/ Medical History: Reports: Hx Kidney Stones. Denies: Hx Peritoneal Dialysis Malignancy Medical History: Reports: Hx Leukemia - CLL Musculoskeletal Medical History: Reports Hx Arthritis - all over, Reports Hx Musculoskeletal Deformity, Reports Hx Musculoskeletal Trauma Psychiatric Medical History: Reports: Hx Anxiety, Hx Depression Traumatic Medical History: Reports: Hx Fractures Past Surgical History: Reports: Hx Appendectomy, Hx Breast Surgery - reduction, Hx Orthopedic Surgery - 13 foot surgeries neuromas rib removed , chest tube, Other - Recent port placement - Immunizations Immunizations up to date: Yes Hx Diphtheria, Pertussis, Tetanus Vaccination: Yes Hx Pneumococcal Vaccination: 01/06/15 Review of Systems - Review of Systems Notes: Constitutional: Negative for fever. HENT: Negative for sore throat. Eyes: Negative for visual changes. Cardiovascular: Negative for chest pain. Respiratory: Negative for shortness of breath. Gastrointestinal: Negative for abdominal pain, vomiting or diarrhea. Genitourinary: Negative for dysuria. Musculoskeletal: + Bilateral lower extremity weakness Skin: Negative for rash. Neurological: Negative for headaches, weakness or numbness. 10 point ROS negative except as marked above and in HPI. Physical Exam - Vital signs Vitals: Resp Pulse Ox 13 95 09/25/19 12:57 09/25/19 12:57 - Notes Notes: PHYSICAL EXAMINATION: Physical Exam: General: Well-nourished well-developed in diffuse pain. HEENT: NC/AT, pupils equal round and reactive to light, MM moist,nares clear, oropharynx clear, airway patent Neck: supple, no adenopathy, no masses. Good range of motion Lungs: clear, no wheezing, no rales no rhonchi CVS: Regular rate and rhythm no murmur gallop or rub Abdomen: Soft, active, nontender, no masses, no hepatosplenomegaly Ext: + Weakness in the legs bilaterally Neuro: Alert and responsive, moving all 4 extremities on command, cranial nerves intact, no focal findings Skin: Intact no open lesions, no rash PSYCH: Normal mood, normal affect. Course - Re-evaluation Re-evalutation: 09/25/19 18:48 Discussed the findings with the patient explained that we will likely try and get her admitted to the hospital. She is in agreement with this plan. - Vital Signs Vital signs: Temp Pulse Resp BP Pulse Ox 98.6 F 18 105/62 96 09/25/19 13:06 09/25/19 15:01 09/25/19 15:01 09/25/19 15:01 - Laboratory Result Diagrams: 09/25/19 13:01 09/25/19 13:01 Laboratory results interpreted by me: 09/25/19 09/25/19 09/25/19 13:01 13:01 13:01 Hgb 11.4 L Hct 34.3 L MCV 79 L MCH 26.1 L RDW 15.7 H Plt Count 107 L Lymph % (Auto) 10.4 L Absolute Lymphs (auto) 0.4 L Seg Neutrophils % 78.4 H Sodium 134.7 L BUN 34 H Lactic Acid < 0.5 L Total Protein 6.0 L 09/25/19 15:52 Hgb Hct MCV MCH RDW Plt Count Lymph % (Auto) Absolute Lymphs (auto) Seg Neutrophils % Sodium BUN Lactic Acid < 0.5 L Total Protein 09/25/19 13:54 I have reviewed laboratory data and used this information for the treatment decisions regarding the patient. Discharge - Discharge Clinical Impression: Weakness, Inability to ambulate due to multiple joints Condition: Good Disposition: ADMITTED INPATIENT Referrals: KILLIAN JOHNSON MD [Primary Care Provider] - Follow up as needed
[2019-09-25] MEDS ORDERED: ONDANSETRON HCL INJ/PF 4 MG/2 ML SDV IV ONE (17:31)
[2019-09-25] MEDS ORDERED: MORPHINE SULFATE 10 MG/ML INJ IV ONE (17:31)
[2019-09-25 19:07] LABS: APPEARANCE,URINE SLIGHTLY-CLOUDY; BILIRUBIN,URINE NEGATIVE (NEGATIVE); COLOR,URINE AMBER; GLUCOSE, URINE NEGATIVE (NEGATIVE); KETONES,URINE 20 mg/dL (NEGATIVE); PROTEIN,URINE 100 mg/dL (NEGATIVE)
[2019-09-25] MEDS ORDERED: CEFTRIAXONE INJ 1000 MG VIAL IV ONE (19:18)
[2019-09-25] MEDS ORDERED: ONDANSETRON HCL INJ/PF 4 MG/2 ML SDV IV PRN (19:18)
[2019-09-25] MEDS ORDERED: ACETAMINOPHEN 325 MG TABLET PO PRN (19:18)
--- NOTE | 2019-09-25 19:55 | RADIOLOGY REPORT (SQ) ---
EXAM DESCRIPTION: CHEST SINGLE VIEW IMAGES COMPLETED DATE/TIME: 09/25/2019 7:42 pm REASON FOR STUDY: admit COMPARISON: 03/23/2019 EXAM PARAMETERS: NUMBER OF VIEWS: One view. TECHNIQUE: Single frontal radiographic view of the chest acquired. RADIATION DOSE: NA LIMITATIONS: None. FINDINGS: LUNGS AND PLEURA: No opacities, masses or pneumothorax. No pleural effusion. MEDIASTINUM AND HILAR STRUCTURES: No masses. Contour normal. HEART AND VASCULAR STRUCTURES: Heart normal in size. Normal vasculature. BONES: No acute findings. HARDWARE: Injection port on the right. OTHER: No other significant finding. IMPRESSION: NO ACUTE RADIOGRAPHIC FINDING IN THE CHEST. TECHNICAL DOCUMENTATION: JOB ID: [id number] 2010 [employer]- All Rights Reserved Reading location - IP/workstation name: [email or web address]
[2019-09-25] MEDS: OXYCODONE-ACETAMINOPHEN 5-325 MG TABLET PO PRN (19:56)
--- NOTE | 2019-09-25 20:22 | EKG REPORT ---
SEVERITY:- ABNORMAL ECG - SINUS RHYTHM BORDERLINE INFERIOR Q WAVES NONSPECIFIC INTRAVENTRICULAR CONDUCTION DELAY : Confirmed by: Saúl Wells MD 25-Sep-2019 20:21:53
[2019-09-25 22:16] LABS: ANION GAP 9 (5-19); BLOOD UREA NITROGEN 29 mg/dL (7-20); CALCIUM 8.6 mg/dL (8.4-10.2); CARBON DIOXIDE 22 mmol/L (22-30); CHLORIDE 104 mmol/L (98-107); GLUCOSE 97 mg/dL (75-110); POTASSIUM 3.9 mmol/L (3.6-5.0)
[2019-09-25] MEDS: MORPHINE SULFATE SR 15 MG TABLET PO SCH (22:33)
[2019-09-26] MEDS: OXYCODONE-ACETAMINOPHEN 5-325 MG TABLET PO PRN (03:18)
[2019-09-26] MEDS: PANTOPRAZOLE SODIUM 40 MG TABLET.DR PO SCH (05:22)
[2019-09-26 06:48] LABS: ABSOLUTE LYMPHOCYTES (AUTO) 0.5 10^3/uL (0.5-4.7); ABSOLUTE MONOCYTES (AUTO) 0.5 10^3/uL (0.1-1.4); ABSOLUTE NEUT (AUTO) 2.8 10^3/uL (1.7-8.2); BASOPHILS % (AUTO) 0.4 % (0-2); EOSINOPHILS % (AUTO) 0.7 % (0-6); HEMATOCRIT 32.2 % (36.0-47.0); HEMOGLOBIN 10.8 g/dL (12.0-15.5); LYMPHOCYTES % (AUTO) 14.1 % (13-45); MEAN CORPUSCULAR HEMOGLOBIN 26.2 pg (27.0-33.4); MEAN CORPUSCULAR HGB CONC 33.6 g/dL (32.0-36.0); MEAN CORPUSCULAR VOLUME 78 fl (80-97); MONOCYTES % (AUTO) 12.4 % (3-13); PLATELET COUNT 118 10^3/uL (150-450); RED BLOOD COUNT 4.13 10^6/uL (3.72-5.28); RED CELL DISTRIBUTION WIDTH 15.8 % (11.5-14.0); SEGMENTED NEUTROPHILS % (AUTO) 72.4 % (42-78); TOTAL CELLS COUNTED % (AUTO) 100 %; WHITE BLOOD COUNT 3.9 10^3/uL (4.0-10.5)
[2019-09-26] MEDS ORDERED: OXYCODONE-ACETAMINOPHEN 5-325 MG TABLET ONE (08:42)
[2019-09-26] MEDS: MORPHINE SULFATE SR 15 MG TABLET PO SCH ×2 (09:05→22:11)
[2019-09-26] MEDS ORDERED: OXYCODONE-ACETAMINOPHEN 5-325 MG TABLET PO ONE (09:30)
[2019-09-26] MEDS ORDERED: (PENDING PHARMACY ID) (Metoprolol Succinate [Kapspargo Sprinkle] 25 MG) PO SCH (10:00)
[2019-09-26] MEDS ORDERED: METOPROLOL TARTRATE 25 MG TABLET PO SCH (11:00)
--- NOTE | 2019-09-26 11:25 | PDOC H&P ---
History of Present Illness Admission Date/PCP: 09/25/19 19:37 KILLIAN JOHNSON MD Patient complains of: Weakness History of Present Illness: EMY LOVETT is a 69 year old female This is a 69-year-old female with a significant history of the hypertensions chronic pain syndrome currently seeing at [facility] pain management significant arthritis history of the chronic lymphocytic leukemia came to the emergency department with a complaint of very weak especially patient's feeling knee and hip areas with patient with significant arthritis Patient is recently diagnosis with a shingles according to the patient was 1 week back giving the medications but still the rash is there Patient is also diagnosed with a urinary tract infection seen by Dr. Pinky vargas her Cipro day before In the emergency department patient's blood work is all stable but significant weakness with ongoing shingles and a urinary tract infection decided to admit When I saw the patient's still have a lot of pain requiring chronic pain medications patient's shingles rash is still active Patients also have a history of the pericardial effusion and pericarditis seen by the Dr. Rasmussen in the past currently denied any chest pain no short of breath Past Medical History Cardiac Medical History: Reports: Myocardial Infarction - CARDIOTOXIC CHEMO Denies: Coronary Artery Disease, Hypertension - Past history Cardiac History Note: History of the pericarditis and pericardial effusions Pulmonary Medical History: Reports: Bronchitis, Chronic Obstructive Pulmonary Disease (COPD), Pneumonia - Last time in April Denies: Asthma Neurological Medical History: Denies: Seizures Endocrine Medical History: Reports: Hyperthyroidism, Hypothyroidism Malignancy Medical History: Reports: Leukemia - CLL Musculoskeltal Medical History: Reports: Arthritis - all over Psychiatric Medical History: Reports: Depression Hematology: Denies: Anemia Past Surgical History Past Surgical History: Reports: Appendectomy, Orthopedic Surgery - 13 foot surgeries neuromas rib removed , chest tube, Other - Recent port placement Social History Information Source: Patient Smoking Status: Never Smoker Electronic Cigarette use?: No Frequency of Alcohol Use: Rare Hx Recreational Drug Use: No Drugs: None Hx Prescription Drug Abuse: No Family History Family History: Reviewed & Not Pertinent Parental Family History Reviewed: Yes Children Family History Reviewed: Yes Sibling(s) Family History Reviewed.: Yes Medication/Allergy Home Medications: Cyclobenzaprine HCl [Flexeril 10 mg Tablet] 10 mg PO Q8 11/19/18 Gabapentin [Neurontin 300 mg Capsule] 300 mg PO Q8 11/19/18 Levothyroxine Sodium [Synthroid 0.088 mg Tablet] 0.088 mg PO Q6AM 11/19/18 Meloxicam [Mobic] 7.5 mg PO Q12 11/19/18 Oxycodone HCl/Acetaminophen [Endocet 10-325 mg Tablet] 1 tab PO Q6 11/19/18 Aspirin [Aspirin 81 mg Chewable Tablet] 81 mg PO DAILY 04/29/19 Atorvastatin Calcium [Lipitor 40 mg Tablet] 40 mg PO QHS 04/29/19 Metoprolol Succinate [Kapspargo Sprinkle] 25 mg PO DAILY 04/29/19 Allopurinol [Zyloprim 300 mg Tablet] 300 mg PO DAILY 09/26/19 Morphine Sulfate [Morphine Sulfate ER] 10 mg PO Q8 09/26/19 Pramipexole Di-HCl [Mirapex] 0.125 mg PO QHS 09/26/19 Sacubitril/Valsartan [Entresto 49 mg/51 mg Tablet] 1 tab PO Q12 09/26/19 Allergies/Adverse Reactions: codeine [Codeine] Adverse Reaction (Mild, Verified 03/23/19 10:54) lisinopril [Lisinopril] Adverse Reaction (Verified 03/23/19 10:54) Review of Systems Constitutional: PRESENT: fatigue, weakness. ABSENT: chills, fever(s), headache(s), weight gain, weight loss Eyes: ABSENT: visual disturbances Ears: ABSENT: hearing changes Cardiovascular: ABSENT: chest pain, dyspnea on exertion, edema, orthropnea, palpitations Respiratory: ABSENT: cough, hemoptysis Gastrointestinal: ABSENT: abdominal pain, constipation, diarrhea, hematemesis, hematochezia, nausea, vomiting Genitourinary: ABSENT: dysuria, hematuria Musculoskeletal: ABSENT: joint swelling Integumentary: ABSENT: rash, wounds Neurological: ABSENT: abnormal gait, abnormal speech, confusion, dizziness, focal weakness, syncope Psychiatric: ABSENT: anxiety, depression, homidical ideation, suicidal ideation Endocrine: ABSENT: cold intolerance, heat intolerance, menstrual abnormalities, polydipsia, polyuria Hematologic/Lymphatic: ABSENT: easy bleeding, easy bruising, lymphadenopathy Physical Exam Vital Signs: Temp Pulse Resp BP Pulse Ox 99.1 F 77 18 126/69 H 97 09/26/19 08:00 09/26/19 08:00 09/26/19 08:00 09/26/19 08:00 09/26/19 08:00 Intake & Output 09/25/19 09/26/19 09/27/19 06:59 06:59 06:59 Weight 92.4 kg General appearance: PRESENT: no acute distress, well-developed, well-nourished Head exam: PRESENT: atraumatic, normocephalic Eye exam: PRESENT: conjunctiva pink, EOMI, PERRLA. ABSENT: scleral icterus Ear exam: PRESENT: normal external ear exam Mouth exam: PRESENT: moist, tongue midline Neck exam: PRESENT: full ROM. ABSENT: carotid bruit, JVD, lymphadenopathy, thyromegaly Respiratory exam: PRESENT: clear to auscultation evan Cardiovascular exam: PRESENT: RRR. ABSENT: diastolic murmur, rubs, systolic murmur Pulses: PRESENT: normal dorsalis pedis pul, +2 pedal pulses bilateral Vascular exam: PRESENT: normal capillary refill GI/Abdominal exam: PRESENT: normal bowel sounds, soft. ABSENT: distended, guarding, mass, organolmegaly, rebound, tenderness Additonal comments: Right side of the abdomen and the back vesicular rash Rectal exam: PRESENT: deferred Extremities exam: ABSENT: pedal edema Neurological exam: PRESENT: alert, awake, oriented to person, oriented to place, oriented to time, oriented to situation, CN II-XII grossly intact. ABSENT: motor sensory deficit Psychiatric exam: PRESENT: appropriate affect, normal mood. ABSENT: homicidal ideation, suicidal ideation Skin exam: PRESENT: dry, intact, warm. ABSENT: cyanosis, rash Results Laboratory Results: 09/26/19 06:15 09/25/19 21:54 09/25/19 09/25/19 09/25/19 13:01 13:01 13:01 WBC 4.2 RBC 4.36 Hgb 11.4 L Hct 34.3 L MCV 79 L MCH 26.1 L MCHC 33.2 RDW 15.7 H Plt Count 107 L Seg Neutrophils % 78.4 H VBG pH 7.34 VBG pCO2 44.5 VBG HCO3 23.6 VBG Base Excess -2.2 Sodium 134.7 L Potassium 3.7 Chloride 103 Carbon Dioxide 23 Anion Gap 9 BUN 34 H Creatinine 0.70 Est GFR ( Amer) > 60 Glucose 107 Lactic Acid Calcium 8.7 Magnesium Total Bilirubin 0.4 AST 32 Alkaline Phosphatase 54 Total Protein 6.0 L Albumin 3.9 Urine Color Urine Appearance Urine pH Ur Specific Irving Urine Protein Urine Glucose (UA) Urine Ketones Urine Blood Urine RBC (Auto) 09/25/19 09/25/19 09/25/19 13:01 15:52 18:19 WBC RBC Hgb Hct MCV MCH MCHC RDW Plt Count Seg Neutrophils % VBG pH VBG pCO2 VBG HCO3 VBG Base Excess Sodium Potassium Chloride Carbon Dioxide Anion Gap BUN Creatinine Est GFR ( Amer) Glucose Lactic Acid < 0.5 L < 0.5 L Calcium Magnesium Total Bilirubin AST Alkaline Phosphatase Total Protein Albumin Urine Color MAYELA Urine Appearance SLIGHTLY-CLOUDY Urine pH 5.0 Ur Specific Irving 1.030 Urine Protein 100 H Urine Glucose (UA) NEGATIVE Urine Ketones 20 H Urine Blood MODERATE H Urine RBC (Auto) 46 09/25/19 09/25/19 09/26/19 19:51 21:54 06:15 WBC 3.9 L RBC 4.13 Hgb 10.8 L Hct 32.2 L MCV 78 L MCH 26.2 L MCHC 33.6 RDW 15.8 H Plt Count 118 L Seg Neutrophils % 72.4 VBG pH VBG pCO2 VBG HCO3 VBG Base Excess Sodium 134.6 L Potassium 3.9 Chloride 104 Carbon Dioxide 22 Anion Gap 9 BUN 29 H Creatinine 0.57 Est GFR ( Amer) > 60 Glucose 97 Lactic Acid < 0.5 L Calcium 8.6 Magnesium Total Bilirubin AST Alkaline Phosphatase Total Protein Albumin Urine Color Urine Appearance Urine pH Ur Specific Irving Urine Protein Urine Glucose (UA) Urine Ketones Urine Blood Urine RBC (Auto) 09/26/19 06:15 WBC RBC Hgb Hct MCV MCH MCHC RDW Plt Count Seg Neutrophils % VBG pH VBG pCO2 VBG HCO3 VBG Base Excess Sodium Potassium Chloride Carbon Dioxide Anion Gap BUN Creatinine Est GFR ( Amer) Glucose Lactic Acid Calcium Magnesium 2.1 Total Bilirubin AST Alkaline Phosphatase Total Protein Albumin Urine Color Urine Appearance Urine pH Ur Specific Irving Urine Protein Urine Glucose (UA) Urine Ketones Urine Blood Urine RBC (Auto) Impressions: Chest X-Ray 09/25/19 19:19 IMPRESSION: NO ACUTE RADIOGRAPHIC FINDING IN THE CHEST. Assessment & Plan - Diagnosis (1) Inability to ambulate due to multiple joints Is this a current diagnosis for this admission?: Yes Plan: We will get the physical therapy evaluations (2) Urinary tract infection Qualifiers: Urinary tract infection type: site unspecified Hematuria presence: with hematuria Qualified Code(s): N39.0 - Urinary tract infection, site not specified; R31.9 - Hematuria, unspecified Is this a current diagnosis for this admission?: Yes Plan: We will get the blood culture urine culture start on IV antibiotic (3) Weakness Is this a current diagnosis for this admission?: Yes Plan: Will start on IV antibiotic physical therapy evaluations (4) Anemia Qualifiers: Anemia type: unspecified type Qualified Code(s): D64.9 - Anemia, unspecified Is this a current diagnosis for this admission?: Yes Plan: With ongoing weakness will consult the oncology to further evaluate on the CLL (5) CLL (chronic lymphocytic leukemia) Is this a current diagnosis for this admission?: Yes Plan: Consult oncology (6) Shingles Qualifiers: Herpes zoster complications: without complications Qualified Code(s): B02.9 - Zoster without complications Is this a current diagnosis for this admission?: Yes Plan: We will start the patient on Valtrex 1 g p.o. every 8 with still active rash (7) History of pericarditis Is this a current diagnosis for this admission?: Yes Plan: We consulted cardiology to further evaluate (8) Chronic pain syndrome Is this a current diagnosis for this admission?: Yes Plan: Continues the current pain medications patient is currently follow with the [facility] pain management - Time Time Spent: 50 to 70 Minutes Medications reviewed and adjusted accordingly: Yes Anticipated discharge: Home Within: Other - Inpatient Certification Based on my medical assessment, after consideration of the patient's comorbidities, presenting symptoms, or acuity I expect that the services needed warrant INPATIENT care.: Yes I certify that my determination is in accordance with my understanding of Medicare's requirements for reasonable and necessary INPATIENT services [42 CFR 412.3e].: Yes Medical Necessity: Failure to Improve With Outpatient Therapy, Significant Comorbidiites Make Outpatient Treatment Too Risky, Need Close Monitoring Due to Risk of Patient Decompensation, Need for IV Antibiotics 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
--- NOTE | 2019-09-26 11:30 | EKG REPORT ---
SEVERITY:- ABNORMAL ECG - SINUS RHYTHM NONSPECIFIC INTRAVENTRICULAR CONDUCTION DELAY : Confirmed by: Saúl Wells MD 26-Sep-2019 11:30:19
[2019-09-26] MEDS: DOCUSATE SODIUM 100 MG CAPSULE PO SCH ×2 (11:35→17:11)
[2019-09-26] MEDS: ALLOPURINOL 300 MG TABLET PO SCH (11:35)
[2019-09-26] MEDS: ASPIRIN 81 MG TABLET, CHEWABLE PO SCH (11:36)
[2019-09-26] MEDS: VALACYCLOVIR HCL 500 MG TABLET PO SCH ×2 (11:36→17:11)
[2019-09-26] MEDS: LIDOCAINE 5% (700 MG) TRANSDERMAL ADH..PATCH TP SCH (11:37)
[2019-09-26] MEDS: ENOXAPARIN SODIUM INJ 40 MG/0.4 ML DISP.SYRIN SUBCUT SCH (11:38)
[2019-09-26] MEDS: CAPSAICIN 0.025% CREAM 60 GM TP SCH ×2 (11:40→17:13)
[2019-09-26] MEDS ORDERED: (PENDING PHARMACY ID) (Oxycodone Hcl/Acetaminophen [Endocet 10-325 Mg Tablet] 1 TAB) PO SCH (12:00)
[2019-09-26] MEDS: OXYCODONE-ACETAMINOPHEN 5-325 MG TABLET PO SCH ×3 (12:59→23:30)
[2019-09-26] MEDS: METOPROLOL SUCCINATE 25 MG TAB.SR.24H PO SCH (13:00)
[2019-09-26] MEDS: OXYCODONE HCL IR 5 MG TABLET PO SCH ×3 (13:00→23:29)
[2019-09-26] MEDS: GABAPENTIN 300 MG CAPSULE PO SCH ×2 (13:03→22:11)
[2019-09-26] MEDS: CYCLOBENZAPRINE HCL 10 MG TABLET PO SCH ×2 (13:03→22:11)
[2019-09-26] MEDS ORDERED: MORPHINE SULFATE 10 MG/5 ML ORAL SOLUTION UDCUP PO SCH (14:00)
[2019-09-26] MEDS ORDERED: MORPHINE SULFATE 10 MG PO SCH (14:00)
[2019-09-26] MEDS: SACUBITRIL/VALSARTAN 49 MG/51 MG TABLET PO SCH (17:11)
--- NOTE | 2019-09-26 17:11 | PDOC CONSULTATION ---
Consultation Consult Date: 09/26/19 Provider Consulted: MANNY APPLE Consult reason:: Hematology/Oncology consultation was requested for patient with CLL and pancytopenia. History of Present Illness Admission Date/PCP: 09/25/19 19:37 KILLIAN JOHNSON MD History of Present Illness: EMY LOVETT is a 69 year old female who is followed by Dr. Dempsey for CLL. She was on Ibrutinim chemotherapy until Apr of this year, per patient. She has not been on any recent therapy for the CLL. She has a history of chronic pain syndrome and was diagnosed with Shingles about a week ago. When I ask her what brought her to the hospital this time, she states that she doesn't want to talk about it. She is in pain, but they are not doing anything here that she wasn't getting at home and she doesn't know why she can't just be in pain at home. She states that she does not know Dr. Schroeder and has never seen him. On admission, she was found to have a UTI and mild pancytopenia. She has been on Valtrex for the Shingles. I am not sure how long she has been on any of her other medications. Patient is not cooperative with the remainder of the history or physical. I was not able to perform a full exam. History is per prior records. Past Medical History Cardiac Medical History: Reports: Myocardial Infarction - CARDIOTOXIC CHEMO Denies: Coronary Artery Disease, Hypertension - Past history Pulmonary Medical History: Reports: Bronchitis, Chronic Obstructive Pulmonary Disease (COPD), Pneumonia - Last time in April Denies: Asthma Neurological Medical History: Denies: Seizures Endocrine Medical History: Reports: Hyperthyroidism, Hypothyroidism Malignancy Medical History: Reports: Leukemia - CLL Musculoskeltal Medical History: Reports: Arthritis - all over Psychiatric Medical History: Reports: Depression Hematology: Denies: Anemia Past Surgical History Past Surgical History: Reports: Appendectomy, Orthopedic Surgery - 13 foot surgeries neuromas rib removed , chest tube, Other - Recent port placement Social History Smoking Status: Never Smoker Electronic Cigarette use?: No Frequency of Alcohol Use: Rare Hx Recreational Drug Use: No Drugs: None Hx Prescription Drug Abuse: No Family History Parental Family History Reviewed: No Children Family History Reviewed: No Sibling(s) Family History Reviewed.: No Medication/Allergy Home Medications: Cyclobenzaprine HCl [Flexeril 10 mg Tablet] 10 mg PO Q8 11/19/18 Gabapentin [Neurontin 300 mg Capsule] 300 mg PO Q8 11/19/18 Levothyroxine Sodium [Synthroid 0.088 mg Tablet] 0.088 mg PO Q6AM 11/19/18 Meloxicam [Mobic] 7.5 mg PO Q12 11/19/18 Oxycodone HCl/Acetaminophen [Endocet 10-325 mg Tablet] 1 tab PO Q6 11/19/18 Aspirin [Aspirin 81 mg Chewable Tablet] 81 mg PO DAILY 04/29/19 Atorvastatin Calcium [Lipitor 40 mg Tablet] 40 mg PO QHS 04/29/19 Metoprolol Succinate [Kapspargo Sprinkle] 25 mg PO DAILY 04/29/19 Allopurinol [Zyloprim 300 mg Tablet] 300 mg PO DAILY 09/26/19 Morphine Sulfate [Morphine Sulfate ER] 10 mg PO Q8 09/26/19 Pramipexole Di-HCl [Mirapex] 0.125 mg PO QHS 09/26/19 Sacubitril/Valsartan [Entresto 49 mg/51 mg Tablet] 1 tab PO Q12 09/26/19 Allergies/Adverse Reactions: codeine [Codeine] Adverse Reaction (Mild, Verified 03/23/19 10:54) lisinopril [Lisinopril] Adverse Reaction (Verified 03/23/19 10:54) Review of Systems ROS unobtainable: Due to mental status Physical Exam Vital Signs: Temp Pulse Resp BP Pulse Ox 98.1 F 82 18 109/60 98 09/26/19 15:13 09/26/19 15:13 09/26/19 15:13 09/26/19 15:13 09/26/19 15:13 Intake & Output 09/25/19 09/26/19 09/27/19 06:59 06:59 06:59 Intake Total 320 Balance 320 Weight 92.4 kg General appearance: PRESENT: no acute distress, well-developed, well-nourished Exam: 69 year old female. Head exam: PRESENT: atraumatic, normocephalic Eye exam: PRESENT: EOMI Respiratory exam: PRESENT: unlabored Neurological exam: PRESENT: alert, awake Psychiatric exam: PRESENT: agitated Skin exam: PRESENT: normal color Results Laboratory Results: 09/26/19 06:15 09/25/19 21:54 09/25/19 09/25/19 09/25/19 18:19 19:51 21:54 WBC RBC Hgb Hct MCV MCH MCHC RDW Plt Count Seg Neutrophils % Sodium 134.6 L Potassium 3.9 Chloride 104 Carbon Dioxide 22 Anion Gap 9 BUN 29 H Creatinine 0.57 Est GFR ( Amer) > 60 Glucose 97 Lactic Acid < 0.5 L Calcium 8.6 Magnesium Urine Color MAYELA Urine Appearance SLIGHTLY-CLOUDY Urine pH 5.0 Ur Specific [place] 1.030 Urine Protein 100 H Urine Glucose (UA) NEGATIVE Urine Ketones 20 H Urine Blood MODERATE H Urine RBC (Auto) 46 09/26/19 09/26/19 06:15 06:15 WBC 3.9 L RBC 4.13 Hgb 10.8 L Hct 32.2 L MCV 78 L MCH 26.2 L MCHC 33.6 RDW 15.8 H Plt Count 118 L Seg Neutrophils % 72.4 Sodium Potassium Chloride Carbon Dioxide Anion Gap BUN Creatinine Est GFR ( Amer) Glucose Lactic Acid Calcium Magnesium 2.1 Urine Color Urine Appearance Urine pH Ur Specific Koppel Urine Protein Urine Glucose (UA) Urine Ketones Urine Blood Urine RBC (Auto) Impressions: Chest X-Ray 09/25/19 19:19 IMPRESSION: NO ACUTE RADIOGRAPHIC FINDING IN THE CHEST. Assessment & Plan - Diagnosis (1) CLL (chronic lymphocytic leukemia) Is this a current diagnosis for this admission?: Yes Plan: No indication for treatment currently. Overall, blood counts are much better than previously. (2) Shingles Qualifiers: Herpes zoster complications: without complications Qualified Code(s): B02.9 - Zoster without complications Is this a current diagnosis for this admission?: Yes Plan: As per primary team. (3) Pancytopenia Is this a current diagnosis for this admission?: Yes Plan: This is very mild. It may be due to Valtrex or one of her other medications. I do not believe this is severe enough right now to make any changes. I will watch closely. No indication for transfusions. ANC is still >2 - Plan Summary Plan Summary: Dr. Dempsey will return on Saturday. Please feel free to kristina with any other concerns.
[2019-09-26] MEDS: CEFTRIAXONE 1 GM/D5W RTU 1 GM/50 ML RTUPB IV SCH (17:12)
[2019-09-26] MEDS ORDERED: (PENDING PHARMACY ID) (Pramipexole Di-Hcl [Mirapex] 0.125 MG) PO SCH (22:00)
[2019-09-26] MEDS: ATORVASTATIN CALCIUM 40 MG TABLET PO SCH (22:08)
[2019-09-26] MEDS: PRAMIPEXOLE DI-HCL 0.25 MG TABLET PO SCH (22:10)
[2019-09-26] MEDS: MELOXICAM 7.5 MG TABLET PO SCH (22:11)
[2019-09-27] MEDS: VALACYCLOVIR HCL 500 MG TABLET PO SCH ×3 (01:44→18:16)
[2019-09-27] MEDS: CAPSAICIN 0.025% CREAM 60 GM TP SCH ×3 (01:45→18:20)
[2019-09-27] MEDS: OXYCODONE HCL IR 5 MG TABLET PO SCH ×4 (05:53→23:20)
[2019-09-27] MEDS: CYCLOBENZAPRINE HCL 10 MG TABLET PO SCH ×3 (05:53→21:53)
[2019-09-27] MEDS: OXYCODONE-ACETAMINOPHEN 5-325 MG TABLET PO SCH ×4 (05:53→23:20)
[2019-09-27] MEDS: LEVOTHYROXINE SODIUM 0.088 MG TABLET PO SCH (05:53)
[2019-09-27] MEDS: PANTOPRAZOLE SODIUM 40 MG TABLET.DR PO SCH (05:54)
[2019-09-27] MEDS: GABAPENTIN 300 MG CAPSULE PO SCH (05:54)
[2019-09-27 06:46] LABS: ABSOLUTE EOSINOPHILS # (AUTO) 0.1 10^3/uL (0.0-0.6); ABSOLUTE LYMPHOCYTES (AUTO) 0.5 10^3/uL (0.5-4.7); ABSOLUTE MONOCYTES (AUTO) 0.5 10^3/uL (0.1-1.4); ABSOLUTE NEUT (AUTO) 2.3 10^3/uL (1.7-8.2); BASOPHILS % (AUTO) 0.5 % (0-2); EOSINOPHILS % (AUTO) 2.5 % (0-6); HEMOGLOBIN 11.2 g/dL (12.0-15.5); LYMPHOCYTES % (AUTO) 15.6 % (13-45); MEAN CORPUSCULAR HEMOGLOBIN 26.3 pg (27.0-33.4); MEAN CORPUSCULAR VOLUME 77 fl (80-97); MONOCYTES % (AUTO) 13.9 % (3-13); PLATELET COUNT 131 10^3/uL (150-450); RED BLOOD COUNT 4.27 10^6/uL (3.72-5.28); RED CELL DISTRIBUTION WIDTH 15.5 % (11.5-14.0); SEGMENTED NEUTROPHILS % (AUTO) 67.5 % (42-78); TOTAL CELLS COUNTED % (AUTO) 100 %; WHITE BLOOD COUNT 3.4 10^3/uL (4.0-10.5)
[2019-09-27 06:55] LABS: ANION GAP 6 (5-19); BLOOD UREA NITROGEN 24 mg/dL (7-20); CALCIUM 8.6 mg/dL (8.4-10.2); CARBON DIOXIDE 24 mmol/L (22-30); CHLORIDE 106 mmol/L (98-107); GLUCOSE 106 mg/dL (75-110); POTASSIUM 4.1 mmol/L (3.6-5.0)
--- NOTE | 2019-09-27 09:00 | PDOC CONSULTATION ---
Consultation Consult Date: 09/27/19 Provider Consulted: QUETA EVANS History of Present Illness Admission Date/PCP: 09/25/19 19:37 KILLIAN JOHNSON MD History of Present Illness: The patient is a 69-year-old female with past medical history significant for CLL (dx 10/2009), HTN, HLD, CAD, hypothyroidism (h/o Barrie), pericarditis, chronic pain opioid therapy who was seen in consultation by my partner, Dr. 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 The patient was admitted to our facility with complaints of feeling very weak and with significant pain in the knee and hip areas as well as skin rash. She recovered very well from her pericarditis and is found in bed resting comfortably. She specifically denies chest pain, shortness of breath, MILLS, PND, lower extremity edema, palpitations, syncope and presyncope. Physical exam on 09/27/2019: GENERAL: Pleasant and conversational. Oriented x3 with normal mood. Not in acute distress. Well groomed and well developed. HEENT: Normocephalic, atraumatic. Pupils equal. Sclerae anicteric. Oropharynx moist. NECK: No JVD. No carotid bruits. LUNGS: Clear to auscultation bilaterally. Normal respiratory effort without the use of accessory muscles or intercostal retractions. CARDIOVASCULAR: Regular rate and rhythm, normal S1 and S2 without murmurs, rubs, or gallops. PMI not displaced. ABDOMEN: No masses or tenderness to palpation. No bruit. No splenomegaly or hepatomegaly. No abdominal aorta bruit noted. EXTREMITIES: No edema, no cyanosis, no clubbing. +2 pulses femoral and pedal pulses bilaterally. SKIN: No lesions or rashes. MUSCULOSKELETAL: No chest tenderness to palpation. NEUROLOGIC: Nonfocal. No gross sensory or motor deficits bilateral upper or lower extremities. Past Medical History Cardiac Medical History: Reports: Myocardial Infarction - CARDIOTOXIC CHEMO Denies: Coronary Artery Disease, Hypertension - Past history Pulmonary Medical History: Reports: Bronchitis, Chronic Obstructive Pulmonary Disease (COPD), Pneumonia - Last time in April Denies: Asthma Neurological Medical History: Denies: Seizures Endocrine Medical History: Reports: Hyperthyroidism, Hypothyroidism Malignancy Medical History: Reports: Leukemia - CLL Musculoskeltal Medical History: Reports: Arthritis - all over Psychiatric Medical History: Reports: Depression Hematology: Denies: Anemia Past Surgical History Past Surgical History: Reports: Appendectomy, Orthopedic Surgery - 13 foot surgeries neuromas rib removed , chest tube, Other - Recent port placement Social History Smoking Status: Never Smoker Electronic Cigarette use?: No Frequency of Alcohol Use: Rare Hx Recreational Drug Use: No Drugs: None Hx Prescription Drug Abuse: No Family History Family History: Reviewed & Not Pertinent Parental Family History Reviewed: Yes Children Family History Reviewed: Yes Sibling(s) Family History Reviewed.: Yes Medication/Allergy Home Medications: Cyclobenzaprine HCl [Flexeril 10 mg Tablet] 10 mg PO Q8 11/19/18 Gabapentin [Neurontin 300 mg Capsule] 300 mg PO Q8 11/19/18 Levothyroxine Sodium [Synthroid 0.088 mg Tablet] 0.088 mg PO Q6AM 11/19/18 Meloxicam [Mobic] 7.5 mg PO Q12 11/19/18 Oxycodone HCl/Acetaminophen [Endocet 10-325 mg Tablet] 1 tab PO Q6 11/19/18 Aspirin [Aspirin 81 mg Chewable Tablet] 81 mg PO DAILY 04/29/19 Atorvastatin Calcium [Lipitor 40 mg Tablet] 40 mg PO QHS 04/29/19 Metoprolol Succinate [[place] Sprinkle] 25 mg PO DAILY 04/29/19 Allopurinol [Zyloprim 300 mg Tablet] 300 mg PO DAILY 09/26/19 Morphine Sulfate [Morphine Sulfate ER] 10 mg PO Q8 09/26/19 Pramipexole Di-HCl [Mirapex] 0.125 mg PO QHS 09/26/19 Sacubitril/Valsartan [Entresto 49 mg/51 mg Tablet] 1 tab PO Q12 09/26/19 Allergies/Adverse Reactions: codeine [Codeine] Adverse Reaction (Mild, Verified 03/23/19 10:54) lisinopril [Lisinopril] Adverse Reaction (Verified 03/23/19 10:54) Physical Exam Vital Signs: Temp Pulse Resp BP Pulse Ox 98.6 F 75 16 142/84 H 97 09/27/19 01:15 09/27/19 02:00 09/27/19 01:15 09/27/19 01:15 09/27/19 01:15 Intake & Output 09/25/19 09/26/19 09/27/19 06:59 06:59 06:59 Intake Total 610 Output Total 350 Balance 260 Weight 92.4 kg Results Laboratory Results: 09/26/19 09/26/19 06:15 06:15 WBC 3.9 L RBC 4.13 Hgb 10.8 L Hct 32.2 L MCV 78 L MCH 26.2 L MCHC 33.6 RDW 15.8 H Plt Count 118 L Seg Neutrophils % 72.4 Magnesium 2.1 Impressions: Chest X-Ray 09/25/19 19:19 IMPRESSION: NO ACUTE RADIOGRAPHIC FINDING IN THE CHEST. 09/27/19 06:21 09/27/19 06:21 MCV 77 fl (80-97) L 09/27/19 06:21 MCH 26.3 pg (27.0-33.4) L 09/27/19 06:21 MCHC 34.0 g/dL (32.0-36.0) 09/27/19 06:21 RDW 15.5 % (11.5-14.0) H 09/27/19 06:21 Seg Neutrophils % 67.5 % (42-78) 09/27/19 06:21 VBG pH 7.34 (7.30-7.42) 09/25/19 13:01 VBG pCO2 44.5 mmHg (35-63) 09/25/19 13:01 VBG HCO3 23.6 mmol/L (20-32) 09/25/19 13:01 VBG Base Excess -2.2 mmol/L 09/25/19 13:01 Chloride 106 mmol/L (98-107) 09/27/19 06:21 Carbon Dioxide 24 mmol/L (22-30) 09/27/19 06:21 Anion Gap 6 (5-19) 09/27/19 06:21 Est GFR ( Amer) > 60 (>60) 09/27/19 06:21 Glucose 106 mg/dL (75-110) 09/27/19 06:21 Lactic Acid < 0.5 mmol/L (0.7-2.1) L 09/25/19 19:51 Calcium 8.6 mg/dL (8.4-10.2) 09/27/19 06:21 Magnesium 2.1 mg/dL (1.6-2.3) 09/27/19 06:21 Total Bilirubin 0.4 mg/dL (0.2-1.3) 09/25/19 13:01 AST 32 U/L (14-36) 09/25/19 13:01 Alkaline Phosphatase 54 U/L (38-126) 09/25/19 13:01 Total Protein 6.0 g/dL (6.3-8.2) L 09/25/19 13:01 Albumin 3.9 g/dL (3.5-5.0) 09/25/19 13:01 Urine Color MAYELA 09/25/19 18:19 Urine Appearance SLIGHTLY-CLOUDY 09/25/19 18:19 Urine pH 5.0 (5.0-9.0) 09/25/19 18:19 Ur Specific [place] 1.030 09/25/19 18:19 Urine Protein 100 mg/dL (NEGATIVE) H 09/25/19 18:19 Urine Glucose (UA) NEGATIVE mg/dL (NEGATIVE) 09/25/19 18:19 Urine Ketones 20 mg/dL (NEGATIVE) H 09/25/19 18:19 Urine Blood MODERATE (NEGATIVE) H 09/25/19 18:19 Urine RBC (Auto) 46 /HPF 09/25/19 18:19 Current Medication List Generic Name Dose Route Start Last Admin Trade Name Kira PRN Reason Stop Dose Admin Acetaminophen 650 mg 09/25/19 19:18 Tylenol 325 Mg Tablet PO 10/25/19 19:17 Q4HP PRN FOR PAIN OR TEMP Allopurinol 300 mg 09/26/19 11:00 09/26/19 11:35 Zyloprim 300 Mg Tablet PO 10/26/19 10:59 300 mg DAILY FUNMI Administration Aspirin 81 mg 09/26/19 11:00 09/26/19 11:36 Aspirin 81 Mg Chewable Tablet PO 10/26/19 10:59 81 mg DAILY FUNMI Administration Atorvastatin Calcium 40 mg 09/26/19 22:00 09/26/19 22:08 Lipitor 40 Mg Tablet PO 10/26/19 21:59 40 mg QHS FUNMI Administration Capsaicin 1 applic 09/26/19 11:00 09/27/19 01:45 Zostrix 0.025% Cream 60 Gm TP 10/26/19 10:59 1 applic Q8A FUNMI Administration Cyclobenzaprine HCl 10 mg 09/26/19 14:00 09/27/19 05:53 Flexeril 10 Mg Tablet PO 10/26/19 13:59 10 mg Q8 FUNMI Administration Docusate Sodium 100 mg 09/26/19 10:00 09/26/19 17:11 Colace 100 Mg Capsule PO 10/26/19 09:59 100 mg BID FUNMI Administration Enoxaparin Sodium 40 mg 09/26/19 10:00 09/26/19 11:38 Lovenox Inj 40 Mg/0.4 Ml Disp.Syrin SUBCUT 10/26/19 09:59 Not Given DAILY FUNMI Gabapentin 300 mg 09/26/19 14:00 09/27/19 05:54 Neurontin 300 Mg Capsule PO 10/26/19 13:59 300 mg Q8 FUNMI Administration Ceftriaxone Sodium/Dextrose 1 gm in 50 mls @ 100 mls/hr 09/26/19 18:00 09/26/19 17:45 Rocephin Rtu 1 Gm/D5w 50 Ml Premix IV 10/03/19 17:59 Infused QPM FUNMI Infusion Levothyroxine Sodium 0.088 mg 09/27/19 06:00 09/27/19 05:53 Synthroid 0.088 Mg Tablet PO 10/27/19 05:59 0.088 mg Q6AM FUNMI Administration Lidocaine 2 patch 09/26/19 11:00 09/26/19 11:37 Lidoderm 5% (700 Mg) Transdermal Patch TP 10/26/19 10:59 2 patch DAILY FUNMI Administration Meloxicam 7.5 mg 09/26/19 22:00 09/26/19 22:11 Mobic 7.5 Mg Tablet PO 10/26/19 21:59 7.5 mg Q12 FUNMI Administration Metoprolol Succinate 25 mg 09/26/19 12:00 09/26/19 13:00 Toprol Xl 25 Mg Tab.Sr PO 10/26/19 11:59 25 mg DAILY FUNMI Administration Morphine Sulfate 15 mg 09/26/19 22:00 09/26/19 22:11 Ms-Contin Sr 15 Mg Tablet PO 10/03/19 21:59 15 mg Q12 FUNMI Administration Ondansetron HCl 4 mg 09/25/19 19:18 Zofran Inj/Pf 4 Mg/2 Ml Sdv IV 10/25/19 19:17 Q4HP PRN FOR NAUSEA/VOMITING Oxycodone HCl 5 mg 09/26/19 12:00 09/27/19 05:53 Oxy-Ir 5 Mg Tablet PO 10/03/19 11:59 5 mg Q6 FUNMI Administration Oxycodone/Acetaminophen 1 tab 09/26/19 12:00 09/27/19 05:53 Percocet 5-325 Mg Tablet PO 10/03/19 11:59 1 tab Q6 FUNMI Administration Pantoprazole Sodium 40 mg 09/26/19 06:00 09/27/19 05:[address] Tablet PO 10/26/19 05:59 40 mg Q6AM FUNMI Administration Pramipexole Dihydrochloride 0.125 mg 09/26/19 22:00 09/26/19 22:10 Mirapex 0.25 Mg Tablet PO 10/26/19 21:59 0.125 mg QHS FUNMI Administration Sacubitril/Valsartan 1 tab 09/26/19 18:00 09/26/19 17:11 Entresto 49 Mg/51 Mg Tablet PO 10/26/19 17:59 1 tab BID FUNMI Administration Valacyclovir HCl 1,000 mg 09/26/19 11:00 09/27/19 01:44 Valtrex 500 Mg Tablet PO 10/26/19 10:59 1,000 mg Q8A FUNMI Administration Discontinued Medications Generic Name Dose Route Start Last Admin Trade Name Freq PRN Reason Stop Dose Admin Ceftriaxone Sodium 1,000 mg 09/25/19 19:18 09/25/19 19:50 Rocephin Inj 1000 Mg Vial IV 09/25/19 19:19 1,000 mg NOW ONE Administration Metoprolol Tartrate 25 mg 09/26/19 11:00 Lopressor 25 Mg Tablet PO 10/26/19 10:59 DAILY FUNMI Morphine Sulfate 4 mg 09/25/19 17:31 09/25/19 18:00 Morphine 10 Mg/Ml Inj IV 09/25/19 17:32 4 mg NOW ONE Administration Morphine Sulfate 15 mg 09/25/19 22:00 09/26/19 09:05 Ms-Contin Sr 15 Mg Tablet PO 10/02/19 21:59 15 mg Q12 FUNMI Administration Ondansetron HCl 4 mg 09/25/19 17:31 09/25/19 17:58 Zofran Inj/Pf 4 Mg/2 Ml Sdv IV 09/25/19 17:32 4 mg NOW ONE Administration Oxycodone/Acetaminophen 1 tab 09/25/19 19:18 09/26/19 03:18 Percocet 5-325 Mg Tablet PO 10/02/19 19:17 1 tab Q6HP PRN Administration FOR PAIN Oxycodone/Acetaminophen Confirm 09/26/19 08:42 09/26/19 08:59 Percocet 5-325 Mg Tablet Administered 09/26/19 08:43 1 tab Dose Administration 1 tab .ROUTE .STK-MED ONE Oxycodone/Acetaminophen 1 tab 09/26/19 09:30 09/26/19 11:05 Percocet 5-325 Mg Tablet PO 09/26/19 09:31 Not Given NOW ONE Assessment & Plan - Diagnosis (1) History of pericarditis Is this a current diagnosis for this admission?: Yes Plan: Doing well and without any symptoms consistent with pericarditis or ischemic hea rt disease. Recommendations: -Continue with clinical observation. -We will sign off the case for now. (2) Heart failure with reduced ejection fraction Plan: The patient appears to be euvolemic this morning and without physical findings or symptoms consistent with decompensated heart failure. Recommendations: -Continue with outpatient medical regimen. -Low-sodium diet, less than 1500 mg of sodium daily. -Strict intake and output. -Cardiology will sign off the case for now, please reconsult if necessary. 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 Please see #2 above for recommendations.
[2019-09-27] MEDS: MORPHINE SULFATE SR 15 MG TABLET PO SCH ×2 (09:45→21:54)
[2019-09-27] MEDS: MELOXICAM 7.5 MG TABLET PO SCH ×2 (09:46→21:54)
[2019-09-27] MEDS: METOPROLOL SUCCINATE 25 MG TAB.SR.24H PO SCH (09:47)
[2019-09-27] MEDS: LIDOCAINE 5% (700 MG) TRANSDERMAL ADH..PATCH TP SCH (09:47)
[2019-09-27] MEDS: DOCUSATE SODIUM 100 MG CAPSULE PO SCH ×2 (09:47→18:18)
[2019-09-27] MEDS: SACUBITRIL/VALSARTAN 49 MG/51 MG TABLET PO SCH ×2 (09:47→18:16)
[2019-09-27] MEDS: ASPIRIN 81 MG TABLET, CHEWABLE PO SCH (09:47)
[2019-09-27] MEDS: ENOXAPARIN SODIUM INJ 40 MG/0.4 ML DISP.SYRIN SUBCUT SCH (09:48)
[2019-09-27] MEDS: ALLOPURINOL 300 MG TABLET PO SCH (09:52)
--- NOTE | 2019-09-27 10:37 | PDOC PROGRESS REPORT ---
Subjective Progress Note for:: 09/27/19 Subjective:: Patient is currently doing fair Patient still was complaining a lot of back pain Patient still have a shingles Patient is currently see a pain management unfortunately patient does not have a morphine IR Patient is asking the pain management consult Patient's other than that no chest pain no short of breath Patient seen by hematology and cardiology Reason For Visit: WEAKNESS, Physical Exam Vital Signs: Temp Pulse Resp BP Pulse Ox 98.5 F 85 16 111/62 96 09/27/19 08:07 09/27/19 08:07 09/27/19 08:07 09/27/19 08:07 09/27/19 08:07 Intake & Output 09/26/19 09/27/19 09/28/19 06:59 06:59 06:59 Intake Total 610 Output Total 350 Balance 260 Weight 92.4 kg 92.4 kg General appearance: PRESENT: no acute distress, well-developed, well-nourished Head exam: PRESENT: atraumatic, normocephalic Eye exam: PRESENT: conjunctiva pink, EOMI, PERRLA. ABSENT: scleral icterus Ear exam: PRESENT: normal external ear exam Mouth exam: PRESENT: moist, tongue midline Neck exam: PRESENT: full ROM. ABSENT: carotid bruit, JVD, lymphadenopathy, thyromegaly Respiratory exam: PRESENT: clear to auscultation evan Cardiovascular exam: PRESENT: RRR. ABSENT: diastolic murmur, rubs, systolic murmur Pulses: PRESENT: normal dorsalis pedis pul, +2 pedal pulses bilateral Vascular exam: PRESENT: normal capillary refill GI/Abdominal exam: PRESENT: normal bowel sounds, soft. ABSENT: distended, guarding, mass, organolmegaly, rebound, tenderness Rectal exam: PRESENT: deferred Neurological exam: PRESENT: alert, awake, oriented to person, oriented to place, oriented to time, oriented to situation, CN II-XII grossly intact. ABSENT: motor sensory deficit Psychiatric exam: PRESENT: appropriate affect, normal mood. ABSENT: homicidal ideation, suicidal ideation Skin exam: PRESENT: dry, intact, warm. ABSENT: cyanosis, rash Additonal comments: Patient have a right side of the abdomen to the back vesicular rash Results Laboratory Results: 09/27/19 06:21 09/27/19 06:21 09/27/19 09/27/19 06:21 06:21 WBC 3.4 L RBC 4.27 Hgb 11.2 L Hct 33.0 L MCV 77 L MCH 26.3 L MCHC 34.0 RDW 15.5 H Plt Count 131 L Seg Neutrophils % 67.5 Sodium 136.2 L Potassium 4.1 Chloride 106 Carbon Dioxide 24 Anion Gap 6 BUN 24 H Creatinine 0.47 L Est GFR ( Amer) > 60 Glucose 106 Calcium 8.6 Magnesium 2.1 09/25/19 18:14 Catheterized Urine Urine Culture - Final NO GROWTH 2 DAYS Impressions: Chest X-Ray 09/25/19 19:19 IMPRESSION: NO ACUTE RADIOGRAPHIC FINDING IN THE CHEST. Assessment & Plan - Diagnosis (1) Inability to ambulate due to multiple joints Is this a current diagnosis for this admission?: Yes (2) Urinary tract infection Qualifiers: Urinary tract infection type: site unspecified Hematuria presence: with hematuria Qualified Code(s): N39.0 - Urinary tract infection, site not specified; R31.9 - Hematuria, unspecified Is this a current diagnosis for this admission?: Yes Plan: Continues IV antibiotic (3) Weakness Is this a current diagnosis for this admission?: Yes Plan: Physical therapy evaluations (4) Anemia Qualifiers: Anemia type: unspecified type Qualified Code(s): D64.9 - Anemia, unspecified Is this a current diagnosis for this admission?: Yes (5) CLL (chronic lymphocytic leukemia) Is this a current diagnosis for this admission?: Yes Plan: No indication for treatment currently. Overall, blood counts are much better than previously. (6) Shingles Qualifiers: Herpes zoster complications: without complications Qualified Code(s): B02.9 - Zoster without complications Is this a current diagnosis for this admission?: Yes Plan: As per primary team. (7) History of pericarditis Is this a current diagnosis for this admission?: Yes Plan: Patient is currently all stable per cardiology (8) Chronic pain syndrome Is this a current diagnosis for this admission?: Yes Plan: Patient with significant pain issues we will consult the pain management - Time Time Spent with patient: 15-24 minutes Level of Care: TELE Medications reviewed and adjusted accordingly: Yes Anticipated discharge: Other Within: Other - Plan Summary Plan Summary: We increased the gabapentin to 600 mg p.o. every 8 Consult the pain management Continues the Valtrex Continues the IV antibiotics
[2019-09-27] MEDS ORDERED: GABAPENTIN 300 MG CAPSULE PO SCH (14:00)
[2019-09-27] MEDS: GABAPENTIN 400 MG CAPSULE PO SCH ×2 (14:16→21:53)
[2019-09-27] MEDS: CEFTRIAXONE 1 GM/D5W RTU 1 GM/50 ML RTUPB IV SCH (18:17)
[2019-09-27] MEDS: ATORVASTATIN CALCIUM 40 MG TABLET PO SCH (21:53)
[2019-09-27] MEDS: PRAMIPEXOLE DI-HCL 0.25 MG TABLET PO SCH (21:54)
[2019-09-28] MEDS: POLYETHYLENE GLYCOL 3350 POWDER 17 GM/1 PACKET PO SCH ×2 (02:33→09:31)
[2019-09-28] MEDS: VALACYCLOVIR HCL 500 MG TABLET PO SCH ×3 (03:14→17:04)
[2019-09-28] MEDS: CAPSAICIN 0.025% CREAM 60 GM TP SCH ×3 (03:15→17:05)
[2019-09-28] MEDS: OXYCODONE HCL IR 5 MG TABLET PO SCH ×4 (05:29→21:05)
[2019-09-28] MEDS: CYCLOBENZAPRINE HCL 10 MG TABLET PO SCH ×3 (05:30→21:06)
[2019-09-28] MEDS: GABAPENTIN 400 MG CAPSULE PO SCH ×2 (05:30→13:12)
[2019-09-28] MEDS: OXYCODONE-ACETAMINOPHEN 5-325 MG TABLET PO SCH ×3 (05:30→17:04)
[2019-09-28] MEDS: PANTOPRAZOLE SODIUM 40 MG TABLET.DR PO SCH (05:30)
[2019-09-28] MEDS: LEVOTHYROXINE SODIUM 0.088 MG TABLET PO SCH (05:32)
[2019-09-28 06:34] LABS: ABSOLUTE EOSINOPHILS # (AUTO) 0.1 10^3/uL (0.0-0.6); ABSOLUTE LYMPHOCYTES (AUTO) 0.6 10^3/uL (0.5-4.7); ABSOLUTE MONOCYTES (AUTO) 0.5 10^3/uL (0.1-1.4); ABSOLUTE NEUT (AUTO) 2.6 10^3/uL (1.7-8.2); BASOPHILS % (AUTO) 0.5 % (0-2); HEMATOCRIT 33.6 % (36.0-47.0); HEMOGLOBIN 11.4 g/dL (12.0-15.5); LYMPHOCYTES % (AUTO) 15.2 % (13-45); MEAN CORPUSCULAR HEMOGLOBIN 26.1 pg (27.0-33.4); MEAN CORPUSCULAR HGB CONC 33.9 g/dL (32.0-36.0); MEAN CORPUSCULAR VOLUME 77 fl (80-97); MONOCYTES % (AUTO) 12.3 % (3-13); PLATELET COUNT 157 10^3/uL (150-450); RED BLOOD COUNT 4.36 10^6/uL (3.72-5.28); RED CELL DISTRIBUTION WIDTH 14.9 % (11.5-14.0); TOTAL CELLS COUNTED % (AUTO) 100 %; WHITE BLOOD COUNT 3.7 10^3/uL (4.0-10.5)
[2019-09-28 07:03] LABS: ANION GAP 8 (5-19); BLOOD UREA NITROGEN 18 mg/dL (7-20); CALCIUM 8.6 mg/dL (8.4-10.2); CARBON DIOXIDE 23 mmol/L (22-30); CHLORIDE 106 mmol/L (98-107); GLUCOSE 112 mg/dL (75-110); POTASSIUM 3.7 mmol/L (3.6-5.0)
--- NOTE | 2019-09-28 08:23 | PDOC PROGRESS REPORT ---
Subjective Progress Note for:: 09/28/19 Subjective:: Patient still having a lot of pain but otherwise no new complaints Reason For Visit: WEAKNESS, Physical Exam Vital Signs: Temp Pulse Resp BP Pulse Ox 97.9 F 84 16 150/84 H 100 09/28/19 03:13 09/28/19 07:00 09/28/19 03:13 09/28/19 03:13 09/28/19 03:13 Intake & Output 09/27/19 09/28/19 09/29/19 06:59 06:59 06:59 Intake Total 610 1144 Output Total 350 350 Balance 260 794 Weight 92.4 kg 92.4 kg General appearance: PRESENT: no acute distress, well-developed, well-nourished Head exam: PRESENT: atraumatic, normocephalic Eye exam: PRESENT: conjunctiva pink, EOMI, PERRLA. ABSENT: scleral icterus Ear exam: PRESENT: normal external ear exam Mouth exam: PRESENT: moist, tongue midline Neck exam: ABSENT: carotid bruit, JVD, lymphadenopathy, thyromegaly Respiratory exam: PRESENT: clear to auscultation evan. ABSENT: rales, rhonchi, wheezes Cardiovascular exam: PRESENT: RRR. ABSENT: diastolic murmur, rubs, systolic murmur Pulses: PRESENT: normal dorsalis pedis pul Vascular exam: PRESENT: normal capillary refill GI/Abdominal exam: PRESENT: normal bowel sounds, soft. ABSENT: distended, guarding, mass, organolmegaly, rebound, tenderness Rectal exam: PRESENT: deferred Extremities exam: PRESENT: full ROM. ABSENT: calf tenderness, clubbing, pedal edema Neurological exam: PRESENT: alert, awake, oriented to person, oriented to place, oriented to time, oriented to situation, CN II-XII grossly intact. ABSENT: motor sensory deficit Psychiatric exam: PRESENT: appropriate affect, normal mood. ABSENT: homicidal ideation, suicidal ideation Skin exam: PRESENT: dry, intact, warm. ABSENT: cyanosis, rash Results Laboratory Results: 09/28/19 06:20 09/28/19 06:20 09/28/19 09/28/19 06:20 06:20 WBC 3.7 L RBC 4.36 Hgb 11.4 L Hct 33.6 L MCV 77 L MCH 26.1 L MCHC 33.9 RDW 14.9 H Plt Count 157 Seg Neutrophils % 69.0 Sodium 136.8 L Potassium 3.7 Chloride 106 Carbon Dioxide 23 Anion Gap 8 BUN 18 Creatinine 0.43 L Est GFR ( Amer) > 60 Glucose 112 H Calcium 8.6 Magnesium 2.0 09/25/19 18:14 Catheterized Urine Urine Culture - Final NO GROWTH 2 DAYS Impressions: Chest X-Ray 09/25/19 19:19 IMPRESSION: NO ACUTE RADIOGRAPHIC FINDING IN THE CHEST. Assessment & Plan - Diagnosis (1) CLL (chronic lymphocytic leukemia) Is this a current diagnosis for this admission?: Yes Plan: Counts are stable, platelet count is improved. Not on current therapy, and relative hematologic remission. She was supposed to be seen in office today we will call her daughter and change appointment to see us in 2 to 3 months. - Time Time Spent with patient: 25-34 minutes
[2019-09-28] MEDS: MELOXICAM 7.5 MG TABLET PO SCH ×2 (09:31→21:06)
[2019-09-28] MEDS: METOPROLOL SUCCINATE 25 MG TAB.SR.24H PO SCH (09:31)
[2019-09-28] MEDS: SACUBITRIL/VALSARTAN 49 MG/51 MG TABLET PO SCH ×2 (09:31→17:04)
[2019-09-28] MEDS: LIDOCAINE 5% (700 MG) TRANSDERMAL ADH..PATCH TP SCH (09:31)
[2019-09-28] MEDS: DOCUSATE SODIUM 100 MG CAPSULE PO SCH ×2 (09:31→17:03)
[2019-09-28] MEDS: ASPIRIN 81 MG TABLET, CHEWABLE PO SCH (09:31)
[2019-09-28] MEDS: MORPHINE SULFATE SR 15 MG TABLET PO SCH ×2 (09:32→21:06)
[2019-09-28] MEDS: ENOXAPARIN SODIUM INJ 40 MG/0.4 ML DISP.SYRIN SUBCUT SCH (09:33)
[2019-09-28] MEDS: CEFTRIAXONE 1 GM/D5W RTU 1 GM/50 ML RTUPB IV SCH (17:04)
[2019-09-28] MEDS: PRAMIPEXOLE DI-HCL 0.25 MG TABLET PO SCH (21:05)
[2019-09-28] MEDS: ATORVASTATIN CALCIUM 40 MG TABLET PO SCH (21:06)
[2019-09-28] MEDS: PHARMACY COMMUNICATION ORDER MC SCH (21:21)
--- NOTE | 2019-09-28 21:54 | PDOC PROGRESS REPORT ---
Subjective Progress Note for:: 09/28/19 Subjective:: Patient was admitted over the weekend,She has severe shingles with dermatomal distribution affecting the right lumbar region., She has UTI, CLL, drug-induced cardiomyopathy, I saw her today on the floor, she complain of severe pain, she said she is not receiving enough pain medication Reason For Visit: WEAKNESS, Physical Exam Vital Signs: Temp Pulse Resp BP Pulse Ox 98.6 F 83 17 123/71 97 09/28/19 20:00 09/28/19 20:00 09/28/19 20:00 09/28/19 20:00 09/28/19 20:00 Intake & Output 09/27/19 09/28/19 09/29/19 06:59 06:59 06:59 Intake Total 610 1144 50 Output Total 350 350 Balance 260 794 50 Weight 92.4 kg 92.4 kg General appearance: PRESENT: no acute distress Head exam: PRESENT: atraumatic, normocephalic Eye exam: PRESENT: PERRLA Mouth exam: PRESENT: moist Neck exam: PRESENT: full ROM Respiratory exam: PRESENT: clear to auscultation evan Cardiovascular exam: PRESENT: RRR, +S1, +S2 Pulses: PRESENT: normal dorsalis pedis pul, +2 pedal pulses bilateral Vascular exam: PRESENT: normal capillary refill GI/Abdominal exam: PRESENT: normal bowel sounds, soft Rectal exam: PRESENT: deferred Neurological exam: PRESENT: alert, CN II-XII grossly intact Psychiatric exam: PRESENT: appropriate affect, normal mood Skin exam: PRESENT: erythema, vesicles, warm - Severe shingles with dermatome distribution involving the lumbar region on the right side Results Laboratory Results: 09/28/19 06:20 09/28/19 06:20 09/28/19 09/28/19 06:20 06:20 WBC 3.7 L RBC 4.36 Hgb 11.4 L Hct 33.6 L MCV 77 L MCH 26.1 L MCHC 33.9 RDW 14.9 H Plt Count 157 Seg Neutrophils % 69.0 Sodium 136.8 L Potassium 3.7 Chloride 106 Carbon Dioxide 23 Anion Gap 8 BUN 18 Creatinine 0.43 L Est GFR ( Amer) > 60 Glucose 112 H Calcium 8.6 Magnesium 2.0 Impressions: Chest X-Ray 09/25/19 19:19 IMPRESSION: NO ACUTE RADIOGRAPHIC FINDING IN THE CHEST. 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 Is this a current diagnosis for this admission?: Yes (2) Other pancytopenia Is this a current diagnosis for this admission?: Yes (3) Urinary tract infection Qualifiers: Urinary tract infection type: site unspecified Hematuria presence: with hematuria Qualified Code(s): N39.0 - Urinary tract infection, site not specified; R31.9 - Hematuria, unspecified Is this a current diagnosis for this admission?: Yes Plan: Continue IV antibiotic (4) CLL (chronic lymphocytic leukemia) Is this a current diagnosis for this admission?: Yes (5) Shingles (herpes zoster) polyneuropathy Is this a current diagnosis for this admission?: Yes Plan: Give Dilaudid for pain control - Time Time Spent with patient: 25-34 minutes Level of Care: IMCU Medications reviewed and adjusted accordingly: Yes
[2019-09-28] MEDS ORDERED: GLYCERIN (ADULT) SUPP.RECT PR ONE (22:00)
[2019-09-29] MEDS: GABAPENTIN 400 MG CAPSULE PO SCH ×2 (00:28→05:19)
[2019-09-29] MEDS: HYDROMORPHONE HCL INJ/PF 2 MG/ML AMPULE IV PRN ×5 (00:28→23:20)
[2019-09-29] MEDS: VALACYCLOVIR HCL 500 MG TABLET PO SCH ×3 (02:51→18:53)
[2019-09-29] MEDS: OXYCODONE HCL IR 5 MG TABLET PO SCH ×6 (02:52→22:22)
[2019-09-29] MEDS: CAPSAICIN 0.025% CREAM 60 GM TP SCH ×3 (02:53→18:54)
[2019-09-29] MEDS: CYCLOBENZAPRINE HCL 10 MG TABLET PO SCH ×3 (05:19→22:22)
[2019-09-29] MEDS: PANTOPRAZOLE SODIUM 40 MG TABLET.DR PO SCH (05:23)
[2019-09-29] MEDS: LEVOTHYROXINE SODIUM 0.088 MG TABLET PO SCH (05:23)
[2019-09-29 07:05] LABS: ANION GAP 7 (5-19); BLOOD UREA NITROGEN 16 mg/dL (7-20); CALCIUM 8.8 mg/dL (8.4-10.2); CARBON DIOXIDE 27 mmol/L (22-30); CHLORIDE 102 mmol/L (98-107); GLUCOSE 118 mg/dL (75-110)
[2019-09-29 07:07] LABS: POTASSIUM 3.9 mmol/L (3.6-5.0)
[2019-09-29] MEDS: METOPROLOL SUCCINATE 25 MG TAB.SR.24H PO SCH (10:58)
[2019-09-29] MEDS: ASPIRIN 81 MG TABLET, CHEWABLE PO SCH (10:59)
[2019-09-29] MEDS: MORPHINE SULFATE SR 15 MG TABLET PO SCH ×2 (10:59→22:23)
[2019-09-29] MEDS: DOCUSATE SODIUM 100 MG CAPSULE PO SCH ×2 (10:59→18:52)
[2019-09-29] MEDS: POLYETHYLENE GLYCOL 3350 POWDER 17 GM/1 PACKET PO SCH (11:00)
[2019-09-29] MEDS: ENOXAPARIN SODIUM INJ 40 MG/0.4 ML DISP.SYRIN SUBCUT SCH (11:01)
[2019-09-29] MEDS: SACUBITRIL/VALSARTAN 49 MG/51 MG TABLET PO SCH ×2 (11:02→19:00)
[2019-09-29] MEDS: LIDOCAINE 5% (700 MG) TRANSDERMAL ADH..PATCH TP SCH (11:03)
[2019-09-29] MEDS: MELOXICAM 7.5 MG TABLET PO SCH ×2 (11:03→22:25)
--- NOTE | 2019-09-29 13:10 | PDOC CONSULTATION ---
Consultation Consult Date: 09/28/19 Provider Consulted: GABY MCDONALD Consult reason:: Pain Management-severe shinglies outbreak History of Present Illness Admission Date/PCP: 09/25/19 19:37 KILLIAN JOHNSON MD Patient complains of: uncontrolled pain History of Present Illness: EMY LOVETT is a 69 year old female that presented with a severe case of shingles in a dermatomal distribution to the right lumbar, abdomen, and RLE area. She notes that she first started to have symptoms of burning and pain 2 weeks ago but did not seek immediate medical attention as she was unsure of what was causing the pain. She notes a long history of chronic pain in the low back and bilateral hips that is managed in outpatient by [facility]. 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 She was taking MS ER 15 mg q 12 hours and Percocet 10/325mg QID but notes that this regimen was not helpful for her chronic pain and is not helping at this time. She notes that her pain is severe, sharp, burning, and constant in nature. She notes that laying on her back causes more pain but is unable to lay on her sides due to the severity of her hip pain. Prior to her admission at [facility] she noted that she was having difficulty w/ ambulation and that her daughter had to call EMS to pick her up from the bathroom as she was unable to bear weight on her legs. Since being admitted she notes that she has not been able to ambulate as well. She notes that at this time her current regimen of MS ER, Percocet, Gabapentin, Lidoderm, Mobic, and Valtrex have not been helpful w/ the treatment of her shingles and feels that the pain is unbearable. Does feel that the Oxycodone is the only helpful medication she has tried but only has 3 hours of relief before the pain starts to return. Upon arrival to ER she was also noted to have UTI that is currently being treated. SHe notes that she struggles with constipation and has been roughly 5-6 days w/ no bowel movement. She currently prescribed a stool softener and miralax but has yet to take the Miralax. She was dx in the past w/ CLL in which she follows Dr. Dempsey. Patient was very frustrated during the interview process which limited history intake. Past Medical History Cardiac Medical History: Reports: Myocardial Infarction - CARDIOTOXIC CHEMO Denies: Coronary Artery Disease, Hypertension - Past history Pulmonary Medical History: Reports: Bronchitis, Chronic Obstructive Pulmonary Disease (COPD), Pneumonia - Last time in April Denies: Asthma Neurological Medical History: Denies: Seizures Endocrine Medical History: Reports: Hyperthyroidism, Hypothyroidism Malignancy Medical History: Reports: Leukemia - CLL Musculoskeltal Medical History: Reports: Arthritis - all over, Other - Scoliosis, Lumbar Degenerative Disc Disease Psychiatric Medical History: Reports: Depression Hematology: Denies: Anemia Past Surgical History Past Surgical History: Reports: Appendectomy, Orthopedic Surgery - 13 foot surgeries neuromas rib removed , chest tube, Other - Recent port placement Social History Smoking Status: Never Smoker Electronic Cigarette use?: No Frequency of Alcohol Use: Rare Hx Recreational Drug Use: No Drugs: None Hx Prescription Drug Abuse: No Family History Family History: Reviewed & Not Pertinent Parental Family History Reviewed: No Children Family History Reviewed: NA Sibling(s) Family History Reviewed.: NA Medication/Allergy Home Medications: Cyclobenzaprine HCl [Flexeril 10 mg Tablet] 10 mg PO Q8 11/19/18 Gabapentin [Neurontin 300 mg Capsule] 300 mg PO Q8 11/19/18 Levothyroxine Sodium [Synthroid 0.088 mg Tablet] 0.088 mg PO Q6AM 11/19/18 Meloxicam [Mobic] 7.5 mg PO Q12 11/19/18 Oxycodone HCl/Acetaminophen [Endocet 10-325 mg Tablet] 1 tab PO Q6 11/19/18 Aspirin [Aspirin 81 mg Chewable Tablet] 81 mg PO DAILY 04/29/19 Atorvastatin Calcium [Lipitor 40 mg Tablet] 40 mg PO QHS 04/29/19 Metoprolol Succinate [Kapspargo Sprinkle] 25 mg PO DAILY 04/29/19 Allopurinol [Zyloprim 300 mg Tablet] 300 mg PO DAILY 09/26/19 Morphine Sulfate [Morphine Sulfate ER] 10 mg PO Q8 09/26/19 Pramipexole Di-HCl [Mirapex] 0.125 mg PO QHS 09/26/19 Sacubitril/Valsartan [Entresto 49 mg/51 mg Tablet] 1 tab PO Q12 09/26/19 Allergies/Adverse Reactions: codeine [Codeine] Adverse Reaction (Mild, Verified 03/23/19 10:54) lisinopril [Lisinopril] Adverse Reaction (Verified 03/23/19 10:54) Review of Systems Constitutional: PRESENT: as per HPI Gastrointestinal: PRESENT: abdominal pain Genitourinary: PRESENT: dysuria Musculoskeletal: PRESENT: back pain, muscle weakness Integumentary: PRESENT: lesions, other - vesicular lesions noted to right lumbar area that wraps to the anterior abdomen and into the right groin and Right anterior hip. Drainage noted. Neurological: PRESENT: as per HPI Psychiatric: PRESENT: anxiety, depression Physical Exam Vital Signs: Temp Pulse Resp BP Pulse Ox 98.7 F 82 16 158/88 H 98 09/29/19 11:17 09/29/19 11:17 09/29/19 11:17 09/29/19 11:17 09/29/19 11:17 Intake & Output 09/28/19 09/29/19 09/30/19 06:59 06:59 06:59 Intake Total 1144 170 120 Output Total 350 450 100 Balance 794 -280 20 Weight 92.4 kg 92.4 kg General appearance: PRESENT: mild distress Head exam: PRESENT: normocephalic Eye exam: PRESENT: EOMI Mouth exam: PRESENT: dry mucosa Respiratory exam: PRESENT: unlabored GI/Abdominal exam: PRESENT: tenderness Musculoskeletal exam: PRESENT: tenderness - Right lumbar paravertebral muscles Neurological exam: PRESENT: alert, awake, oriented to person, oriented to place, oriented to time, oriented to situation Psychiatric exam: PRESENT: agitated, anxious Skin exam: PRESENT: erythema, rash, vesicles, other - erythema and edema noted to Right lumbar skin that wraps around to the right anterior abdomen and to the right lateral thigh. Results Laboratory Results: 09/28/19 06:20 09/29/19 06:30 09/29/19 06:30 Sodium 136.4 L Potassium 3.9 Chloride 102 Carbon Dioxide 27 Anion Gap 7 BUN 16 Creatinine 0.44 L Est GFR ( Amer) > 60 Glucose 118 H Calcium 8.8 Impressions: Chest X-Ray 09/25/19 19:19 IMPRESSION: NO ACUTE RADIOGRAPHIC FINDING IN THE CHEST. Assessment & Plan - Diagnosis (2) Shingles (herpes zoster) polyneuropathy Is this a current diagnosis for this admission?: Yes - Time Time Spent: 30 to 50 Minutes Medications reviewed and adjusted accordingly: Yes - Plan Summary Plan Summary: Treatment plan as follows: 1. Discussed case w/ Dr. Centeno 2. Glycerin suppository x's 1 and if failure to have bowel movement would move to fleets enema as she has yet to have a bowel movement in 5-6 days. High risk for bowel obstruction given her limited mobility and chronic opioid use. 3. Continue w/ Miralax and Colace as prescribed 4. Continue w/ the MS ER 15 mg Q 12 hours 5. D/C Percocet 10/325mg QID 6. Start Oxycodone 10 mg Q 3-4 hours PRN severe shingles pain 7. Increase gabapentin to 400mg QID and is tolerates move to gabapentin 600mg q 6 hours. 8. If failure of therapeutic response to gabapentin then will move to Nancya
[2019-09-29] MEDS: GABAPENTIN 300 MG CAPSULE PO SCH ×3 (13:38→23:46)
[2019-09-29] MEDS: CEFTRIAXONE 1 GM/D5W RTU 1 GM/50 ML RTUPB IV SCH (18:53)
[2019-09-29] MEDS ORDERED: GLYCERIN (ADULT) SUPP.RECT PR ONE (19:30)
--- NOTE | 2019-09-29 20:21 | PDOC PROGRESS REPORT ---
Subjective Progress Note for:: 09/29/19 Subjective:: Patient seen by the bedside. Pain control is improved Reason For Visit: WEAKNESS, Physical Exam Vital Signs: Temp Pulse Resp BP Pulse Ox 99.4 F 91 16 133/83 H 95 09/29/19 15:48 09/29/19 15:48 09/29/19 15:48 09/29/19 15:48 09/29/19 15:48 Intake & Output 09/28/19 09/29/19 09/30/19 06:59 06:59 06:59 Intake Total 1144 170 300 Output Total 350 450 600 Balance 794 -280 -300 Weight 92.4 kg 92.4 kg General appearance: PRESENT: no acute distress Eye exam: PRESENT: PERRLA Respiratory exam: PRESENT: clear to auscultation evan Cardiovascular exam: PRESENT: +S1, +S2 GI/Abdominal exam: PRESENT: soft Neurological exam: PRESENT: alert, CN II-XII grossly intact Results Laboratory Results: 09/28/19 06:20 09/29/19 06:30 09/29/19 06:30 Sodium 136.4 L Potassium 3.9 Chloride 102 Carbon Dioxide 27 Anion Gap 7 BUN 16 Creatinine 0.44 L Est GFR ( Amer) > 60 Glucose 118 H Calcium 8.8 Impressions: Chest X-Ray 09/25/19 19:19 IMPRESSION: NO ACUTE RADIOGRAPHIC FINDING IN THE CHEST. 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 Is this a current diagnosis for this admission?: Yes Plan: Continue Entresto (2) Other pancytopenia Is this a current diagnosis for this admission?: Yes (3) Urinary tract infection Qualifiers: Urinary tract infection type: site unspecified Hematuria presence: with hematuria Qualified Code(s): N39.0 - Urinary tract infection, site not specified; R31.9 - Hematuria, unspecified Is this a current diagnosis for this admission?: Yes Plan: Continue IV antibiotic (4) CLL (chronic lymphocytic leukemia) Is this a current diagnosis for this admission?: Yes (5) Shingles (herpes zoster) polyneuropathy Is this a current diagnosis for this admission?: Yes - Time Time Spent with patient: 25-34 minutes Level of Care: IMCU
[2019-09-29] MEDS: ATORVASTATIN CALCIUM 40 MG TABLET PO SCH (22:22)
[2019-09-29] MEDS: PRAMIPEXOLE DI-HCL 0.25 MG TABLET PO SCH (22:23)
[2019-09-29] MEDS: PHARMACY COMMUNICATION ORDER MC SCH (23:45)
[2019-09-30] MEDS: VALACYCLOVIR HCL 500 MG TABLET PO SCH ×3 (02:32→16:59)
[2019-09-30] MEDS: OXYCODONE HCL IR 5 MG TABLET PO SCH ×6 (02:32→22:50)
[2019-09-30] MEDS: CAPSAICIN 0.025% CREAM 60 GM TP SCH ×3 (02:36→16:59)
[2019-09-30] MEDS: HYDROMORPHONE HCL INJ/PF 2 MG/ML AMPULE IV PRN ×3 (03:42→20:55)
[2019-09-30] MEDS: GABAPENTIN 300 MG CAPSULE PO SCH ×4 (06:32→23:55)
[2019-09-30] MEDS: CYCLOBENZAPRINE HCL 10 MG TABLET PO SCH ×3 (06:32→22:49)
[2019-09-30] MEDS: LEVOTHYROXINE SODIUM 0.088 MG TABLET PO SCH (06:32)
[2019-09-30] MEDS: PANTOPRAZOLE SODIUM 40 MG TABLET.DR PO SCH (06:34)
[2019-09-30] MEDS: ENOXAPARIN SODIUM INJ 40 MG/0.4 ML DISP.SYRIN SUBCUT SCH (09:58)
[2019-09-30] MEDS: MORPHINE SULFATE SR 15 MG TABLET PO SCH ×2 (10:00→22:49)
[2019-09-30] MEDS: METOPROLOL SUCCINATE 25 MG TAB.SR.24H PO SCH (10:01)
[2019-09-30] MEDS: DOCUSATE SODIUM 100 MG CAPSULE PO SCH ×2 (10:01→16:59)
[2019-09-30] MEDS: ASPIRIN 81 MG TABLET, CHEWABLE PO SCH (10:01)
[2019-09-30] MEDS: POLYETHYLENE GLYCOL 3350 POWDER 17 GM/1 PACKET PO SCH (10:01)
[2019-09-30] MEDS: MELOXICAM 7.5 MG TABLET PO SCH ×2 (10:02→22:53)
[2019-09-30] MEDS: SACUBITRIL/VALSARTAN 49 MG/51 MG TABLET PO SCH ×2 (10:02→16:59)
[2019-09-30] MEDS: LIDOCAINE 5% (700 MG) TRANSDERMAL ADH..PATCH TP SCH (10:02)
[2019-09-30] MEDS: CEFTRIAXONE 1 GM/D5W RTU 1 GM/50 ML RTUPB IV SCH (16:59)
--- NOTE | 2019-09-30 18:18 | PDOC PROGRESS REPORT ---
Subjective Progress Note for:: 09/30/19 Subjective:: Patient seen by the bedside. Pain control is improved Reason For Visit: WEAKNESS, Physical Exam Vital Signs: Temp Pulse Resp BP Pulse Ox 99.5 F 83 16 110/68 97 09/30/19 16:55 09/30/19 16:55 09/30/19 16:55 09/30/19 16:55 09/30/19 16:55 Intake & Output 09/29/19 09/30/19 10/01/19 06:59 06:59 06:59 Intake Total 170 350 50 Output Total 450 800 400 Balance -280 -450 -350 Weight 92.4 kg 92.4 kg General appearance: PRESENT: no acute distress Eye exam: PRESENT: PERRLA Respiratory exam: PRESENT: clear to auscultation evan Cardiovascular exam: PRESENT: +S1, +S2 GI/Abdominal exam: PRESENT: soft Neurological exam: PRESENT: alert Results Laboratory Results: 09/28/19 06:20 09/29/19 06:30 09/25/19 13:45 Blood Blood Culture - Final NO GROWTH IN 5 DAYS 09/25/19 13:01 Blood Blood Culture - Final NO GROWTH IN 5 DAYS Impressions: Chest X-Ray 09/25/19 19:19 IMPRESSION: NO ACUTE RADIOGRAPHIC FINDING IN THE CHEST. 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 Is this a current diagnosis for this admission?: Yes Plan: Continue Entresto (2) Other pancytopenia Is this a current diagnosis for this admission?: Yes (3) Urinary tract infection Qualifiers: Urinary tract infection type: site unspecified Hematuria presence: with hematuria Qualified Code(s): N39.0 - Urinary tract infection, site not specified; R31.9 - Hematuria, unspecified Is this a current diagnosis for this admission?: Yes Plan: Continue IV antibiotic (4) CLL (chronic lymphocytic leukemia) Is this a current diagnosis for this admission?: Yes (5) Shingles (herpes zoster) polyneuropathy Is this a current diagnosis for this admission?: Yes - Time Time Spent with patient: 15-24 minutes Level of Care: MEDICAL Medications reviewed and adjusted accordingly: Yes
[2019-09-30] MEDS: ATORVASTATIN CALCIUM 40 MG TABLET PO SCH (22:49)
[2019-09-30] MEDS: PRAMIPEXOLE DI-HCL 0.25 MG TABLET PO SCH (22:52)
[2019-10-01] MEDS: PHARMACY COMMUNICATION ORDER MC SCH ×2 (01:16→22:05)
[2019-10-01] MEDS: CAPSAICIN 0.025% CREAM 60 GM TP SCH ×3 (02:12→20:15)
[2019-10-01] MEDS: HYDROMORPHONE HCL INJ/PF 2 MG/ML AMPULE IV PRN ×3 (02:12→22:05)
[2019-10-01] MEDS: VALACYCLOVIR HCL 500 MG TABLET PO SCH ×3 (02:12→17:07)
[2019-10-01] MEDS: OXYCODONE HCL IR 5 MG TABLET PO SCH ×6 (02:12→22:05)
[2019-10-01] MEDS: GABAPENTIN 300 MG CAPSULE PO SCH ×3 (05:59→17:06)
[2019-10-01] MEDS: CYCLOBENZAPRINE HCL 10 MG TABLET PO SCH ×3 (05:59→22:05)
[2019-10-01] MEDS: LEVOTHYROXINE SODIUM 0.088 MG TABLET PO SCH (06:03)
[2019-10-01] MEDS: PANTOPRAZOLE SODIUM 40 MG TABLET.DR PO SCH (06:03)
[2019-10-01] MEDS: ENOXAPARIN SODIUM INJ 40 MG/0.4 ML DISP.SYRIN SUBCUT SCH (11:11)
[2019-10-01] MEDS: LIDOCAINE 5% (700 MG) TRANSDERMAL ADH..PATCH TP SCH (11:12)
[2019-10-01] MEDS: POLYETHYLENE GLYCOL 3350 POWDER 17 GM/1 PACKET PO SCH (11:16)
[2019-10-01] MEDS: MELOXICAM 7.5 MG TABLET PO SCH ×2 (11:20→22:05)
[2019-10-01] MEDS: MORPHINE SULFATE SR 15 MG TABLET PO SCH ×2 (11:20→22:05)
[2019-10-01] MEDS: ASPIRIN 81 MG TABLET, CHEWABLE PO SCH (11:21)
[2019-10-01] MEDS: METOPROLOL SUCCINATE 25 MG TAB.SR.24H PO SCH (11:30)
[2019-10-01] MEDS: SACUBITRIL/VALSARTAN 49 MG/51 MG TABLET PO SCH ×2 (11:30→20:14)
[2019-10-01] MEDS: DOCUSATE SODIUM 100 MG CAPSULE PO SCH ×2 (11:32→17:05)
[2019-10-01] MEDS: CEFTRIAXONE 1 GM/D5W RTU 1 GM/50 ML RTUPB IV SCH (17:06)
--- NOTE | 2019-10-01 21:55 | PDOC PROGRESS REPORT ---
Subjective Progress Note for:: 10/01/19 Subjective:: Patient cannot bear weight, since admission she has been bedbound, she stated this is of recent onset, she was able to ambulate with a walker Reason For Visit: WEAKNESS, Physical Exam Vital Signs: Temp Pulse Resp BP Pulse Ox 98.5 F 91 16 132/74 H 97 10/01/19 20:24 10/01/19 20:24 10/01/19 20:24 10/01/19 20:24 10/01/19 20:24 Intake & Output 09/30/19 10/01/19 10/02/19 06:59 06:59 06:59 Intake Total 350 50 430 Output Total 800 1000 500 Balance -450 -950 -70 Weight 92.4 kg 92.4 kg General appearance: PRESENT: no acute distress Respiratory exam: PRESENT: clear to auscultation evan Cardiovascular exam: PRESENT: +S1, +S2 GI/Abdominal exam: PRESENT: soft Neurological exam: PRESENT: alert Results Laboratory Results: 09/28/19 06:20 09/29/19 06:30 Impressions: Chest X-Ray 09/25/19 19:19 IMPRESSION: NO ACUTE RADIOGRAPHIC FINDING IN THE CHEST. 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 Is this a current diagnosis for this admission?: Yes (2) Other pancytopenia Is this a current diagnosis for this admission?: Yes (3) Urinary tract infection Qualifiers: Urinary tract infection type: site unspecified Hematuria presence: with hematuria Qualified Code(s): N39.0 - Urinary tract infection, site not specified; R31.9 - Hematuria, unspecified Is this a current diagnosis for this admission?: Yes Plan: DC IV antibiotic, She has had enough antibiotic for UTI (4) CLL (chronic lymphocytic leukemia) Is this a current diagnosis for this admission?: Yes (5) Shingles (herpes zoster) polyneuropathy Is this a current diagnosis for this admission?: Yes (6) Weakness of both lower extremities Is this a current diagnosis for this admission?: Yes Plan: Obtain MRI of the lumbar spine - Time Time Spent with patient: 15-24 minutes Level of Care: MEDICAL
[2019-10-01] MEDS: ATORVASTATIN CALCIUM 40 MG TABLET PO SCH (22:05)
[2019-10-01] MEDS: PRAMIPEXOLE DI-HCL 0.25 MG TABLET PO SCH (22:05)
--- NOTE | 2019-10-01 23:19 | RADIOLOGY REPORT (SQ) ---
EXAM DESCRIPTION: MR LUMBAR SPINE WITHOUT IV CONTRAST COMPLETED DATE/TME: 10/01/2019 00:00 CLINICAL HISTORY: 69 years, Female, weakness of the lower extremity COMPARISON: None. TECHNIQUE: 182 Images stored on PACS. LIMITATIONS: None. FINDINGS: 5 lumbar type vertebral bodies for the purposes of this exam. Vertebral body height and alignment is preserved. Negative for fracture/compression deformity or subluxation. There is severe levoconvex scoliosis of the mid lumbar spine. Limited evaluation of extraspinal anatomic structures is grossly unremarkable. Normal signal in the visualized spinal cord. The conus medullaris terminates appropriately. The T12-L1 level is unremarkable. Minor disc bulging at L1-2 without central canal stenosis or neural foraminal compromise. Mild bilateral facet arthropathy at L2-3 with lateral disc bulging. No central canal stenosis or neural foraminal compromise. Moderate facet arthropathy at L3-4. Minor ossific spurring. Diffuse disc bulging. Moderate central canal stenosis with moderate neural foraminal narrowing bilaterally. At L4-5 there is moderate bilateral facet arthropathy with arthritic spurring and diffuse bulging. No central canal stenosis or neural foraminal compromise. At L5-S1 there is minor endplate degenerative change with mild facet arthropathy and posterior disc bulging. No central canal stenosis or neural foraminal compromise. IMPRESSION: Marked levoconvex scoliosis of the lumbar spine with associated multilevel degenerative change. No greater than moderate central canal stenosis, present at the L3-4 level. Moderate neural foraminal narrowing bilaterally at this level. copyright 2010 [employer]- All Rights Reserved
[2019-10-02] MEDS: OXYCODONE HCL IR 5 MG TABLET PO SCH ×6 (02:20→23:32)
[2019-10-02] MEDS: GABAPENTIN 300 MG CAPSULE PO SCH ×5 (02:20→23:32)
[2019-10-02] MEDS: VALACYCLOVIR HCL 500 MG TABLET PO SCH ×3 (02:21→18:02)
[2019-10-02] MEDS: CAPSAICIN 0.025% CREAM 60 GM TP SCH ×3 (02:22→18:03)
[2019-10-02] MEDS: HYDROMORPHONE HCL INJ/PF 2 MG/ML AMPULE IV PRN ×3 (05:08→19:54)
[2019-10-02] MEDS: LEVOTHYROXINE SODIUM 0.088 MG TABLET PO SCH (06:55)
[2019-10-02] MEDS: PANTOPRAZOLE SODIUM 40 MG TABLET.DR PO SCH (06:55)
[2019-10-02] MEDS: CYCLOBENZAPRINE HCL 10 MG TABLET PO SCH ×3 (06:55→22:03)
[2019-10-02] MEDS: DOCUSATE SODIUM 100 MG CAPSULE PO SCH ×2 (10:52→17:03)
[2019-10-02] MEDS: ASPIRIN 81 MG TABLET, CHEWABLE PO SCH (10:52)
[2019-10-02] MEDS: SACUBITRIL/VALSARTAN 49 MG/51 MG TABLET PO SCH ×2 (10:53→17:04)
[2019-10-02] MEDS: METOPROLOL SUCCINATE 25 MG TAB.SR.24H PO SCH (10:53)
[2019-10-02] MEDS: MELOXICAM 7.5 MG TABLET PO SCH ×2 (10:54→22:03)
[2019-10-02] MEDS: POLYETHYLENE GLYCOL 3350 POWDER 17 GM/1 PACKET PO SCH (10:56)
[2019-10-02] MEDS: ENOXAPARIN SODIUM INJ 40 MG/0.4 ML DISP.SYRIN SUBCUT SCH (10:56)
[2019-10-02] MEDS: LIDOCAINE 5% (700 MG) TRANSDERMAL ADH..PATCH TP SCH (10:57)
[2019-10-02] MEDS: MORPHINE SULFATE SR 15 MG TABLET PO SCH ×2 (11:00→23:32)
--- NOTE | 2019-10-02 14:17 | RADIOLOGY REPORT (SQ) ---
EXAM DESCRIPTION: MRI RT LOWER JOINT WITHOUT IMAGES COMPLETED DATE/TIME: 10/02/2019 1:15 pm REASON FOR STUDY: severe arthropathy of bilat knees COMPARISON: None. TECHNIQUE: Rightknee images acquired and stored on PACS. Multiplanar images include fat sensitive s equences as T1, water sensitive sequences as FST2 or STIR, cartilage sensitive sequences as FSPD, and gradient echo sequences. LIMITATIONS: Motion artifact. This is up to moderate on some sequences. FINDINGS: JOINT AND BURSAE: Trace fluid, no large effusion. BONE CORTEX AND MARROW: Minimally heterogeneous marrow signal in the distal femur is likely red marro w. Correlate with radiographs. ACL: Intact. No degeneration or ganglion cyst. PCL: Intact. MCL: Intact. No periligamentous edema or fluid. LCL: Intact. No periligamentous edema or fluid. MEDIAL MENISCUS: Tear in the posterior horn and root. LATERAL MENISCUS: No tears. No abnormal signal. MEDIAL COMPARTMENT: Chondral thinning. No large subchondral cysts or erosions. LATERAL COMPARTMENT: No focal chondral lesions. PATELLA: Normal location. Apical chondromalacia patella with full-thickness loss and reactive bone c ysts. EXTENSOR MECHANISM: Intact. Quadriceps and patella tendons normal. SOFT TISSUES: Adjacent muscles and subcutaneous tissues normal. Normal flow void in popliteal artery and vein. OTHER: No other significant finding. IMPRESSION: 1. Right knee medial meniscus tear. 2. Right knee medial compartment chondral loss and chondromalacia patella. 3. Other findings as above. TECHNICAL DOCUMENTATION: JOB ID: [id number] 2010 [employer]- All Rights Reserved Reading location - IP/workstation name: [email or web address]
--- NOTE | 2019-10-02 14:20 | RADIOLOGY REPORT (SQ) ---
EXAM DESCRIPTION: MRI LT LOWER JOINT WITHOUT IMAGES COMPLETED DATE/TIME: 10/02/2019 1:15 pm REASON FOR STUDY: severe arthropathy of bilat knees COMPARISON: None. TECHNIQUE: Leftknee images acquired and stored on PACS. Multiplanar images include fat sensitive se quences as T1, water sensitive sequences as FST2 or STIR, cartilage sensitive sequences as FSPD, and gradient echo sequences. LIMITATIONS: Motion artifact. FINDINGS: JOINT AND BURSAE: Trace joint effusion. BONE CORTEX AND MARROW: Mildly heterogeneous. Suspect patchy red marrow. Correlate with radiographs . ACL: Intact. No degeneration or ganglion cyst. PCL: Intact. MCL: Intact. No periligamentous edema or fluid. LCL: Intact. No periligamentous edema or fluid. MEDIAL MENISCUS: Posterior horn tear. LATERAL MENISCUS: Extensive meniscus tear, macerated appearance. MEDIAL COMPARTMENT: Diffuse chondral thinning without reactive bone cysts. LATERAL COMPARTMENT: Diffuse denuded hyaline cartilage, full thickness loss with suspected mild subch ondral marrow edema. PATELLA: Normal location. Diffuse chondral thinning without focal defects. EXTENSOR MECHANISM: Intact. Quadriceps and patella tendons normal. SOFT TISSUES: Adjacent muscles and subcutaneous tissues normal. Normal flow void in popliteal artery and vein. OTHER: No other significant finding. IMPRESSION: 1. Left knee lateral meniscus tear. 2. Left knee medial meniscus tear. 3. Chondral loss particularly in the left knee lateral compartment. 4. Other findings as above. TECHNICAL DOCUMENTATION: JOB ID: [id number] 2010 [employer]- All Rights Reserved Reading location - IP/workstation name: [email or web address]
--- NOTE | 2019-10-02 21:14 | PDOC PROGRESS REPORT ---
Subjective Progress Note for:: 10/02/19 Subjective:: Patient seen by the bedside, she cannot bear weight, she has deformity of both knees, MRI of the knees demonstrated extensive meniscus tear of the lateral meniscus tear ,there is chondral loss particularly in the left knee lateral compartment MRI of the right knee demonstrated right knee medial meniscus tear with chondral loss. She has bilateral arthropathy of the knee, she cannot bear weight essentially bedbound she was scheduled for hip joint replacement by Dr. Dennis, Dr. Dennis will be consulted for advice and guidance on how to proceed with this patient, she cannot bear weight ,she cannot transfer herself from different positioning Reason For Visit: WEAKNESS, Physical Exam Vital Signs: Temp Pulse Resp BP Pulse Ox 98.7 F 99 20 110/62 92 10/02/19 19:35 10/02/19 19:35 10/02/19 19:35 10/02/19 19:35 10/02/19 19:35 Intake & Output 10/01/19 10/02/19 10/03/19 06:59 06:59 06:59 Intake Total 50 1200 236 Output Total 1000 1700 290 Balance -950 -500 -54 Weight 92.4 kg 92.4 kg General appearance: PRESENT: no acute distress Eye exam: PRESENT: PERRLA Respiratory exam: PRESENT: clear to auscultation evan Cardiovascular exam: PRESENT: +S1, +S2 GI/Abdominal exam: PRESENT: soft Musculoskeletal exam: PRESENT: deformity Neurological exam: PRESENT: alert Results Laboratory Results: 09/28/19 06:20 09/29/19 06:30 Impressions: Chest X-Ray 09/25/19 19:19 IMPRESSION: NO ACUTE RADIOGRAPHIC FINDING IN THE CHEST. Lumbar Spine MRI 10/01/19 00:00 IMPRESSION: Marked levoconvex scoliosis of the lumbar spine with associated multilevel degenerative change. No greater than moderate central canal stenosis, present at the L3-4 level. Moderate neural foraminal narrowing bilaterally at this level. copyright 2011 [employer]- All Rights Reserved Lower Extremity MRI 10/02/19 00:00 IMPRESSION: 1. Left knee lateral meniscus tear. 2. Left knee medial meniscus tear. 3. Chondral loss particularly in the left knee lateral compartment. 4. Other findings as above. 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 Is this a current diagnosis for this admission?: Yes (2) Other pancytopenia Is this a current diagnosis for this admission?: Yes (3) Urinary tract infection Qualifiers: Urinary tract infection type: site unspecified Hematuria presence: with hematuria Qualified Code(s): N39.0 - Urinary tract infection, site not specified; R31.9 - Hematuria, unspecified Is this a current diagnosis for this admission?: Yes Plan: DC IV antibiotic, She has had enough antibiotic for UTI (4) CLL (chronic lymphocytic leukemia) Is this a current diagnosis for this admission?: Yes (5) Shingles (herpes zoster) polyneuropathy Is this a current diagnosis for this admission?: Yes (6) Weakness of both lower extremities Is this a current diagnosis for this admission?: Yes (7) Scoliosis of lumbar spine Qualifiers: Scoliosis type: unspecified scoliosis Qualified Code(s): M41.9 - Scoliosis, unspecified Is this a current diagnosis for this admission?: Yes (8) Arthropathy of both knees Is this a current diagnosis for this admission?: Yes Plan: Consult orthopedic - Time Time Spent with patient: 35 or more minutes Level of Care: MEDICAL Medications reviewed and adjusted accordingly: Yes - Plan Summary Plan Summary: The results of the MRI was explained to the patient
[2019-10-02] MEDS: PRAMIPEXOLE DI-HCL 0.25 MG TABLET PO SCH (22:03)
[2019-10-02] MEDS: ATORVASTATIN CALCIUM 40 MG TABLET PO SCH (22:03)
[2019-10-02] MEDS: PHARMACY COMMUNICATION ORDER MC SCH (23:50)
[2019-10-03] MEDS: HYDROMORPHONE HCL INJ/PF 2 MG/ML AMPULE IV PRN ×5 (00:27→20:56)
[2019-10-03] MEDS: OXYCODONE HCL IR 5 MG TABLET PO SCH ×6 (01:29→22:18)
[2019-10-03] MEDS: VALACYCLOVIR HCL 500 MG TABLET PO SCH ×3 (01:29→17:53)
[2019-10-03] MEDS: CAPSAICIN 0.025% CREAM 60 GM TP SCH ×3 (01:42→18:41)
[2019-10-03] MEDS: CYCLOBENZAPRINE HCL 10 MG TABLET PO SCH ×3 (05:05→22:18)
[2019-10-03] MEDS: LEVOTHYROXINE SODIUM 0.088 MG TABLET PO SCH (05:05)
[2019-10-03] MEDS: GABAPENTIN 300 MG CAPSULE PO SCH ×3 (05:05→17:51)
[2019-10-03] MEDS: PANTOPRAZOLE SODIUM 40 MG TABLET.DR PO SCH (05:05)
[2019-10-03] MEDS: DOCUSATE SODIUM 100 MG CAPSULE PO SCH ×2 (10:04→17:51)
[2019-10-03] MEDS: METOPROLOL SUCCINATE 25 MG TAB.SR.24H PO SCH (10:04)
[2019-10-03] MEDS: ASPIRIN 81 MG TABLET, CHEWABLE PO SCH (10:04)
[2019-10-03] MEDS: MORPHINE SULFATE SR 15 MG TABLET PO SCH ×2 (10:05→22:18)
[2019-10-03] MEDS: LIDOCAINE 5% (700 MG) TRANSDERMAL ADH..PATCH TP SCH (10:05)
[2019-10-03] MEDS: POLYETHYLENE GLYCOL 3350 POWDER 17 GM/1 PACKET PO SCH (10:06)
[2019-10-03] MEDS: SACUBITRIL/VALSARTAN 49 MG/51 MG TABLET PO SCH ×2 (10:06→17:53)
[2019-10-03] MEDS: MELOXICAM 7.5 MG TABLET PO SCH ×2 (10:06→22:19)
[2019-10-03] MEDS: ENOXAPARIN SODIUM INJ 40 MG/0.4 ML DISP.SYRIN SUBCUT SCH (10:12)
[2019-10-03] MEDS: ATORVASTATIN CALCIUM 40 MG TABLET PO SCH (22:18)
[2019-10-03] MEDS: PRAMIPEXOLE DI-HCL 0.25 MG TABLET PO SCH (22:19)
[2019-10-04] MEDS: GABAPENTIN 300 MG CAPSULE PO SCH ×5 (00:05→23:21)
[2019-10-04] MEDS: HYDROMORPHONE HCL INJ/PF 2 MG/ML AMPULE IV PRN ×7 (00:05→23:20)
[2019-10-04] MEDS: PHARMACY COMMUNICATION ORDER MC SCH ×2 (01:45→22:26)
[2019-10-04] MEDS: OXYCODONE HCL IR 5 MG TABLET PO SCH ×6 (02:22→22:24)
[2019-10-04] MEDS: VALACYCLOVIR HCL 500 MG TABLET PO SCH ×3 (02:23→17:13)
[2019-10-04] MEDS: CAPSAICIN 0.025% CREAM 60 GM TP SCH ×3 (02:52→17:13)
[2019-10-04] MEDS: LEVOTHYROXINE SODIUM 0.088 MG TABLET PO SCH (05:48)
[2019-10-04] MEDS: CYCLOBENZAPRINE HCL 10 MG TABLET PO SCH ×3 (05:49→21:02)
[2019-10-04] MEDS: PANTOPRAZOLE SODIUM 40 MG TABLET.DR PO SCH (05:49)
[2019-10-04] MEDS: MELOXICAM 7.5 MG TABLET PO SCH ×2 (10:24→22:24)
[2019-10-04] MEDS: POLYETHYLENE GLYCOL 3350 POWDER 17 GM/1 PACKET PO SCH (10:24)
[2019-10-04] MEDS: LIDOCAINE 5% (700 MG) TRANSDERMAL ADH..PATCH TP SCH (10:24)
[2019-10-04] MEDS: DOCUSATE SODIUM 100 MG CAPSULE PO SCH ×2 (10:25→17:12)
[2019-10-04] MEDS: ASPIRIN 81 MG TABLET, CHEWABLE PO SCH (10:25)
[2019-10-04] MEDS: MORPHINE SULFATE SR 15 MG TABLET PO SCH ×2 (10:25→22:25)
[2019-10-04] MEDS: ENOXAPARIN SODIUM INJ 40 MG/0.4 ML DISP.SYRIN SUBCUT SCH (10:25)
[2019-10-04] MEDS: SACUBITRIL/VALSARTAN 49 MG/51 MG TABLET PO SCH ×2 (10:25→17:12)
[2019-10-04] MEDS: METOPROLOL SUCCINATE 25 MG TAB.SR.24H PO SCH (12:00)
--- NOTE | 2019-10-04 20:12 | PDOC PROGRESS REPORT ---
Subjective Progress Note for:: 10/03/19 Subjective:: Ongoing pain over right lower torso shingle rash. No chest pain or difficulty with breathing. No fever or chills. No nausea, vomiting r abdominal pain. Reason For Visit: WEAKNESS, Physical Exam Vital Signs: Temp Pulse Resp BP Pulse Ox 99.4 F 81 17 120/70 95 10/03/19 15:56 10/03/19 15:56 10/03/19 15:56 10/03/19 15:56 10/03/19 15:56 Intake & Output 10/02/19 10/03/19 10/04/19 06:59 06:59 06:59 Intake Total 1200 236 260 Output Total 1700 840 700 Balance -500 -604 -440 Weight 92.4 kg 92.4 kg General appearance: PRESENT: mild distress - due to pain from her shingle rash location, obese Head exam: PRESENT: atraumatic, normocephalic Eye exam: PRESENT: conjunctiva pink. ABSENT: scleral icterus Mouth exam: PRESENT: moist Respiratory exam: PRESENT: clear to auscultation evan Cardiovascular exam: PRESENT: RRR, +S1, +S2. ABSENT: diastolic murmur, rubs, systolic murmur Vascular exam: ABSENT: pallor GI/Abdominal exam: PRESENT: normal bowel sounds, soft. ABSENT: distended, guarding, mass, organolmegaly, rebound, tenderness Extremities exam: ABSENT: pedal edema Musculoskeletal exam: PRESENT: deformity - demonstrable lumbar scoliosis. Neurological exam: PRESENT: alert, awake, oriented to person, oriented to place, oriented to time, oriented to situation, CN II-XII grossly intact. ABSENT: motor sensory deficit Psychiatric exam: PRESENT: appropriate affect, normal mood. ABSENT: homicidal ideation, suicidal ideation Skin exam: PRESENT: dry, rash - extensive shingle rash over lower torso and pos terior-lateral aspect, warm Results Laboratory Results: 09/28/19 06:20 09/29/19 06:30 Impressions: Chest X-Ray 09/25/19 19:19 IMPRESSION: NO ACUTE RADIOGRAPHIC FINDING IN THE CHEST. Lumbar Spine MRI 10/01/19 00:00 IMPRESSION: Marked levoconvex scoliosis of the lumbar spine with associated multilevel degenerative change. No greater than moderate central canal stenosis, present at the L3-4 level. Moderate neural foraminal narrowing bilaterally at this level. copyright 2010 [employer]- All Rights Reserved Lower Extremity MRI 10/02/19 00:00 IMPRESSION: 1. Left knee lateral meniscus tear. 2. Left knee medial meniscus tear. 3. Chondral loss particularly in the left knee lateral compartment. 4. Other findings as above. Assessment & Plan - Diagnosis (1) Shingles (herpes zoster) polyneuropathy Is this a current diagnosis for this admission?: Yes Plan: Continue current medication management. Adjust her IV Dilaudid to 1mg q 3 hours for better pain management. (2) CLL (chronic lymphocytic leukemia) Is this a current diagnosis for this admission?: Yes Plan: Continue current supportive care. (3) Cardiomyopathy due to chemotherapy Is this a current diagnosis for this admission?: Yes Plan: Continue GDMT for her heart failure. (4) Scoliosis of lumbar spine Qualifiers: Scoliosis type: unspecified scoliosis Qualified Code(s): M41.9 - Scoliosis, unspecified Is this a current diagnosis for this admission?: Yes Plan: Continue current pain medication management and ergonomic support care. - Time Time Spent with patient: 25-34 minutes Level of Care: MEDICAL Medications reviewed and adjusted accordingly: Yes Anticipated discharge: Home with Homehealth Within: Other - Inpatient Certification Based on my medical assessment, after consideration of the patient's comorbidities, presenting symptoms, or acuity I expect that the services needed warrant INPATIENT care.: Yes I certify that my determination is in accordance with my understanding of Medicare's requirements for reasonable and necessary INPATIENT services [42 CFR 412.3e].: Yes Medical Necessity: Significant Comorbidiites Make Outpatient Treatment Too Risky, Need Close Monitoring Due to Risk of Patient Decompensation, Need For Continuous Telemetry Monitoring, Need for Pain Control, Risk of Complication if Not Cared For in Hospital, Risk of Diagnosis Which Will Require Inpatient Eval/Care/Monitoring Post Hospital Care: 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
--- NOTE | 2019-10-04 20:13 | PDOC PROGRESS REPORT ---
Subjective Progress Note for:: 10/04/19 Subjective:: Patient reported fairly controlled pain on her current regimen. No chest pain or difficulty with breathing. No fever or chills. No nausea, vomiting or abdominal pain. Reason For Visit: WEAKNESS, Physical Exam Vital Signs: Temp Pulse Resp BP Pulse Ox 98.4 F 86 12 110/66 97 10/04/19 16:00 10/04/19 19:02 10/04/19 16:00 10/04/19 16:00 10/04/19 16:00 Intake & Output 10/03/19 10/04/19 10/05/19 06:59 06:59 06:59 Intake Total 236 260 720 Output Total 840 1700 750 Balance -600 -1460 -30 Weight 92.4 kg 92.4 kg 92.4 kg Physical Exam: General appearance: PRESENT: mild distress - due to pain from her shingle rash location, obese Head exam: PRESENT: atraumatic, normocephalic Eye exam: PRESENT: conjunctiva pink. ABSENT: pallor, scleral icterus Mouth exam: PRESENT: moist Respiratory exam: PRESENT: clear to auscultation evan Cardiovascular exam: PRESENT: RRR, +S1, +S2. ABSENT: diastolic murmur, rubs, systolic murmur GI/Abdominal exam: PRESENT: normal bowel sounds, soft. ABSENT: distended, guarding, mass, organomegaly, rebound, tenderness Extremities exam: ABSENT: pedal edema Musculoskeletal exam: PRESENT: deformity - demonstrable lumbar scoliosis. Neurological exam: PRESENT: alert, awake, oriented to person, oriented to place, oriented to time, oriented to situation, CN II-XII grossly intact. ABSENT: motor sensory deficit Psychiatric exam: PRESENT: appropriate affect, normal mood. ABSENT: homicidal ideation, suicidal ideation Skin exam: PRESENT: dry, rash - extensive shingle rash over lower torso and posterior-lateral aspect, warm Results Laboratory Results: 09/28/19 06:20 09/29/19 06:30 Impressions: Chest X-Ray 09/25/19 19:19 IMPRESSION: NO ACUTE RADIOGRAPHIC FINDING IN THE CHEST. Lumbar Spine MRI 10/01/19 00:00 IMPRESSION: Marked levoconvex scoliosis of the lumbar spine with associated multilevel degenerative change. No greater than moderate central canal stenosis, present at the L3-4 level. Moderate neural foraminal narrowing bilaterally at this level. copyright 2011 [employer]- All Rights Reserved Lower Extremity MRI 10/02/19 00:00 IMPRESSION: 1. Left knee lateral meniscus tear. 2. Left knee medial meniscus tear. 3. Chondral loss particularly in the left knee lateral compartment. 4. Other findings as above. Assessment & Plan - Diagnosis (1) Shingles (herpes zoster) polyneuropathy Is this a current diagnosis for this admission?: Yes (2) CLL (chronic lymphocytic leukemia) Is this a current diagnosis for this admission?: Yes (3) Cardiomyopathy due to chemotherapy Is this a current diagnosis for this admission?: Yes (4) Scoliosis of lumbar spine Qualifiers: Scoliosis type: unspecified scoliosis Qualified Code(s): M41.9 - Scoliosis, unspecified Is this a current diagnosis for this admission?: Yes - Time Time Spent with patient: 25-34 minutes Level of Care: MEDICAL Medications reviewed and adjusted accordingly: Yes Anticipated discharge: Home with Homehealth Within: Other - Inpatient Certification Based on my medical assessment, after consideration of the patient's comorbiditi es, presenting symptoms, or acuity I expect that the services needed warrant INPATIENT care.: Yes I certify that my determination is in accordance with my understanding of [facility]'s requirements for reasonable and necessary INPATIENT services [42 CFR 412.3e].: Yes Medical Necessity: Significant Comorbidiites Make Outpatient Treatment Too Risky, Need Close Monitoring Due to Risk of Patient Decompensation, Need for Pain Control, Risk of Complication if Not Cared For in Hospital, Risk of Diagnosis Which Will Require Inpatient Eval/Care/Monitoring Post Hospital Care: D/C Dispensing And Measuring Optician Documentation - Plan Summary Plan Summary: Continue current medication management.
[2019-10-04] MEDS: ATORVASTATIN CALCIUM 40 MG TABLET PO SCH (21:02)
[2019-10-04] MEDS: PRAMIPEXOLE DI-HCL 0.25 MG TABLET PO SCH (22:23)
[2019-10-05] MEDS: OXYCODONE HCL IR 5 MG TABLET PO SCH ×6 (02:07→22:19)
[2019-10-05] MEDS: VALACYCLOVIR HCL 500 MG TABLET PO SCH ×3 (02:07→17:46)
[2019-10-05] MEDS: CAPSAICIN 0.025% CREAM 60 GM TP SCH ×3 (02:11→17:46)
[2019-10-05] MEDS: HYDROMORPHONE HCL INJ/PF 2 MG/ML AMPULE IV PRN ×3 (04:33→18:43)
[2019-10-05] MEDS: PANTOPRAZOLE SODIUM 40 MG TABLET.DR PO SCH (06:16)
[2019-10-05] MEDS: LEVOTHYROXINE SODIUM 0.088 MG TABLET PO SCH (06:16)
[2019-10-05] MEDS: GABAPENTIN 300 MG CAPSULE PO SCH ×3 (06:17→17:44)
[2019-10-05] MEDS: CYCLOBENZAPRINE HCL 10 MG TABLET PO SCH ×3 (06:17→22:20)
[2019-10-05] MEDS: DOCUSATE SODIUM 100 MG CAPSULE PO SCH ×2 (10:28→17:41)
[2019-10-05] MEDS: POLYETHYLENE GLYCOL 3350 POWDER 17 GM/1 PACKET PO SCH (10:28)
[2019-10-05] MEDS: MORPHINE SULFATE SR 15 MG TABLET PO SCH ×2 (10:29→22:20)
[2019-10-05] MEDS: ASPIRIN 81 MG TABLET, CHEWABLE PO SCH (10:29)
[2019-10-05] MEDS: MELOXICAM 7.5 MG TABLET PO SCH ×2 (10:29→22:20)
[2019-10-05] MEDS: SACUBITRIL/VALSARTAN 49 MG/51 MG TABLET PO SCH ×2 (10:29→17:45)
[2019-10-05] MEDS: METOPROLOL SUCCINATE 25 MG TAB.SR.24H PO SCH (10:29)
[2019-10-05] MEDS: LIDOCAINE 5% (700 MG) TRANSDERMAL ADH..PATCH TP SCH (10:30)
[2019-10-05] MEDS: ENOXAPARIN SODIUM INJ 40 MG/0.4 ML DISP.SYRIN SUBCUT SCH (10:30)
--- NOTE | 2019-10-05 20:40 | PDOC PROGRESS REPORT ---
Subjective Progress Note for:: 10/05/19 Subjective:: Patient seen by the bedside, she cannot bear weight, she has deformity of both knees, MRI of the knees demonstrated extensive meniscus tear of the lateral meniscus tear ,there is chondral loss particularly in the left knee lateral compartment MRI of the right knee demonstrated right knee medial meniscus tear with chondral loss. She has bilateral arthropathy of the knee, she cannot bear weight essentially bedbound she was scheduled for hip joint replacement by Dr. Dennis, Dr. Dennis will be consulted for advice and guidance on how to proceed with this patient, she cannot bear weight ,she cannot transfer herself from different positioning Reason For Visit: WEAKNESS, Physical Exam Vital Signs: Temp Pulse Resp BP Pulse Ox 98.9 F 90 17 121/73 97 10/05/19 15:41 10/05/19 15:41 10/05/19 15:41 10/05/19 15:41 10/05/19 15:41 Intake & Output 10/04/19 10/05/19 10/06/19 06:59 06:59 06:59 Intake Total 260 720 425 Output Total 1700 1650 450 Balance -1440 -930 -25 Weight 92.4 kg 92.4 kg General appearance: PRESENT: no acute distress, well-developed, well-nourished Head exam: PRESENT: atraumatic, normocephalic Eye exam: PRESENT: conjunctiva pink, EOMI, PERRLA. ABSENT: scleral icterus Ear exam: PRESENT: normal external ear exam Mouth exam: PRESENT: moist, tongue midline Neck exam: PRESENT: full ROM Respiratory exam: PRESENT: clear to auscultation evan Cardiovascular exam: PRESENT: RRR, +S1, +S2 Pulses: PRESENT: normal dorsalis pedis pul, +2 pedal pulses bilateral Vascular exam: PRESENT: normal capillary refill GI/Abdominal exam: PRESENT: normal bowel sounds, soft Rectal exam: PRESENT: deferred Neurological exam: PRESENT: alert. ABSENT: motor sensory deficit Psychiatric exam: PRESENT: appropriate affect, normal mood Skin exam: PRESENT: dry, intact, warm. ABSENT: cyanosis, rash Results Laboratory Results: 09/28/19 06:20 09/29/19 06:30 Impressions: Chest X-Ray 09/25/19 19:19 IMPRESSION: NO ACUTE RADIOGRAPHIC FINDING IN THE CHEST. Lumbar Spine MRI 10/01/19 00:00 IMPRESSION: Marked levoconvex scoliosis of the lumbar spine with associated multilevel degenerative change. No greater than moderate central canal stenosis, present at the L3-4 level. Moderate neural foraminal narrowing bilaterally at this level. copyright 2011 [employer]- All Rights Reserved Lower Extremity MRI 10/02/19 00:00 IMPRESSION: 1. Left knee lateral meniscus tear. 2. Left knee medial meniscus tear. 3. Chondral loss particularly in the left knee lateral compartment. 4. Other findings as above. 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 Is this a current diagnosis for this admission?: Yes (2) Other pancytopenia Is this a current diagnosis for this admission?: Yes (3) Urinary tract infection Qualifiers: Urinary tract infection type: site unspecified Hematuria presence: with hematuria Qualified Code(s): N39.0 - Urinary tract infection, site not specified; R31.9 - Hematuria, unspecified Is this a current diagnosis for this admission?: Yes (4) CLL (chronic lymphocytic leukemia) Is this a current diagnosis for this admission?: Yes (5) Shingles (herpes zoster) polyneuropathy Is this a current diagnosis for this admission?: Yes (6) Weakness of both lower extremities Is this a current diagnosis for this admission?: Yes (7) Scoliosis of lumbar spine Qualifiers: Scoliosis type: unspecified scoliosis Qualified Code(s): M41.9 - Scoliosis, unspecified Is this a current diagnosis for this admission?: Yes (8) Arthropathy of both knees Is this a current diagnosis for this admission?: Yes Plan: Consult orthopedic - Time Time Spent with patient: 25-34 minutes Level of Care: [facility]
[2019-10-05] MEDS: PRAMIPEXOLE DI-HCL 0.25 MG TABLET PO SCH (22:18)
[2019-10-05] MEDS: ATORVASTATIN CALCIUM 40 MG TABLET PO SCH (22:20)
[2019-10-05] MEDS: PHARMACY COMMUNICATION ORDER MC SCH (22:27)
[2019-10-06] MEDS: GABAPENTIN 300 MG CAPSULE PO SCH ×4 (00:03→18:18)
[2019-10-06] MEDS: HYDROMORPHONE HCL INJ/PF 2 MG/ML AMPULE IV PRN ×5 (00:17→19:50)
[2019-10-06] MEDS: OXYCODONE HCL IR 5 MG TABLET PO SCH ×6 (02:13→22:41)
[2019-10-06] MEDS: VALACYCLOVIR HCL 500 MG TABLET PO SCH ×3 (02:13→18:18)
[2019-10-06] MEDS: CAPSAICIN 0.025% CREAM 60 GM TP SCH ×3 (02:15→18:19)
[2019-10-06] MEDS: CYCLOBENZAPRINE HCL 10 MG TABLET PO SCH ×3 (05:40→22:43)
[2019-10-06] MEDS: LEVOTHYROXINE SODIUM 0.088 MG TABLET PO SCH (05:40)
[2019-10-06] MEDS: PANTOPRAZOLE SODIUM 40 MG TABLET.DR PO SCH (05:40)
[2019-10-06] MEDS: DOCUSATE SODIUM 100 MG CAPSULE PO SCH ×2 (10:29→18:18)
[2019-10-06] MEDS: ASPIRIN 81 MG TABLET, CHEWABLE PO SCH (10:29)
[2019-10-06] MEDS: MORPHINE SULFATE SR 15 MG TABLET PO SCH ×2 (10:29→22:42)
[2019-10-06] MEDS: METOPROLOL SUCCINATE 25 MG TAB.SR.24H PO SCH (10:29)
[2019-10-06] MEDS: MELOXICAM 7.5 MG TABLET PO SCH ×2 (10:29→22:41)
[2019-10-06] MEDS: SACUBITRIL/VALSARTAN 49 MG/51 MG TABLET PO SCH ×2 (10:29→18:18)
[2019-10-06] MEDS: ENOXAPARIN SODIUM INJ 40 MG/0.4 ML DISP.SYRIN SUBCUT SCH (10:30)
[2019-10-06] MEDS: LIDOCAINE 5% (700 MG) TRANSDERMAL ADH..PATCH TP SCH (10:30)
[2019-10-06] MEDS: POLYETHYLENE GLYCOL 3350 POWDER 17 GM/1 PACKET PO SCH (10:30)
--- NOTE | 2019-10-06 21:28 | PDOC PROGRESS REPORT ---
Subjective Progress Note for:: 10/06/19 Subjective:: Patient seen by the bedside, Dr. Dennis has not seen the patient yet regarding the severe arthropathy of both knees, she cannot bear weight she will need to have both knees replaced, she is already scheduled for hip replacement, she will need to be placed in a assisted home Reason For Visit: WEAKNESS, Physical Exam Vital Signs: Temp Pulse Resp BP Pulse Ox 98.5 F 92 17 118/73 99 10/06/19 16:06 10/06/19 19:00 10/06/19 16:06 10/06/19 16:06 10/06/19 16:06 Intake & Output 10/05/19 10/06/19 10/07/19 06:59 06:59 06:59 Intake Total 720 1275 480 Output Total 1650 450 300 Balance -930 825 180 Weight 92.4 kg 63.1 kg General appearance: PRESENT: no acute distress Eye exam: PRESENT: PERRLA Respiratory exam: PRESENT: clear to auscultation evan Cardiovascular exam: PRESENT: +S1, +S2 Neurological exam: PRESENT: alert Results Laboratory Results: 09/28/19 06:20 09/29/19 06:30 Impressions: Chest X-Ray 09/25/19 19:19 IMPRESSION: NO ACUTE RADIOGRAPHIC FINDING IN THE CHEST. Lumbar Spine MRI 10/01/19 00:00 IMPRESSION: Marked levoconvex scoliosis of the lumbar spine with associated multilevel degenerative change. No greater than moderate central canal stenosis, present at the L3-4 level. Moderate neural foraminal narrowing bilaterally at this level. copyright 2011 [email or web address]- All Rights Reserved Lower Extremity MRI 10/02/19 00:00 IMPRESSION: 1. Left knee lateral meniscus tear. 2. Left knee medial meniscus tear. 3. Chondral loss particularly in the left knee lateral compartment. 4. Other findings as above. 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 Is this a current diagnosis for this admission?: Yes (2) Other pancytopenia Is this a current diagnosis for this admission?: Yes (3) Urinary tract infection Qualifiers: Urinary tract infection type: site unspecified Hematuria presence: with hematuria Qualified Code(s): N39.0 - Urinary tract infection, site not specified; R31.9 - Hematuria, unspecified Is this a current diagnosis for this admission?: Yes (4) CLL (chronic lymphocytic leukemia) Is this a current diagnosis for this admission?: Yes (5) Shingles (herpes zoster) polyneuropathy Is this a current diagnosis for this admission?: Yes (6) Weakness of both lower extremities Is this a current diagnosis for this admission?: Yes (7) Scoliosis of lumbar spine Qualifiers: Scoliosis type: unspecified scoliosis Qualified Code(s): M41.9 - Scoliosis, unspecified Is this a current diagnosis for this admission?: Yes (8) Arthropathy of both knees Is this a current diagnosis for this admission?: Yes Plan: Consult orthopedic - Time Time Spent with patient: 15-24 minutes Level of Care: MEDICAL
[2019-10-06] MEDS: PRAMIPEXOLE DI-HCL 0.25 MG TABLET PO SCH (22:41)
[2019-10-06] MEDS: ATORVASTATIN CALCIUM 40 MG TABLET PO SCH (22:42)
[2019-10-06] MEDS: PHARMACY COMMUNICATION ORDER MC SCH (22:44)
[2019-10-07] MEDS: GABAPENTIN 300 MG CAPSULE PO SCH ×4 (00:36→18:07)
[2019-10-07] MEDS: VALACYCLOVIR HCL 500 MG TABLET PO SCH ×3 (01:36→18:06)
[2019-10-07] MEDS: OXYCODONE HCL IR 5 MG TABLET PO SCH ×6 (01:36→22:05)
[2019-10-07] MEDS: HYDROMORPHONE HCL INJ/PF 2 MG/ML AMPULE IV PRN ×5 (01:41→20:12)
[2019-10-07] MEDS: CAPSAICIN 0.025% CREAM 60 GM TP SCH ×3 (01:55→18:08)
[2019-10-07] MEDS: CYCLOBENZAPRINE HCL 10 MG TABLET PO SCH ×3 (05:56→22:08)
[2019-10-07] MEDS: LEVOTHYROXINE SODIUM 0.088 MG TABLET PO SCH (05:56)
[2019-10-07] MEDS: PANTOPRAZOLE SODIUM 40 MG TABLET.DR PO SCH (05:57)
[2019-10-07] MEDS: ASPIRIN 81 MG TABLET, CHEWABLE PO SCH (09:20)
[2019-10-07] MEDS: LIDOCAINE 5% (700 MG) TRANSDERMAL ADH..PATCH TP SCH (09:21)
[2019-10-07] MEDS: METOPROLOL SUCCINATE 25 MG TAB.SR.24H PO SCH (09:21)
[2019-10-07] MEDS: DOCUSATE SODIUM 100 MG CAPSULE PO SCH ×2 (09:21→18:07)
[2019-10-07] MEDS: MELOXICAM 7.5 MG TABLET PO SCH ×2 (09:22→22:06)
[2019-10-07] MEDS: SACUBITRIL/VALSARTAN 49 MG/51 MG TABLET PO SCH ×2 (09:22→18:07)
[2019-10-07] MEDS: POLYETHYLENE GLYCOL 3350 POWDER 17 GM/1 PACKET PO SCH (09:22)
[2019-10-07] MEDS: MORPHINE SULFATE SR 15 MG TABLET PO SCH ×2 (09:22→22:06)
[2019-10-07] MEDS: ENOXAPARIN SODIUM INJ 40 MG/0.4 ML DISP.SYRIN SUBCUT SCH (09:23)
--- NOTE | 2019-10-07 13:32 | RADIOLOGY REPORT (SQ) ---
EXAM DESCRIPTION: KNEE RIGHT 2 VIEWS IMAGES COMPLETED DATE/TIME: 10/07/2019 12:57 pm REASON FOR STUDY: knee pain COMPARISON: None. NUMBER OF VIEWS: Two views. TECHNIQUE: AP and lateral radiographic images acquired of the right knee. LIMITATIONS: None. FINDINGS: MINERALIZATION: Osteopenia. BONES: No acute fracture or dislocation. No worrisome bone lesions. No significant osteophytes. JOINT: Joint space narrowing in all compartments this is most marked in the medial compartment and pa tellofemoral compartment. OTHER: No other significant finding. IMPRESSION: Osteopenia and osteoarthritic changes as described. TECHNICAL DOCUMENTATION: JOB ID: [id number] 2010 [employer]- All Rights Reserved Reading location - IP/workstation name: [email or web address]
--- NOTE | 2019-10-07 13:32 | RADIOLOGY REPORT (SQ) ---
EXAM DESCRIPTION: KNEE LEFT 2 VIEWS IMAGES COMPLETED DATE/TIME: 10/07/2019 12:57 pm REASON FOR STUDY: knee pain COMPARISON: None. NUMBER OF VIEWS: Two views. TECHNIQUE: AP and lateral radiographic images acquired of the left knee. LIMITATIONS: None. FINDINGS: MINERALIZATION: Osteopenia. BONES: No acute fracture or dislocation. No worrisome bone lesions. No significant osteophytes. JOINT: Joint space narrowing in all compartments. OTHER: No other significant finding. IMPRESSION: Osteopenia and joint space narrowing in all compartments. TECHNICAL DOCUMENTATION: JOB ID: [id number] 2010 [employer]- All Rights Reserved Reading location - IP/workstation name: [email or web address]
--- NOTE | 2019-10-07 17:07 | PDOC PROGRESS REPORT ---
Subjective Progress Note for:: 10/07/19 Subjective:: I spoke to Dr. Dennis about the patient arthropathy Reason For Visit: WEAKNESS, Physical Exam Vital Signs: Temp Pulse Resp BP Pulse Ox 98.4 F 85 16 109/66 98 10/07/19 08:08 10/07/19 08:08 10/07/19 08:08 10/07/19 08:08 10/07/19 08:08 Intake & Output 10/06/19 10/07/19 10/08/19 06:59 06:59 06:59 Intake Total 1275 690 Output Total 450 650 Balance 825 40 Weight 63.1 kg 63.1 kg General appearance: PRESENT: no acute distress Eye exam: PRESENT: PERRLA Respiratory exam: PRESENT: clear to auscultation evan Cardiovascular exam: PRESENT: +S1, +S2 GI/Abdominal exam: PRESENT: soft Neurological exam: PRESENT: alert Results Laboratory Results: 09/28/19 06:20 09/29/19 06:30 Impressions: Chest X-Ray 09/25/19 19:19 IMPRESSION: NO ACUTE RADIOGRAPHIC FINDING IN THE CHEST. Lumbar Spine MRI 10/01/19 00:00 IMPRESSION: Marked levoconvex scoliosis of the lumbar spine with associated multilevel degenerative change. No greater than moderate central canal stenosis, present at the L3-4 level. Moderate neural foraminal narrowing bilaterally at this level. copyright 2011 [employer]- All Rights Reserved Lower Extremity MRI 10/02/19 00:00 IMPRESSION: 1. Left knee lateral meniscus tear. 2. Left knee medial meniscus tear. 3. Chondral loss particularly in the left knee lateral compartment. 4. Other findings as above. Knee X-Ray 10/07/19 00:00 IMPRESSION: Osteopenia and osteoarthritic changes as described. 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 Is this a current diagnosis for this admission?: Yes (2) Other pancytopenia Is this a current diagnosis for this admission?: Yes (3) Urinary tract infection Qualifiers: Urinary tract infection type: site unspecified Hematuria presence: with hematuria Qualified Code(s): N39.0 - Urinary tract infection, site not specified; R31.9 - Hematuria, unspecified Is this a current diagnosis for this admission?: Yes (4) CLL (chronic lymphocytic leukemia) Is this a current diagnosis for this admission?: Yes (5) Shingles (herpes zoster) polyneuropathy Is this a current diagnosis for this admission?: Yes (6) Weakness of both lower extremities Is this a current diagnosis for this admission?: Yes (7) Scoliosis of lumbar spine Qualifiers: Scoliosis type: unspecified scoliosis Qualified Code(s): M41.9 - Scoliosis, unspecified Is this a current diagnosis for this admission?: Yes (8) Arthropathy of both knees Is this a current diagnosis for this admission?: Yes - Time Time Spent with patient: 15-24 minutes Level of Care: MEDICAL
--- NOTE | 2019-10-07 18:31 | PDOC CONSULTATION ---
Consultation Consult Date: 10/07/19 Provider Consulted: ADRSHANA LEVINE JR History of Present Illness Admission Date/PCP: 09/25/19 19:37 KILLIAN JOHNSON MD History of Present Illness: Patient is a 69-year-old female who reports recent bilateral lower extremity weakness. Approximately 3 weeks ago she began to have sudden difficulty ambulating. She has been ambulating with a walker at baseline for some time however she reports that she was unable to stand as her knees just gave way. She has been unable to walk since that time. She denies pain as the cause for her inability to ambulate but reports that she simply "does not have her legs there". It took more questioning to understand what she meant by this but it seems that weakness is her primary problem. She does have a history of severe back problems including scoliosis and low back pain with radiating pain down the legs. She does not currently see anyone in regards to her low back. She denies saddle anesthesia or loss of urinary function at this time. Upon further questioning she does have a rash from shingles on her right flank. Past Medical History Cardiac Medical History: Reports: Myocardial Infarction - CARDIOTOXIC CHEMO Denies: Coronary Artery Disease, Hypertension - Past history Pulmonary Medical History: Reports: Bronchitis, Chronic Obstructive Pulmonary Disease (COPD), Pneumonia - Last time in April Denies: Asthma Neurological Medical History: Denies: Seizures Endocrine Medical History: Reports: Hyperthyroidism, Hypothyroidism Malignancy Medical History: Reports: Leukemia - CLL Musculoskeltal Medical History: Reports: Arthritis - all over, Other - Scoli osis, Lumbar Degenerative Disc Disease Psychiatric Medical History: Reports: Depression Hematology: Denies: Anemia Past Surgical History Past Surgical History: Reports: Appendectomy, Orthopedic Surgery - 13 foot surgeries neuromas rib removed , chest tube, Other - Recent port placement Social History Smoking Status: Never Smoker Electronic Cigarette use?: No Frequency of Alcohol Use: Rare Hx Recreational Drug Use: No Drugs: None Hx Prescription Drug Abuse: No Family History Family History: Reviewed & Not Pertinent Parental Family History Reviewed: No Children Family History Reviewed: NA Sibling(s) Family History Reviewed.: NA Medication/Allergy Home Medications: Cyclobenzaprine HCl [Flexeril 10 mg Tablet] 10 mg PO Q8 11/19/18 Gabapentin [Neurontin 300 mg Capsule] 300 mg PO Q8 11/19/18 Levothyroxine Sodium [Synthroid 0.088 mg Tablet] 0.088 mg PO Q6AM 11/19/18 Meloxicam [Mobic] 7.5 mg PO Q12 11/19/18 Oxycodone HCl/Acetaminophen [Endocet 10-325 mg Tablet] 1 tab PO Q6 11/19/18 Aspirin [Aspirin 81 mg Chewable Tablet] 81 mg PO DAILY 04/29/19 Atorvastatin Calcium [Lipitor 40 mg Tablet] 40 mg PO QHS 04/29/19 Metoprolol Succinate [Kapspargo Sprinkle] 25 mg PO DAILY 04/29/19 Allopurinol [Zyloprim 300 mg Tablet] 300 mg PO DAILY 09/26/19 Morphine Sulfate [Morphine Sulfate ER] 10 mg PO Q8 09/26/19 Pramipexole Di-HCl [Mirapex] 0.125 mg PO QHS 09/26/19 Sacubitril/Valsartan [Entresto 49 mg/51 mg Tablet] 1 tab PO Q12 09/26/19 Allergies/Adverse Reactions: codeine [Codeine] Adverse Reaction (Mild, Verified 03/23/19 10:54) lisinopril [Lisinopril] Adverse Reaction (Verified 03/23/19 10:54) Review of Systems Review of Systems: Constitutional: ABSENT: anorexia, chills, night sweats Cardiovascular: ABSENT: chest pain Respiratory: ABSENT: dyspnea Gastrointestinal: ABSENT: vomiting Genitourinary: ABSENT: dysuria Integumentary: Present: Rash Neurological: ABSENT: confusion, memory loss, numbness Psychiatric: ABSENT: hallucinations Hematologic/Lymphatic: ABSENT: easy bleeding All negative as above aside from that reported in the HPI Physical Exam Vital Signs: Temp Pulse Resp BP Pulse Ox 98.4 F 84 17 96/64 L 95 10/07/19 16:31 10/07/19 16:31 10/07/19 16:31 10/07/19 16:31 10/07/19 16:31 Intake & Output 10/06/19 10/07/19 10/08/19 06:59 06:59 06:59 Intake Total 1275 690 Output Total 450 650 Balance 825 40 Weight 63.1 kg 63.1 kg Physical Exam: General appearance: PRESENT: no acute distress, cooperative, well-nourished Head exam: PRESENT: atraumatic, normocephalic Eye exam: PRESENT: EOMI Ear exam: PRESENT: normal external ear exam Mouth exam: PRESENT: neck supple Neck exam: ABSENT: tracheal deviation Respiratory exam: PRESENT: symmetrical, unlabored. ABSENT: accessory muscle use, wheezes Pulses: PRESENT: normal radial pulses, normal dorsalis pedis pulse Vascular exam: PRESENT: normal capillary refill GI/Abdominal exam: ABSENT: distended, firm Extremities exam: PRESENT: full ROM of bilateral shoulders, elbows wrists, knees, hips and ankles without pain Musculoskeletal exam: PRESENT: full ROM, normal inspection of all 4 extremities aside from that noted below. Neurological exam: PRESENT: alert, awake, oriented to person, oriented to place, oriented to time Psychiatric exam: PRESENT: appropriate affect. ABSENT: agitated Focused psych exam: ABSENT: catatonic Skin exam: PRESENT: intact. ABSENT: dry All as above aside from that noted in the HPI and the following: Bilateral lower extremity EHL and TA function are 5 out of 5 bilaterally. She has grossly intact sensation to bilateral lower extremities in the L 4 5 S1 distribution. She does have positive bilateral straight right leg raise test. She has tenderness to palpation on the medial and lateral aspect of the knee however she has relatively pain-free range of motion of the knee from 0 to 100 degrees bilaterally. There is no overt swelling of the knee at this time, there is no erythema or signs of infection. Results Laboratory Results: 09/28/19 06:20 09/29/19 06:30 Impressions: Chest X-Ray 09/25/19 19:19 IMPRESSION: NO ACUTE RADIOGRAPHIC FINDING IN THE CHEST. Lumbar Spine MRI 10/01/19 00:00 IMPRESSION: Marked levoconvex scoliosis of the lumbar spine with associated multilevel degenerative change. No greater than moderate central canal stenosis, present at the L3-4 level. Moderate neural foraminal narrowing bilaterally at this level. copyright 2010 [employer]- All Rights Reserved Lower Extremity MRI 10/02/19 00:00 IMPRESSION: 1. Left knee lateral meniscus tear. 2. Left knee medial meniscus tear. 3. Chondral loss particularly in the left knee lateral compartment. 4. Other findings as above. Knee X-Ray 10/07/19 00:00 IMPRESSION: Osteopenia and osteoarthritic changes as described. Assessment & Plan - Diagnosis (1) Arthropathy of both knees Is this a current diagnosis for this admission?: Yes Plan: She does have severe [id number] arthritis of both knees. However at this time this is not causing her great pain and does not seem to be the reason that she suddenly was unable to continue ambulating at her baseline. May consider injections to knees if they become more bothersome in the future. Happy to see her in my office for further evaluation and treatment. [facility] physical therapy to get patient out of bed regularly. Encourage ambulation (2) Weakness of both lower extremities Is this a current diagnosis for this admission?: Yes Plan: At this point I am concerned her weakness may be coming from a neurologic compression from her severe lumbar spine disorder. We can proceed with MRI of the lumbar spine for further evaluation. I will review this with the patient tomorrow. Would still encourage physical therapy to ambulate with the patient and begin strengthening and stretching exercises to help the patient return to baseline. Lumbar spine disorders can wax and wane and hopefully the patient will return to her prior level of strength without major intervention. Depending on results of MRI may consider interventional radiology to provide a lumbar epidural spine injection.
[2019-10-07] MEDS: PRAMIPEXOLE DI-HCL 0.25 MG TABLET PO SCH (22:07)
[2019-10-07] MEDS: PHARMACY COMMUNICATION ORDER MC SCH (22:08)
[2019-10-07] MEDS: ATORVASTATIN CALCIUM 40 MG TABLET PO SCH (22:08)
[2019-10-08] MEDS: HYDROMORPHONE HCL INJ/PF 2 MG/ML AMPULE IV PRN ×6 (00:42→19:16)
[2019-10-08] MEDS: GABAPENTIN 300 MG CAPSULE PO SCH ×5 (00:43→23:19)
[2019-10-08] MEDS: OXYCODONE HCL IR 5 MG TABLET PO SCH ×6 (01:07→23:19)
[2019-10-08] MEDS: VALACYCLOVIR HCL 500 MG TABLET PO SCH ×3 (01:08→17:36)
[2019-10-08] MEDS: CAPSAICIN 0.025% CREAM 60 GM TP SCH ×3 (01:09→17:37)
[2019-10-08] MEDS: PANTOPRAZOLE SODIUM 40 MG TABLET.DR PO SCH (06:09)
[2019-10-08] MEDS: LEVOTHYROXINE SODIUM 0.088 MG TABLET PO SCH (06:09)
[2019-10-08] MEDS: CYCLOBENZAPRINE HCL 10 MG TABLET PO SCH ×3 (06:09→23:22)
--- NOTE | 2019-10-08 07:33 | PDOC PROGRESS REPORT ---
Subjective Progress Note for:: 10/08/19 Subjective:: Patient reports no changes overnight. She denies any current pain in her lower extremities. Reports continued weakness since her episode 2 to 3 weeks ago without considerable improvement. She denies any focal pain or focal source of weakness. She does not necessarily feel that this challenge has abruptly resulted from knee or hip problems specifically. Her symptoms are vague and nonspecific including lower extremity weakness as well as a history of recent ba ck pain. Of note, yesterday when speaking with the patient she denied having an MRI or back work-up for the last few years. I ordered an MRI however realized later in the day that she had just recently had an MRI. I have reviewed that this morning. Reason For Visit: WEAKNESS, Physical Exam Vital Signs: Temp Pulse Resp BP Pulse Ox 99.0 F 86 17 122/73 97 10/08/19 00:27 10/08/19 00:27 10/08/19 00:27 10/08/19 00:27 10/08/19 00:27 Intake & Output 10/07/19 10/08/19 10/09/19 06:59 06:59 06:59 Intake Total 690 630 Output Total 650 1601 Balance 40 -971 Weight 63.1 kg 63.1 kg Physical Exam: General appearance: PRESENT: no acute distress, cooperative, well-nourished Head exam: PRESENT: atraumatic, normocephalic Eye exam: PRESENT: EOMI Ear exam: PRESENT: normal external ear exam Mouth exam: PRESENT: neck supple Neck exam: ABSENT: tracheal deviation Respiratory exam: PRESENT: symmetrical, unlabored. ABSENT: accessory muscle use, wheezes Pulses: PRESENT: normal radial pulses, normal dorsalis pedis pulse Vascular exam: PRESENT: normal capillary refill GI/Abdominal exam: ABSENT: distended, firm Extremities exam: PRESENT: full ROM of bilateral shoulders, elbows wrists, knees, hips and ankles without pain Musculoskeletal exam: PRESENT: full ROM, normal inspection of all 4 extremities aside from that noted below. Neurological exam: PRESENT: alert, awake, oriented to person, oriented to place, oriented to time Psychiatric exam: PRESENT: appropriate affect. ABSENT: agitated Focused psych exam: ABSENT: catatonic Skin exam: PRESENT: intact. ABSENT: dry All as above aside from that noted in the HPI and the following: Patient is capable of active straight leg raise bilaterally however this requires increased effort and is barely able to do so. She does have 5 out of 5 EHL and TA function bilaterally as well as gastroc function. Bilateral lower extremities are and sensation intact L4-5 S1. Capillary refill less than 2 seconds. No change in knee exam, no signs of current severe pain in the with range of motion or palpation. Results Laboratory Results: 09/28/19 06:20 09/29/19 06:30 Impressions: Chest X-Ray 09/25/19 19:19 IMPRESSION: NO ACUTE RADIOGRAPHIC FINDING IN THE CHEST. Lumbar Spine MRI 10/01/19 00:00 IMPRESSION: Marked levoconvex scoliosis of the lumbar spine with associated multilevel degenerative change. No greater than moderate central canal stenosis, present at the L3-4 level. Moderate neural foraminal narrowing bilaterally at this level. copyright 2011 [employer]- All Rights Reserved Lower Extremity MRI 10/02/19 00:00 IMPRESSION: 1. Left knee lateral meniscus tear. 2. Left knee medial meniscus tear. 3. Chondral loss particularly in the left knee lateral compartment. 4. Other findings as above. Knee X-Ray 10/07/19 00:00 IMPRESSION: Osteopenia and osteoarthritic changes as described. Assessment & Plan - Diagnosis (1) Arthropathy of both knees Is this a current diagnosis for this admission?: Yes Plan: I do not believe that her knee arthritis which is chronic and has been present for years is the reason for her sudden weakness and inability to ambulate. She is not complaining of knee pain specifically at this time. If knee pain was a major factor I would consider steroid injections to see how much relief she got and if ambulation could return. -Encouraged continued activity with physical therapy, strengthening (2) Weakness of both lower extremities Is this a current diagnosis for this admission?: Yes Plan: -Given her failure to recollect her recent MRI and some of her vague reporting of history I am concerned that there may be other neurologic causes potentially present. -Acute bilateral lower extremity weakness to the degree of going from ambulating to not ambulating in a matter of 1 day and her failure to return to baseline over the course of the last 2 weeks may indicate either spinal pathology or [facility] neurologic pathology. -Current MRI reviewed does not show severe lumbar spinal stenosis, however moderate stenosis is present as well as foraminal stenosis at multiple levels. May consider EMG bilateral lower extremities for further evaluation. -Also consider neurologic evaluation for further work-up of potential central cause - Time Time Spent with patient: Less than 15 minutes
--- NOTE | 2019-10-08 10:11 | RADIOLOGY REPORT (SQ) ---
EXAM DESCRIPTION: MRI HEAD WITHOUT IMAGES COMPLETED DATE/TIME: 10/08/2019 9:49 am REASON FOR STUDY: suspect CVA COMPARISON: 01/24/2020 TECHNIQUE: Multiplanar imaging includes non-contrasted T1, T2, FLAIR, and Diffusion with ADC map seq uences. Images stored on PACS. LIMITATIONS: None. FINDINGS: ANATOMY: No anomalies. Normal vascular flow voids. Pituitary fossa normal. CSF SPACES: Normal in size and contour. No hemorrhage. CEREBRUM: A few high-signal intensity lesions scattered throughout the white matter on FLAIR imaging with distribution suggesting chronic micro-vascular ischemic change. Sulci and gyri normal in size a nd contour. No evidence of hemorrhage, mass or extraaxial fluid collection. POSTERIOR FOSSA: No signal alteration. No hemorrhage. No edema, masses or mass effect. Internal augustin tory canals, cerebello-pontine angles, mastoids normal. DIFFUSION: Negative for acute or sub-acute infarction. ORBITS: No masses. Globes normal. PARANASAL SINUSES: No fluid levels. Mucosa normal. OTHER: No other significant finding. IMPRESSION: MINIMAL MICROVASCULAR ISCHEMIC CHANGE. OTHERWISE NORMAL STUDY. EVIDENCE OF ACUTE STROKE: NO. TECHNICAL DOCUMENTATION: JOB ID: [id number] 2010 [employer]- All Rights Reserved Reading location - IP/workstation name: [email or web address]
[2019-10-08] MEDS: DOCUSATE SODIUM 100 MG CAPSULE PO SCH ×2 (10:55→17:31)
[2019-10-08] MEDS: ASPIRIN 81 MG TABLET, CHEWABLE PO SCH (10:55)
[2019-10-08] MEDS: MORPHINE SULFATE SR 15 MG TABLET PO SCH ×2 (10:55→23:20)
[2019-10-08] MEDS: METOPROLOL SUCCINATE 25 MG TAB.SR.24H PO SCH (10:56)
[2019-10-08] MEDS: ENOXAPARIN SODIUM INJ 40 MG/0.4 ML DISP.SYRIN SUBCUT SCH (10:57)
[2019-10-08] MEDS: POLYETHYLENE GLYCOL 3350 POWDER 17 GM/1 PACKET PO SCH (10:57)
[2019-10-08] MEDS: LIDOCAINE 5% (700 MG) TRANSDERMAL ADH..PATCH TP SCH (10:58)
[2019-10-08] MEDS: SACUBITRIL/VALSARTAN 49 MG/51 MG TABLET PO SCH ×2 (10:58→17:35)
[2019-10-08] MEDS: MELOXICAM 7.5 MG TABLET PO SCH ×2 (10:58→23:22)
--- NOTE | 2019-10-08 20:52 | PDOC PROGRESS REPORT ---
Subjective Progress Note for:: 10/08/19 Subjective:: Patient biggest challenge is weakness was he cannot bear weight, MRI of the brain negative there is cause is not clear she was seen by orthopedics, we plan to get [facility] and physical therapy Reason For Visit: WEAKNESS, Physical Exam Vital Signs: Temp Pulse Resp BP Pulse Ox 98.5 F 83 16 109/65 95 10/08/19 15:21 10/08/19 15:21 10/08/19 15:21 10/08/19 15:21 10/08/19 15:21 Intake & Output 10/07/19 10/08/19 10/09/19 06:59 06:59 06:59 Intake Total 690 630 600 Output Total 650 1601 900 Balance 40 -971 -300 Weight 63.1 kg 63.1 kg General appearance: PRESENT: no acute distress Eye exam: PRESENT: PERRLA Respiratory exam: PRESENT: clear to auscultation evan Cardiovascular exam: PRESENT: +S1, +S2 Neurological exam: PRESENT: alert Results Laboratory Results: 09/28/19 06:20 09/29/19 06:30 Impressions: Chest X-Ray 09/25/19 19:19 IMPRESSION: NO ACUTE RADIOGRAPHIC FINDING IN THE CHEST. Lumbar Spine MRI 10/01/19 00:00 IMPRESSION: Marked levoconvex scoliosis of the lumbar spine with associated multilevel degenerative change. No greater than moderate central canal stenosis, present at the L3-4 level. Moderate neural foraminal narrowing bilaterally at this level. copyright 2010 [employer]- All Rights Reserved Lower Extremity MRI 10/02/19 00:00 IMPRESSION: 1. Left knee lateral meniscus tear. 2. Left knee medial meniscus tear. 3. Chondral loss particularly in the left knee lateral compartment. 4. Other findings as above. Knee X-Ray 10/07/19 00:00 IMPRESSION: Osteopenia and osteoarthritic changes as described. Head MRI 10/08/19 00:00 IMPRESSION: MINIMAL MICROVASCULAR ISCHEMIC CHANGE. OTHERWISE NORMAL STUDY. EVIDENCE OF ACUTE STROKE: NO. 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 Is this a current diagnosis for this admission?: Yes (2) Other pancytopenia Is this a current diagnosis for this admission?: Yes (3) Urinary tract infection Qualifiers: Urinary tract infection type: site unspecified Hematuria presence: with hematuria Qualified Code(s): N39.0 - Urinary tract infection, site not specified; R31.9 - Hematuria, unspecified Is this a current diagnosis for this admission?: Yes (4) CLL (chronic lymphocytic leukemia) Is this a current diagnosis for this admission?: Yes (5) Shingles (herpes zoster) polyneuropathy Is this a current diagnosis for this admission?: Yes (6) Weakness of both lower extremities Is this a current diagnosis for this admission?: Yes (7) Scoliosis of lumbar spine Qualifiers: Scoliosis type: unspecified scoliosis Qualified Code(s): M41.9 - Scoliosis, unspecified Is this a current diagnosis for this admission?: Yes (8) Arthropathy of both knees Is this a current diagnosis for this admission?: Yes - Time Time Spent with patient: 25-34 minutes Level of Care: CU
[2019-10-08] MEDS: PRAMIPEXOLE DI-HCL 0.25 MG TABLET PO SCH (23:20)
[2019-10-08] MEDS: ATORVASTATIN CALCIUM 40 MG TABLET PO SCH (23:22)
[2019-10-08] MEDS: PHARMACY COMMUNICATION ORDER MC SCH (23:23)
[2019-10-09] MEDS: HYDROMORPHONE HCL INJ/PF 2 MG/ML AMPULE IV PRN ×4 (01:15→23:19)
[2019-10-09] MEDS: OXYCODONE HCL IR 5 MG TABLET PO SCH ×6 (04:37→22:35)
[2019-10-09] MEDS: VALACYCLOVIR HCL 500 MG TABLET PO SCH ×3 (04:37→17:57)
[2019-10-09] MEDS: CAPSAICIN 0.025% CREAM 60 GM TP SCH ×3 (04:39→17:58)
[2019-10-09] MEDS: GABAPENTIN 300 MG CAPSULE PO SCH ×4 (07:00→23:20)
[2019-10-09] MEDS: PANTOPRAZOLE SODIUM 40 MG TABLET.DR PO SCH (07:01)
[2019-10-09] MEDS: LEVOTHYROXINE SODIUM 0.088 MG TABLET PO SCH (07:03)
[2019-10-09] MEDS: CYCLOBENZAPRINE HCL 10 MG TABLET PO SCH ×3 (07:03→22:36)
[2019-10-09] MEDS: METOPROLOL SUCCINATE 25 MG TAB.SR.24H PO SCH (10:54)
[2019-10-09] MEDS: MORPHINE SULFATE SR 15 MG TABLET PO SCH (10:54)
[2019-10-09] MEDS: ASPIRIN 81 MG TABLET, CHEWABLE PO SCH (10:54)
[2019-10-09] MEDS: ENOXAPARIN SODIUM INJ 40 MG/0.4 ML DISP.SYRIN SUBCUT SCH (10:54)
[2019-10-09] MEDS: POLYETHYLENE GLYCOL 3350 POWDER 17 GM/1 PACKET PO SCH (10:55)
[2019-10-09] MEDS: LIDOCAINE 5% (700 MG) TRANSDERMAL ADH..PATCH TP SCH (10:55)
[2019-10-09] MEDS: SACUBITRIL/VALSARTAN 49 MG/51 MG TABLET PO SCH ×2 (10:55→17:57)
[2019-10-09] MEDS: MELOXICAM 7.5 MG TABLET PO SCH ×2 (10:55→22:36)
[2019-10-09] MEDS: DOCUSATE SODIUM 100 MG CAPSULE PO SCH ×2 (10:59→17:31)
--- NOTE | 2019-10-09 17:13 | PDOC PROGRESS REPORT ---
Subjective Progress Note for:: 10/09/19 Subjective:: Patient biggest challenge is weakness ,she cannot bear weight, MRI of the brain negative ,the cause of the weakness is not clear she was seen by orthopedics, we plan to get patient to a intermediate for rehabilitation and physical therapy Reason For Visit: WEAKNESS, Physical Exam Vital Signs: Temp Pulse Resp BP Pulse Ox 98.5 F 92 20 129/71 H 98 10/09/19 11:04 10/09/19 11:04 10/09/19 11:04 10/09/19 11:04 10/09/19 11:04 Intake & Output 10/08/19 10/09/19 10/10/19 06:59 06:59 06:59 Intake Total 630 1350 240 Output Total 1601 2500 Balance -971 -1150 240 Weight 63.1 kg 55.4 kg General appearance: PRESENT: no acute distress Eye exam: PRESENT: PERRLA Respiratory exam: PRESENT: clear to auscultation evan Cardiovascular exam: PRESENT: +S1, +S2 GI/Abdominal exam: PRESENT: soft Results Laboratory Results: 09/28/19 06:20 09/29/19 06:30 Impressions: Chest X-Ray 09/25/19 19:19 IMPRESSION: NO ACUTE RADIOGRAPHIC FINDING IN THE CHEST. Lumbar Spine MRI 10/01/19 00:00 IMPRESSION: Marked levoconvex scoliosis of the lumbar spine with associated multilevel degenerative change. No greater than moderate central canal stenosis, present at the L3-4 level. Moderate neural foraminal narrowing bilaterally at this level. copyright 2010 [employer]- All Rights Reserved Lower Extremity MRI 10/02/19 00:00 IMPRESSION: 1. Left knee lateral meniscus tear. 2. Left knee medial meniscus tear. 3. Chondral loss particularly in the left knee lateral compartment. 4. Other findings as above. Knee X-Ray 10/07/19 00:00 IMPRESSION: Osteopenia and osteoarthritic changes as described. Head MRI 10/08/19 00:00 IMPRESSION: MINIMAL MICROVASCULAR ISCHEMIC CHANGE. OTHERWISE NORMAL STUDY. EVIDENCE OF ACUTE STROKE: NO. 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 Is this a current diagnosis for this admission?: Yes (2) Other pancytopenia Is this a current diagnosis for this admission?: Yes (3) Urinary tract infection Qualifiers: Urinary tract infection type: site unspecified Hematuria presence: with hematuria Qualified Code(s): N39.0 - Urinary tract infection, site not specified; R31.9 - Hematuria, unspecified Is this a current diagnosis for this admission?: Yes (4) CLL (chronic lymphocytic leukemia) Is this a current diagnosis for this admission?: Yes (5) Shingles (herpes zoster) polyneuropathy Is this a current diagnosis for this admission?: Yes (6) Weakness of both lower extremities Is this a current diagnosis for this admission?: Yes (7) Scoliosis of lumbar spine Qualifiers: Scoliosis type: unspecified scoliosis Qualified Code(s): M41.9 - Scoliosis, unspecified Is this a current diagnosis for this admission?: Yes (8) Arthropathy of both knees Is this a current diagnosis for this admission?: Yes - Time Time Spent with patient: 15-24 minutes Level of Care: I[facility]U Medications reviewed and adjusted accordingly: Yes
[2019-10-09] MEDS: PRAMIPEXOLE DI-HCL 0.25 MG TABLET PO SCH (22:34)
[2019-10-09] MEDS: ATORVASTATIN CALCIUM 40 MG TABLET PO SCH (22:35)
[2019-10-09] MEDS: PHARMACY COMMUNICATION ORDER MC SCH (22:45)
[2019-10-10] MEDS: VALACYCLOVIR HCL 500 MG TABLET PO SCH ×3 (03:48→18:11)
[2019-10-10] MEDS: OXYCODONE HCL IR 5 MG TABLET PO SCH ×6 (03:49→21:23)
[2019-10-10] MEDS: CAPSAICIN 0.025% CREAM 60 GM TP SCH ×3 (03:50→18:14)
[2019-10-10] MEDS: GABAPENTIN 300 MG CAPSULE PO SCH ×4 (06:44→23:31)
[2019-10-10] MEDS: HYDROMORPHONE HCL INJ/PF 2 MG/ML AMPULE IV PRN ×4 (06:44→22:04)
[2019-10-10] MEDS: PANTOPRAZOLE SODIUM 40 MG TABLET.DR PO SCH (06:47)
[2019-10-10] MEDS: LEVOTHYROXINE SODIUM 0.088 MG TABLET PO SCH (06:48)
[2019-10-10] MEDS: CYCLOBENZAPRINE HCL 10 MG TABLET PO SCH ×3 (06:51→21:23)
[2019-10-10] MEDS: DOCUSATE SODIUM 100 MG CAPSULE PO SCH ×2 (10:19→18:14)
[2019-10-10] MEDS: POLYETHYLENE GLYCOL 3350 POWDER 17 GM/1 PACKET PO SCH (10:21)
[2019-10-10] MEDS: ENOXAPARIN SODIUM INJ 40 MG/0.4 ML DISP.SYRIN SUBCUT SCH (10:22)
[2019-10-10] MEDS: LIDOCAINE 5% (700 MG) TRANSDERMAL ADH..PATCH TP SCH (10:26)
[2019-10-10] MEDS: MELOXICAM 7.5 MG TABLET PO SCH ×2 (10:27→21:23)
[2019-10-10] MEDS: METOPROLOL SUCCINATE 25 MG TAB.SR.24H PO SCH (10:27)
[2019-10-10] MEDS: ASPIRIN 81 MG TABLET, CHEWABLE PO SCH (10:28)
[2019-10-10] MEDS: SACUBITRIL/VALSARTAN 49 MG/51 MG TABLET PO SCH ×2 (10:28→18:11)
--- NOTE | 2019-10-10 17:09 | PDOC PROGRESS REPORT ---
Subjective Progress Note for:: 10/10/19 Subjective:: Patient biggest challenge is weakness ,she cannot bear weight, MRI of the brain negative ,the cause of the weakness is not clear she was seen by orthopedics, we plan to get patient to a [facility] for rehabilitation and physical therapy Reason For Visit: WEAKNESS, Physical Exam Vital Signs: Temp Pulse Resp BP Pulse Ox 98.5 F 83 17 119/74 97 10/10/19 16:54 10/10/19 16:54 10/10/19 16:54 10/10/19 16:54 10/10/19 16:54 Intake & Output 10/09/19 10/10/19 10/11/19 06:59 06:59 06:59 Intake Total 1350 480 240 Output Total 2500 1300 700 Balance -1150 -820 -460 Weight 55.4 kg 56.4 kg General appearance: PRESENT: no acute distress Eye exam: PRESENT: PERRLA Respiratory exam: PRESENT: clear to auscultation evan Cardiovascular exam: PRESENT: +S1, +S2 GI/Abdominal exam: PRESENT: soft Neurological exam: PRESENT: alert Results Laboratory Results: 09/28/19 06:20 09/29/19 06:30 Impressions: Chest X-Ray 09/25/19 19:19 IMPRESSION: NO ACUTE RADIOGRAPHIC FINDING IN THE CHEST. Lumbar Spine MRI 10/01/19 00:00 IMPRESSION: Marked levoconvex scoliosis of the lumbar spine with associated multilevel degenerative change. No greater than moderate central canal stenosis, present at the L3-4 level. Moderate neural foraminal narrowing bilaterally at this level. copyright 2011 [employer]- All Rights Reserved Lower Extremity MRI 10/02/19 00:00 IMPRESSION: 1. Left knee lateral meniscus tear. 2. Left knee medial meniscus tear. 3. Chondral loss particularly in the left knee lateral compartment. 4. Other findings as above. Knee X-Ray 10/07/19 00:00 IMPRESSION: Osteopenia and osteoarthritic changes as described. Head MRI 10/08/19 00:00 IMPRESSION: MINIMAL MICROVASCULAR ISCHEMIC CHANGE. OTHERWISE NORMAL STUDY. EVIDENCE OF ACUTE STROKE: NO. 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 Is this a current diagnosis for this admission?: Yes (2) Other pancytopenia Is this a current diagnosis for this admission?: Yes (3) Urinary tract infection Qualifiers: Urinary tract infection type: site unspecified Hematuria presence: with hematuria Qualified Code(s): N39.0 - Urinary tract infection, site not specified; R31.9 - Hematuria, unspecified Is this a current diagnosis for this admission?: Yes (4) CLL (chronic lymphocytic leukemia) Is this a current diagnosis for this admission?: Yes (5) Shingles (herpes zoster) polyneuropathy Is this a current diagnosis for this admission?: Yes (6) Weakness of both lower extremities Is this a current diagnosis for this admission?: Yes (7) Scoliosis of lumbar spine Qualifiers: Scoliosis type: unspecified scoliosis Qualified Code(s): M41.9 - Scoliosis, unspecified Is this a current diagnosis for this admission?: Yes (8) Arthropathy of both knees Is this a current diagnosis for this admission?: Yes - Time Time Spent with patient: Less than 15 minutes Level of Care: CU
[2019-10-10] MEDS: PRAMIPEXOLE DI-HCL 0.25 MG TABLET PO SCH (21:23)
[2019-10-10] MEDS: ATORVASTATIN CALCIUM 40 MG TABLET PO SCH (21:23)
[2019-10-10] MEDS: PHARMACY COMMUNICATION ORDER MC SCH (21:24)
[2019-10-11] MEDS: VALACYCLOVIR HCL 500 MG TABLET PO SCH ×3 (01:29→17:24)
[2019-10-11] MEDS: OXYCODONE HCL IR 5 MG TABLET PO SCH ×6 (01:29→21:29)
[2019-10-11] MEDS: HYDROMORPHONE HCL INJ/PF 2 MG/ML AMPULE IV PRN ×5 (01:38→20:34)
[2019-10-11] MEDS ORDERED: CAPSAICIN 0.025% CREAM 60 GM ONE (02:09)
[2019-10-11] MEDS: LEVOTHYROXINE SODIUM 0.088 MG TABLET PO SCH (06:03)
[2019-10-11] MEDS: PANTOPRAZOLE SODIUM 40 MG TABLET.DR PO SCH (06:04)
[2019-10-11] MEDS: GABAPENTIN 300 MG CAPSULE PO SCH ×3 (06:04→17:22)
[2019-10-11] MEDS: CAPSAICIN 0.025% CREAM 60 GM TP SCH ×3 (06:05→17:24)
[2019-10-11] MEDS: CYCLOBENZAPRINE HCL 10 MG TABLET PO SCH ×3 (06:06→21:29)
[2019-10-11] MEDS: DOCUSATE SODIUM 100 MG CAPSULE PO SCH ×2 (09:33→17:12)
[2019-10-11] MEDS: ENOXAPARIN SODIUM INJ 40 MG/0.4 ML DISP.SYRIN SUBCUT SCH (09:34)
[2019-10-11] MEDS: POLYETHYLENE GLYCOL 3350 POWDER 17 GM/1 PACKET PO SCH (09:34)
[2019-10-11] MEDS: ASPIRIN 81 MG TABLET, CHEWABLE PO SCH (09:45)
[2019-10-11] MEDS: METOPROLOL SUCCINATE 25 MG TAB.SR.24H PO SCH (09:45)
[2019-10-11] MEDS: LIDOCAINE 5% (700 MG) TRANSDERMAL ADH..PATCH TP SCH (09:46)
[2019-10-11] MEDS: MELOXICAM 7.5 MG TABLET PO SCH ×2 (09:46→21:28)
[2019-10-11] MEDS: SACUBITRIL/VALSARTAN 49 MG/51 MG TABLET PO SCH ×2 (09:46→17:24)
--- NOTE | 2019-10-11 15:59 | PDOC TRANSFER SUMMARY ---
Impression - Admit/DC Date/PCP Admission Date/Primary Care Provider: 09/25/19 19:37 KILLIAN JOHNSON MD Discharge Date: 10/12/19 - Discharge Diagnosis (1) Chronic systolic (congestive) heart failure Is this a current diagnosis for this admission?: Yes (2) Cardiomyopathy due to chemotherapy Is this a current diagnosis for this admission?: Yes (3) Other pancytopenia Is this a current diagnosis for this admission?: Yes (4) Urinary tract infection Is this a current diagnosis for this admission?: Yes (5) CLL (chronic lymphocytic leukemia) Is this a current diagnosis for this admission?: Yes (6) Shingles (herpes zoster) polyneuropathy Is this a current diagnosis for this admission?: Yes (7) Weakness of both lower extremities Is this a current diagnosis for this admission?: Yes (8) Scoliosis of lumbar spine Is this a current diagnosis for this admission?: Yes (9) Arthropathy of both knees Is this a current diagnosis for this admission?: Yes (10) Hypothyroidism Is this a current diagnosis for this admission?: Yes - Additional Information Discharge Diet: Cardiac Discharge Activity: Activity As Tolerated, Balance Activity w/Rest, Slowly Increase Activity, No tub bath, Walk Frequently Referrals: [facility] [Outside] MATTY CONRAD MD [ACTIVE STAFF] - (in 2-3 months. Please call office for exact amanda and time. Dr. Conrad to arrange) Home Medications: Cyclobenzaprine HCl [Flexeril 10 mg Tablet] 10 mg PO Q8 11/19/18 Levothyroxine Sodium [Synthroid 0.088 mg Tablet] 0.088 mg PO Q6AM 11/19/18 Oxycodone HCl/Acetaminophen [Endocet 10-325 mg Tablet] 1 tab PO Q6 11/19/18 Aspirin [Aspirin 81 mg Chewable Tablet] 81 mg PO DAILY 04/29/19 Metoprolol Succinate [Kapspargo Sprinkle] 25 mg PO DAILY 04/29/19 Allopurinol [Zyloprim 300 mg Tablet] 300 mg PO DAILY 09/26/19 Morphine Sulfate [Morphine Sulfate ER] 10 mg PO Q8 09/26/19 Pramipexole Di-HCl [Mirapex] 0.125 mg PO QHS 09/26/19 Sacubitril/Valsartan [Entresto 49 mg/51 mg Tablet] 1 tab PO Q12 09/26/19 Capsaicin [Zostrix 0.025% Cream 60 gm] 1 applic TP Q8A tube 10/11/19 Docusate Sodium [Colace 100 mg Capsule] 100 mg PO BID capsule 10/11/19 Gabapentin [Neurontin 300 mg Capsule] 600 mg PO Q6 capsule 10/11/19 Lidocaine [Lidoderm 5% (700 mg) Transdermal Patch] 2 patch TP DAILY adh..patch 10/11/19 Meloxicam [Mobic] 7.5 mg PO DAILY #0 10/11/19 Oxycodone HCl [Oxy-Ir 5 mg Tablet] 10 mg PO Q4 tablet 10/11/19 Pantoprazole Sodium [Protonix [address] Tablet] 40 mg PO Q6AM tablet. 10/11/19 History of Present Illiness History of Present Illness: Patient came to the emergency room for evaluation of weakness of the lower extremities, she has underlining chronic systolic heart failure, arthropathy of both knees, severe scoliosis she also have severe herpes zoster infection with dermatome distribution affecting the right lumbar area Hospital Course Hospital Course: Patient was admitted for the management of urinary tract infection, shingles infection, weakness of the lower extremities, chronic systolic heart failure. At presentation it was initially felt that patient could not bear weight on her knees, MRI of both knees was obtained that demonstrated severe arthropathy with loss of articular cartilage and tear of the collateral ligaments, during the course of hospital stay it became apparent that her symptomatology was not specifically the lack of ability to bear weight but it was mostly weakness of the lower extremities, MRI of the LS spine was obtained it demonstrated scoliosis with arthropathy of the spine but not to the extent to explain the weakness the cause of the weakness is not clear.She was taken off atorvastatin therapy polyneuropathy could also be a potential cause. She has very severe herpes zoster with widespread dermatome distribution with extensive area of skin excoriation denudation of the skin with associated pain. She was supposed to undergo hip replacement therapy but because of the weakness of the lower extremities orthopedic does not think it is presently appropriate to proceed with the procedure. She will be transferred to a [facility] for physical therapy for muscle strengthening hopefully improve the muscle strength to the extent that she can support ambulation. MRI of the brain did not demonstrate any stroke She received IV antibiotic for UTI pain control with Dilaudid and oxycodone she was seen consultation by cardiology, oncology, orthopedic, she has cardiomyopathy secondary to chemotherapy, she has a history of CLL presently in remission Physical Exam Vital Signs: Temp Pulse Resp BP Pulse Ox 98.7 F 92 16 128/68 H 99 10/11/19 11:41 10/11/19 11:41 10/11/19 11:41 10/11/19 11:41 10/11/19 11:41 Intake & Output 10/10/19 10/11/19 10/12/19 06:59 06:59 06:59 Intake Total 480 720 2 Output Total 1300 2400 1100 Balance -820 -4600 -1098 Weight 56.4 kg 56.4 kg General appearance: PRESENT: no acute distress Eye exam: PRESENT: PERRLA Respiratory exam: PRESENT: clear to auscultation evan Cardiovascular exam: PRESENT: +S1 Neurological exam: PRESENT: alert Results Laboratory Results: WBC 3.7 10^3/uL (4.0-10.5) L 09/28/19 06:20 RBC 4.36 10^6/uL (3.72-5.28) 09/28/19 06:20 Hgb 11.4 g/dL (12.0-15.5) L 09/28/19 06:20 Hct 33.6 % (36.0-47.0) L 09/28/19 06:20 MCV 77 fl (80-97) L 09/28/19 06:20 MCH 26.1 pg (27.0-33.4) L 09/28/19 06:20 MCHC 33.9 g/dL (32.0-36.0) 09/28/19 06:20 RDW 14.9 % (11.5-14.0) H 09/28/19 06:20 Plt Count 157 10^3/uL (150-450) 09/28/19 06:20 Lymph % (Auto) 15.2 % (13-45) 09/28/19 06:20 [place] % (Auto) 12.3 % (3-13) 09/28/19 06:20 Eos % (Auto) 3.0 % (0-6) 09/28/19 06:20 Baso % (Auto) 0.5 % (0-2) 09/28/19 06:20 Absolute Neuts (auto) 2.6 10^3/uL (1.7-8.2) 09/28/19 06:20 Absolute Lymphs (auto) 0.6 10^3/uL (0.5-4.7) 09/28/19 06:20 Absolute Monos (auto) 0.5 10^3/uL (0.1-1.4) 09/28/19 06:20 Absolute Eos (auto) 0.1 10^3/uL (0.0-0.6) 09/28/19 06:20 Absolute Basos (auto) 0.0 10^3/uL (0.0-0.2) 09/28/19 06:20 Seg Neutrophils % 69.0 % (42-78) 09/28/19 06:20 PT 13.7 SEC (11.4-15.4) 09/25/19 13:01 INR 1.05 09/25/19 13:01 VBG pH 7.34 (7.30-7.42) 09/25/19 13:01 VBG pCO2 44.5 mmHg (35-63) 09/25/19 13:01 VBG HCO3 23.6 mmol/L (20-32) 09/25/19 13:01 VBG Base Excess -2.2 mmol/L 09/25/19 13:01 Sodium 136.4 mmol/L (137-145) L 09/29/19 06:30 Potassium 3.9 mmol/L (3.6-5.0) 09/29/19 06:30 Chloride 102 mmol/L (98-107) 09/29/19 06:30 Carbon Dioxide 27 mmol/L (22-30) 09/29/19 06:30 Anion Gap 7 (5-19) 09/29/19 06:30 BUN 16 mg/dL (7-20) 09/29/19 06:30 Creatinine 0.44 mg/dL (0.52-1.25) L 09/29/19 06:30 Est GFR ( Amer) > 60 (>60) 09/29/19 06:30 Est GFR (MDRD) Non-Af > 60 (>60) 09/29/19 06:30 Glucose 118 mg/dL (75-110) H 09/29/19 06:30 Lactic Acid < 0.5 mmol/L (0.7-2.1) L 09/25/19 19:51 Calcium 8.8 mg/dL (8.4-10.2) 09/29/19 06:30 Magnesium 2.0 mg/dL (1.6-2.3) 09/28/19 06:20 Total Bilirubin 0.4 mg/dL (0.2-1.3) 09/25/19 13:01 Direct Bilirubin 0.0 mg/dL (0.0-0.4) 09/25/19 13:01 Neonat Total Bilirubin Not Reportable 09/25/19 13:01 Neonat Direct Bilirubin Not Reportable 09/25/19 13:01 Neonat Indirect Bili Not Reportable 09/25/19 13:01 AST 32 U/L (14-36) 09/25/19 13:01 ALT 20 U/L (<35) 09/25/19 13:01 Alkaline Phosphatase 54 U/L (38-126) 09/25/19 13:01 Total Protein 6.0 g/dL (6.3-8.2) L 09/25/19 13:01 Albumin 3.9 g/dL (3.5-5.0) 09/25/19 13:01 Urine Color MAYELA 09/25/19 18: Urine Appearance SLIGHTLY-CLOUDY 09/25/19 18:19 Urine pH 5.0 (5.0-9.0) 09/25/19 18:19 Ur Specific [place] 1.030 09/25/19 18:19 Urine Protein 100 mg/dL (NEGATIVE) H 09/25/19 18:19 Urine Glucose (UA) NEGATIVE mg/dL (NEGATIVE) 09/25/19 18:19 Urine Ketones 20 mg/dL (NEGATIVE) H 09/25/19 18:19 Urine Blood MODERATE (NEGATIVE) H 09/25/19 18:19 Urine Nitrite (Reflex) POSITIVE (NEGATIVE) H 09/25/19 18: Urine Bilirubin NEGATIVE (NEGATIVE) 09/25/19 18:19 Urine Urobilinogen 4.0 mg/dL (<2.0) H 09/25/19 18:19 Leukocyte Esterase Rfl MODERATE (NEGATIVE) H 09/25/19 18:19 Urine RBC (Auto) 46 /HPF 09/25/19 18:19 U Hyaline Cast (Auto) 2 /LPF 09/25/19 18:19 Urine Bacteria (Auto) 3+ /HPF 09/25/19 18:19 Urine WBC (Reflex) > 182 /HPF 09/25/19 18:19 Urine WBC Clumps MOD /HPF 09/25/19 18:19 Squamous Epi Cells Auto 3 /HPF 09/25/19 18:19 U Non-Squamous Epis Auto 2 /HPF 09/25/19 18:19 Urine Mucus (Auto) MANY /LPF 09/25/19 18:19 Urine Ascorbic Acid 40 (NEGATIVE) H 09/25/19 18:19 COVID-19 Source NASOPHARYNGEAL 10/05/19 13:10 COVID-19 (JAYDEN) NOT DETECTED 10/05/19 13:10 Impressions: Chest X-Ray 09/25/19 19:19 IMPRESSION: NO ACUTE RADIOGRAPHIC FINDING IN THE CHEST. Lumbar Spine MRI 10/01/19 00:00 IMPRESSION: Marked levoconvex scoliosis of the lumbar spine with associated multilevel degenerative change. No greater than moderate central canal stenosis, present at the L3-4 level. Moderate neural foraminal narrowing bilaterally at this level. copyright 2011 [employer]- All Rights Reserved Lower Extremity MRI 10/02/19 00:00 IMPRESSION: 1. Right knee medial meniscus tear. 2. Right knee medial compartment chondral loss and chondromalacia patella. 3. Other findings as above. Lower Extremity MRI 10/02/19 00:00 IMPRESSION: 1. Left knee lateral meniscus tear. 2. Left knee medial meniscus tear. 3. Chondral loss particularly in the left knee lateral compartment. 4. Other findings as above. Knee X-Ray 10/07/19 00:00 IMPRESSION: Osteopenia and joint space narrowing in all compartments. Knee X-Ray 10/07/19 00:00 IMPRESSION: Osteopenia and osteoarthritic changes as described. Head MRI 10/08/19 00:00 IMPRESSION: MINIMAL MICROVASCULAR ISCHEMIC CHANGE. OTHERWISE NORMAL STUDY. EVIDENCE OF ACUTE STROKE: NO. Stroke Is this a Stroke Patient?: No Acute Heart Failure - Is this a Heart Failure Patient?: No
--- NOTE | 2019-10-11 16:00 | PDOC PROGRESS REPORT ---
Subjective Progress Note for:: 10/11/19 Subjective:: Patient biggest challenge is weakness ,she cannot bear weight, MRI of the brain negative ,the cause of the weakness is not clear she was seen by orthopedics, we plan to get patient to a [place] [facility] facility for rehabilitation and physical therapy Reason For Visit: WEAKNESS, Physical Exam Vital Signs: Temp Pulse Resp BP Pulse Ox 98.7 F 92 16 128/68 H 99 10/11/19 11:41 10/11/19 11:41 10/11/19 11:41 10/11/19 11:41 10/11/19 11:41 Intake & Output 10/10/19 10/11/19 10/12/19 06:59 06:59 06:59 Intake Total 480 720 2 Output Total 1300 2400 1100 Balance -820 -1680 -1098 Weight 56.4 kg 56.4 kg General appearance: PRESENT: no acute distress Eye exam: PRESENT: PERRLA Respiratory exam: PRESENT: clear to auscultation evan Cardiovascular exam: PRESENT: +S1, +S2 GI/Abdominal exam: PRESENT: soft Neurological exam: PRESENT: alert Results Laboratory Results: 09/28/19 06:20 09/29/19 06:30 Impressions: Chest X-Ray 09/25/19 19:19 IMPRESSION: NO ACUTE RADIOGRAPHIC FINDING IN THE CHEST. Lumbar Spine MRI 10/01/19 00:00 IMPRESSION: Marked levoconvex scoliosis of the lumbar spine with associated multilevel degenerative change. No greater than moderate central canal stenosis, present at the L3-4 level. Moderate neural foraminal narrowing bilaterally at this level. copyright 2011 [employer]- All Rights Reserved Lower Extremity MRI 10/02/19 00:00 IMPRESSION: 1. Left knee lateral meniscus tear. 2. Left knee medial meniscus tear. 3. Chondral loss particularly in the left knee lateral compartment. 4. Other findings as above. Knee X-Ray 10/07/19 00:00 IMPRESSION: Osteopenia and osteoarthritic changes as described. Head MRI 10/08/19 00:00 IMPRESSION: MINIMAL MICROVASCULAR ISCHEMIC CHANGE. OTHERWISE NORMAL STUDY. EVIDENCE OF ACUTE STROKE: NO. Assessment & Plan - Diagnosis (1) Chronic systolic (congestive) heart failure Is this a current diagnosis for this admission?: Yes (2) Cardiomyopathy due to chemotherapy Is this a current diagnosis for this admission?: Yes (3) Other pancytopenia Is this a current diagnosis for this admission?: Yes (4) Urinary tract infection Qualifiers: Urinary tract infection type: site unspecified Hematuria presence: with hematuria Qualified Code(s): N39.0 - Urinary tract infection, site not specified; R31.9 - Hematuria, unspecified Is this a current diagnosis for this admission?: Yes (5) CLL (chronic lymphocytic leukemia) Is this a current diagnosis for this admission?: Yes (6) Shingles (herpes zoster) polyneuropathy Is this a current diagnosis for this admission?: Yes (7) Weakness of both lower extremities Is this a current diagnosis for this admission?: Yes (8) Scoliosis of lumbar spine Qualifiers: Scoliosis type: unspecified scoliosis Qualified Code(s): M41.9 - Scoliosis, unspecified Is this a current diagnosis for this admission?: Yes (9) Arthropathy of both knees Is this a current diagnosis for this admission?: Yes (10) Hypothyroidism Is this a current diagnosis for this admission?: Yes - Time Time Spent with patient: 25-34 minutes Level of Care: CU
[2019-10-11] MEDS: PRAMIPEXOLE DI-HCL 0.25 MG TABLET PO SCH (21:26)
[2019-10-11] MEDS: ATORVASTATIN CALCIUM 40 MG TABLET PO SCH (21:29)
[2019-10-11] MEDS: PHARMACY COMMUNICATION ORDER MC SCH (21:34)
[2019-10-12] MEDS: GABAPENTIN 300 MG CAPSULE PO SCH ×4 (00:12→17:26)
[2019-10-12] MEDS: HYDROMORPHONE HCL INJ/PF 2 MG/ML AMPULE IV PRN ×6 (00:12→20:12)
[2019-10-12] MEDS: VALACYCLOVIR HCL 500 MG TABLET PO SCH ×3 (02:37→17:26)
[2019-10-12] MEDS: OXYCODONE HCL IR 5 MG TABLET PO SCH ×6 (02:37→22:32)
[2019-10-12] MEDS: CAPSAICIN 0.025% CREAM 60 GM TP SCH ×3 (02:44→17:30)
[2019-10-12] MEDS: PANTOPRAZOLE SODIUM 40 MG TABLET.DR PO SCH (05:23)
[2019-10-12] MEDS: CYCLOBENZAPRINE HCL 10 MG TABLET PO SCH ×3 (05:23→22:30)
[2019-10-12] MEDS: LEVOTHYROXINE SODIUM 0.088 MG TABLET PO SCH (05:23)
[2019-10-12] MEDS: DOCUSATE SODIUM 100 MG CAPSULE PO SCH ×2 (10:56→17:22)
[2019-10-12] MEDS: POLYETHYLENE GLYCOL 3350 POWDER 17 GM/1 PACKET PO SCH (10:56)
[2019-10-12] MEDS: ASPIRIN 81 MG TABLET, CHEWABLE PO SCH (10:56)
[2019-10-12] MEDS: METOPROLOL SUCCINATE 25 MG TAB.SR.24H PO SCH (10:56)
[2019-10-12] MEDS: MELOXICAM 7.5 MG TABLET PO SCH ×2 (10:57→22:30)
[2019-10-12] MEDS: SACUBITRIL/VALSARTAN 49 MG/51 MG TABLET PO SCH ×2 (10:57→17:26)
[2019-10-12] MEDS: LIDOCAINE 5% (700 MG) TRANSDERMAL ADH..PATCH TP SCH (10:57)
[2019-10-12] MEDS: ENOXAPARIN SODIUM INJ 40 MG/0.4 ML DISP.SYRIN SUBCUT SCH (11:02)
--- NOTE | 2019-10-12 21:19 | PDOC PROGRESS REPORT ---
Subjective Progress Note for:: 10/12/19 Subjective:: Patient ready for discharge hopefully she will be transferred tomorrow to [facility] Reason For Visit: WEAKNESS, Physical Exam Vital Signs: Temp Pulse Resp BP Pulse Ox 98.1 F 85 16 116/69 97 10/12/19 16:37 10/12/19 19:00 10/12/19 16:37 10/12/19 16:37 10/12/19 16:37 Intake & Output 10/11/19 10/12/19 10/13/19 06:59 06:59 06:59 Intake Total 720 212 480 Output Total 2400 2850 550 Balance -1680 -2638 -70 Weight 56.4 kg 56.4 kg 56.4 kg General appearance: PRESENT: no acute distress Eye exam: PRESENT: PERRLA Respiratory exam: PRESENT: clear to auscultation evan Cardiovascular exam: PRESENT: +S1, +S2 GI/Abdominal exam: PRESENT: soft Results Laboratory Results: 09/28/19 06:20 09/29/19 06:30 Impressions: Chest X-Ray 09/25/19 19:19 IMPRESSION: NO ACUTE RADIOGRAPHIC FINDING IN THE CHEST. Lumbar Spine MRI 10/01/19 00:00 IMPRESSION: Marked levoconvex scoliosis of the lumbar spine with associated multilevel degenerative change. No greater than moderate central canal stenosis, present at the L3-4 level. Moderate neural foraminal narrowing bilaterally at this level. copyright 2011 [employer]- All Rights Reserved Lower Extremity MRI 10/02/19 00:00 IMPRESSION: 1. Left knee lateral meniscus tear. 2. Left knee medial meniscus tear. 3. Chondral loss particularly in the left knee lateral compartment. 4. Other findings as above. Knee X-Ray 10/07/19 00:00 IMPRESSION: Osteopenia and osteoarthritic changes as described. Head MRI 10/08/19 00:00 IMPRESSION: MINIMAL MICROVASCULAR ISCHEMIC CHANGE. OTHERWISE NORMAL STUDY. EVIDENCE OF ACUTE STROKE: NO. Assessment & Plan - Diagnosis (1) Chronic systolic (congestive) heart failure Is this a current diagnosis for this admission?: Yes (2) Cardiomyopathy due to chemotherapy Is this a current diagnosis for this admission?: Yes (3) Other pancytopenia Is this a current diagnosis for this admission?: Yes (4) Urinary tract infection Qualifiers: Urinary tract infection type: site unspecified Hematuria presence: with hematuria Qualified Code(s): N39.0 - Urinary tract infection, site not specified; R31.9 - Hematuria, unspecified Is this a current diagnosis for this admission?: Yes (5) CLL (chronic lymphocytic leukemia) Is this a current diagnosis for this admission?: Yes (6) Shingles (herpes zoster) polyneuropathy Is this a current diagnosis for this admission?: Yes (7) Weakness of both lower extremities Is this a current diagnosis for this admission?: Yes (8) Scoliosis of lumbar spine Qualifiers: Scoliosis type: unspecified scoliosis Qualified Code(s): M41.9 - Scoliosis, unspecified Is this a current diagnosis for this admission?: Yes (9) Arthropathy of both knees Is this a current diagnosis for this admission?: Yes (10) Hypothyroidism Is this a current diagnosis for this admission?: Yes - Time Time Spent with patient: 15-24 minutes Level of Care: CU
[2019-10-12] MEDS: ATORVASTATIN CALCIUM 40 MG TABLET PO SCH (22:30)
[2019-10-12] MEDS: PRAMIPEXOLE DI-HCL 0.25 MG TABLET PO SCH (22:30)
[2019-10-12] MEDS: PHARMACY COMMUNICATION ORDER MC SCH (22:35)
[2019-10-13] MEDS: HYDROMORPHONE HCL INJ/PF 2 MG/ML AMPULE IV PRN ×3 (00:54→11:52)
[2019-10-13] MEDS: GABAPENTIN 300 MG CAPSULE PO SCH ×3 (00:56→11:52)
[2019-10-13] MEDS: VALACYCLOVIR HCL 500 MG TABLET PO SCH ×2 (01:01→09:28)
[2019-10-13] MEDS: OXYCODONE HCL IR 5 MG TABLET PO SCH ×4 (01:02→13:50)
[2019-10-13] MEDS: CAPSAICIN 0.025% CREAM 60 GM TP SCH ×2 (01:04→09:29)
[2019-10-13] MEDS: LEVOTHYROXINE SODIUM 0.088 MG TABLET PO SCH (05:57)
[2019-10-13] MEDS: PANTOPRAZOLE SODIUM 40 MG TABLET.DR PO SCH (05:57)
[2019-10-13] MEDS: CYCLOBENZAPRINE HCL 10 MG TABLET PO SCH ×2 (05:57→13:50)
[2019-10-13 08:03] VITALS: BP 139/74
[2019-10-13] MEDS: ENOXAPARIN SODIUM INJ 40 MG/0.4 ML DISP.SYRIN SUBCUT SCH (09:24)
[2019-10-13] MEDS: METOPROLOL SUCCINATE 25 MG TAB.SR.24H PO SCH (09:27)
[2019-10-13] MEDS: MELOXICAM 7.5 MG TABLET PO SCH (09:28)
[2019-10-13] MEDS: SACUBITRIL/VALSARTAN 49 MG/51 MG TABLET PO SCH (09:28)
[2019-10-13] MEDS: DOCUSATE SODIUM 100 MG CAPSULE PO SCH (09:28)
[2019-10-13] MEDS: ASPIRIN 81 MG TABLET, CHEWABLE PO SCH (09:28)
[2019-10-13] MEDS: LIDOCAINE 5% (700 MG) TRANSDERMAL ADH..PATCH TP SCH (09:29)
[2019-10-13] MEDS: POLYETHYLENE GLYCOL 3350 POWDER 17 GM/1 PACKET PO SCH (09:29)
== END 2019-10-13 14:26 | DRG 690 ==
LOC: ER 12:47 → EH 19:37 → 4S 21:28
PROVIDERS: ADMIT Internal Medicine; ATTEND Internal Medicine
DX: N39.0 Urinary tract infection, site not specified (principal); I42.7 Cardiomyopathy due to drug and external agent; I50.22 Chronic systolic (congestive) heart failure; D61.818 Other pancytopenia; B02.23 Postherpetic polyneuropathy; C91.11 Chronic lymphocytic leukemia of B-cell type in remission; R53.1 Weakness; M41.86 Other forms of scoliosis, lumbar region; F32.9 Major depressive disorder, single episode, unspecified; M17.0 Bilateral primary osteoarthritis of knee; E06.3 Autoimmune thyroiditis; E78.5 Hyperlipidemia, unspecified; G89.4 Chronic pain syndrome; D64.9 Anemia, unspecified; R31.9 Hematuria, unspecified; I25.2 Old myocardial infarction; Z79.82 Long term (current) use of aspirin; Z79.890 Hormone replacement therapy; Z79.899 Other long term (current) drug therapy; Z88.6 Allergy status to analgesic agent; Z88.8 Allergy status to other drugs, medicaments and biological substances; Z74.01 Bed confinement status; Z03.818 Encounter for observation for suspected exposure to other biological agents ruled out
CPT/HCPCS: 36415; 51701; 70551; 71045; 72148; 80048; 80053; 81001; 82803; 83605; 83735; 85025; 85610; 87040; 87086; 87635; 93005; 93010; 96374; 96375; 99285; C9803; J0696; J1170; J1650; J2270; J2405; J3490

== ENCOUNTER → 2019-11-17 | Outpatient (CLI) | payer MEDICARE, OTHER ==
--- NOTE | 2019-11-17 13:09 | RADIOLOGY REPORT (SQ) ---
EXAM DESCRIPTION: MRI LUMBAR SPINE WITHOUT IMAGES COMPLETED DATE/TIME: 11/17/2019 9:46 am REASON FOR STUDY: M51.36 OTHER INTERVERTEBRAL DISC DEGENERATION, LUMBAR REGION M51.36 OTHER INTERVE RTEBRAL DISC DEGENERATION, LUMBAR REGION COMPARISON: None. TECHNIQUE: Sagittal and Axial imaging includes T1, T2, STIR and gradient echo sequences. Coronal T2/ HASTE imaging. LIMITATIONS: None. FINDINGS: VISUALIZED UPPER ABDOMEN: Limited evaluation. No acute or suspicious findings suggested. SEGMENTATION: No transitional anatomy. The lowest well-developed disc space is labeled L5-S1. ALIGNMENT: Levoscoliosis of the mid-lumbar spine. VERTEBRAE: Intact. There are marginal osteophytes. BONE MARROW: Normal. No marrow replacement or reactive changes. DISC SIGNAL: All the lumbar disc spaces are narrowed. There is decreased T2 signal intensity. POSTERIOR ELEMENTS: Generally intact. No pars defect evident. HARDWARE: None in the spine. CORD AND CONUS: Normal in size and signal intensity. Conus at the L1 level. SOFT TISSUES: No aortic aneurysm seen. No bulky retroperitoneal adenopathy or mass. No paraspinal mas s or fluid. L1-L2: Left lateral disc bulge with no central canal or foraminal stenosis. L2-L3: Asymmetrical circumferential disc bulge with no foraminal stenosis. Mild hypertrophic facet c hanges result in mild central canal stenosis. L3-L4: Asymmetrical circumferential disc bulge with mild foraminal stenoses. Hypertrophic facet martino ges. Mild central canal stenosis. L4-L5: Asymmetrical circumferential disc bulge. Hypertrophic facet changes. No foraminal stenoses. L5-S1: Shallow midline disc/ osteophyte complex with no central canal or foraminal stenoses. LOWER THORACIC: Incompletely imaged. No stenosis seen. SACRUM: Visualized upper sacrum intact. OTHER: No other significant findings. IMPRESSION: Scoliosis. Multilevel disc changes and facet arthropathy as described. Most significan t findings appear to be at L3-4 with there are mild foraminal stenoses, facet arthropathy, and centra l canal stenosis. TECHNICAL DOCUMENTATION: JOB ID: [id number] 2010 [email or web address]- All Rights Reserved Reading location - IP/workstation name: [email or web address]
== END ==
LOC: RAD 09:03
PROVIDERS: ATTEND Orthopaedic Surgery
DX: M51.36 Other intervertebral disc degeneration, lumbar region (principal); M48.061 Spinal stenosis, lumbar region without neurogenic claudication
CPT/HCPCS: 72148

== ENCOUNTER → 2019-12-31 | Outpatient (CLI) | payer MEDICARE, OTHER ==
--- NOTE | 2019-12-31 14:41 | RADIOLOGY REPORT (SQ) ---
EXAM DESCRIPTION: CT CHEST WITH IMAGES COMPLETED DATE/TIME: 12/31/2019 2:10 pm REASON FOR STUDY: (C91.10)CHRONIC LYMPHOCYTIC LEUK OF B-CELL TYPE NOT ACHIEVE REMIS C91.10 CHRONIC LYMPHOCYTIC LEUK OF B-CELL TYPE NOT ACHIEVE R COMPARISON: None. TECHNIQUE: CT scan of the chest performed using helical scanning technique with dynamic intravenous contrast injection. Images reviewed with lung, soft tissue and bone windows. Reconstructed coronal and sagittal MPR and MIP images reviewed. All images stored on PACS. All CT scanners at this facility use dose modulation, iterative reconstruction, and/or weight based d osing when appropriate to reduce radiation dose to as low as reasonably achievable (ALARA). [facility]: Dose Right [facility]: CareDose [facility]: Dose Right [facility]: Teradose 4D [facility]: Offerum CONTRAST TYPE AND DOSE: 95 mL Omnipaque 350- low osmolar. RENAL FUNCTION: Creatinine 0.9 RADIATION DOSE: . LIMITATIONS: None. FINDINGS: LUNGS AND PLEURA: No opacities, nodules, masses. No pneumothorax. No effusions. HILAR AND MEDIASTINAL STRUCTURES: No identified masses or abnormal nodes. HEART AND VASCULAR STRUCTURES: No aneurysm or dissection. No central pulmonary emboli. No pericardi al effusion. HARDWARE: None in the chest. UPPER ABDOMEN: See separate report of the CT of the abdomen. THYROID AND OTHER SOFT TISSUES: No masses. No adenopathy. BONES: No significant finding. OTHER: No other significant finding. IMPRESSION: NORMAL CT OF THE CHEST WITH IV CONTRAST. TECHNICAL DOCUMENTATION: JOB ID: [id number] Quality ID # [id number]: Final reports with documentation of one or more dose reduction techniques (e.g., Au tomated exposure control, adjustment of the mA and/or kV according to patient size, use of iterative reconstruction technique) 2010 [email or web address]- All Rights Reserved Reading location - IP/workstation name: [email or web address]
--- NOTE | 2019-12-31 14:56 | RADIOLOGY REPORT (SQ) ---
EXAM DESCRIPTION: CT ABD/PELVIS WITH IV ONLY IMAGES COMPLETED DATE/TIME: 12/31/2019 2:10 pm REASON FOR STUDY: (C91.10)CHRONIC LYMPHOCYTIC LEUK OF B-CELL TYPE NOT ACHIEVE REMIS C91.10 CHRONIC LYMPHOCYTIC LEUK OF B-CELL TYPE NOT ACHIEVE R COMPARISON: None. TECHNIQUE: CT scan of the abdomen and pelvis performed using helical scanning technique with dynamic intravenous contrast injection. No oral contrast. Images reviewed with lung, soft tissue, and bone windows. Reconstructed coronal and sagittal MPR images reviewed. Delayed images for evaluation of the urinary system also acquired. All images stored on PACS. All CT scanners at this facility use dose modulation, iterative reconstruction, and/or weight based d osing when appropriate to reduce radiation dose to as low as reasonably achievable (ALARA). [facility]: Dose Right [facility]: CareDose [facility]: Dose Right [facility]: Teradose 4D [facility]: Sonar.me CONTRAST TYPE AND DOSE: contrast/concentration: Isovue 350.00 mmol/ml; Total Contrast Delivered: 95. 0 ml; Total Saline Delivered: 40.0 ml RENAL FUNCTION: Creatinine 0.9 RADIATION DOSE: . LIMITATIONS: None. FINDINGS: LOWER CHEST: See separate report of the CT of the chest. LIVER: Normal size. No masses. No dilated ducts. SPLEEN: Normal size. No focal lesions. PANCREAS: No masses. No significant calcifications. No adjacent inflammation or peripancreatic fluid collections. Pancreatic duct not dilated. GALLBLADDER: No identified stones by CT criteria. No inflammatory changes to suggest cholecystitis. ADRENAL GLANDS: No significant masses or asymmetry. RIGHT KIDNEY AND URETER: No solid masses. No significant calcifications. No hydronephrosis or hyd roureter. LEFT KIDNEY AND URETER: No solid masses. No significant calcifications. No hydronephrosis or hydr oureter. AORTA AND VESSELS: No aneurysm. No dissection. Renal arteries, SMA, celiac without stenosis. RETROPERITONEUM: There are some subcentimeter sized periaortic and stepan-iliac lymph nodes. BOWEL AND PERITONEAL CAVITY: No masses or inflammatory changes. No free fluid or peritoneal masses. APPENDIX: Normal. PELVIS: No mass. No free fluid. Normal bladder. ABDOMINAL WALL: There are some subcentimeter sized inguinal nodes. BONES: Scoliosis. OTHER: No other significant finding. IMPRESSION: There are some subcentimeter sized periaortic, iliac, and inguinal lymph nodes. No othe r significant finding. TECHNICAL DOCUMENTATION: JOB ID: [id number] Quality ID # [id number]: Final reports with documentation of one or more dose reduction techniques (e.g., Au tomated exposure control, adjustment of the mA and/or kV according to patient size, use of iterative reconstruction technique) 2010 [email or web address]- All Rights Reserved Reading location - IP/workstation name: [email or web address]
--- NOTE | 2019-12-31 15:06 | RADIOLOGY REPORT (SQ) ---
EXAM DESCRIPTION: CT SOFT TISSUE NECK WITH IMAGES COMPLETED DATE/TIME: 12/31/2019 2:10 pm REASON FOR STUDY: (C91.10)CHRONIC LYMPHOCYTIC LEUK OF B-CELL TYPE NOT ACHIEVE REMIS C91.10 CHRONIC LYMPHOCYTIC LEUK OF B-CELL TYPE NOT ACHIEVE R COMPARISON: 08/28/2018 TECHNIQUE: Post IV contrasted scanning from skull base through lung apices with review of bone, soft tissue and lung windows. Reconstructed coronal and sagittal MPR images reviewed. All images stored on PACS. All CT scanners at this facility use dose modulation, iterative reconstruction, and/or weight based d osing when appropriate to reduce radiation dose to as low as reasonably achievable (ALARA). [facility]: Dose Right [facility]: CareDose [facility]: Dose Right [facility]: Teradose 4D [facility]: Vartopia CONTRAST TYPE AND DOSE: 95 mL Omnipaque 350- low osmolar. RENAL FUNCTION: Creatinine 0.9 RADIATION DOSE: CT Rad equipment meets quality standard of care and radiation dose reduction techniq ues were employed. CTDIvol: 15.8 - 23.3 mGy. DLP: 3211 mGy-cm. . LIMITATIONS: None. FINDINGS: SKULL BASE: Intact. MAJOR SALIVARY GLANDS: No solid or cystic masses. No inflammatory changes. LYMPHADENOPATHY: No adenopathy. MUCOSAL MASSES OR ASYMMETRY: No mucosal masses or asymmetry. LARYNX/CORDS: No abnormal findings. VASCULAR STRUCTURES: The major vessels are patent. LUNG APICES: See separate report for CT of the chest. BONES: Cervical degenerative disc disease and spondylosis. No osseous lesions. THYROID: Normal size. No masses. PARANASAL SINUSES: Clear. OTHER: No other significant finding. IMPRESSION: NO SIGNIFICANT FINDING IN THE SOFT TISSUES OF THE NECK. TECHNICAL DOCUMENTATION: JOB ID: [id number] Quality ID # [id number]: Final reports with documentation of one or more dose reduction techniques (e.g., Au tomated exposure control, adjustment of the mA and/or kV according to patient size, use of iterative reconstruction technique) 2010 [employer].- All Rights Reserved Reading location - IP/workstation name: [email or web address]
== END ==
LOC: RAD 13:26
PROVIDERS: ATTEND Internal Medicine
DX: C91.10 Chronic lymphocytic leukemia of B-cell type not having achieved remission (principal)
CPT/HCPCS: 70491; 71260; 74177; 82565

== ENCOUNTER → 2020-01-20 | Outpatient (CLI) | payer MEDICARE, OTHER ==
--- NOTE | 2020-01-20 12:12 | RADIOLOGY REPORT (SQ) ---
EXAM DESCRIPTION: MRI THORACIC SPINE WITHOUT IMAGES COMPLETED DATE/TIME: 01/20/2020 11:21 am REASON FOR STUDY: R29.2 ABNORMAL REFLEX R29.2 ABNORMAL REFLEX R29.898 OT SYMPTOMS AND SIGNS INVOL VING THE MUSCULOSKELETAL COMPARISON: CT chest dated 12/31/2019 TECHNIQUE: Sagittal and Axial imaging includes T1, T2, STIR and gradient echo sequences. LIMITATIONS: None. FINDINGS: LOCALIZER: No worrisome findings. ALIGNMENT: Mild thoracic scoliosis with concavity toward the left. VERTEBRAE: Intact. BONE MARROW: Normal. No marrow replacement or reactive changes. HARDWARE: None in the spine. CORD: Normal in size and signal intensity. SOFT TISSUES: No soft tissue masses. THORACIC DISCS T1-T12: No significant spinal stenosis or exit foraminal stenosis. LOWER CERVICAL: Incompletely imaged. No significant spinal stenosis or exit foraminal stenosis. UPPER LUMBAR: Incompletely imaged. No significant spinal stenosis or exit foraminal stenosis. OTHER: No other significant finding. IMPRESSION: Thoracic scoliosis. Mild disc degenerative disease with loss of normal water signal. N o focal disc herniation. No central canal stenosis. TECHNICAL DOCUMENTATION: JOB ID: [id number] [employer]- All Rights Reserved Reading location - IP/workstation name: [email or web address]
--- NOTE | 2020-01-20 12:16 | RADIOLOGY REPORT (SQ) ---
EXAM DESCRIPTION: MRI CERVICAL SPINE WITHOUT IMAGES COMPLETED DATE/TIME: 01/20/2020 11:21 am REASON FOR STUDY: R29.898 OTH SYMPTOMS AND SIGNS INVOLVING THE MUSCULOSKELETAL SYSTEM R29.2 ABNORMA L REFLEX R29.898 OTH SYMPTOMS AND SIGNS INVOLVING THE MUSCULOSKELETAL COMPARISON: CT neck dated 12/31/2019 TECHNIQUE: Sagittal and Axial imaging includes T1, T2, STIR and gradient echo sequences. LIMITATIONS: None. FINDINGS: ALIGNMENT: Reversal of the normal cervical lordosis. VERTEBRAE: Intact. BONE MARROW: Normal. No marrow replacement or reactive changes. DISCS: Multilevel disc space narrowing and desiccation throughout the cervical spine. HARDWARE: None in the spine. CORD AND BASE OF BRAIN: Normal in size and signal intensity. SOFT TISSUES: No soft tissue masses. C1-C2: No significant spinal stenosis. C2-C3: No significant spinal stenosis or exit foraminal stenosis. C3-C4: Broad-based disc/osteophyte complex. No central stenosis. Asymmetric narrowing of the left n eural foramina. C4-C5: Broad-based disc/osteophyte complex. No significant foraminal stenosis. No significant centr al stenosis. C5-C6: No significant spinal stenosis or exit foraminal stenosis. C6-C7: Broad-based disc/osteophyte complex. Slight flattening of the anterior thecal sac. No signif icant central stenosis or foraminal stenosis. C7-T1: Broad-based disc/osteophyte complex. No significant central stenosis or foraminal stenosis. UPPER THORACIC: Incompletely imaged. No significant spinal stenosis or exit foraminal stenosis. OTHER: No other significant finding. IMPRESSION: Multilevel disc degenerative disease. Broad-based disc/ osteophyte complex at C3-4 with asymmetric narrowing of the left neural foramina. TECHNICAL DOCUMENTATION: JOB ID: [id number] 2010 [employer]- All Rights Reserved Reading location - IP/workstation name: [email or web address]
== END ==
LOC: RAD 10:05
PROVIDERS: ATTEND Physician Assistant
DX: M50.33 Other cervical disc degeneration, cervicothoracic region (principal); R29.2 Abnormal reflex; R29.898 Other symptoms and signs involving the musculoskeletal system
CPT/HCPCS: 72141; 72146

== ENCOUNTER → 2020-02-01 | Outpatient (CLI) | payer MEDICARE, OTHER ==
--- NOTE | 2020-02-01 13:43 | RADIOLOGY REPORT (SQ) ---
EXAM DESCRIPTION: CERV SP 3 VIEW OR LESS IMAGES COMPLETED DATE/TIME: 02/01/2020 1:29 pm REASON FOR STUDY: ACQUIRED SPONDYOLISTHESIS COMPARISON: None. TECHNIQUE: Lateral flexion and extension radiographs of the spine. NUMBER OF VIEWS: Two views. LIMITATIONS: None. FINDINGS: In extension there is 3 mm of anterior translation of C3 on C4. This increases to 5.5 mm in flexion images. OTHER: No other significant finding. IMPRESSION: Instability at C3-4 as described. TECHNICAL DOCUMENTATION: JOB ID: [id number] 2010 [employer]- All Rights Reserved Reading location - IP/workstation name: [email or web address]
== END ==
LOC: RAD 12:47
PROVIDERS: ATTEND Physician Assistant
DX: M43.19 Spondylolisthesis, multiple sites in spine (principal); M53.2X2 Spinal instabilities, cervical region
CPT/HCPCS: 72040

== ENCOUNTER 2020-04-29 20:34 | Emergency (ER) | payer MEDICARE, OTHER ==
[2020-04-29] MEDS ORDERED: MECLIZINE HCL 12.5 MG TABLET PO ONE (20:48)
--- NOTE | 2020-04-29 20:53 | ER Document Report ---
ED Medical Screen (RME) - General Chief Complaint: Dizziness Stated Complaint: DIZZINESS,FEVER Time Seen by Provider: 04/29/20 20:40 Primary Care Provider: TIMOTEO LOPEZ PA [Primary Care Provider] - Follow up as needed Notes: Patient is a 70 year old female who presents to the ED with dizziness that started 2 days ago. She also had an episode of vomiting that day. States that she not vomited, but continues to be dizzy. She does not think that she has had any contact with anybody who tested positive for COVID-19. States that she was able to smell her perfume. States that she is always generally weak. Exam: Alert and oriented. I have greeted and performed a rapid initial assessment of this patient. A comprehensive ED assessment and evaluation of the patient, analysis of test results and completion of medical decision making process will be conducted by an additional ED providers. TRAVEL OUTSIDE OF THE [place] IN LAST 30 DAYS: No - Related Data Allergies/Adverse Reactions: codeine [Codeine] Adverse Reaction (Mild, Verified 03/23/19 10:54) lisinopril [Lisinopril] Adverse Reaction (Verified 03/23/19 10:54) Home Medications: pt has meds in a bag with her Past Medical History - Social History Chew tobacco use (# tins/day): No Frequency of alcohol use: None Drug Abuse: None - Past Medical History Cardiac Medical History: Reports: Hx Heart Attack - CARDIOTOXIC CHEMO Denies: Hx Coronary Artery Disease, Hx Hypertension - Past history Pulmonary Medical History: Reports: Hx Bronchitis, Hx COPD, Hx Pneumonia - Last time in April Denies: Hx Asthma Neurological Medical History: Denies: Hx Cerebrovascular Accident, Hx Seizures Endocrine Medical History: Reports: Hx Hyperthyroidism, Hx Hypothyroidism Renal/ Medical History: Reports: Hx Kidney Stones. Denies: Hx Peritoneal Dialysis Malignancy Medical History: Reports: Hx Leukemia - CLL Musculoskeltal Medical History: Reports Hx Arthritis - all over, Reports Hx Musculoskeletal Deformity, Reports Hx Musculoskeletal Trauma Psychiatric Medical History: Reports: Hx Anxiety, Hx Depression Traumatic Medical History: Reports: Hx Fractures Past Surgical History: Reports: Hx Appendectomy, Hx Breast Surgery - reduction, Hx Orthopedic Surgery - 13 foot surgeries neuromas rib removed , chest tube, Other - Recent port placement - Immunizations Immunizations up to date: Yes Hx Diphtheria, Pertussis, Tetanus Vaccination: Yes Physical Exam - Vital signs Vitals: Temp Pulse Resp BP Pulse Ox 98.5 F 81 16 150/87 H 100 04/29/20 20:40 04/29/20 20:40 04/29/20 20:40 04/29/20 20:40 04/29/20 20:40 Course - Vital Signs Vital signs: Temp Pulse Resp BP Pulse Ox 98.5 F 81 16 150/87 H 100 04/29/20 20:45 04/29/20 20:40 04/29/20 20:40 04/29/20 20:40 04/29/20 20:40 Doctor's Discharge - Discharge Referrals: TIMOTEO LOPEZ PA [Primary Care Provider] - Follow up as needed
[2020-04-29 22:10] LABS: HEMATOCRIT 38.4 % (36.0-47.0); MEAN CORPUSCULAR HEMOGLOBIN 27.6 pg (27.0-33.4); MEAN CORPUSCULAR HGB CONC 33.8 g/dL (32.0-36.0); MEAN CORPUSCULAR VOLUME 82 fl (80-97); PLATELET COUNT 222 10^3/uL (150-450); RED BLOOD COUNT 4.71 10^6/uL (3.72-5.28); RED CELL DISTRIBUTION WIDTH 16.4 % (11.5-14.0); WHITE BLOOD COUNT 7.2 10^3/uL (4.0-10.5)
[2020-04-29 22:15] LABS: A TYPE INFLUENZA AG NEGATIVE (NEGATIVE); B INFLUENZA AG NEGATIVE (NEGATIVE)
[2020-04-29 22:27] LABS: ALBUMIN 4.5 g/dL (3.5-5.0); ALKALINE PHOSPHATASE 78 U/L (38-126); ANION GAP 8 (5-19); ASPARTATE AMINO TRANSFERASE 44 U/L (14-36); BILIRUBIN,DIRECT 0.6 mg/dL (0.0-0.4); BILIRUBIN,TOTAL 0.6 mg/dL (0.2-1.3); BLOOD UREA NITROGEN 24 mg/dL (7-20); CALCIUM 9.4 mg/dL (8.4-10.2); CARBON DIOXIDE 28 mmol/L (22-30); CHLORIDE 101 mmol/L (98-107); GLUCOSE 121 mg/dL (75-110); POTASSIUM 4.4 mmol/L (3.6-5.0); TOTAL PROTEIN 6.6 g/dL (6.3-8.2)
[2020-04-29 22:33] LABS: ABSOLUTE LYMPHOCYTES# (MANUAL) 0.8 10^3/uL (0.5-4.7); ABSOLUTE MONOCYTES # (MANUAL) 0.3 10^3/uL (0.1-1.4); BASOPHILS % (MANUAL) 0 % (0-2); EOSINOPHILS % (MANUAL) 7 % (0-6); LYMPHOCYTES % (MANUAL) 10 % (13-45); METAMYELOCYTES % (MANUAL) 2 % (0-1); MONOCYTES % (MANUAL) 4 % (3-13); SEGMENTED NEUTROPHILS % (MAN) 76 % (42-78); TOTAL CELLS COUNTED 100
[2020-04-29 22:35] LABS: ANISOCYTOSIS 1+; OVALOCYTES SLIGHT; PLATELET COMMENT ADEQUATE; POIKILOCYTOSIS SLIGHT
--- NOTE | 2020-04-29 23:30 | ER Document Report ---
ED Dizziness/Weakness - General Chief Complaint: Dizziness Stated Complaint: DIZZINESS,FEVER Time Seen by Provider: 04/29/20 20:40 Primary Care Provider: TIMOTEO LOPEZ PA [[facility]] - Follow up as needed Mode of Arrival: Ambulatory Information source: Patient Notes: 70-year-old female presented to ED for complaint of dizziness started 2 days ago. She states she had some episodes of vomiting today but she is not vomiting now and states she has not been since earlier today. She states she continues to be dizzy. She states she was given some meclizine in the triage area and that she felt much better. She states she has not been around anybody that te sted positive for COVID-19 but that she has been tested since she has been here. She is alert oriented respirations regular nonlabored speaking in full sentences. She states she is eating and drinking and is and not having any problems with that. She states she has been dizzy since Saturday. She states she does have a history of NE with cardiac cath with no stents Constitutional: Negative for fever. HENT: Negative for sore throat. Eyes: Negative for visual changes. Cardiovascular: Complains of dizziness Respiratory: Negative for shortness of breath. Gastrointestinal: Complains of nausea and vomiting earlier but none now Genitourinary: Negative for dysuria. Now Musculoskeletal: Negative for back pain. Skin: Negative for rash. Neurological: Negative for headaches, weakness or numbness. 10 point ROS negative except as marked above and in HPI. VITAL SIGNS: Within normal limits. GENERAL: No acute distress, non-toxic appearance. HEAD: Normal with no signs of head trauma. EYES: PERRLA, EOMI, conjunctiva normal, no discharge. EARS: Hearing grossly intact. NOSE: Normal. THROAT: Oropharynx is normal. NECK: Normal range of motion, no tenderness, supple, no lymphadenopathy, No adenopathy, no JVD. CHEST: Clear breath sounds bilaterally. No wheezes, rales, or rhonchi. CARDIAC: Regular rate and rhythm. S1 and S2, without murmurs, gallops, or rubs. VASCULAR: No Edema. Peripheral pulses normal and equal in all extremities. ABDOMEN: Normal and soft with no tenderness, no masses or pulsatile masses. GASTROINTESTINAL: Bowel sounds normal GENITOURINARY: Normal, No tenderness LYMPATHTIC: No lymphadenopathy noted. MUSCULOSKELETAL: Good range of motion of all major joints. Extremities without clubbing, cyanosis or edema. NEUROLOGICAL: Alert and oriented x 3. No focal sensory or strength deficits. Speech normal. Follows commands appropriately. PSYCHIATRIC: Normal Affect, judgement and mood. SKIN: Normal appearance with no rashes or lesions. TRAVEL OUTSIDE OF THE [place] IN LAST 30 DAYS: No - HPI Patient complains to provider of: Dizziness, Vertigo Onset: Other - X2 days Onset/Duration: Intermittent Quality of pain: No pain Pain Level: Denies Associated symptoms: Dizzy Exacerbated by: Change in position Baseline gait: Walks w/o assistance - Related Data Allergies/Adverse Reactions: codeine [Codeine] Adverse Reaction (Mild, Verified 03/23/19 10:54) lisinopril [Lisinopril] Adverse Reaction (Verified 03/23/19 10:54) Home Medications: pt has meds in a bag with her Past Medical History - General Information source: Patient - Social History Smoking Status: Never Smoker Chew tobacco use (# tins/day): No Frequency of alcohol use: None Drug Abuse: None Family History: Reviewed & Not Pertinent Patient has homicidal ideation: No - Past Medical History Cardiac Medical History: Reports: Hx Heart Attack - CARDIOTOXIC CHEMO dates it was due to her allopurinol and her chemotherapy Pulmonary Medical History: Reports: Hx Bronchitis, Hx COPD, Hx Pneumonia - Last time in April EENT Medical History: Reports: None Neurological Medical History: Reports: None Endocrine Medical History: Reports: Hx Hypothyroidism Renal/ Medical History: Reports: Hx Kidney Stones Malignancy Medical History: Reports: Hx Leukemia - CLL GI Medical History: Reports: None Musculoskeletal Medical History: Reports Hx Arthritis - all over, Reports Hx Musculoskeletal Deformity, Reports Hx Musculoskeletal Trauma Skin Medical History: Reports None Psychiatric Medical History: Reports: Hx Anxiety, Hx Depression Traumatic Medical History: Reports: Hx Fractures Infectious Medical History: Reports: None Past Surgical History: Reports: Hx Appendectomy, Hx Breast Surgery - reduction, Hx Orthopedic Surgery - 13 foot surgeries neuromas rib removed , chest tube, Other - Recent port placement - Immunizations Immunizations up to date: Yes Hx Diphtheria, Pertussis, Tetanus Vaccination: Yes Hx Pneumococcal Vaccination: 01/06/15 Physical Exam - Vital signs Vitals: Temp Pulse Resp BP Pulse Ox 98.5 F 81 16 150/87 H 100 04/29/20 20:40 04/29/20 20:40 04/29/20 20:40 04/29/20 20:40 04/29/20 20:40 Course - Re-evaluation Re-evalutation: 04/30/20 03:49 Patient was diagnosed with UTI and she was instructed to please take the Cipro she has at home that her primary care doctor ordered for UTI and she never took because she did not believe she had a UTI. She was also tested for Covid as she stated she was having nausea and vomiting and other symptoms of Covid. So she is now a person under investigation. - Vital Signs Vital signs: Temp Pulse Resp BP Pulse Ox 98.5 F 81 12 132/99 H 94 04/30/20 01:01 04/29/20 20:40 04/30/20 00:55 04/30/20 01:01 04/30/20 00:55 - Laboratory Results Result Diagrams: 04/29/20 21:58 04/29/20 21:58 Laboratory Results Interpreted: 04/29/20 04/29/20 04/30/20 21:58 21:58 00:11 RDW 16.4 H Lymphocytes % (Manual) 10 L Eosinophils % (Manual) 7 H Metamyelocytes % 2 H BUN 24 H Glucose 121 H Direct Bilirubin 0.6 H AST 44 H ALT 40 H Urine Protein 100 H Urine Blood LARGE H Ur Leukocyte Esterase LARGE H Urine Ascorbic Acid 40 H Critical Laboratory Results Reviewed: No Critical Results - Radiology Results Critical Radiology Results Reviewed: No Critical Results Discharge - Discharge Clinical Impression: UTI (urinary tract infection) Qualifiers: Urinary tract infection type: site unspecified Hematuria presence: with hematuria Qualified Code(s): N39.0 - Urinary tract infection, site not specified Condition: Stable Disposition: HOME, SELF-CARE Instructions: COVID-19 Guidance for Persons Under Investigation Additional Instructions: URINARY TRACT INFECTION: Your evaluation indicates that you have a urinary tract infection. This is due to germs growing in the bladder. This is a common problem. This infection usually responds quickly to antibiotics. Your antibiotic should be taken exactly as prescribed. Drink plenty of fluids -- three to four quarts a day. Occasionally, a bladder anesthetic will be prescribed to help stop the feeling of urgency until the antibiotic has a chance to clear the infection. This may cause your urine to be dark orange. Certain urine infections require a culture. If the doctor obtained a culture, the results will be back in two days. You should call to see if a change in treatment is needed. A repeat urinalysis after you finish treatment is often recommended. The physician will let you know if further testing is required. Call the doctor if you develop fever, chills, flank pain, inability to urinate, or blood in the urine. He states she doctor gave you a prescription for Cipro for UTI but you did not think you had a UTI so you did not take the antibiotic. Please take the antibiotic because you do have a urinary tract infection and you need to take the antibiotic. CIPROFLOXACIN: You have been given an antibacterial agent, ciprofloxacin (Cipro). This medicine is not related to the penicillins, sulfas, cephalosporins, or tetracyclines. It is often given to patients who are allergic to these drugs. It has been chosen for you either because other drugs are not appropriate, or because of the nature of your problem. Cipro should not be taken with antacids, as these can decrease its effectiveness. It can be taken without regard to meals. CIPRO SHOULD NOT BE TAKEN BY CHILDREN, NURSING WOMEN, OR WOMEN. Although Cipro is usually well-tolerated, common side effects can include nausea and diarrhea. Contact your doctor if you experience any unusual symptoms while on this medication, such as joint pain or swelling, shortness of breath, wheezing, faintness, or hives. Patient was provided with discharge information including: As a person under investigation for Covid 19, the [place] department of Health and Human Services, division of public health advises you to adhere to the following guidance until your test results are reported to you. If your test result is positive, you will receive additional information from your provider and your local health department at that time. Remain at home until you are cleared by the health provider or public health authorities. Keep a log of visitors to your home, notify any visitors to your home of your isolation status. If you plan to move to a new address or leave the county, notify the local health department in your County. Call your doctor or seek care if you have an urgent medical need. Before seeking medical care, call ahead to get instructions from the provider before arriving at the medical office clinic or hospital. Notify them that you are being tested for the virus that causes Covid 19 so that arrangements can be made, as necessary, to prevent transmission to others in the healthcare setting. Next, notify the local health department in your county. If a medical emergency arises and you need to call 911, inform the first responders that you are being tested for the virus that causes Covid 19. Next, notify the local health department in your county. Forms: Elevated Blood Pressure Referrals: TIMOTEO LOPEZ PA [[facility]] - Follow up as needed
--- NOTE | 2020-04-30 00:20 | RADIOLOGY REPORT (SQ) ---
EXAM DESCRIPTION: XR CHEST 1 VIEW COMPLETED DATE/TME: 04/29/2020 23:56 CLINICAL HISTORY: 70 years, Female, Dizziness COMPARISON: 09/25/2019 chest NUMBER OF VIEWS: 1 TECHNIQUE: Portable chest LIMITATIONS: None. FINDINGS: The heart size is normal. Osteopenia. [id number] catheter in place. Stable elevation of the right hemidiaphragm. Minimal scarring left lung base. No pneumothorax IMPRESSION: No acute cardiopulmonary process copyright 2010 [employer]- All Rights Reserved
[2020-04-30 00:34] LABS: APPEARANCE,URINE SLIGHTLY-CLOUDY; BILIRUBIN,URINE NEGATIVE (NEGATIVE); COLOR,URINE YELLOW; GLUCOSE, URINE NEGATIVE (NEGATIVE); KETONES,URINE NEGATIVE (NEGATIVE); LEUKOCYTE ESTERASE,URINE LARGE (NEGATIVE); NITRITE,URINE NEGATIVE (NEGATIVE); PROTEIN,URINE 100 mg/dL (NEGATIVE); URINE SPECIFIC GRAVITY 1.025; UROBILINOGEN,URINE NEGATIVE mg/dL (<2.0)
[2020-04-30 01:11] VITALS: BP 132/99
--- NOTE | 2020-04-30 09:05 | EKG REPORT ---
SEVERITY:- DEFECTIVE ECG - SINUS RHYTHM 80 A-FLUTTER W/ PREDOM 4:1 AV BLOCK, A-RATE 340 (LIKELY DEFECTIVE EKG) REPEAT EKG. : Confirmed by: Saúl Wells MD 30-Apr-2020 09:05:07
== END 2020-04-30 01:11 | disposition home or self-care (01) ==
LOC: ER 20:34
DX: N39.0 Urinary tract infection, site not specified (principal); R42 Dizziness and giddiness; R50.9 Fever, unspecified; Z20.822 Contact with and (suspected) exposure to COVID-19; I25.2 Old myocardial infarction; Z87.442 Personal history of urinary calculi
CPT/HCPCS: 93005; 99285; 36415; 87086; 85025; 80053; 81001; 87804; 71045; 93010; U0003; A9270; C9803; 87635; J3490